=== PATIENT | male | born 1950 | race Caucasian/White ===

== ENCOUNTER → 2016-04-10 | Outpatient (CLI) | payer MEDICARE, BC ==
--- NOTE | 2016-04-10 14:11 | XR ---
EXAMINATION TYPE: XR cervical spine w flex/ext DATE OF EXAM: 04/10/2016 1:59 PM COMPARISON: NONE HISTORY: 09/04/2015 Neutral lateral, extension lateral and flexion lateral views are submitted. The odontoid is intact. There are no compression deformities. The prevertebral soft tissue structur es are within normal limits. Degenerative changes C3-C4 and C5-C6. There is a 3 mm anterolisthesis o f C4 on C5 which is noted on flexion views only. Alignment is not demonstrated level C7. IMPRESSION: 1. There is a 3 mm anterolisthesis C4 on C5 noted on flexion views only..
--- NOTE | 2016-04-10 14:20 | XR ---
EXAM TYPE: LUMBAR SPINE X RAY SERIES COMPARISON: 10/18/2015 HISTORY: Chronic low back pain TECHNIQUE: 3 views are submitted. FINDINGS: Alignment is anatomic. The pedicles are intact. The transverse processes are intact. Postsurgical c hange noted. Scoliotic curvature noted. Multilevel degenerative disc disease seen. IMPRESSION: 1. Stable postsurgical change
== END | disposition home or self-care (01) ==
LOC: RADXRMAIN 13:09
PROVIDERS: ATTEND Neurological Surgery
DX: M43.12 Spondylolisthesis, cervical region (principal); M51.36 Other intervertebral disc degeneration, lumbar region; Z98.890 Other specified postprocedural states
CPT/HCPCS: 72052; 72100

== ENCOUNTER → 2016-04-30 | Outpatient (CLI) | payer MEDICARE, BC ==
--- NOTE | 2016-04-30 21:47 | MR ---
EXAMINATION TYPE: MR ivey wo con DATE OF EXAM: 04/30/2016 6:03 PM COMPARISON: 09/04/2015 HISTORY: Low back pain, Lumbar surgery x 1 year CONTRAST: None TECHNIQUE: Multiplanar multiecho imaging on a 3.0 Naina magnet is performed through the cervical spin e. FINDINGS: The craniovertebral junction is normal. Vertebral body alignment is normal. C7-T1: No focal disc herniation or significant disc bulge is evident. No spinal canal stenosis or n eural foraminal stenosis is present. C6-7: No focal disc herniation or significant disc bulge is evident. No spinal canal stenosis or emilie ral foraminal stenosis is present. C5-6: Mild disc bulge is present centrally and left paracentrally. This has mild anterior thecal sac compression. No cord contact is evident. Mild uncovertebral joint hypertrophy on the left with moder ate foraminal narrowing. No AP spinal canal stenosis present. C4-5: There is a central focal protrusion with moderate anterior thecal sac compression. No cord cont act is evident. No spinal canal stenosis present. Neural foramen are patent.. C3-4: There is a central disc herniation with moderate anterior thecal sac compression. This has cord contact. No cord deformity is evident. No AP spinal canal stenosis present. Uncovertebral joint hype rtrophy on the right is causing moderate foraminal narrowing.. C2-3: No focal disc herniation or significant disc bulge is evident. No spinal canal stenosis or emilie ral foraminal stenosis is present. The C4-5 disc protrusion is slightly greater on the current examination. Remaining disc changes are s table. Foraminal narrowing is stable. IMPRESSIONS: 1. There is central disc herniation C3-C4 with moderate anterior thecal sac compression. Cord contact is present without cord deformity. 2. Disc protrusion C4-5 slightly greater on the current examination without cord contact or deformity . 3. Disc bulging C5-6 with mild anterior thecal sac compression. 4. Foraminal narrowing discussed above. EXAMINATION TYPE: MR ivey wo con DATE OF EXAM: 04/30/2016 6:03 PM COMPARISON: 12/07/2014 HISTORY: Low back pain, Lumbar surgery x 1 year CONTRAST: 0 mL intravenous MultiHance. TECHNIQUE: Multiplanar, multisequence images of the lumbar spine were acquired. FINDINGS: Cord terminates at the L1 level. L5-S1: No significant disc bulge or disc herniation. No spinal canal stenosis. No foraminal stenosi s. . L4-L5: No significant disc bulge or disc herniation. No spinal canal stenosis. No foraminal stenosi s. Susceptibility artifact limits the posterior spinal canal evaluation.. L3-L4: No significant disc bulge or disc herniation. No spinal canal stenosis. No foraminal stenosi s. Susceptibility artifact limits the posterior spinal canal evaluation. This is an interval change. . L2-L3: No significant disc bulge or disc herniation. No spinal canal stenosis. No foraminal stenosi s. Neural foramen are patent.. L1-L2: Left paracentral disc bulge has mild anterior thecal sac compression. Facet hypertrophy is lef t posterior lateral thecal sac compression. AP spinal canal stenosis is not present. No foraminal jazmine nosis. . T12-L1: No significant disc bulge or disc herniation. No spinal canal stenosis. No foraminal stenos is. Neural foramen are patent.. Findings appear stable from 12/07/2014. No increasing stenosis increasing disc bulge or foraminal marietta rowing is evident. Facet changes appear stable. The pedicle screw placement L3-L4 is an interval find ing. IMPRESSION: 1. . Postsurgical changes L3-L4. This causes some limitation of the posterior spinal canal. 2. Mild facet changes.
== END | disposition home or self-care (01) ==
LOC: RADMRIMAIN 17:08
PROVIDERS: ATTEND Neurological Surgery
DX: M50.21 Other cervical disc displacement, high cervical region (principal); M50.221 Other cervical disc displacement at C4-C5 level; M51.36 Other intervertebral disc degeneration, lumbar region; M48.02 Spinal stenosis, cervical region; M41.26 Other idiopathic scoliosis, lumbar region; M50.320 Other cervical disc degeneration, mid-cervical region, unspecified level; Z98.890 Other specified postprocedural states
CPT/HCPCS: 72141; 72148

== ENCOUNTER → 2016-06-16 | Outpatient (CLI) | payer MEDICARE, BC ==
[2016-06-11 11:29] VITALS: BMI 33.0
[2016-06-16 13:15] VITALS: BP 143/94; PULSE 91; RESP 16; TEMP 97.8
--- NOTE | 2016-06-16 13:50 | P.CONS ---
History of Present Illness - Chief Complaint Lower back pain - History of Present Illness This is a 66-year-old male with long-standing history of lower back pain that he used to radiate down the left lower extremity however his back surgery which she had in 2014 stopped his left leg pain. The patient is more on the left side of his lower back. The pain gets worse by standing and sitting for too long. Right now the patient goes to physical therapy which didhelp his pain. He used to be on Apollo 4-5 times a day and he used to go to the clinic clinic but he stopped going there after he weaned himself off Apollo. The patient denies any bowel or bladder dysfunction. This pain occasionally wakes him up at night when he moves in bed. He denies any weakness in the lower extremities. Lumbar spine MRI showed surgical changes at the L2-L3 level and mild disc bulging and facet arthropathy. 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 Past Medical History Past Medical History: GERD/Reflux, Hyperlipidemia, Hypertension Additional Past Medical History / Comment(s): lower back pain History of Any Multi-Drug Resistant Organisms: None Reported Past Surgical History: Back Surgery, Heart Catheterization With Stent Past Anesthesia/Blood Transfusion Reactions: No Reported Reaction Date of Last Stent Placement:: 1997 Past Psychological History: No Psychological Hx Reported Smoking Status: Former smoker Past Alcohol Use History: Rare Additional Past Alcohol Use History / Comment(s): smoker 30 years 1 ppd quit Past Drug Use History: None Reported - Past Family History Father Family Medical History: No Reported History Medications and Allergies Home Medications Medication Instructions Recorded Confirmed Type Aspirin [Adult Low Dose Aspirin EC] 2 tab PO DAILY 06/11/16 06/16/16 History Atorvastatin [Lipitor] 40 mg PO DAILY 06/11/16 06/16/16 History Levocetirizine Dihydrochloride 5 mg PO DAILY 06/11/16 06/16/16 History [Xyzal] Metoprolol Tartrate [Lopressor] 50 mg PO DAILY 06/11/16 06/16/16 History Acetaminophen [Tylenol 8 Hour] 650 mg PO Q8HR 06/16/16 06/16/16 History Naproxen Sodium [Aleve] 220 mg PO TID 06/16/16 06/16/16 History Allergies Allergy/AdvReac Type Severity Reaction Status Date / Time Penicillins Allergy Rash/Hives Verified 06/16/16 12:52 Physical Exam Vitals: Vital Signs Temp Pulse Resp BP 06/16/16 12:57 97.8 F 91 16 143/94 - Psychiatric Psychiatric: A&O x's 3, appropriate affect, intact judgment & insight (Neuro exam of the lower extremities showed normal and symmetrical muscle strength absent left knee reflex and normal right knee reflex absent ankle reflexes bilaterally.) Neuro exam showed normal muscle strength in the lower extremities bilaterally and symmetrically absent left knee reflex normal right knee reflex absent ankle reflexes bilaterally. Straight leg raising test negative bilaterally Ru's test negative bilaterally internal and external rotation of the hip joints did not elicit any hip pain. Has some tenderness in the lumbar paravertebral area bilaterally. Assessment and Plan Plan: This is a 66-year-old male with axial lower back pain status post back surgery in 2014. The patient has weaned himself off Apollo and right now he is on non- opioid medications and physical therapy. I think the patient may benefit from getting lumbar bilateral medial branch block as diagnostic procedure, and eventually radiofrequency ablation if the diagnostic procedure helped decrease his pain significantly. I thank you for the referral
== END | disposition home or self-care (01) ==
LOC: PNWHC3 12:46
PROVIDERS: ATTEND Anesthesiology
DX: M54.5 Low back pain (principal); K21.9 Gastro-esophageal reflux disease without esophagitis; E78.5 Hyperlipidemia, unspecified; I10 Essential (primary) hypertension; Z87.891 Personal history of nicotine dependence; Z98.890 Other specified postprocedural states; Z88.0 Allergy status to penicillin; Z79.82 Long term (current) use of aspirin; Z79.899 Other long term (current) drug therapy; Z79.1 Long term (current) use of non-steroidal anti-inflammatories (NSAID)
CPT/HCPCS: 99211

== ENCOUNTER → 2016-07-28 | Outpatient (CLI) | payer MEDICARE, BC ==
[2016-07-28 09:18] LABS: ALT 52 U/L (21-72); AST 24 U/L (17-59); Alkaline Phosphatase 57 U/L (38-126); Anion Gap 10 mmol/L; Blood Urea Nitrogen 13 mg/dL (9-20); Calcium 9.3 mg/dL (8.4-10.2); Carbon Dioxide 28 mmol/L (22-30); Chloride 105 mmol/L (98-107); Glucose 112 mg/dL (74-99); Non-African American GFR(MDRD) >60 (>60 ml/min/1.73 sqM); Potassium 4.6 mmol/L (3.5-5.1); Sodium 143 mmol/L (137-145); Total Bilirubin 0.8 mg/dL (0.2-1.3); Total Protein 7.1 g/dL (6.3-8.2)
== END | disposition home or self-care (01) ==
LOC: LABWHC1 08:11
PROVIDERS: ATTEND Internal Medicine
DX: I10 Essential (primary) hypertension (principal)
CPT/HCPCS: 36415; 80053

== ENCOUNTER → 2017-01-19 | Outpatient (CLI) | payer MEDICARE, BC ==
[2017-01-19 09:33] LABS: Basophils # (A) 0.1 k/uL (0-0.2); Basophils % (A) 1 %; CH 32.3; CHCM 31.5; Eosinophils # (A) 0.2 k/uL (0-0.7); Eosinophils % (A) 3 %; HCT 50.2 % (39.0-53.0); HDW 2.21; HGB 15.7 gm/dL (13.0-17.5); Luc # (Auto) 0.19; Luc % (Auto) 2; Lymphocytes # (A) 1.6 k/uL (1.0-4.8); Lymphocytes % (A) 18 %; MCH 32.3 pg (25.0-35.0); MCHC 31.4 g/dL (31.0-37.0); MCV 102.9 fL (80.0-100.0); Macrocytosis Slight; Mean Platelet Volume 7.8; Monocytes # (A) 0.6 k/uL (0-1.0); Monocytes % (A) 7 %; Neutrophils # (A) 6.1 k/uL (1.3-7.7); Neutrophils % (A) 70 %; RBC 4.88 m/uL (4.30-5.90); RDW 13.6 % (11.5-15.5); WBC 8.8 k/uL (3.8-10.6); WBC (Perox) 8.54
[2017-01-19 11:00] LABS: ALT 68 U/L (21-72); AST 29 U/L (17-59); Alkaline Phosphatase 63 U/L (38-126); Anion Gap 9 mmol/L; Blood Urea Nitrogen 16 mg/dL (9-20); Carbon Dioxide 24 mmol/L (22-30); Chloride 106 mmol/L (98-107); Cholesterol 166 mg/dL (<200); Glucose 108 mg/dL (74-99); HDL Cholesterol 40 mg/dL (40-60); Non-African American GFR(MDRD) >60 (>60 ml/min/1.73 sqM); Potassium 4.8 mmol/L (3.5-5.1); Sodium 139 mmol/L (137-145); Total Bilirubin 0.5 mg/dL (0.2-1.3); Total Protein 6.8 g/dL (6.3-8.2)
== END | disposition home or self-care (01) ==
LOC: LABWHC1 08:19
PROVIDERS: ATTEND Internal Medicine
DX: Z00.00 Encounter for general adult medical examination without abnormal findings (principal); I10 Essential (primary) hypertension; Z12.5 Encounter for screening for malignant neoplasm of prostate
CPT/HCPCS: 80061; 80053; 85025; 36415; G0103

== ENCOUNTER 2019-07-21 11:54 | Emergency (ER) | payer MEDICARE, BC ==
[2019-07-21] MEDS ORDERED: IPRATROPIUM-ALBUTEROL 3 ML NEB INHALATION STA ×2 (12:51→15:23)
--- NOTE | 2019-07-21 13:12 | ED ---
SOB HPI - General Chief Complaint: Shortness of Breath Stated Complaint: Pneumonia,EULALIO Time Seen by Provider: 07/21/19 12:40 Source: patient, RN notes reviewed Mode of arrival: ambulatory Limitations: no limitations - History of Present Illness Initial Comments: 69-year-old male presents emergency Department with chief complaint of shortness of breath. Patient had increase in shortness breath since Thursday. Patient reports a fever 100 at home. Patient is nonproductive cough. He states he normally has issues with his asthma with seasonal ALLERGIES. Patient sees Dr. Beltran. He denies any sick contacts. Denies any leg swelling, leg pain. Patien t states that he is getting no relief with his inhalers at home. Patient does admit that he has a history of CAD. - Related Data Home Medications Medication Instructions Recorded Confirmed Aspirin [Adult Low Dose Aspirin EC] 162 mg PO DAILY 06/11/16 03/21/17 Atorvastatin [Lipitor] 40 mg PO DAILY 06/11/16 03/21/17 Levocetirizine Dihydrochloride 5 mg PO DAILY 06/11/16 03/21/17 [Xyzal] Metoprolol Tartrate [Lopressor] 50 mg PO DAILY 06/11/16 03/21/17 Albuterol Inhaler (Mhu) [Ventolin 1 - 2 puff INHALATION RT-Q6H PRN 03/21/17 03/21/17 Hfa Inhaler (Mhu)] Montelukast [Singulair] 10 mg PO DAILY 03/21/17 03/21/17 Previous Rx's Medication Instructions Recorded Levofloxacin [Levaquin] 500 mg PO DAILY 5 Days #5 tab 03/25/17 predniSONE 10 mg PO DAILY 16 Days #40 tab 03/25/17 Ipratropium-Albuterol Nebulize 3 ml INHALATION QID 30 Days #5 box 03/26/17 [Duoneb 0.5 mg-3 mg/3 ml Soln] Pantoprazole [Protonix] 40 mg PO DELMI-OLWKFSZaynab #30 tablet. 03/26/17 Polyethylene Glycol 3350 [Miralax] 17 gm PO DAILY #30 powd.pack 03/26/17 Ipratropium-Albuterol Nebulize 3 ml INHALATION QID #1 box 07/21/19 [Duoneb 0.5 mg-3 mg/3 ml Soln] predniSONE 50 mg PO DAILY #5 tab 07/21/19 Allergies Allergy/AdvReac Type Severity Reaction Status Date / Time budesonide [From Symbicort] Allergy Rash/Hives Verified 07/21/19 12:37 formoterol [From Symbicort] Allergy Rash/Hives Verified 07/21/19 12:37 Penicillins Allergy Rash/Hives Verified 07/21/19 12:37 Review of Systems ROS Statement: Those systems with pertinent positive or pertinent negative responses have been documented in the HPI. ROS Other: All systems not noted in ROS Statement are negative. Past Medical History Past Medical History: GERD/Reflux, Hyperlipidemia, Hypertension Additional Past Medical History / Comment(s): lower back pain History of Any Multi-Drug Resistant Organisms: None Reported Past Surgical History: Back Surgery, Heart Catheterization With Stent Past Anesthesia/Blood Transfusion Reactions: No Reported Reaction Date of Last Stent Placement:: 1997 Past Psychological History: No Psychological Hx Reported Smoking Status: Former smoker Past Alcohol Use History: Rare Past Drug Use History: None Reported - Past Family History Father Family Medical History: No Reported History Mother Additional Family Medical History / Comment(s): ALLERGIES General Exam Limitations: no limitations General appearance: alert, in no apparent distress Head exam: Present: atraumatic, normocephalic, normal inspection Eye exam: Present: normal appearance, PERRL, EOMI. Absent: scleral icterus, conjunctival injection, periorbital swelling ENT exam: Present: normal exam, normal oropharynx, mucous membranes moist Neck exam: Present: normal inspection. Absent: tenderness, meningismus, lymphadenopathy Respiratory exam: Present: decreased breath sounds. Absent: normal lung sounds bilaterally, respiratory distress, wheezes, rales, rhonchi, stridor Cardiovascular Exam: Present: regular rate, normal rhythm, normal heart sounds. Absent: systolic murmur, diastolic murmur, rubs, gallop, clicks GI/Abdominal exam: Present: soft, normal bowel sounds. Absent: distended, tenderness, guarding, rebound, rigid Extremities exam: Absent: pedal edema Neurological exam: Present: alert, oriented X3, CN II-XII intact Skin exam: Present: warm, dry, intact, normal color. Absent: rash Course Vital Signs 07/21/19 07/21/19 07/21/19 12:33 13:30 13:47 Temperature 98 F Pulse Rate 95 84 84 Respiratory 20 Rate Blood Pressure 131/84 O2 Sat by Pulse 93 L Oximetry 07/21/19 07/21/19 07/21/19 14:18 14:19 15:35 Temperature Pulse Rate 90 88 Respiratory 18 18 Rate Blood Pressure 128/90 O2 Sat by Pulse 97 Oximetry 07/21/19 15:52 Temperature Pulse Rate 90 Respiratory Rate Blood Pressure O2 Sat by Pulse Oximetry Medical Decision Making - Medical Decision Making 69-year-old male presented for shortness of breath, cough. X-ray did not reveal any major abnormality's. Lab work was within normals except for elevated d- dimer CT shows interstitial lung disease which is known to the patient. Patient had complete relief of symptoms with breathing treatments. Patient states that his medications at home were . Patient will be discharged with DuoNeb treatments, steroids. - Lab Data Result diagrams: 07/21/19 13:15 07/21/19 13:15 Lab Results 07/21/19 07/21/19 07/21/19 Range/Units 13:15 13:15 13:15 WBC 7.7 (3.8-10.6) k/uL RBC 4.65 (4.30-5.90) m/uL Hgb 15.0 (13.0-17.5) gm/dL Hct 45.9 (39.0-53.0) % MCV 98.8 (80.0-100.0) fL MCH 32.3 (25.0-35.0) pg MCHC 32.6 (31.0-37.0) g/dL RDW 12.8 (11.5-15.5) % Plt Count 221 (150-450) k/uL Neutrophils % 69 % Lymphocytes % 13 % Monocytes % 8 % Eosinophils % 7 % Basophils % 1 % Neutrophils # 5.2 (1.3-7.7) k/uL Lymphocytes # 1.0 (1.0-4.8) k/uL Monocytes # 0.6 (0-1.0) k/uL Eosinophils # 0.5 (0-0.7) k/uL Basophils # 0.1 (0-0.2) k/uL PT 9.8 (9.0-12.0) sec INR 0.9 (<1.2) APTT 22.4 (22.0-30.0) sec D-Dimer 0.76 H (<0.60) mg/L FEU Sodium 134 L (137-145) mmol/L Potassium 4.3 (3.5-5.1) mmol/L Chloride 103 (98-107) mmol/L Carbon Dioxide 22 (22-30) mmol/L Anion Gap 9 mmol/L BUN 9 (9-20) mg/dL Creatinine 1.05 (0.66-1.25) mg/dL Est GFR (CKD-EPI)AfAm 84 (>60 ml/min/1.73 sqM) Est GFR (CKD-EPI)NonAf 73 (>60 ml/min/1.73 sqM) Glucose 94 (74-99) mg/dL Plasma Lactic Acid James (0.7-2.0) mmol/L Calcium 9.1 (8.4-10.2) mg/dL Magnesium 1.9 (1.6-2.3) mg/dL Total Bilirubin 0.8 (0.2-1.3) mg/dL AST 23 (17-59) U/L ALT 25 (4-49) U/L Alkaline Phosphatase 58 (38-126) U/L Troponin I (0.000-0.034) ng/mL NT-Pro-B Natriuret Pep pg/mL Total Protein 6.9 (6.3-8.2) g/dL Albumin 3.9 (3.5-5.0) g/dL 07/21/19 07/21/19 07/21/19 Range/Units 13:15 13:15 13:15 WBC (3.8-10.6) k/uL RBC (4.30-5.90) m/uL Hgb (13.0-17.5) gm/dL Hct (39.0-53.0) % MCV (80.0-100.0) fL MCH (25.0-35.0) pg MCHC (31.0-37.0) g/dL RDW (11.5-15.5) % Plt Count (150-450) k/uL Neutrophils % % Lymphocytes % % Monocytes % % Eosinophils % % Basophils % % Neutrophils # (1.3-7.7) k/uL Lymphocytes # (1.0-4.8) k/uL Monocytes # (0-1.0) k/uL Eosinophils # (0-0.7) k/uL Basophils # (0-0.2) k/uL PT (9.0-12.0) sec INR (<1.2) APTT (22.0-30.0) sec D-Dimer (<0.60) mg/L FEU Sodium (137-145) mmol/L Potassium (3.5-5.1) mmol/L Chloride (98-107) mmol/L Carbon Dioxide (22-30) mmol/L Anion Gap mmol/L BUN (9-20) mg/dL Creatinine (0.66-1.25) mg/dL Est GFR (CKD-EPI)AfAm (>60 ml/min/1.73 sqM) Est GFR (CKD-EPI)NonAf (>60 ml/min/1.73 sqM) Glucose (74-99) mg/dL Plasma Lactic Acid James 1.2 (0.7-2.0) mmol/L Calcium (8.4-10.2) mg/dL Magnesium (1.6-2.3) mg/dL Total Bilirubin (0.2-1.3) mg/dL AST (17-59) U/L ALT (4-49) U/L Alkaline Phosphatase (38-126) U/L Troponin I <0.012 (0.000-0.034) ng/mL NT-Pro-B Natriuret Pep 67 pg/mL Total Protein (6.3-8.2) g/dL Albumin (3.5-5.0) g/dL Disposition Clinical Impression: COPD exacerbation Disposition: HOME SELF-CARE Condition: Stable Instructions (If sedation given, give patient instructions): Asthma (ED) Additional Instructions: Please return to the Emergency Department if symptoms worsen or any other concerns. Prescriptions: Ipratropium-Albuterol Nebulize [Duoneb 0.5 mg-3 mg/3 ml Soln] 3 ml INHALATION QID #1 box predniSONE 50 mg PO DAILY #5 tab Is patient prescribed a controlled substance at d/c from ED?: No Referrals: Willis Guerrero MD [Primary Care Provider] - 1-2 days Time of Disposition: 15:55
--- NOTE | 2019-07-21 13:35 | XR ---
EXAMINATION TYPE: XR chest 2V DATE OF EXAM: 07/21/2019 COMPARISON: Prior chest x-ray 03/23/2017 HISTORY: Difficulty breathing TECHNIQUE: Frontal and lateral views of the chest are obtained. FINDINGS: Findings are similar to prior exam. There are interstitial changes within the lungs. Proba ble areas of scarring present at the lung bases. There is no pneumothorax or pleural effusion. Cardia c mediastinal silhouette, pulmonary vascularity and cassandra are stable. IMPRESSION: Findings are similar to prior exam. Interstitial lung disease.
[2019-07-21 13:51] LABS: Basophils # (A) 0.1 k/uL (0-0.2); Basophils % (A) 1 %; Eosinophils # (A) 0.5 k/uL (0-0.7); Eosinophils % (A) 7 %; HCT 45.9 % (39.0-53.0); Lymphocytes % (A) 13 %; MCH 32.3 pg (25.0-35.0); MCHC 32.6 g/dL (31.0-37.0); MCV 98.8 fL (80.0-100.0); Mean Platelet Volume 7.6; Monocytes # (A) 0.6 k/uL (0-1.0); Monocytes % (A) 8 %; Neutrophils # (A) 5.2 k/uL (1.3-7.7); Neutrophils % (A) 69 %; Platelet Count 221 k/uL (150-450); RBC 4.65 m/uL (4.30-5.90); RDW 12.8 % (11.5-15.5); WBC 7.7 k/uL (3.8-10.6)
[2019-07-21 14:05] LABS: INR 0.9 (<1.2); Partial Thromboplastin Time 22.4 sec (22.0-30.0); Prothrombin Time 9.8 sec (9.0-12.0)
[2019-07-21 14:09] LABS: Albumin 3.9 g/dL (3.5-5.0); Calcium 9.1 mg/dL (8.4-10.2); Magnesium 1.9 mg/dL (1.6-2.3); Potassium 4.3 mmol/L (3.5-5.1); Total Bilirubin 0.8 mg/dL (0.2-1.3); Total Protein 6.9 g/dL (6.3-8.2)
[2019-07-21 14:19] VITALS: RESP 18
[2019-07-21 14:21] LABS: D-Dimer 0.76 mg/L FEU (<0.60)
--- NOTE | 2019-07-21 15:19 | CT ---
EXAMINATION TYPE: CT chest angio for PE DATE OF EXAM: 07/21/2019 COMPARISON: 03/22/2017 HISTORY: 69-year-old male Chest pain with shortness of breath TECHNIQUE: Contiguous axial scanning of the chest performed with IV Contrast, patient injected with 1 00 mL of Isovue 300. Coronal/sagittal MIP reconstructions performed. CT DLP: 676.8 mGycm Automated exposure control for dose reduction was used. FINDINGS: Heart normal size without pericardial effusion. No flattening of the interventricular septum or reflu x of contrast into the hepatic veins. LAD calcifications noted. Aorta normal caliber with conventional arch vessel branching anatomy. Satisfactory opacification the pulmonary arterial system. Mild motion artifacts. No definite pulmonar y embolus. Prominent bilateral hilar lymph nodes measuring up to 1.2 cm seen to have been present previously, li rohini reactive. There is underlying centrilobular emphysema and bibasilar bronchiolectasis with interstitial thickeni ng and patchy groundglass throughout. 6 mm left upper lobe pulmonary nodule, axial image 51. Visualized upper abdomen shows anterior splenules and a subcentimeter hypodensity upper pole left kid marti too small for accurate CT characterization, probable cyst. Suspect underlying hepatic steatosis a s well given low density of the liver. Bones: Levoconvex curvature of the spine. Mild degenerative disc disease midthoracic spine. IMPRESSION: 1. MILD MOTION ARTIFACTS. NO DEFINITE PULMONARY EMBOLUS. 2. COPD. HOWEVER, THERE IS ALSO DIFFUSE GROUND GLASS, INTERSTITIAL THICKENING, AND BIBASILAR BRONCHIO LECTASIS. CONSIDER SUPERIMPOSED INTERSTITIAL PNEUMONITIS SUCH AN ASCITES. OUTPATIENT PULMONARY REF ERRAL MAY BE BENEFICIAL. 3. A 6 MM LEFT UPPER LOBE PULMONARY NODULE NOT CLEARLY SEEN PREVIOUSLY. ITS MONTH FOLLOW-UP CT RECOMM ENDED TO REASSESS. 4. HEPATIC STEATOSIS.
[2019-07-21] MEDS ORDERED: methylPREDNISolone SOD SUCCI 125 MG/2 ML VIAL IV STA (15:23)
[2019-07-21 16:13] VITALS: BP 126/77; PULSE 90; TEMP 98.1
== END 2019-07-21 16:12 | disposition home or self-care (01) ==
LOC: EC 11:54
DX: J44.1 Chronic obstructive pulmonary disease with (acute) exacerbation (principal); J84.9 Interstitial pulmonary disease, unspecified; R79.89 Other specified abnormal findings of blood chemistry; R60.9 Edema, unspecified; E78.5 Hyperlipidemia, unspecified; I10 Essential (primary) hypertension; Z79.82 Long term (current) use of aspirin; Z79.899 Other long term (current) drug therapy; Z79.51 Long term (current) use of inhaled steroids; Z87.891 Personal history of nicotine dependence; Z88.0 Allergy status to penicillin; Z88.8 Allergy status to other drugs, medicaments and biological substances; Z95.5 Presence of coronary angioplasty implant and graft
CPT/HCPCS: 36415; 94640 ×2; 93005; 85379; 83880; 80053; 83605; 83735; 84484; 85025; 85610; 85730; 71046; 71275; 96374; 99285; J2930; Q9967

== ENCOUNTER → 2019-08-15 | Outpatient (CLI) | payer MEDICARE, BC ==
[2019-08-15 10:53] LABS: Basophils # (A) 0.1 k/uL (0-0.2); Basophils % (A) 0 %; Eosinophils # (A) 0.3 k/uL (0-0.7); Eosinophils % (A) 2 %; HCT 53.6 % (39.0-53.0); HGB 16.7 gm/dL (13.0-17.5); Lymphocytes # (A) 1.3 k/uL (1.0-4.8); Lymphocytes % (A) 7 %; MCH 31.8 pg (25.0-35.0); MCHC 31.2 g/dL (31.0-37.0); MCV 101.9 fL (80.0-100.0); Macrocytosis Slight; Mean Platelet Volume 7.1; Monocytes # (A) 1.1 k/uL (0-1.0); Monocytes % (A) 6 %; Neutrophils # (A) 15.2 k/uL (1.3-7.7); Neutrophils % (A) 83 %; Platelet Count 324 k/uL (150-450); RBC 5.26 m/uL (4.30-5.90); RDW 13.4 % (11.5-15.5); WBC 18.2 k/uL (3.8-10.6)
[2019-08-15 11:07] LABS: Prothrombin Time 10.1 sec (9.0-12.0)
[2019-08-15 11:17] LABS: Potassium 5.2 mmol/L (3.5-5.1)
[2019-08-15 11:22] LABS: Partial Thromboplastin Time 20.8 sec (22.0-30.0)
== END | disposition home or self-care (01) ==
LOC: LABPAT 10:25
PROVIDERS: ATTEND Thoracic Surgery (Cardiothoracic Vascular Surgery)
DX: Z01.818 Encounter for other preprocedural examination (principal); R91.1 Solitary pulmonary nodule; U07.1 COVID-19
CPT/HCPCS: 80051; 82565; 82947; 84520; 85025; 85610; 85730; 36415; U0003

== ENCOUNTER 2019-08-18 06:26 | Observation (INO) | payer MEDICARE, BC ==
[2019-08-16 09:07] VITALS: BMI 34.4
[~2019-08-18 06:26] MED LIST: LACTATED RINGERS 1,000 ML IV SCH; ONDANSETRON 4 MG/2 ML VIAL IVP ONE
[2019-08-18] MEDS ORDERED: ONDANSETRON 4 MG/2 ML VIAL ONE (06:57)
[2019-08-18] MEDS ORDERED: MIDAZOLAM 2 MG/2 ML VIAL ONE (07:25)
[2019-08-18] MEDS ORDERED: LIDOCAINE 1% INJ 10MG/ML (20 ML MDV) ONE (07:25)
[2019-08-18] MEDS ORDERED: SUCCINYLCHOLINE CHLORIDE 100 MG/5 ML SYR IV ONE (07:25)
[2019-08-18] MEDS ORDERED: DEXAMETHASONE SOD PHOSPHATE 10 MG/ML 1 ML VIAL ONE (07:25)
[2019-08-18] MEDS ORDERED: ALBUTEROL INHALER 60 PUFF/8 GM INHALER (MHU) INHALATION ONE (07:25)
[2019-08-18] MEDS ORDERED: GLYCOPYRROLATE 0.2 MG/ML 2 ML VIAL ONE (07:25)
[2019-08-18] MEDS ORDERED: fentaNYL (PF) 50 MCG/ML 2 ML AMP ONE (07:25)
[2019-08-18] MEDS ORDERED: PHENYLEPHRINE-0.9% NACL SYG 1 MG/10 ML SYRINGE ONE (07:25)
[2019-08-18] MEDS ORDERED: PROPOFOL 10 MG/ML 20 ML VIAL IV ONE (07:25)
[2019-08-18] MEDS ORDERED: ROCURONIUM BROMIDE 10 MG/ML 5 ML VIAL IV ONE (07:25)
[2019-08-18] MEDS ORDERED: NEOSTIGMINE 1 MG/ML 10 ML VIAL ONE (07:25)
[2019-08-18] MEDS ORDERED: BUPIVACAINE (PF) 0.5% 30 ML VIAL SQ ONE ×2 (08:14)
[2019-08-18] MEDS ORDERED: ASPIRIN 81 MG PO SCH (09:00)
--- NOTE | 2019-08-18 09:07 | P.OP ---
Date of Procedure: 08/18/19 Preoperative Diagnosis: Bilateral pulmonary infiltrates Postoperative Diagnosis: same Procedure(s) Performed: Left thoracoscopy, biopsy of left lung 3 Anesthesia: LEWIS Surgeon: Castillo Carrasco Estimated Blood Loss (ml): 5 IV fluids (ml): 200 Urine output (ml): 0 Pathology: other (Wedge biopsies of lingula, left upper lobe, left lower lobe all sent for pathology and cultures) Condition: stable Disposition: PACU Indications for Procedure: 69-year-old male with persistent cough and shortness of breath. CT scope was progressive groundglass infiltrates bilaterally. Lung biopsy was requested by Dr. Coughlin. Operative Findings: There were filmy but strong adhesions present throughout the pleural space particularly in the upper lobe anteriorly and apically. Portions of the lung appeared pink but other portions appeared a darker red with black staining. Lung compliance was poor. Description of Procedure: The patient was brought to the operating room, placed supine on the operating table, anesthetized by general anesthesia. Intubation with a double-lumen endotracheal tube initially was unsuccessful. Patient was intubated with a straight endotracheal tube using a glide scope and then this was exchanged for a 39 double-lumen tube which was positioned bronchoscopically. There was copious thin clear secretions present in the airway. These were suctioned free. No endobronchial lesions were seen. The tube was positioned appropriately and secured. The patient was turned into the right lateral decubitus position. The left chest was sterilely prepped and draped. 3 one-inch incisions were made and carried down through skin and subcutaneous tissue through the muscle to the ribs. There were brought through the intercostal muscle into the pleural space. Single lung ventilation was initiated. The lung was compressed as the compliance was poor. Adhesions were noted. A portion of these were taken down in order allow adequate biopsies. Biopsies were obtained of the lingula, the more posterior left upper lobe, and the basilar left lower lobe. Each of these was taken with multiple firings of Endo SKYLER 45 purple stapler. The staple line appeared good. On completion of the wedge biopsies were taken on the back field and divided a portion sent for culture and the remainder for pathology. The rollover labeled appropriately. After inspecting the staple lines and assuring no bleeding, a 28-Greenlandic chest tube was placed through anterior separate stab incision and positioned posterior Joe in the gutter toward the apex. Could not be advanced all the way to the apex because of adhesive disease. The tube was secured with 0 Ethibond. Rib blocks were performed at the level of the incisions with half percent Marcaine. Incisions were closed with layers of Vicryl suture and dressed with skin glue and Band-Aids. Chest tube site was dressed with a drain sponge and the chest tube connected to a Pleur-evac. Patient was turned supine and extubated and transferred to recovery in stable condition.
[2019-08-18] MEDS: HYDROmorphone 0.5 MG/0.5 ML SYRINGE IVP PRN ×4 (09:15→13:38)
[2019-08-18] MEDS ORDERED: MEPERIDINE 50 MG/ML SYRINGE IVP ONE ×2 (09:15→09:23)
--- NOTE | 2019-08-18 09:49 | XR ---
EXAMINATION TYPE: XR chest 1V portable DATE OF EXAM: 08/18/2019 COMPARISON: 07/12/2009 HISTORY: Post lung biopsy TECHNIQUE: Single frontal view of the chest is obtained. FINDINGS: There is a left-sided chest tube with less than 5% left apical pneumothorax. Bilateral are as of consolidation pleural effusion or thickening noted. Soft tissue emphysema. Coarsened interstiti um could be associated with chronic interstitial lung disease. IMPRESSION: 1. Postoperative change with tiny less than 5% left apical pneumothorax 2. Bilateral lower lobe infiltrate
[2019-08-18] MEDS ORDERED: KETOROLAC 30 MG/ML 1 ML VIAL IVP ONE (10:39)
[2019-08-18] MEDS ORDERED: LACTATED RINGERS 1,000 ML IV ONE ×2 (12:13)
[2019-08-18] MEDS ORDERED: IPRATROPIUM-ALBUTEROL 3 ML NEB IH PRN (14:05)
[2019-08-18] MEDS ORDERED: ONDANSETRON 4 MG/2 ML VIAL IVP PRN (14:05)
[2019-08-18] MEDS ORDERED: ACETAMINOPHEN TAB 500 MG TAB PO PRN (14:05)
[2019-08-18] MEDS: METOPROLOL TARTRATE 50 MG TAB PO SCH (14:53)
[2019-08-18] MEDS: HEPARIN SODIUM,PORCINE 5,000 UNIT/ML 1 ML VIAL SQ SCH (14:54)
[2019-08-18] MEDS: DEXTROSE 5%-0.45% NACL 1,000 ML IV SCH (14:54)
[2019-08-18] MEDS: KETOROLAC 30 MG/ML 1 ML VIAL IVP SCH ×2 (14:55→17:29)
[2019-08-18] MEDS: traMADol 50 MG TAB PO SCH ×3 (14:56→21:17)
[2019-08-18] MEDS: LORATADINE 10 MG TAB PO SCH (14:57)
[2019-08-18] MEDS: CHOLECALCIFEROL 1,000 UNIT TAB PO SCH (14:57)
[2019-08-18] MEDS: ASPIRIN 81 MG PO SCH (14:57)
[2019-08-18] MEDS: ATORVASTATIN 40 MG TAB PO SCH (14:57)
[2019-08-18 16:03] LABS: Glucose,Whole Blood 149 mg/dL (75-99)
[2019-08-18] MEDS: IPRATROPIUM-ALBUTEROL 3 ML NEB IH SCH ×3 (16:04→20:58)
[2019-08-18] MEDS ORDERED: MONTELUKAST 10 MG TAB PO SCH (21:00)
--- NOTE | 2019-08-18 23:23 | XR ---
EXAMINATION TYPE: XR chest 1V portable DATE OF EXAM: 08/18/2019 COMPARISON: Today HISTORY: Short of breath TECHNIQUE: FINDINGS: There is a left-sided chest tube with the tip at the left upper lobe. There is some infiltr ate and atelectasis left lung base. There is coarse interstitial density in the lungs. There is no gr oss heart failure. IMPRESSION: No pneumothorax seen. Left lower lobe infiltrate and atelectasis unchanged. There is impr arturo aeration of the right lung base compared to exam this morning.
[2019-08-19] MEDS: HEPARIN SODIUM,PORCINE 5,000 UNIT/ML 1 ML VIAL SQ SCH ×2 (00:08→08:33)
[2019-08-19] MEDS: KETOROLAC 30 MG/ML 1 ML VIAL IVP SCH ×3 (00:09→12:16)
[2019-08-19] MEDS: DEXTROSE 5%-0.45% NACL 1,000 ML IV SCH (04:21)
[2019-08-19 04:47] VITALS: RESP 16
[2019-08-19 06:48] LABS: Basophils % (A) 0 %; Eosinophils # (A) 0.1 k/uL (0-0.7); Eosinophils % (A) 0 %; HCT 44.5 % (39.0-53.0); HGB 14.6 gm/dL (13.0-17.5); Lymphocytes # (A) 0.9 k/uL (1.0-4.8); Lymphocytes % (A) 5 %; MCH 33.6 pg (25.0-35.0); MCHC 32.7 g/dL (31.0-37.0); MCV 102.6 fL (80.0-100.0); Macrocytosis Slight; Mean Platelet Volume 7.5; Monocytes # (A) 0.9 k/uL (0-1.0); Monocytes % (A) 5 %; Neutrophils # (A) 16.1 k/uL (1.3-7.7); Neutrophils % (A) 89 %; Platelet Count 198 k/uL (150-450); RBC 4.34 m/uL (4.30-5.90); RDW 13.2 % (11.5-15.5); WBC 18.1 k/uL (3.8-10.6)
[2019-08-19 06:54] LABS: Calcium 9.2 mg/dL (8.4-10.2); Potassium 4.9 mmol/L (3.5-5.1)
[2019-08-19] MEDS: IPRATROPIUM-ALBUTEROL 3 ML NEB IH SCH ×2 (08:05→12:24)
[2019-08-19] MEDS: CHOLECALCIFEROL 1,000 UNIT TAB PO SCH (08:32)
[2019-08-19] MEDS: traMADol 50 MG TAB PO SCH (08:32)
[2019-08-19] MEDS: LORATADINE 10 MG TAB PO SCH (08:32)
[2019-08-19] MEDS: METOPROLOL TARTRATE 50 MG TAB PO SCH (08:32)
[2019-08-19] MEDS: ATORVASTATIN 40 MG TAB PO SCH (08:32)
[2019-08-19] MEDS: ASPIRIN 81 MG PO SCH (08:32)
--- NOTE | 2019-08-19 10:40 | XR ---
EXAMINATION TYPE: XR chest 1V DATE OF EXAM: 08/19/2019 HISTORY: Shortness of breath. COMPARISON: 08/18/2019 TECHNIQUE: Single view of the chest is submitted. FINDINGS: Demonstrated are scattered senescent parenchymal change. Patchy left lower lobe infiltrate persists. Left-sided chest tube in place without sizable pneumothor ax. Right lung is clear. The heart is stable. Hilar and mediastinal structures are within normal limits. Degenerative changes are seen of the dorsal spine. IMPRESSION: 1. Patchy left lower lobe infiltrate persists. Left-sided chest tube in place without sizable pneumo thorax.
--- NOTE | 2019-08-19 12:47 | P.CNPUL ---
History of Present Illness Consult date: 08/19/19 Requesting physician: Castillo Carrasco Reason for consult: abnormal CXR/CT Chief complaint: Shortness of breath, cough History of present illness: This is a very pleasant 69-year-old gentleman who follows with Dr. castañeda is his primary care provider. He is a history of acid reflux, ALLERGIC rhinitis, coronary artery disease, hyperlipidemia, urticaria. He also has a history of chronic bronchitis and chronic cough. He follows with Dr. Beltran in our office for the same. There is some concern regarding possible interstitial lung disease based on his symptoms and pulmonary function tests. He was then referred to Dr. Carrasco for a lung biopsy. He was admitted electively yesterday and had undergone a left thoracoscopy with wedge biopsies of the lingula, left upper lobe and left lower lobe. Pathology pending. He is seen today in consultation on the selective care unit. He is currently sitting up in bed. Awake and alert in no acute distress. He had a brief episode of shortness of breath yesterday after being sitting up in a chair for quite some time. Chest x-ray at that time revealed no pneumothorax. There is a left lower lobe infiltrate/atelectasis that was unchanged. There is improved aeration of the right lung compared to earlier that day. He is maintaining good O2 saturations in the 90s on 3 L/m per nasal cannula. She's afebrile. Hemodynamically stable. This morning's chest x-ray revealed patchy left lower lobe infiltrate. Left- sided chest tube in place. No sizable pneumothorax. Chest tube was subsequently removed this morning by CT services and a follow-up chest x-ray is pending. White count 18.1. Hemoglobin 14.6. Sodium 1:30. Potassium 4.9. Creatinine 1.06. He remains on bronchodilators. Heparin for DVT prophylaxis. Review of Systems REVIEW OF SYSTEMS: CONSTITUTIONAL: Denies any recent significant weight loss or weight gain. EYES: Denies change in vision. EARS, NOSE, MOUTH, THROAT: Denies headaches, denies sore throat. CARDIOVASCULAR: Denies chest pain, palpitations or syncopal episodes. RESPIRATORY: Positive for shortness of breath, cough, congestion no hemoptysis. GASTROINTESTINAL: Denies change in appetite, denies abdominal pain GENITOURINARY: Denies hematuria, denies infections. MUSKULOSKELETAL: Denies pain, denies swelling. INTEGUMENTARY: Denies rash, denies eczema. NEUROLOGICAL: Denies recent memory loss, no recent seizure activity. PSYCHIATRIC: Denies anxiety, denies depression. HEMATOLOGIC/LYMPHATIC: Denies anemia, denies enlarged lymph nodes. Past Medical History Past Medical History: Asthma, COPD, GERD/Reflux, Hyperlipidemia, Hypertension, Pneumonia Additional Past Medical History / Comment(s): emphysema, nodule left lung, "bad knees" History of Any Multi-Drug Resistant Organisms: None Reported Past Surgical History: Back Surgery, Heart Catheterization With Stent, Tonsi llectomy Additional Past Surgical History / Comment(s): one cardiac stent, lower lumbar fusion with josie, Past Anesthesia/Blood Transfusion Reactions: No Reported Reaction Date of Last Stent Placement:: 03/21/2008 Past Psychological History: No Psychological Hx Reported Smoking Status: Former smoker Past Alcohol Use History: Rare Additional Past Alcohol Use History / Comment(s): smoker 30 years , 1 ppd, quit 2008 Past Drug Use History: None Reported - Past Family History Father Family Medical History: Coronary Artery Disease (CAD), Hypertension Mother Family Medical History: No Reported History, Coronary Artery Disease (CAD) Additional Family Medical History / Comment(s): . Medications and Allergies Home Medications Medication Instructions Recorded Confirmed Type Aspirin [Adult Low Dose Aspirin EC] 81 mg PO DAILY 06/11/16 08/18/19 History Atorvastatin [Lipitor] 40 mg PO DAILY 06/11/16 08/18/19 History Metoprolol Tartrate [Lopressor] 50 mg PO DAILY 06/11/16 08/18/19 History Albuterol Inhaler (Mhu) [Ventolin 1 - 2 puff INHALATION RT-Q6H PRN 03/21/17 08/18/19 History Hfa Inhaler (Mhu)] Montelukast [Singulair] 10 mg PO HS 03/21/17 08/18/19 History Cholecalciferol (Vitamin D3) 5,000 unit PO DAILY 08/16/19 08/18/19 History [Vitamin D3] Levocetirizine Dihydrochloride 5 mg PO DAILY 08/16/19 08/18/19 History [Xyzal] Acetaminophen Tab [Tylenol] 1,000 mg PO Q6HR PRN tab 08/19/19 Rx Allergies Allergy/AdvReac Type Severity Reaction Status Date / Time budesonide [From Symbicort] Allergy Rash/Hives Verified 08/18/19 06:45 formoterol [From Symbicort] Allergy Rash/Hives Verified 08/18/19 06:45 Penicillins Allergy Rash/Hives Verified 08/18/19 06:45 Physical Exam Vitals: Vital Signs Temp Pulse Pulse Resp BP Pulse Ox 08/19/19 12:24 80 08/19/19 08:17 86 08/19/19 08:05 84 08/19/19 04:00 98 F 95 16 127/82 93 L 08/19/19 00:00 98.2 F 89 20 132/80 91 L 08/18/19 21:09 87 08/18/19 21:00 84 08/18/19 20:00 97.6 F 85 16 146/86 94 L 08/18/19 16:18 86 08/18/19 16:08 85 08/18/19 15:40 83 129/81 08/18/19 14:30 98.2 F 87 18 158/96 92 L 08/18/19 14:00 78 18 119/65 94 L 08/18/19 13:30 82 18 123/95 94 L 08/18/19 13:00 76 18 119/69 94 L Intake and Output 08/18/19 08/19/19 08/19/19 22:59 06:59 14:59 Intake Total 240 900 240 Output Total 18 312 Balance 222 588 240 Intake: Oral 240 900 240 Output: Chest Tube Drainage 18 12 Chest Tube Lateral Chest 18 12 Urine 300 Other: Voiding Method Urinal Urinal Weight 113.5 kg 117.5 kg GENERAL EXAM: Alert, pleasant 61-year-old gentleman, on 3 L nasal cannula, comfortable in no apparent distress. HEAD: Normocephalic. EYES: Normal reaction of pupils, equal size. NOSE: Clear with pink turbinates. THROAT: No erythema or exudates. NECK: No masses, no JVD. CHEST: No chest wall deformity. Dressing to the left chest drain intact LUNGS: Equal air entry with crackles in the left base. CVS: S1 and S2 normal with no audible murmur, regular rhythm. ABDOMEN: No hepatosplenomegaly, normal bowel sounds, no guarding or rigidity. SPINE: No scoliosis or deformity SKIN: No rashes CENTRAL NERVOUS SYSTEM: No focal deficits, tone is normal in all 4 extremities. EXTREMITIES: There is no peripheral edema. No clubbing, no cyanosis. Peripheral pulses are intact. Results - Laboratory Findings CBC and BMP: 08/19/19 06:12 08/19/19 06:12 Abnormal lab findings: Abnormal Labs 08/18/19 08/19/19 08/19/19 16:00 06:12 06:12 WBC 18.1 H MCV 102.6 H Neutrophils # 16.1 H Lymphocytes # 0.9 L Sodium 130 L Chloride 96 L BUN 27 H Glucose 108 H POC Glucose (mg/dL) 149 H - Diagnostic Findings Chest x-ray: image reviewed Assessment and Plan Assessment: 1 Bilateral pulmonary infiltrates with chronic cough and possible interstitial lung disease, status post left thoracoscopy with wedge biopsies of the lingula, left upper lobe, left lower lobe on 08/18/2019. Postoperative day #1. Results pending. 2 History of asthma 3 History of coronary artery disease with previous stent placement 4 Gastroesophageal reflux disease 5 Hyperlipidemia 6 Urticaria 7 ALLERGIC rhinitis Plan: The patient was seen and evaluated by Dr. Roper Chest x-ray and labs reviewed Left-sided chest tube has been removed Follow-up chest x-ray pending If no significant pneumothorax plan is for discharge later today Titrate down the FiO2 as tolerated Increase his activity as tolerated Continue Singulair and Ventolin Follow up with Dr. Beltran in 1 week I, the cosigning physician, performed a history & physical examination of the patient. Lungs sounds with crackles in left base. Maintaining good O2 saturations in the 90s on 3 L/m per nasal cannula. I discussed the assessment and plan of care with my nurse practitioner, Shilpa Zhou. I attest to the above consultation as dictated by her. Time with Patient: Greater than 30
--- NOTE | 2019-08-19 13:40 | XR ---
EXAMINATION TYPE: XR chest 2V DATE OF EXAM: 08/19/2019 COMPARISON: 08/19/2019 TECHNIQUE: PA and lateral views submitted. HISTORY: Post chest tube removal FINDINGS: Left-sided chest tube is been removed and there is an approximate 5% left-sided pneumothorax. Bilater al consolidation and small effusion. Arthropathy of the shoulders. Heart size unchanged. IMPRESSION: 1. Chest tube removal with the approximate 5% pneumothorax. 2. Stable chronic pleural-parenchymal changes.
[2019-08-19 15:47] VITALS: PULSE 100; TEMP 98.2
[2019-08-19 15:51] VITALS: BP 123/77
--- NOTE | 2019-08-19 16:51 | P.DS ---
Providers Date of admission: 08/19/19 09:18 Expected date of discharge: 08/19/19 Attending physician: Castillo Carrasco Consults: 08/18/19 14:05 Consult Physician Routine Consulting Provider: Merry Roper Consult Reason/Comments: pulm mgmt s/p biopsy Do you want consulting provider notified?: Yes Primary care physician: [facility] Course: FINAL DIAGNOSIS: 1. Bilateral pulmonary infiltrates 2. History of chronic bronchitis, asthma 3. COPD 4. History of CAD with stenting in 2008 5. Previous tobacco dependence PRINCIPAL PROCEDURE: 1. Left thoracoscopy, biopsy of left lung x 3 HISTORY OF PRESENT ILLNESS: This is a 69 year old active patient who follows with Dr. Guerrero for primary care and Dr. Beltran for pulmonology. He has had allergic symptomatology and frequently has dyspnea and shortness of breath, particularly in the springtime. There had been discussion between him and Dr. Beltran for some time concerning a lung biopsy and recently his symptoms worsened and Dr. Beltran decided it was time for the biopsy. CT scan of the chest was obtained which demonstrated centrilobular emphysema, bilateral bronchiectasis, interstitial thickening and diffuse ground-glass infiltrates. There was evidence of scarring particularly at the bases posteriorly. The patient was referred to Dr. Carrasco from cardiothoracic surgery. He was recommended to undergo lung biopsy with thoracoscopic approach. The usual perioperative course was discussed in detail with the patient and his family, all risks and benefits were explained, all questions were answered, and consent was obtained to proceed with surgery. The patient was scheduled for surgery at the earliest possible date. HOSPITAL COURSE: The patient was brought to the hospital on 08/18/19, taken to the preoperative area, prepared in the usual fashion, and subsequently taken to the operating room where performed a left thoracoscopy for lung biopsy. Upon completion of surgery the patient was extubated and taken to the recovery room for hemodynamic monitoring, and was eventually admitted to [address] [place] [address]. His chest tube had no air leak the night of surgery and was placed to water seal. The following morning he continued to have no air leak, his chest x-ray was stable, and his left pleural chest tube was discontinued. Repeat chest x-ray was stable. His oxygen was titrated down, he was tolerating oral diet, his pain was controlled, and he was ready to be discharged to home on postoperative day #1. He received written and verbal instruction regarding his medications, activity restrictions, signs and symptoms requiring physician notification, and follow-up appointments. COMPLICATIONS: The patient experienced no postoperative complications. Patient Condition at Discharge: Stable Plan - Discharge Summary Discharge Rx Participant: No New Discharge Prescriptions: New Acetaminophen Tab [Tylenol] 1,000 mg PO Q6HR PRN tab PRN Reason: Fever And/ Or Pain Continue Metoprolol Tartrate [Lopressor] 50 mg PO DAILY Atorvastatin [Lipitor] 40 mg PO DAILY Aspirin [Adult Low Dose Aspirin EC] 81 mg PO DAILY Montelukast [Singulair] 10 mg PO HS Albuterol Inhaler (Mhu) [Ventolin Hfa Inhaler (Mhu)] 1 - 2 puff INHALATION RT-Q6H PRN PRN Reason: Shortness Of Breath Levocetirizine Dihydrochloride [Xyzal] 5 mg PO DAILY Cholecalciferol (Vitamin D3) [Vitamin D3] 5,000 unit PO DAILY Discontinued predniSONE 10 mg PO DAILY 16 Days #40 tab Discharge Medication List Aspirin [Adult Low Dose Aspirin EC] 81 mg PO DAILY 06/11/16 [History] Atorvastatin [Lipitor] 40 mg PO DAILY 06/11/16 [History] Metoprolol Tartrate [Lopressor] 50 mg PO DAILY 06/11/16 [History] Albuterol Inhaler (Mhu) [Ventolin Hfa Inhaler (Mhu)] 1 - 2 puff INHALATION RT- Q6H PRN 03/21/17 [History] Montelukast [Singulair] 10 mg PO HS 03/21/17 [History] Cholecalciferol (Vitamin D3) [Vitamin D3] 5,000 unit PO DAILY 08/16/19 [History] Levocetirizine Dihydrochloride [Xyzal] 5 mg PO DAILY 08/16/19 [History] Acetaminophen Tab [Tylenol] 1,000 mg PO Q6HR PRN tab 08/19/19 [Rx] Follow up Appointment(s)/Referral(s): Castillo Carrasco MD [STAFF PHYSICIAN] - 08/29/19 9:30 am Keith Beltran DO [Doctor of Osteopathic Medicine] - 09/12/19 1:15 pm Willis Guerrero MD [Primary Care Provider] - As Needed Patient Instructions/Handouts: COPD (Chronic Obstructive Pulmonary Disease) (DC), Chronic Lung Disease and Infection Prevention (DC) Activity/Diet/Wound Care/Special Instructions: DISCHARGE INSTRUCTIONS: 1. No driving for 2 weeks, or until physician gives their ok. 2. No lifting, pushing, or pulling more than 10 pounds for 2 weeks. The physician will advise of any restriction changes. 3. Continue pain control per as needed orders. Alternate acetaminophen (Tylenol) and ibuprofen (Motrin/Advil) for pain. 4. Continue with incentive spirometry and splinting until otherwise directed by the physician. 5. Leave chest tube dressing for 48 hours. After that, remove all dressings and shower daily. 6. Routine incision care. No powders, lotions, ointments on incisions. 7. Please call surgeon/SENIOR PROCESS ENGINEER for temp greater than 101 F or purulent drainage from incisions. 8. Smoking cessation counseling and program information provided. For questions or concerns call nurse amarilis Schofield at [phone] Discharge Disposition: HOME SELF-CARE
== END 2019-08-19 16:17 | disposition home or self-care (01) ==
LOC: OR 06:26 → EDSTATUS 07:30 → 3SCARD 08:49 → OR 08-19 09:18 → 3SCARD 08-19 09:18
PROVIDERS: ADMIT Thoracic Surgery (Cardiothoracic Vascular Surgery); ATTEND Thoracic Surgery (Cardiothoracic Vascular Surgery)
DX: J98.11 Atelectasis (principal); I25.10 Atherosclerotic heart disease of native coronary artery without angina pectoris; I10 Essential (primary) hypertension; J43.2 Centrilobular emphysema; J98.4 Other disorders of lung; L50.9 Urticaria, unspecified; K21.9 Gastro-esophageal reflux disease without esophagitis; E78.5 Hyperlipidemia, unspecified; M19.90 Unspecified osteoarthritis, unspecified site; Z95.5 Presence of coronary angioplasty implant and graft; Z87.891 Personal history of nicotine dependence; Z87.01 Personal history of pneumonia (recurrent); Z98.1 Arthrodesis status; Z79.82 Long term (current) use of aspirin; Z79.52 Long term (current) use of systemic steroids; Z79.899 Other long term (current) drug therapy; Z91.038 Other insect allergy status; Z88.8 Allergy status to other drugs, medicaments and biological substances; Z88.0 Allergy status to penicillin; Z82.49 Family history of ischemic heart disease and other diseases of the circulatory system
CPT/HCPCS: 94640 ×4; 80048; 84132; 85025; 87070; 87205; 87075; 87116; 87102; 87206; 71045 ×2; 71046; 32607; G0378; C1729; J1644 ×2; J2175; J0690 ×2; J2405; J1885 ×2; J1170; 88307

== ENCOUNTER 2019-08-20 19:56 | Emergency (ER) | payer MEDICARE, BC ==
[2019-08-20 20:02] VITALS: RESP 18
--- NOTE | 2019-08-20 20:18 | ED ---
General Adult HPI - General Chief complaint: Recheck/Abnormal Lab/Rx Stated complaint: Urine Retention, post op Time Seen by Provider: 08/20/19 20:07 Source: patient Mode of arrival: ambulatory Limitations: no limitations - History of Present Illness Initial comments: Patient is a 69-year-old male presenting to emergency Department with complaints of urinary retention for the last 1-2 days. Patient was recently admitted for a lung biopsy 2 days ago and was discharged yesterday. He states he woke up from anesthesia without a catheter but during his stay in the hospital he had a hard time urinating. He stated they wanted to put a catheter back in however he declined. Patient states he isn't been only able to go a few drops at a time and is now having a lot of abdominal pain and pressure. He denies any fever, chills, chest pain, shortness of breath. Patient states he has never had this issue before. He has no further complaints at this time. - Related Data Home Medications Medication Instructions Recorded Confirmed Aspirin [Adult Low Dose Aspirin EC] 81 mg PO DAILY 06/11/16 08/18/19 Atorvastatin [Lipitor] 40 mg PO DAILY 06/11/16 08/18/19 Metoprolol Tartrate [Lopressor] 50 mg PO DAILY 06/11/16 08/18/19 Albuterol Inhaler (Mhu) [Ventolin 1 - 2 puff INHALATION RT-Q6H PRN 03/21/17 08/18/19 Hfa Inhaler (Mhu)] Montelukast [Singulair] 10 mg PO HS 03/21/17 08/18/19 Cholecalciferol (Vitamin D3) 5,000 unit PO DAILY 08/16/19 08/18/19 [Vitamin D3] Levocetirizine Dihydrochloride 5 mg PO DAILY 08/16/19 08/18/19 [Xyzal] Previous Rx's Medication Instructions Recorded Acetaminophen Tab [Tylenol] 1,000 mg PO Q6HR PRN tab 08/19/19 Allergies Allergy/AdvReac Type Severity Reaction Status Date / Time budesonide [From Symbicort] Allergy Rash/Hives Verified 08/20/19 20:02 formoterol [From Symbicort] Allergy Rash/Hives Verified 08/20/19 20:02 Penicillins Allergy Rash/Hives Verified 08/20/19 20:02 Review of Systems ROS Statement: Those systems with pertinent positive or pertinent negative responses have been documented in the HPI. ROS Other: All systems not noted in ROS Statement are negative. Past Medical History Past Medical History: GERD/Reflux, Hyperlipidemia, Hypertension Additional Past Medical History / Comment(s): lower back pain History of Any Multi-Drug Resistant Organisms: None Reported Past Surgical History: Back Surgery, Heart Catheterization With Stent Additional Past Surgical History / Comment(s): lung biopsy surgery Past Anesthesia/Blood Transfusion Reactions: No Reported Reaction Date of Last Stent Placement:: 1997 Past Psychological History: No Psychological Hx Reported Smoking Status: Former smoker Past Alcohol Use History: Rare Past Drug Use History: None Reported - Past Family History Father Family Medical History: Coronary Artery Disease (CAD), Hypertension Mother Family Medical History: No Reported History, Coronary Artery Disease (CAD) Additional Family Medical History / Comment(s): . General Exam - General Exam Comments Initial Comments: GENERAL: Well-appearing, well-nourished and in no acute distress. HEAD: Atraumatic, normocephalic. EYES: Pupils equal round and reactive to light, extraocular movements intact, sclera anicteric, conjunctiva are normal. ENT: TMs normal, nares patent, oropharynx clear without exudates. Moist mucous membranes. NECK: Normal range of motion, supple without lymphadenopathy or JVD. LUNGS: Breath sounds clear to auscultation bilaterally and equal. No wheezes rales or rhonchi. HEART: Regular rate and rhythm without murmurs, rubs or gallops. ABDOMEN: Pressure with palpation of the suprapubic and lower abdominal region. Soft, normoactive bowel sounds. No guarding, no rebound. No masses appreciated. : Deferred EXTREMITIES: Normal range of motion, no pitting or edema. No clubbing or cyanosis. NEUROLOGICAL: Normal speech, normal gait. PSYCH: Normal mood, normal affect. SKIN: Warm, Dry, normal turgor, no rashes or lesions noted. Limitations: no limitations Course Vital Signs 08/20/19 08/20/19 20:00 21:40 Temperature 98 F 97.9 F Pulse Rate 103 H 88 Respiratory 18 18 Rate Blood Pressure 98/52 119/66 O2 Sat by Pulse 96 95 Oximetry Medical Decision Making - Medical Decision Making Patient is a 69-year-old male here for urinary retention for the last 1-2 days after being admitted for a lung biopsy, he was discharged yesterday. Bladder scan revealed greater than 700mL in his bladder. A Treviño catheter was placed and patient had immediate relief of symptoms. He is resting comfortably. Vital signs improved. We will keep catheter in place until follow-up on Thursday. Patient is in agreement with this plan of care. A UA was obtained and shows no evidence for infection. Patient is stable for discharge. Return parameters were discussed with the patient he verbalizes understanding. Case discussed Dr. Reynolds. - Lab Data Lab Results 08/20/19 Range/Units 20:45 Urine Color Light Yellow Urine Appearance Clear (Clear) Urine pH 7.0 (5.0-8.0) Ur Specific [place] 1.008 (1.001-1.035) Urine Protein Negative (Negative) Urine Glucose (UA) Negative (Negative) Urine Ketones Trace H (Negative) Urine Blood Small H (Negative) Urine Nitrite Negative (Negative) Urine Bilirubin Negative (Negative) Urine Urobilinogen <2.0 (<2.0) mg/dL Ur Leukocyte Esterase Negative (Negative) Urine RBC 3 (0-5) /hpf Urine WBC 5 (0-5) /hpf Disposition Clinical Impression: Urinary retention Disposition: HOME SELF-CARE Condition: Stable Instructions (If sedation given, give patient instructions): Treviño Catheter Placement and Care (ED) Additional Instructions: Please return to the Emergency Department if symptoms worsen or any other concerns. Follow-up with PCP or urology on Thursday as discussed. Is patient prescribed a controlled substance at d/c from ED?: No Referrals: Willis Guerrero MD [Primary Care Provider] - 1-2 days Kevin Anton MD [STAFF PHYSICIAN] - 1-2 days
[2019-08-20 21:04] LABS: Appearance,Urine Clear (Clear); Bilirubin,Urine Negative (Negative); Blood,Urine Small (Negative); Color,Urine Light Yellow; Glucose,Urine (UA) Negative (Negative); Ketones,Urine Trace (Negative); Leukocyte Esterase,Urine Negative (Negative); Nitrite,Urine Negative (Negative); Protein,Urine Negative (Negative); RBC,Urine 3 /hpf (0-5); Specific Gravity,Urine 1.008 (1.001-1.035); Urobilinogen,Urine <2.0 mg/dL (<2.0); WBC,Urine 5 /hpf (0-5)
[2019-08-20 22:09] VITALS: BP 119/66; PULSE 88; TEMP 97.9
== END 2019-08-20 21:40 | disposition home or self-care (01) ==
LOC: EC 19:56
DX: R33.9 Retention of urine, unspecified (principal); K21.9 Gastro-esophageal reflux disease without esophagitis; E78.5 Hyperlipidemia, unspecified; I10 Essential (primary) hypertension; Z79.82 Long term (current) use of aspirin; Z79.899 Other long term (current) drug therapy; Z87.891 Personal history of nicotine dependence; Z88.0 Allergy status to penicillin; Z88.8 Allergy status to other drugs, medicaments and biological substances; Z95.5 Presence of coronary angioplasty implant and graft
CPT/HCPCS: 51702; 51798; 81001; 99284

== ENCOUNTER 2019-08-22 13:45 | Emergency (ER) | payer MEDICARE, BC ==
[2019-08-22 14:07] VITALS: TEMP 98.1
--- NOTE | 2019-08-22 15:43 | ED ---
Abdominal Pain HPI - General Chief Complaint: Abdominal Pain Stated Complaint: catheter trouble Time Seen by Provider: 08/22/19 15:20 Source: patient, family, RN notes reviewed Mode of arrival: wheelchair Limitations: physical limitation - History of Present Illness Initial Comments: This is a 61-year-old male who states he had a left lung biopsy done 4 days ago in the urinary retention he received a Treviño catheter 2 days ago who is here today because of lower abdominal pain and decreased urine output. No fevers chills nausea vomiting sweats or other symptoms. No other modifying factors. MD Complaint: abdominal pain - Related Data Home Medications Medication Instructions Recorded Confirmed Aspirin [Adult Low Dose Aspirin EC] 81 mg PO DAILY 06/11/16 08/22/19 Atorvastatin [Lipitor] 40 mg PO DAILY 06/11/16 08/22/19 Metoprolol Tartrate [Lopressor] 50 mg PO DAILY 06/11/16 08/22/19 Montelukast [Singulair] 10 mg PO HS 03/21/17 08/22/19 Cholecalciferol (Vitamin D3) 5,000 unit PO DAILY 08/16/19 08/22/19 [Vitamin D3] Levocetirizine Dihydrochloride 5 mg PO DAILY 08/16/19 08/22/19 [Xyzal] Acetaminophen Tab [Tylenol] 1,000 mg PO Q6HR PRN 08/22/19 08/22/19 Albuterol Sulfate [Albuterol 2 puff PO RT-QID PRN 08/22/19 08/22/19 Sulfate Hfa] Theophylline Anhydrous 200 mg PO BID 08/22/19 08/22/19 [Theophylline] Allergies Allergy/AdvReac Type Severity Reaction Status Date / Time adhesive Allergy Rash/Hives Verified 08/22/19 16:09 budesonide [From Symbicort] Allergy Rash/Hives Verified 08/22/19 16:09 formoterol [From Symbicort] Allergy Rash/Hives Verified 08/22/19 16:09 Penicillins Allergy Rash/Hives Verified 08/22/19 16:09 Review of Systems ROS Statement: Those systems with pertinent positive or pertinent negative responses have been documented in the HPI. ROS Other: All systems not noted in ROS Statement are negative. Past Medical History Past Medical History: GERD/Reflux, Hyperlipidemia, Hypertension Additional Past Medical History / Comment(s): lower back pain History of Any Multi-Drug Resistant Organisms: None Reported Past Surgical History: Back Surgery, Heart Catheterization With Stent Additional Past Surgical History / Comment(s): lung biopsy surgery Past Anesthesia/Blood Transfusion Reactions: No Reported Reaction Date of Last Stent Placement:: 1997 Past Psychological History: No Psychological Hx Reported Smoking Status: Former smoker Past Alcohol Use History: Rare Past Drug Use History: None Reported - Past Family History Father Family Medical History: Coronary Artery Disease (CAD), Hypertension Mother Family Medical History: No Reported History, Coronary Artery Disease (CAD) Additional Family Medical History / Comment(s): . General Exam - General Exam Comments Initial Comments: This is a well-developed well-nourished awake alert oriented times 3 male Limitations: physical limitation General appearance: alert, anxious, in distress Head exam: Present: atraumatic, normocephalic, normal inspection Eye exam: Present: normal appearance, PERRL, EOMI. Absent: scleral icterus, conjunctival injection, periorbital swelling ENT exam: Present: normal exam, mucous membranes moist Neck exam: Present: normal inspection. Absent: tenderness, meningismus, lymphadenopathy Respiratory exam: Present: normal lung sounds bilaterally. Absent: respiratory distress, wheezes, rales, rhonchi, stridor Cardiovascular Exam: Present: regular rate, normal rhythm, normal heart sounds. Absent: systolic murmur, diastolic murmur, rubs, gallop, clicks GI/Abdominal exam: Present: soft, distended (Distended bladder with some suprapubic tenderness palpation no guarding rebound), normal bowel sounds. Absent: tenderness, guarding, rebound, rigid exam: Present: other (Circumcised male genitalia with a Treviño catheter in place. Is attached to a leg bag with approximately 30 mL of gibson colored urine.) Extremities exam: Present: normal inspection, full ROM, normal capillary refill. Absent: tenderness, pedal edema, joint swelling, calf tenderness Back exam: Present: normal inspection Neurological exam: Present: alert, oriented X3, CN II-XII intact Psychiatric exam: Present: normal affect, normal mood Skin exam: Present: warm, dry, intact, normal color. Absent: rash Course Vital Signs 08/22/19 08/22/19 08/22/19 14:00 16:18 16:26 Temperature 98.1 F Pulse Rate 93 82 88 Respiratory 18 18 18 Rate Blood Pressure 122/81 O2 Sat by Pulse 95 Oximetry - Reevaluation(s) Reevaluation #1: 08/22/19 15:43 Patient does not want another catheter so at this time we will pull the current one out and see how things progress with the patient being able urinate on his own Medical Decision Making - Medical Decision Making Patient is feeling much improved after the Treviño catheter was removed he is requesting to go home he did have to receive a nebulizer treatment as he was becoming short of breath and did not have his inhaler with him. This is since resolved. He did have a long discussion regarding the findings the return parameters. Patient will be discharged. His is present and is in agreement. Disposition Clinical Impression: Bladder spasm, Treviño catheter problem, Bronchospasm Disposition: HOME SELF-CARE Condition: Good Instructions (If sedation given, give patient instructions): Treviño Catheter Removal (DC) Is patient prescribed a controlled substance at d/c from ED?: No Referrals: Willis Guerrero MD [Primary Care Provider] - 1-2 days
[2019-08-22] MEDS ORDERED: IPRATROPIUM-ALBUTEROL 3 ML NEB INHALATION STA (16:10)
[2019-08-22 16:53] VITALS: BP 128/79; PULSE 78; RESP 16
== END 2019-08-22 16:50 | disposition home or self-care (01) ==
LOC: EC 13:45
DX: N32.89 Other specified disorders of bladder (principal); J98.01 Acute bronchospasm; R10.30 Lower abdominal pain, unspecified; E78.5 Hyperlipidemia, unspecified; I10 Essential (primary) hypertension; Z79.51 Long term (current) use of inhaled steroids; Z79.82 Long term (current) use of aspirin; Z79.899 Other long term (current) drug therapy; Z87.891 Personal history of nicotine dependence; Z91.048 Other nonmedicinal substance allergy status; Z88.0 Allergy status to penicillin; Z88.8 Allergy status to other drugs, medicaments and biological substances; Z95.5 Presence of coronary angioplasty implant and graft
CPT/HCPCS: 94640; 99284

== ENCOUNTER → 2019-11-01 | Outpatient (CLI) | payer MEDICARE, BC | END | disposition home or self-care (01) | LOC: CPPFTMAIN 08:59 | PROVIDERS: ATTEND Internal Medicine Critical Care Medicine | DX: J84.9 Interstitial pulmonary disease, unspecified (principal); R94.2 Abnormal results of pulmonary function studies | CPT/HCPCS: 94060; 94726; 94729 ==

== ENCOUNTER → 2019-11-10 | Outpatient (CLI) | payer MEDICARE, BC ==
[2019-11-10 16:43] LABS: Albumin 4.3 g/dL (3.80-4.90); Albumin/Globulin Ratio 2.05 (1.60-3.17); Bilirubin, Conjugated 0.2 mg/dL (0.20-0.40); Bilirubin,Unconjugated 0.4 mg/dL; Globulin 2.1 g/dL (1.6-3.3); Total Bilirubin 0.6 mg/dL (0.3-1.2); Total Protein 6.4 g/dL (6.2-8.2)
== END | disposition home or self-care (01) ==
LOC: LABWHC1 09:35
PROVIDERS: ATTEND Internal Medicine Critical Care Medicine
DX: J84.10 Pulmonary fibrosis, unspecified (principal)
CPT/HCPCS: 36415; 80076

== ENCOUNTER → 2020-03-27 | Outpatient (CLI) | payer MEDICARE, BC | END | disposition home or self-care (01) | LOC: LABWHC1 15:30 | PROVIDERS: ATTEND Nurse Practitioner Adult Health | DX: Z20.822 Contact with and (suspected) exposure to COVID-19 (principal) | CPT/HCPCS: U0003; C9803 ==

== ENCOUNTER → 2020-08-01 | Outpatient (CLI) | payer MEDICARE, BC ==
--- NOTE | 2020-08-01 11:35 | XR ---
EXAMINATION TYPE: XR Hip Complete LT DATE OF EXAM: 08/01/2020 COMPARISON: NONE HISTORY: Pain TECHNIQUE: 2 views submitted FINDINGS: There is no evidence of erosive change or acute fracture. Mild concentric narrowing of the hip joint with hypertrophic changes in the acetabulum. Nonspherical morphology of the femoral head noted. Hyper trophic arthropathy of the left SI joint noted. IMPRESSION: 1. Arthropathy correlate for femoral acetabular impingement..
== END | disposition home or self-care (01) ==
LOC: RADXRMAIN 11:09
PROVIDERS: ATTEND Internal Medicine
DX: M16.12 Unilateral primary osteoarthritis, left hip (principal)
CPT/HCPCS: 73502

== ENCOUNTER → 2020-09-04 | Outpatient (CLI) | payer MEDICARE, BC ==
[2020-09-04 20:44] LABS: African American GFR (CKD) 71.1 (60.0-200.0); Non-African American GFR(CKD) 61.3 (60.0-200.0)
== END | disposition home or self-care (01) ==
LOC: LABWHC1 10:06
PROVIDERS: ATTEND Internal Medicine
DX: M54.42 Lumbago with sciatica, left side (principal)
CPT/HCPCS: 36415; 82565; 84520

== ENCOUNTER → 2020-09-14 | Outpatient (CLI) | payer MEDICARE, BC ==
--- NOTE | 2020-09-14 11:51 | MR ---
EXAMINATION TYPE: MR lumbar spine wo/w con DATE OF EXAM: 09/14/2020 COMPARISON: MR lumbar spine 04/30/2016 HISTORY: Left side low back pain w/ left side sciatica, prior surgery TECHNIQUE: Multiplanar, multisequence images of the lumbar spine were acquired utilizing 12 mL intravenous Gadav ist gadolinium contrast. L1-L2: Circumferential broad-based posterior disc bulge causes slight anterior mass effect on the the libby sac and somewhat eccentric towards the left causing anterolateral mass effect on the thecal sac. There is facet arthropathy with hypertrophy ligamentum flavum. L2-L3: Left posterior paracentral disc protrusion causes anterolateral mass effect on the thecal sac. L3-L4: Normal disc appearance without desiccation. No herniation, protrusion or disc bulging. No ca nal stenosis is present. Foramina are patent bilaterally. L4-L5: Suspect some foraminal encroachment on the right, hypertrophic change of the facets is present L5-S1: Normal disc appearance without desiccation. No herniation, protrusion or disc bulging. No ca nal stenosis is present. Foramina are patent bilaterally. Lumbar segments are intact. No paraspinal masses are identified. Conus medullaris has a normal appe arance. There is a neck spinal curvature. Patient is status post posterior fusion at L3-4 [facility] [place] eptibility artifact due to patient's hardware is noted as on prior. There is no significant spinal st enosis. Lumbar vertebral bodies show preserved height. There is spondylosis especially at L1 to, T12- L1, L2-3, some loss of disc height and signal is noted at L1 to, there is endplate discogenic marrow signal change. No abnormal enhancement following contrast administration. Probable simple cysts are n oted incidentally within the right renal cortex. IMPRESSION: Scoliosis. Degenerative disc disease. Postop changes. Findings are similar to prior exam.
== END | disposition home or self-care (01) ==
LOC: RADMRIMAIN 06:38
PROVIDERS: ATTEND Internal Medicine
DX: M51.16 Intervertebral disc disorders with radiculopathy, lumbar region (principal); M41.86 Other forms of scoliosis, lumbar region
CPT/HCPCS: 72158; A9585

== ENCOUNTER 2020-10-12 07:51 | Day surgery (SDC) | payer MEDICARE, BC ==
[2020-10-12] MEDS ORDERED: diazePAM 5 MG TAB PO PRN (08:27)
[2020-10-12 08:40] VITALS: TEMP 98.7
[2020-10-12 09:46] VITALS: RESP 16
[2020-10-12] MEDS ORDERED: HYDROcodone/APAP 5-325MG 1 EACH TAB PO PRN (11:06)
--- NOTE | 2020-10-12 13:23 | CT ---
EXAMINATION TYPE: CT lumbar spine w con DATE OF EXAM: 10/12/2020 COMPARISON: Correlation MRI 05/12/2016 HISTORY: 70-year-old male M54.5, low back pain TECHNIQUE: Contiguous axial scanning of the lumbar spine performed after intrathecal administration o f contrast material. Please refer to myelogram report of the same day for further details. Coronal/sa gittal reconstructions performed. CT DLP: 1222 mGycm Automated exposure control for dose reduction was used. FINDINGS: There are post surgical changes of L3-L4 posterior and interbody fusion with corresponding laminectom ies. There is a S-shaped scoliosis of the lumbar spine. Moderate degenerative disc space narrowing along t he side of concavity, especially toward the left at L1-L2. Vertebral body heights are preserved and alignment is otherwise maintained. Conus medullaris is normal. At T11-T12, no spinal canal or neuroforaminal stenosis. At T12-L1, no spinal canal or foraminal stenosis. At L2-L3, mild disc bulge. Given the curvature, possible lateral recess encroachment with some imping ement of the traversing nerve roots here, axial images 35 and sagittal image 20. No spinal canal sten osis. There is moderate left neuroforaminal stenosis. At L3-L4, disc bulge eccentric towards the left with facet arthropathy. Mild left neural foraminal st enosis. No spinal canal stenosis. At the fixed L3-L4 level, dorsal decompression of the spinal canal. Mild left neuroforaminal narrowin g. At L4-L5, no spinal canal stenosis. Due to the curvature, there is mild right neuroforaminal stenosis . Facet arthropathy contributes to minimal inferior left neural foraminal narrowing. At L5-S1, no spinal canal neuroforaminal stenosis. IMPRESSION: 1. S-SHAPED SCOLIOSIS OF THE LUMBAR SPINE WITH POSTERIOR AND INTERBODY FUSION AT L2-L4 WITH CORRESPON DING LAMINECTOMIES. 2. MODERATE DEGENERATIVE DISC DISEASE ESPECIALLY TOWARDS THE left at L1-L2. 3. At L2-L3, there is mild disc bulge that appears eccentric towards the left with possible lateral r ecess encroachment due to the spinal curvature. If there are corresponding left-sided radicular sympt oms, this may impinge some of the traversing nerve roots here. No spinal canal stenosis. Moderate lef t neuroforaminal stenosis at this level.
[2020-10-12 13:29] VITALS: BP 145/77; PULSE 65
--- NOTE | 2020-10-12 13:30 | FL ---
PROCEDURE: Lumbar puncture. DATE: 10/12/2020 CLINICAL HISTORY: 70-year-old male M5 4.5, low back pain, previous lumbar surgery 5 years ago, worsen ing left-sided pain. COMPLICATIONS: None SEDATION: Oral sedation provided by nursing. The patient and the patient's vital signs were monitored by quali ed independent radiology personnel. TECHNIQUE: The procedure and potential risks were explained to patient and an informed consent was obtained with teach back. Site and side was verified. A time out was performed. The patient was placed prone on the fluoroscopy table and the L3-L4 surgerized level with laminectomy was localized and the skin was marked and was prepped and draped in the usual sterile fashion. Lidocaine was used for local anesthesia. Utilizing fluoroscopic guidance a 20-gauge 6 inch spinal nee dle was placed through the skin and into the subarachnoid space. Clear CSF was visualized. A total of 15 mL Isovue-M 200 contrast material was administered into the thecal sac. The patient tolerated the procedure well and was sent to CT for scanning after 15 minutes. The estimated blood loss was minimal. The patient's condition was unchanged following the procedure. Fluoroscopy time: 48 seconds Total images: 6 IMPRESSION: Successful lumbar myelogram injection for CT.
== END 2020-10-12 13:47 | disposition home or self-care (01) ==
LOC: RADPROMAIN 07:51
PROVIDERS: ATTEND Orthopaedic Surgery
DX: M48.061 Spinal stenosis, lumbar region without neurogenic claudication (principal); M51.26 Other intervertebral disc displacement, lumbar region; M51.36 Other intervertebral disc degeneration, lumbar region
CPT/HCPCS: 62304; 72132

== ENCOUNTER 2020-10-16 12:46 | Emergency (ER) | payer MEDICARE, BC ==
[2020-10-16 12:57] VITALS: TEMP 98.2
--- NOTE | 2020-10-16 13:20 | ED ---
General Adult HPI - General Chief complaint: Shortness of Breath Stated complaint: SOB Time Seen by Provider: 10/16/20 13:10 Source: patient, RN notes reviewed, old records reviewed Mode of arrival: wheelchair Limitations: physical limitation - History of Present Illness Initial comments: Patient is a 70-year-old male with past medical history remarkable for emphysema and pulmonary fibrosis diagnosed on lung biopsy, hypertension, CAD, asthma who presents emergency Department complaining of a multi day history of worsening shortness of breath. He describes a tightness sensation in his chest but no acute pain. He states this is typical for his COPD and asthma exacerbations. He is a former smoker. Endorses a mild productive cough which is atypical for him of white clear sputum. States he has been using his breathing treatments at home with minimal improvement in his on oxygen at home. He has been vaccinated for COVID-19. Denies any fevers, abdominal pain, nausea, vomiting. Denies any chest pain. Denies any lower extremity edema, orthopnea, paroxysmal nocturnal dyspnea. No history of heart failure. His no other acute complaints at this time. Denies any history of blood clots, hemoptysis. Is not on a blood thinner. - Related Data Home Medications Medication Instructions Recorded Confirmed Aspirin [Adult Low Dose Aspirin EC] 81 mg PO DAILY 06/11/16 10/16/20 Atorvastatin [Lipitor] 40 mg PO DAILY 06/11/16 10/16/20 Metoprolol Tartrate [Lopressor] 50 mg PO DAILY 06/11/16 10/16/20 Montelukast [Singulair] 10 mg PO HS 03/21/17 10/16/20 Levocetirizine Dihydrochloride 5 mg PO DAILY 08/16/19 10/16/20 [Xyzal] Albuterol Sulfate [Albuterol 2 puff INHALATION RT-QID PRN 08/22/19 10/16/20 Sulfate Hfa] Gabapentin [Neurontin] 300 mg PO BID 09/25/20 10/16/20 Methocarbamol [Robaxin-750] 750 mg PO TID PRN 09/25/20 10/16/20 Tamsulosin [Flomax] 0.4 mg PO DAILY 09/25/20 10/16/20 Cholecalciferol (Vitamin D3) 125 mcg PO DAILY 10/16/20 10/16/20 [Vitamin D3 (125 MCG = 5,000 IU)] Diphenox-Atrop 2.5-0.025 mg 1 - 2 tab PO QID PRN 10/16/20 10/16/20 [Lomotil] Nintedanib Esylate [Ofev] 150 mg PO Q48H 10/16/20 10/16/20 predniSONE 10 mg PO DAILY 10/16/20 10/16/20 Previous Rx's Medication Instructions Recorded Doxycycline Hyclate 100 mg PO BID 7 Days #7 tab 10/16/20 predniSONE [Deltasone] 40 mg PO DAILY 5 Days #10 tab 10/16/20 Allergies Allergy/AdvReac Type Severity Reaction Status Date / Time adhesive Allergy Rash/Hives Verified 10/16/20 14:52 budesonide [From Symbicort] Allergy Rash/Hives Verified 10/16/20 14:52 formoterol [From Symbicort] Allergy Rash/Hives Verified 10/16/20 14:52 Penicillins Allergy Rash/Hives Verified 10/16/20 14:52 Review of Systems ROS Statement: Those systems with pertinent positive or pertinent negative responses have been documented in the HPI. Review of Systems: CONST: Denies fever EYES: Denies blurry vision ENT: Denies nasal congestion C/V: Denies Chest pain RESP: Endorses shortness of breath GI: Denies abdominal pain : Denies dysuria SKIN: Denies rash. MSK: Denies joint pain. NEURO: Denies headache ROS Other: All systems not noted in ROS Statement are negative. Past Medical History Past Medical History: Asthma, Coronary Artery Disease (CAD), GERD/Reflux, Hyperlipidemia, Hypertension Additional Past Medical History / Comment(s): lower back pain, mass in lung History of Any Multi-Drug Resistant Organisms: None Reported Past Surgical History: Back Surgery, Heart Catheterization With Stent Additional Past Surgical History / Comment(s): lung biopsy surgery, lower back surgery Past Anesthesia/Blood Transfusion Reactions: No Reported Reaction Date of Last Stent Placement:: 1997 Past Psychological History: No Psychological Hx Reported Smoking Status: Former smoker Past Alcohol Use History: Rare Past Drug Use History: None Reported - Past Family History Mother Family Medical History: No Reported History, Coronary Artery Disease (CAD) Additional Family Medical History / Comment(s): . General Exam - General Exam Comments Initial Comments: General: Appears in no acute distress. HEAD: Normal with no signs of head trauma. EYES: PERRLA, EOMI, conjunctiva normal, no discharge. ENT: Hearing grossly intact, normal oropharynx. RESPIRATORY: Bilateral end expiratory wheezing. No rhonchi appreciated. No tachypnea. No increased work of breathing. No retractions. C/V: Regular rate and rhythm. S1 and S2 auscultated, no edema, peripheral pulses 2+ and intact throughout ABD: Abd is soft, nontender, nondistended EXT: Normal range of motion, no obvious deformity SKIN: No rashes or lesions observed on exposed skin. NEURO: Alert and oriented 4. Limitations: physical limitation Course Vital Signs 10/16/20 10/16/20 10/16/20 12:52 13:32 14:00 Temperature 98.2 F Pulse Rate 86 80 77 Respiratory 20 16 15 Rate Blood Pressure 110/80 119/85 O2 Sat by Pulse 95 91 L Oximetry 10/16/20 10/16/20 10/16/20 14:06 14:14 14:30 Temperature Pulse Rate 75 77 81 Respiratory 16 18 14 Rate Blood Pressure 115/86 O2 Sat by Pulse 88 L Oximetry 10/16/20 15:00 Temperature Pulse Rate 81 Respiratory 19 Rate Blood Pressure 111/89 O2 Sat by Pulse 95 Oximetry Medical Decision Making - Medical Decision Making Based on the patient's presentation and physical exam, patient is likely experiencing an acute COPD/asthma exacerbation with his medical history. However I cannot rule out possibility of cardiac etiology at this time. Therefore we will obtain troponin, EKG, chest x-ray and basic labs in addition. COVID 19 swab will also be obtained. He'll be connected to continuous cardiac monitoring. He'll be treated with IV magnesium, albuterol treatments, by mouth prednisone. Patient was in agreement this plan. EKG is remarkable for normal sinus rhythm and no acute signs of ischemia. Patient's chest x-ray reveals no acute cardiopulmonary process, with similar findings to the prior exam showing interstitial lung disease. Patient's lavatory studies are remarkable for a negative troponin. The remainder of his laboratory studies are within normal limits. On reevaluation, after multiple breathing treatments, patient saturating 95% on room air. I discussed with the patient the results of his imaging as well as laboratory studies. It appears that he likely experiencing a COPD exacerbation with acute bronchitis as he is having a productive cough of white mucus which is atypical for him.. Lung sounds are improved with improvement in wheezing. He is moving good air bilaterally. I do believe it is safer to be discharged home in the patient's requesting to be discharged home. I will provide the patient with a prescription for prednisone 40 mg daily for 5 days, doxycycline twice a day for 5 days. Patient states he does not require an albuterol inhaler or breathing treatments as he has plenty of them at home.. I instructed the patient to follow up with their PCP in the next 3 days. . I explained that the patient should return to the emergency department if they experience any worsening symptoms. Strict return precautions were discussed with the patient. The patient expressed understanding of these instructions. I answered all questions that the patient had. The patient was discharged home in good condition with their prescriptions and follow up information. - Lab Data Result diagrams: 10/16/20 14:38 10/16/20 13:37 Lab Results 10/16/20 10/16/20 10/16/20 Range/Units 13:37 13:37 13:37 WBC (3.8-10.6) k/uL RBC (4.30-5.90) m/uL Hgb (13.0-17.5) gm/dL Hct (39.0-53.0) % MCV (80.0-100.0) fL MCH (25.0-35.0) pg MCHC (31.0-37.0) g/dL RDW (11.5-15.5) % Plt Count (150-450) k/uL MPV Neutrophils % % Lymphocytes % % Monocytes % % Eosinophils % % Basophils % % Neutrophils # (1.3-7.7) k/uL Lymphocytes # (1.0-4.8) k/uL Monocytes # (0-1.0) k/uL Eosinophils # (0-0.7) k/uL Basophils # (0-0.2) k/uL Macrocytosis PT 9.8 (9.0-12.0) sec INR 0.9 (<1.2) APTT 22.6 (22.0-30.0) sec Sodium 135 L (137-145) mmol/L Potassium 4.6 (3.5-5.1) mmol/L Chloride 104 (98-107) mmol/L Carbon Dioxide 24 (22-30) mmol/L Anion Gap 7 mmol/L BUN 15 (9-20) mg/dL Creatinine 1.12 (0.66-1.25) mg/dL Est GFR (CKD-EPI)AfAm 77 (>60 ml/min/1.73 sqM) Est GFR (CKD-EPI)NonAf 67 (>60 ml/min/1.73 sqM) Glucose 92 (74-99) mg/dL Calcium 9.2 (8.4-10.2) mg/dL Magnesium 1.9 (1.6-2.3) mg/dL Total Bilirubin 0.6 (0.2-1.3) mg/dL AST 26 (17-59) U/L ALT 28 (4-49) U/L Alkaline Phosphatase 57 (38-126) U/L Troponin I <0.012 (0.000-0.034) ng/mL Total Protein 6.6 (6.3-8.2) g/dL Albumin 4.0 (3.5-5.0) g/dL 10/16/20 Range/Units 14:38 WBC 8.5 (3.8-10.6) k/uL RBC 4.51 (4.30-5.90) m/uL Hgb 15.4 (13.0-17.5) gm/dL Hct 45.7 (39.0-53.0) % MCV 101.4 H (80.0-100.0) fL MCH 34.1 (25.0-35.0) pg MCHC 33.6 (31.0-37.0) g/dL RDW 12.9 (11.5-15.5) % Plt Count 215 (150-450) k/uL MPV 9.9 Neutrophils % 71 % Lymphocytes % 11 % Monocytes % 8 % Eosinophils % 6 % Basophils % 1 % Neutrophils # 6.0 (1.3-7.7) k/uL Lymphocytes # 1.0 (1.0-4.8) k/uL Monocytes # 0.6 (0-1.0) k/uL Eosinophils # 0.5 (0-0.7) k/uL Basophils # 0.1 (0-0.2) k/uL Macrocytosis Slight PT (9.0-12.0) sec INR (<1.2) APTT (22.0-30.0) sec Sodium (137-145) mmol/L Potassium (3.5-5.1) mmol/L Chloride (98-107) mmol/L Carbon Dioxide (22-30) mmol/L Anion Gap mmol/L BUN (9-20) mg/dL Creatinine (0.66-1.25) mg/dL Est GFR (CKD-EPI)AfAm (>60 ml/min/1.73 sqM) Est GFR (CKD-EPI)NonAf (>60 ml/min/1.73 sqM) Glucose (74-99) mg/dL Calcium (8.4-10.2) mg/dL Magnesium (1.6-2.3) mg/dL Total Bilirubin (0.2-1.3) mg/dL AST (17-59) U/L ALT (4-49) U/L Alkaline Phosphatase (38-126) U/L Troponin I (0.000-0.034) ng/mL Total Protein (6.3-8.2) g/dL Albumin (3.5-5.0) g/dL - EKG Data -: EKG Interpreted by Me EKG Comments: 12-lead Electrocardiogram Interpretation Note EKG was reviewed and interpreted by myself. 12-lead ECG performed at 1326 is interpreted by me as revealing normal sinus rhythm at a rate of 77 beats per minute. [place] is rightward deviated. AR interval is 160 ms, QRS duration is 80 ms, QTc is 425 ms.. There were no ST or T wave abnormalities to suggest myocardial ischemia or injury. R wave progression across the precordium was satisfactory. By my interpretation this EKG is non-diagnostic for acute ischemia. Disposition Clinical Impression: COPD exacerbation, COPD with acute bronchitis Disposition: HOME SELF-CARE Condition: Good Prescriptions: predniSONE [Deltasone] 40 mg PO DAILY 5 Days #10 tab Doxycycline Hyclate 100 mg PO BID 7 Days #7 tab Is patient prescribed a controlled substance at d/c from ED?: No Referrals: Silvestre Cole MD [Primary Care Provider] - 1-2 days
[2020-10-16] MEDS ORDERED: predniSONE 20 MG TAB PO STA (13:27)
[2020-10-16] MEDS ORDERED: MAGNESIUM SULFATE-D5W PMX 1 GM in DEXTROSE/WATER 1 100ML.BAG IVPB STA (13:27)
[2020-10-16] MEDS ORDERED: ALBUTEROL NEBULIZED 2.5 MG/3 ML INHALATION STA ×2 (13:27→14:12)
[2020-10-16 14:04] LABS: Calcium 9.2 mg/dL (8.4-10.2); Magnesium 1.9 mg/dL (1.6-2.3); Potassium 4.6 mmol/L (3.5-5.1); Total Bilirubin 0.6 mg/dL (0.2-1.3); Total Protein 6.6 g/dL (6.3-8.2)
--- NOTE | 2020-10-16 14:07 | XR ---
EXAMINATION TYPE: XR chest 2V DATE OF EXAM: 10/16/2020 COMPARISON: Chest x-ray dated 08/19/2019 HISTORY: Difficulty breathing TECHNIQUE: Frontal and lateral views of the chest are obtained. FINDINGS: Abnormal findings within the lungs are similar to prior exam, there are interstitial carmen es, patchy areas of increased attenuation without evident pneumothorax or pleural effusion. Cardiac m ediastinal silhouette shows a similar appearance. There is a spinal curvature is suspected. Apical pl eural thickening present on the right greater than left. IMPRESSION: Similar findings to prior exam, pleural parenchymal changes show similar appearance, the re is interstitial lung disease.
[2020-10-16 14:16] LABS: INR 0.9 (<1.2); Partial Thromboplastin Time 22.6 sec (22.0-30.0); Prothrombin Time 9.8 sec (9.0-12.0)
[2020-10-16 14:41] LABS: Basophils # (A) 0.1 k/uL (0-0.2); Basophils % (A) 1 %; Eosinophils # (A) 0.5 k/uL (0-0.7); Eosinophils % (A) 6 %; HCT 45.7 % (39.0-53.0); HGB 15.4 gm/dL (13.0-17.5); Lymphocytes % (A) 11 %; MCH 34.1 pg (25.0-35.0); MCHC 33.6 g/dL (31.0-37.0); MCV 101.4 fL (80.0-100.0); Macrocytosis Slight; Mean Platelet Volume 9.9; Monocytes # (A) 0.6 k/uL (0-1.0); Monocytes % (A) 8 %; Neutrophils % (A) 71 %; Platelet Count 215 k/uL (150-450); RBC 4.51 m/uL (4.30-5.90); RDW 12.9 % (11.5-15.5); WBC 8.5 k/uL (3.8-10.6)
[2020-10-16 15:10] VITALS: BP 111/89; PULSE 81; RESP 19
[2020-10-16] MEDS ORDERED: DOXYCYCLINE 100 MG CAP PO STA (15:28)
== END 2020-10-16 15:26 | disposition home or self-care (01) ==
LOC: EC 12:46
DX: J44.1 Chronic obstructive pulmonary disease with (acute) exacerbation (principal); J20.9 Acute bronchitis, unspecified; I10 Essential (primary) hypertension; E78.5 Hyperlipidemia, unspecified; I25.10 Atherosclerotic heart disease of native coronary artery without angina pectoris; K21.9 Gastro-esophageal reflux disease without esophagitis; Z79.82 Long term (current) use of aspirin; Z88.0 Allergy status to penicillin; Z88.1 Allergy status to other antibiotic agents; Z87.891 Personal history of nicotine dependence
CPT/HCPCS: 99285; 96365; 36415; 94640; 93005; 80053; 83735; 84484; 85025; 85610; 85730; 71046; J3475; J7512

== ENCOUNTER 2020-11-29 11:09 | Day surgery (SDC) | payer MEDICARE, BC ==
[~2020-11-29 11:09] MED LIST changes: -ONDANSETRON 4 MG/2 ML VIAL IVP ONE
[2020-11-29 11:28] VITALS: TEMP 98.5
[2020-11-29] MEDS ORDERED: LACTATED RINGERS 1,000 ML IV ONE (11:28)
[2020-11-29 11:37] LABS: Glucose,Whole Blood 87 mg/dL (75-99)
[2020-11-29] MEDS ORDERED: ROPIVACAINE 5MG/ML 20ML VIAL ONE (12:24)
[2020-11-29] MEDS ORDERED: TRIAMCINOLONE ACETONIDE 40 MG/ML 1 ML VIAL ONE (12:24)
[2020-11-29] MEDS ORDERED: IOPAMIDOL M200 10 ML VIAL ONE (12:24)
[2020-11-29] MEDS ORDERED: fentaNYL (PF) 50 MCG/ML 2 ML AMP ONE (12:24)
[2020-11-29] MEDS ORDERED: MIDAZOLAM 2 MG/2 ML VIAL ONE (12:24)
--- NOTE | 2020-11-29 12:41 | P.PCN ---
Date of Procedure: 11/29/20 Surgeon: Yonas Torres Pathology: none sent Condition: stable Disposition: PACU Description of Procedure: PREOPERATIVE DIAGNOSIS: 1-Lumbar radiculopathy 2- Lumber Degenerative Disc Diseases. 3-postlaminectomy pain syndrome 4-thoracolumbar scoliosis POSTOPERATIVE DIAGNOSIS: 1-Lumbar radiculopathy. 2-Lumbar Degenerative Disc Diseases 3-postlaminectomy pain syndrome\ 4-thoracolumbar scoliosis PROCEDURE 1. Lumbar epidural steroid injection under fluoroscopic guidance at the L1-2 level in the left paramedian approach. 2. Lumbar epidurogram. ANESTHESIA: Local with 1% lidocaine; and IV moderate conscious sedation with Versed and fentanyl EBL: Minimal PROCEDURE INDICATION: The patient with low back pain and radiculitis symptoms unresponsive to conservative treatment. Fluoroscopy was used to optimize visualization of the needle placement and to maximize safety. PROCEDURE DESCRIPTION / TECHNIQUE: The patient was seen and identified in the preoperative area. Risks, benefits, complications including but not limited to infections ,bleeding ,allergic reaction to the medications ,nerve damage and not complete pain relief , and alternatives were discussed with the patient. The patient agreed to proceed with the procedure and signed the consent. IV was started, and vital signs were stable. Patient was taken to the OR and time out was completed. The patient was placed in the prone position on procedure table and a pillow was placed under the abdomen to reduce lumbar lordosis. The lumbosacral area was prepped and draped in the usual sterile fashion with ChloraPrep.Patient was closely monitored during the procedure. Conscious sedation was used during the procedure to decrease patients anxiety. Vital signs were monitered during the entire procedure. Using anterior-posterior fluoroscopy, the L1-2 interlaminar space was identified and the skin over this site was marked and then infiltrated with 1% lidocaine subcutaneously. Subsequently, a 20-gauge Tuohy epidural needle was inserted and advanced toward the epidural space using the Loss of resistance to air technique and guided by AP and lateral fluoroscopy. The correct needle position in the epidural space was verified with the injection of 1 mL of the water soluble contrast dye Omnipaque 180 contrast and observing an excellent epidurogram with the epidural spread of the dye, after negative aspiration for blood and CSF and in the absence of paresthesias. Again after negative aspiration, a 7 ml mixture containing 40 mg of Kenalog and 4 ml of preservative free Normal Saline, and 2 ml of preservative free ropivacaine 0.5% solution was injected and a washout of epidurogram was seen. Needle was withdrawn intact, skin was cleansed, and bandages were applied. patient tolerated procedure well and was transferred to PACU in stable condition.A copy of the needle placement picture was saved to the fluoroscopy machine. COMPLICATIONS: None DISPOSITION / PLANS: The patient was placed in a supine position and transferred to the recovery area in a stable condition for observation. There was no evidence of lower extremity motor or sensory deficit after the procedure. Patient was discharged from the recovery room after meeting discharge criteria. Home discharge instructions were given to the patient by the staff. The patient was reexamined prior to discharge. The patient will schedule a follow up in the clinic in 2-4 weeks.
[2020-11-29 12:55] VITALS: RESP 20
[2020-11-29] MEDS ORDERED: IV FLUID CONTINUATION 750 ML IV ONE (13:00)
[2020-11-29 13:09] VITALS: BP 107/74; PULSE 118
--- NOTE | 2020-11-29 14:04 | FL ---
EXAMINATION TYPE: FL guided pain mgmt statistic DATE OF EXAM: 11/29/2020 HISTORY: Fluoroscopy time 17 seconds of fluoroscopy provided. IMPRESSION: 1. Fluoroscopy time.
== END 2020-11-29 13:16 | disposition home or self-care (01) ==
LOC: ORPAIN 11:09
PROVIDERS: ATTEND Anesthesiology
DX: M51.16 Intervertebral disc disorders with radiculopathy, lumbar region (principal); M96.1 Postlaminectomy syndrome, not elsewhere classified; M41.85 Other forms of scoliosis, thoracolumbar region; I10 Essential (primary) hypertension; E66.9 Obesity, unspecified; Z68.37 Body mass index [BMI] 37.0-37.9, adult
CPT/HCPCS: 62323; J2250; J3301; J3010; Q9966; J2795; 99152

== ENCOUNTER 2021-01-01 06:54 | Day surgery (SDC) | payer MEDICARE, BC ==
[2020-12-28 13:39] VITALS: BMI 35.9
[2021-01-01 07:21] VITALS: RESP 16; TEMP 97.7
[2021-01-01] MEDS ORDERED: methylPREDNISolone ACETATE 40 MG/ML 1 ML VIAL ONE (07:36)
[2021-01-01] MEDS ORDERED: fentaNYL (PF) 50 MCG/ML 2 ML AMP ONE (07:36)
[2021-01-01] MEDS ORDERED: IOPAMIDOL M200 10 ML VIAL ONE (07:36)
[2021-01-01] MEDS ORDERED: MIDAZOLAM 2 MG/2 ML VIAL ONE (07:36)
[2021-01-01 07:37] LABS: Glucose,Whole Blood 86 mg/dL (75-99)
--- NOTE | 2021-01-01 07:48 | P.PCN ---
Date of Procedure: 01/01/21 Procedure(s) Performed: PREOPERATIVE DIAGNOSIS: 1- Lumbar Degenerative Disc Diseases 2-Lumbar radiculopathy. 3-postlaminectomy pain syndrome lumbar area. POSTOPERATIVE DIAGNOSIS: Same as preop diagnosis. PROCEDURE 1. Lumbar epidural steroid injection under fluoroscopic guidance at the L2-3 level. (Fluoroscopy imaging was available in radiology department) 2. Lumbar epidurogram. ANESTHESIA: Local with 1% lidocaine 3 ml and , moderate sedation with intravenous Versed 2 mg ,and fentanyle 50 Mcg EBL: Minimal PROCEDURE INDICATION: The patient with low back pain and radiculitis symptoms unresponsive to conservative treatment. Fluoroscopy was used to optimize visua lization of the needle placement and to maximize safety. PROCEDURE DESCRIPTION / TECHNIQUE: The patient was seen and identified in the preoperative area. Risks, benefits, complications including but not limited to infections ,bleeding ,allergic reaction to the medications ,nerve damage and not complete pain releife , and alternatives were discussed with the patient. The patient agreed to proceed with the procedure and signed the consent. IV was started, and vital signs were stable. Patient was taken to the OR and time out was completed. The patient was placed in the prone position on procedure table and a pillow was placed under the abdomen to reduce lumbar lordosis. The lumbosacral area was prepped and draped in the usual sterile fashion.ere closely monitored during the procedure. Conscious sedation was used during the procedure to decrease patients anxiety. Vital signs was monitered during the entire procedure. Using anterior-posterior fluoroscopy, the L2-3 interlaminar space was identified and the skin over this site was marked and then infiltrated with 1% lidocaine subcutaneously. Subsequently, a 20-gauge Tuohy epidural needle was inserted and advanced toward the epidural space using the ``Loss of resistance technique and guided by AP and lateral fluoroscopy. The correct needle position in the epidural space was verified with the injection of 2 mL of the water soluble contrast dye Isovue 200 contrast and observing an excellent epidurogram with the epidural spread of the dye, after negative aspiration for blood and CSF and in the absence of paresthesias. Again after negative aspiration, a 6 ml mixture containing 80 mg of Depo-medrol , and 2 ml of preservative free Normal Saline, and 2 ml of preservative free lidocaine 1% solution was injected and a washout of epidurogram was seen. Needle was withdrawn intact, skin was cleansed, and bandages were applied. COMPLICATIONS: None DISPOSITION / PLANS: The patient was placed in a supine position and transferred to the recovery area in a stable condition for observation. There was no evidence of lower extremity motor or sensory deficit after the procedure. Patient was discharged from the recovery room after meeting discharge criteria. Home discharge instructions were given to the patient by the staff. The patient was reexamined prior to discharge. The patient will follow up with Dr. iWlkins.
[2021-01-01] MEDS ORDERED: IV FLUID CONTINUATION 1,000 ML IV ONE (07:53)
[2021-01-01 08:06] VITALS: BP 109/77; PULSE 66
--- NOTE | 2021-01-01 10:15 | FL ---
Fluoroscopy HISTORY: Pain 5 seconds fluoroscopy time supplied to the referring clinician. 1 intraoperative C-arm images docume nt the procedure. See dictated report from anesthesia.
== END 2021-01-01 08:22 | disposition home or self-care (01) ==
LOC: ORPAIN 06:54
PROVIDERS: ATTEND Specialist
DX: M51.16 Intervertebral disc disorders with radiculopathy, lumbar region (principal)
CPT/HCPCS: 62323; J2250; J1030; J3010; Q9966

== ENCOUNTER → 2021-03-19 | Outpatient (CLI) | payer MEDICARE, BC | END | disposition home or self-care (01) | LOC: LABPAT 11:34 | PROVIDERS: ATTEND Orthopaedic Surgery | DX: Z01.812 Encounter for preprocedural laboratory examination (principal); M48.56XD Collapsed vertebra, not elsewhere classified, lumbar region, subsequent encounter for fracture with routine healing; Z22.322 Carrier or suspected carrier of Methicillin resistant Staphylococcus aureus | CPT/HCPCS: 36415; 86850; 86900; 86901; 87070 ==

== ENCOUNTER 2021-04-09 15:16 | Inpatient (IN) | payer MEDICARE, BC ==
[2021-04-09 15:34] LABS: Basophils # (A) 0.1 k/uL (0-0.2); Basophils % (A) 0 %; Eosinophils # (A) 0.2 k/uL (0-0.7); Eosinophils % (A) 1 %; HCT 35.3 % (39.0-53.0); HGB 11.6 gm/dL (13.0-17.5); Lymphocytes # (A) 0.7 k/uL (1.0-4.8); Lymphocytes % (A) 4 %; MCH 33.8 pg (25.0-35.0); MCHC 32.8 g/dL (31.0-37.0); Macrocytosis Slight; Mean Platelet Volume 7.6; Monocytes # (A) 0.9 k/uL (0-1.0); Monocytes % (A) 5 %; Neutrophils % (A) 88 %; Platelet Count 339 k/uL (150-450); RBC 3.43 m/uL (4.30-5.90); RDW 13.8 % (11.5-15.5); WBC 17.2 k/uL (3.8-10.6)
[2021-04-09 15:42] LABS: Albumin 3.3 g/dL (3.5-5.0); Calcium 9.1 mg/dL (8.4-10.2); Total Bilirubin 0.8 mg/dL (0.2-1.3); Total Protein 5.9 g/dL (6.3-8.2)
--- NOTE | 2021-04-09 15:48 | CT ---
EXAMINATION TYPE: CT brain wo con for TPA DATE OF EXAM: 04/09/2021 COMPARISON: CT dated 03/21/2017 HISTORY: Altered mental status CT DLP: 1172.8 mGycm Automated exposure control for dose reduction was used. TECHNIQUE: CT scan of the brain is performed without IV contrast administration. FINDINGS: Mild bilateral cerebral white matter chronic microvascular ischemic changes. Mild brain volume loss c hanges. Scattered arterial atherosclerotic calcifications. No acute intracranial hemorrhage. No gross acute cortical infarct. No midline shift, herniation or ve ntriculectomy. Unremarkable olmedo-white matter differentiation, basal cisterns, sella and CP angles. No gross space-o ccupying lesion, vasogenic edema or mass effect. Unremarkable orbits. Clear visualized paranasal sinuses and mastoid air cells. Unremarkable calvarial bones. IMPRESSION: No acute intracranial hemorrhage or gross acute cortical infarct by this unenhanced CT scan. Mild bra in volume loss changes and mild chronic macrovascular ischemic changes.
[2021-04-09 15:51] LABS: Prothrombin Time 10.9 sec (9.0-12.0)
--- NOTE | 2021-04-09 16:29 | CT ---
EXAMINATION TYPE: CT angio head neck DATE OF EXAM: 04/09/2021 HISTORY: Neuro defecit, poss. Stroke COMPARISON: None available CT DLP: 998.6 mGycm. Automated Exposure Control for Dose Reduction was Utilized. TECHNIQUE: CTA scan of the neck is performed with IV Contrast, patient injected with 65ml mL of Isov ue 370, axial images are obtained, coronal and sagittal reformatted images are reviewed. 3D reconstru cted images are created on an independent workstation and reviewed. FINDINGS: Scattered arterial atherosclerotic calcifications. Normal caliber and enhancement of the carotid and vertebral arteries as well as major intracranial arteries without significant stenosis, occlusion, di ssection, aneurysm or AV malformation. Patent major intracranial venous sinuses. No intracranial abnormal enhancement. Hypodensities seen in the thyroid gland, likely representing ti ny cysts/nodules. COPD changes seen in the upper lungs. No aggressive bone lesion. IMPRESSION: No acute arterial abnormality, significant stenosis or occlusion seen in the visualized major neck or intracranial arteries. Incidental findings as described above.
[2021-04-09] MEDS ORDERED: ASPIRIN 325 MG TAB PO STA (16:46)
--- NOTE | 2021-04-09 16:51 | ED ---
General Adult HPI - General Chief complaint: Altered Mental Status Stated complaint: stroke Source: patient, EMS, RN notes reviewed, old records reviewed Mode of arrival: EMS Limitations: no limitations - History of Present Illness Initial comments: Patient is a 71-year-old male with past medical history remarkable for hypertension, spinal fusion, presents to the emergency Department as a code stroke. Patient was presenting from [facility]. Approximately an hour before arrival, patient was experiencing severe aphasia and dysarthria at his rehab facility. EMS arrived and he was continued to have the aphasia and dysarthria. He is confused to place and person. Is brought to the emergency department for further evaluation. Time I evaluated him, he was alert and oriented 4. Isn't sure what happened earlier. His no acute complaints other than back pain, which has been chronic since his surgery. Denies any fevers, chest pain, shortness breath, abdominal pain, nausea, vomiting. Does have very subtle dysarthria at this time. No other acute complaints at this time. - Related Data Home Medications Medication Instructions Recorded Confirmed Aspirin [Adult Low Dose Aspirin EC] 81 mg PO DAILY 06/11/16 04/09/21 Atorvastatin [Lipitor] 40 mg PO HS 06/11/16 04/09/21 Metoprolol Tartrate [Lopressor] 50 mg PO DAILY 06/11/16 04/09/21 Montelukast [Singulair] 10 mg PO HS 03/21/17 04/09/21 Levocetirizine Dihydrochloride 5 mg PO DAILY 08/16/19 04/09/21 [Xyzal] Albuterol Sulfate [Albuterol 2 puff INHALATION RT-QID PRN 08/22/19 04/09/21 Sulfate Hfa] Methocarbamol [Robaxin-750] 750 mg PO Q8H PRN 09/25/20 04/09/21 Tamsulosin [Flomax] 0.4 mg PO DAILY 09/25/20 04/09/21 Cholecalciferol (Vitamin D3) 125 mcg PO HS 10/16/20 04/09/21 [Vitamin D3 (125 MCG = 5,000 IU)] Diphenox-Atrop 2.5-0.025 mg 1 - 2 tab PO QID PRN 10/16/20 04/09/21 [Lomotil] Cefaclor [Ceclor] 250 mg PO BID@0800,199904/09/21 04/09/21 Ferrous Sulfate [Iron (65 MG 325 mg PO BID 04/09/21 04/09/21 Elemental)] Gabapentin 300 mg PO BID 04/09/21 04/09/21 HYDROcodone/APAP 7.5-325MG [[place] 1 tab PO Q6H PRN 04/09/21 04/09/21 7.5] Melatonin 3 mg PO HS PRN 04/09/21 04/09/21 Previous Rx's Medication Instructions Recorded Sennosides [Senna] 8.6 mg PO DAILY #20 tablet 04/03/21 Allergies Allergy/AdvReac Type Severity Reaction Status Date / Time adhesive Allergy Rash/Hives Verified 04/09/21 16:21 budesonide [From Symbicort] Allergy Rash/Hives Verified 04/09/21 16:21 formoterol [From Symbicort] Allergy Rash/Hives Verified 04/09/21 16:21 Review of Systems ROS Statement: Those systems with pertinent positive or pertinent negative responses have been documented in the HPI. Review of Systems: CONST: Denies fever EYES: Denies blurry vision ENT: Denies nasal congestion C/V: Denies Chest pain RESP: Denies shortness of breath GI: Denies abdominal pain : Denies dysuria SKIN: Denies rash. MSK: Endorses chronic back pain secondary to recent surgery. NEURO: Denies headache ROS Other: All systems not noted in ROS Statement are negative. 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 Bilateral hard of hearing. Lumbar DDD w/ lower back pain radiating to left hip and down upper leg with numbness and tingling. History of Any Multi-Drug Resistant Organisms: None Reported Past Surgical History: Back Surgery, Heart Catheterization With Stent Additional Past Surgical History / Comment(s): Left lung biopsy, lower back surgery w/ josie, 1 cardiac stent. Past Anesthesia/Blood Transfusion Reactions: No Reported Reaction Date of Last Stent Placement:: 1997 Past Psychological History: No Psychological Hx Reported Smoking Status: Former smoker Past Alcohol Use History: Rare Past Drug Use History: None Reported - Past Family History Mother Family Medical History: Coronary Artery Disease (CAD) Additional Family Medical History / Comment(s): from peritonitis. General Exam - General Exam Comments Initial Comments: General: Appears in no acute distress. HEAD: Normal with no signs of head trauma. EYES: PERRLA, EOMI, conjunctiva normal, no discharge. ENT: Hearing grossly intact, normal oropharynx. RESPIRATORY: Clear breath sounds bilaterally. No wheezes, rales, or rhonchi. C/V: Regular rate and rhythm. S1 and S2 auscultated, no edema, peripheral pulses 2+ and intact throughout ABD: Abd is soft, nontender, nondistended EXT: Normal range of motion, no obvious deformity SKIN: Patient has healing wounds over his chest that do not appear infected. Patient's surgical incision appears clean, nonerythematous. No induration or concern for infection at this time. NEURO: Alert and oriented 4. NIH currently is approximately 1 for slight dysarthria. GCS is 15. History of improved mental status and neurological at this time. Limitations: no limitations Course Vital Signs 04/09/21 04/09/21 15:16 18:55 Temperature 98.7 F Pulse Rate 93 Respiratory 18 16 Rate Blood Pressure 125/74 131/77 O2 Sat by Pulse 100 Oximetry Medical Decision Making - Medical Decision Making Based on the patient's presentation and physical exam, I'm concerned for possible acute stroke versus TIA. Rule out other etiology at this time. He does appear to be returning to baseline. Symptoms are rapidly resolving. Therefore I believe the benefits are far outweighed by the risks of admi nistering TPA at this time. Therefore patient was not made a code alteplase, but rather a code stroke. Code stroke was ordered. Laboratory studies were ordered and sent. Patient is to CT imaging. His blood sugar was within normal limits. Vital signs are within normal limits and stable at this time as well. By the time the patient was taken to CT imaging, NIH is 0 at this time. I spoke with Dr. Sequeira of neuro intervention who was in agreement this plan. CT imaging revealed no signs of acute intracranial process. CT angiogram revealed no abnormalities suggestive of acute ischemic process. Chest x-ray revealed no acute cardiopulmonary process, does show an improving pneumonia, especially in comparison to the prior chest x-ray. There were trace studies are remarkable for a leukocytosis of 17.2, possibly secondary to the pneumonia. Hemoglobin is mildly decreased 11.6, appears to be a chronic macrocytic anemia. Patient does have an AK I with a creatinine elevated 1.58, baseline is normal. Troponin is negative. Urinalysis is negative. Remainder the labs are unremarkable. Reevaluation come patient remains in NIH of 0. I do believe it is safe for him to be admitted to the hospital at this time. I will consult Dr. Romero of neurology who agreed to evaluate the patient. He is given an aspirin. He is given a little fluid bolus. He will be started on Rocephin for pneumonia. It does not appear that the infection is related to his recent surgery, as the surgical site wound looks within normal limits, clean, noninfectious. I discussed this with the patient was in agreement this plan. I did consult orthopedic surgery, as they recently completed his surgery. I spoke with the MLP on-call, Glynn who agreed to evaluate the patient tomorrow. He was in agreement with the plan. I spoke with the admitting physician, Dr. Aguilera of [facility], who accepted the patient. Patient was therefore admitted in serious condition to telemetry bed. - Lab Data Result diagrams: 04/09/21 15:26 04/09/21 15:26 Lab Results 04/09/21 04/09/21 04/09/21 Range/Units 15:26 15:26 15:26 WBC 17.2 H (3.8-10.6) k/uL RBC 3.43 L (4.30-5.90) m/uL Hgb 11.6 L (13.0-17.5) gm/dL Hct 35.3 L (39.0-53.0) % MCV 103.0 H (80.0-100.0) fL MCH 33.8 (25.0-35.0) pg MCHC 32.8 (31.0-37.0) g/dL RDW 13.8 (11.5-15.5) % Plt Count 339 (150-450) k/uL MPV 7.6 Neutrophils % 88 % Lymphocytes % 4 % Monocytes % 5 % Eosinophils % 1 % Basophils % 0 % Neutrophils # 15.0 H (1.3-7.7) k/uL Lymphocytes # 0.7 L (1.0-4.8) k/uL Monocytes # 0.9 (0-1.0) k/uL Eosinophils # 0.2 (0-0.7) k/uL Basophils # 0.1 (0-0.2) k/uL Macrocytosis Slight PT 10.9 (9.0-12.0) sec INR 1.0 (<1.2) APTT 22.0 (22.0-30.0) sec Sodium 136 L (137-145) mmol/L Potassium 4.0 (3.5-5.1) mmol/L Chloride 101 (98-107) mmol/L Carbon Dioxide 27 (22-30) mmol/L Anion Gap 8 mmol/L BUN 14 (9-20) mg/dL Creatinine 1.58 H (0.66-1.25) mg/dL Est GFR (CKD-EPI)AfAm 51 (>60 ml/min/1.73 sqM) Est GFR (CKD-EPI)NonAf 44 (>60 ml/min/1.73 sqM) Glucose 97 (74-99) mg/dL Plasma Lactic Acid James (0.7-2.0) mmol/L Calcium 9.1 (8.4-10.2) mg/dL Total Bilirubin 0.8 (0.2-1.3) mg/dL AST 26 (17-59) U/L ALT 19 (4-49) U/L Alkaline Phosphatase 106 (38-126) U/L Troponin I (0.000-0.034) ng/mL Total Protein 5.9 L (6.3-8.2) g/dL Albumin 3.3 L (3.5-5.0) g/dL Urine Color Urine Appearance (Clear) Urine pH (5.0-8.0) Ur Specific [place] (1.001-1.035) Urine Protein (Negative) Urine Glucose (UA) (Negative) Urine Ketones (Negative) Urine Blood (Negative) Urine Nitrite (Negative) Urine Bilirubin (Negative) Urine Urobilinogen (<2.0) mg/dL Ur Leukocyte Esterase (Negative) Urine RBC (0-5) /hpf Urine WBC (0-5) /hpf Ur Squamous Epith Cells (0-4) /hpf Amorphous Sediment (None) /hpf Urine Bacteria (None) /hpf Hyaline Casts (0-2) /lpf Urine Mucus (None) /hpf 04/09/21 04/09/21 04/09/21 Range/Units 15:26 15:26 16:20 WBC (3.8-10.6) k/uL RBC (4.30-5.90) m/uL Hgb (13.0-17.5) gm/dL Hct (39.0-53.0) % MCV (80.0-100.0) fL MCH (25.0-35.0) pg MCHC (31.0-37.0) g/dL RDW (11.5-15.5) % Plt Count (150-450) k/uL MPV Neutrophils % % Lymphocytes % % Monocytes % % Eosinophils % % Basophils % % Neutrophils # (1.3-7.7) k/uL Lymphocytes # (1.0-4.8) k/uL Monocytes # (0-1.0) k/uL Eosinophils # (0-0.7) k/uL Basophils # (0-0.2) k/uL Macrocytosis PT (9.0-12.0) sec INR (<1.2) APTT (22.0-30.0) sec Sodium (137-145) mmol/L Potassium (3.5-5.1) mmol/L Chloride (98-107) mmol/L Carbon Dioxide (22-30) mmol/L Anion Gap mmol/L BUN (9-20) mg/dL Creatinine (0.66-1.25) mg/dL Est GFR (CKD-EPI)AfAm (>60 ml/min/1.73 sqM) Est GFR (CKD-EPI)NonAf (>60 ml/min/1.73 sqM) Glucose (74-99) mg/dL Plasma Lactic Acid James 1.2 (0.7-2.0) mmol/L Calcium (8.4-10.2) mg/dL Total Bilirubin (0.2-1.3) mg/dL AST (17-59) U/L ALT (4-49) U/L Alkaline Phosphatase (38-126) U/L Troponin I <0.012 (0.000-0.034) ng/mL Total Protein (6.3-8.2) g/dL Albumin (3.5-5.0) g/dL Urine Color Yellow Urine Appearance Cloudy (Clear) Urine pH 7.0 (5.0-8.0) Ur Specific [place] 1.020 (1.001-1.035) Urine Protein 2+ H (Negative) Urine Glucose (UA) Trace H (Negative) Urine Ketones Trace H (Negative) Urine Blood Trace H (Negative) Urine Nitrite Negative (Negative) Urine Bilirubin Negative (Negative) Urine Urobilinogen 3.0 (<2.0) mg/dL Ur Leukocyte Esterase Negative (Negative) Urine RBC 3 (0-5) /hpf Urine WBC 6 H (0-5) /hpf Ur Squamous Epith Cells 1 (0-4) /hpf Amorphous Sediment Rare H (None) /hpf Urine Bacteria Rare H (None) /hpf Hyaline Casts 5 H (0-2) /lpf Urine Mucus Rare H (None) /hpf - EKG Data -: EKG Interpreted by Me EKG Comments: 12-lead Electrocardiogram Interpretation Note EKG was reviewed and interpreted by myself. 12-lead ECG performed at 1525 is interpreted by me as revealing normal sinus rhythm at a rate of 88 beats per minute. Left axis deviation. AL intervals 161 ms, QRS duration is 87 ms, QTc is 428 ms.. There were no ST or T wave abnormalities to suggest myocardial ischemia or injury. R wave progression across the precordium was satisfactory. By my interpretation this EKG is non-diagnostic for acute ischemia. Critical Care Time Critical Care Time: Yes Total Critical Care Time: 35 Critical Care Time: Upon my evaluation, this patient had a high probability of imminent or life- threatening deterioration due to TIA, pneumonia, recent spinal surgery, AK I, which required my direct attention, intervention, and personal management. I have personally provided 35 minutes of critical care time exclusive of time spent on separately billable procedures. Time includes review of laboratory data, radiology results, discussion with consultants, and monitoring for potential decompensation. Interventions were performed as documented in my note. Disposition Clinical Impression: TIA (transient ischemic attack), Leukocytosis, DB (acute kidney injury), Pneumonia Disposition: ADMITTED IP TO THIS HOSP Condition: Serious
[2021-04-09] MEDS ORDERED: CALCIUM CARBONATE 500 MG CHEWABLE PO PRN (17:06)
[2021-04-09] MEDS ORDERED: ONDANSETRON 4 MG/2 ML VIAL IVP PRN (17:06)
[2021-04-09] MEDS ORDERED: ACETAMINOPHEN TAB 325 MG TAB PO PRN (17:06)
[2021-04-09] MEDS ORDERED: LOPERAMIDE 2 MG CAP PO PRN (17:06)
[2021-04-09] MEDS ORDERED: MAG HYDROX/AL HYDROX/SIMETH 30 ML CUP PO PRN (17:06)
[2021-04-09] MEDS ORDERED: NALOXONE 0.4 MG/ML 1 ML VIAL IV PRN (17:06)
[2021-04-09 17:07] LABS: Amorphous Sediment,Urine Rare /hpf; Appearance,Urine Cloudy (Clear); Bacteria,Urine Rare /hpf; Bilirubin,Urine Negative (Negative); Blood,Urine Trace (Negative); Color,Urine Yellow; Glucose,Urine (UA) Trace (Negative); Hyaline Casts,Urine 5 /lpf (0-2); Ketones,Urine Trace (Negative); Leukocyte Esterase,Urine Negative (Negative); Mucus,Urine Rare /hpf; Nitrite,Urine Negative (Negative); Protein,Urine 2+ (Negative); RBC,Urine 3 /hpf (0-5); Squamous Epithelial Cell,Urine 1 /hpf (0-4); WBC,Urine 6 /hpf (0-5)
[2021-04-09] MEDS ORDERED: MELATONIN 3 MG TABLET PO PRN (17:13)
[2021-04-09] MEDS ORDERED: methocarbamoL 750 MG TAB PO PRN (17:13)
--- NOTE | 2021-04-09 17:27 | XR ---
EXAMINATION TYPE: XR chest 1V portable DATE OF EXAM: 04/09/2021 COMPARISON: 03/29/2021 HISTORY: Cough TECHNIQUE: Single view FINDINGS: There is some interstitial infiltrate in the left lung field. Right lung is relatively davie r. No heart failure seen. Heart size is fairly normal. IMPRESSION: There is interstitial pneumonia which is improved compared to last exam. No obvious heart failure.
[2021-04-09] MEDS ORDERED: SODIUM CHLORIDE 0.9% 1,000 ML IV STA (17:31)
[2021-04-09] MEDS ORDERED: MORPHINE SULFATE 4 MG/ML SYRINGE IVP STA (17:32)
--- NOTE | 2021-04-09 17:32 | P.HPIM ---
History of Present Illness H&P Date: 04/09/21 71-year-old male with past medical history of hypertension recent spinal surgery for which she was in the rehab patient begin to have confusion this morning and weakness in the left facial area and slurred speech was brought to the ER where symptoms resolved patient continues to have very minimal surgical speech at this time Review of systems and systems has been reviewed all negative and positive findings as per history of present illness Constitutional: No acute distress, conversant, pleasant Eyes: Anicteric sclerae, moist conjunctiva, no lid-lag PERRLA ENMT: NC/AT Oropharynx clear, no erythema, exudates Neck: Supple, FROM, no masses, or JVD No carotid bruits No thyromegaly Lungs: Clear to auscultation Clear to percussion Normal respiratory effort, no accessory muscle use Cardiovascular: Heart regular in rate and rhythm, No murmurs, gallops, or rubs No peripheral edema Abdominal: Soft Nontender, no guarding, rebound or rigidity Abdomen moving with respiration Normoactive bowel sounds No hepatomegaly, No splenomegaly No palpable mass No abdominal wall hernia noted Skin: Normal temperature, tone, texture, turgor No induration No subcutaneous nodules No rash, lesions No ulcers Extremities: No digital cyanosis No clubbing Pedal pulses intact and symmetrical Radial pulses intact and symmetrical Normal gait and station No calf tenderness Psychiatric:Alert and oriented to person, place and time Appropriate affect Intact judgement Neuro: Muscles Strength 5/5 in all 4 extremities Sensation to light touch grossly present throughout Cranial nerves II-XII grossly intact No focal sensory deficits Assessment and plan TIA versus mild CVA we'll check MRI of the brain neurology has been consulted UTI with likely metabolic encephalopathy we'll start the patient on Rocephin Recent spinal surgery will consult physical therapy patient needs rehab Generalized weakness Admit to the regular medical floor Past Medical History Past Medical History: Asthma, Coronary Artery Disease (CAD), COPD, GERD/Reflux, Hearing Disorder / Deafness, Hyperlipidemia, Hypertension, Musculoskeletal Disorder, Osteoarthritis (OA), Prostate Disorder Additional Past Medical History / Comment(s): COPD and Emphysema, UIP on home oxygen. Bilateral hard of hearing. Lumbar DDD w/ lower back pain radiating to left hip and down upper leg with numbness and tingling. History of Any Multi-Drug Resistant Organisms: None Reported Past Surgical History: Back Surgery, Heart Catheterization With Stent Additional Past Surgical History / Comment(s): Left lung biopsy, lower back surgery w/ josie, 1 cardiac stent. Past Anesthesia/Blood Transfusion Reactions: No Reported Reaction Date of Last Stent Placement:: 1997 Past Psychological History: No Psychological Hx Reported Smoking Status: Former smoker Past Alcohol Use History: Rare Past Drug Use History: None Reported - Past Family History Mother Family Medical History: Coronary Artery Disease (CAD) Additional Family Medical History / Comment(s): from peritonitis. Medications and Allergies Home Medications Medication Instructions Recorded Confirmed Type Aspirin [Adult Low Dose Aspirin EC] 81 mg PO DAILY 06/11/16 04/09/21 History Atorvastatin [Lipitor] 40 mg PO HS 06/11/16 04/09/21 History Metoprolol Tartrate [Lopressor] 50 mg PO DAILY 06/11/16 04/09/21 History Montelukast [Singulair] 10 mg PO HS 03/21/17 04/09/21 History Levocetirizine Dihydrochloride 5 mg PO DAILY 08/16/19 04/09/21 History [Xyzal] Albuterol Sulfate [Albuterol 2 puff INHALATION RT-QID PRN 08/22/19 04/09/21 History Sulfate Hfa] Methocarbamol [Robaxin-750] 750 mg PO Q8H PRN 09/25/20 04/09/21 History Tamsulosin [Flomax] 0.4 mg PO DAILY 09/25/20 04/09/21 History Cholecalciferol (Vitamin D3) 125 mcg PO HS 10/16/20 04/09/21 History [Vitamin D3 (125 MCG = 5,000 IU)] Diphenox-Atrop 2.5-0.025 mg 1 - 2 tab PO QID PRN 10/16/20 04/09/21 History [Lomotil] Sennosides [Senna] 8.6 mg PO DAILY #20 tablet 04/03/21 04/09/21 Rx Cefaclor [Ceclor] 250 mg PO BID@0800,199904/09/21 04/09/21 History Ferrous Sulfate [Iron (65 MG 325 mg PO BID 04/09/21 04/09/21 History Elemental)] Gabapentin 300 mg PO BID 04/09/21 04/09/21 History HYDROcodone/APAP 7.5-325MG [[place] 1 tab PO Q6H PRN 04/09/21 04/09/21 History 7.5] Melatonin 3 mg PO HS PRN 04/09/21 04/09/21 History Allergies Allergy/AdvReac Type Severity Reaction Status Date / Time adhesive Allergy Rash/Hives Verified 04/09/21 16:21 budesonide [From Symbicort] Allergy Rash/Hives Verified 04/09/21 16:21 formoterol [From Symbicort] Allergy Rash/Hives Verified 04/09/21 16:21 Physical Exam Vitals: Vital Signs Resp BP 04/09/21 15:16 18 125/74 Intake and Output 04/09/21 04/09/21 04/09/21 06:59 14:59 22:59 Other: Weight 120 kg Results CBC & Chem 7: 04/09/21 15:26 04/09/21 15:26 Labs: Abnormal Lab Results - Last 24 Hours (Table) 04/09/21 04/09/21 04/09/21 Range/Units 15:26 15:26 16:20 WBC 17.2 H (3.8-10.6) k/uL RBC 3.43 L (4.30-5.90) m/uL Hgb 11.6 L (13.0-17.5) gm/dL Hct 35.3 L (39.0-53.0) % MCV 103.0 H (80.0-100.0) fL Neutrophils # 15.0 H (1.3-7.7) k/uL Lymphocytes # 0.7 L (1.0-4.8) k/uL Sodium 136 L (137-145) mmol/L Creatinine 1.58 H (0.66-1.25) mg/dL Total Protein 5.9 L (6.3-8.2) g/dL Albumin 3.3 L (3.5-5.0) g/dL Urine Protein 2+ H (Negative) Urine Glucose (UA) Trace H (Negative) Urine Ketones Trace H (Negative) Urine Blood Trace H (Negative) Urine WBC 6 H (0-5) /hpf Amorphous Sediment Rare H (None) /hpf Urine Bacteria Rare H (None) /hpf Hyaline Casts 5 H (0-2) /lpf Urine Mucus Rare H (None) /hpf
--- NOTE | 2021-04-09 18:12 | US ---
EXAMINATION TYPE: US carotid duplex BILAT DATE OF EXAM: 04/09/2021 COMPARISON: CTA head/neck 04/09/21 CLINICAL HISTORY: TIA. Possible TIA EXAM MEASUREMENTS: RIGHT: Peak Systolic Velocity (PSV) cm/sec ----- Right CCA: 95.8 ----- Right ICA: 103.1 ----- Right ECA: 122.0 ICA/CCA ratio: 1.1 RIGHT: End Diastole cm/sec ----- Right CCA: 23.1 ----- Right ICA: 30.4 ----- Right ECA: 17.3 LEFT: Peak Systolic Velocity (PSV) cm/sec ----- Left CCA: 93.3 ----- Left ICA: 93.5 ----- Left ECA: 122.6 ICA/CCA ratio: 1.0 LEFT: End Diastole cm/sec ----- Left CCA: 22.7 ----- Left ICA: 35.4 ----- Left ECA: 20.8 VERTEBRALS (direction of flow): Right Vertebral: Antegrade Left Vertebral: Antegrade Rhythm: Normal Mild atherosclerotic changes throughout; no evidence of stenosis. IMPRESSION: There is antegrade flow in the vertebral arteries. The images and measurement suggests less than 15% stenosis in both internal carotid arteries. Criteria for Assigning % of Stenosis / Diameter reduction (Estimation based on the indirect measurements of the internal carotid artery velocities (ICA PSV). 1. Normal (no stenosis)=ICA PSV < 125 cm/s: ratio < 2.0: ICA EDV<40 cm/s. 2. Less than 50% stenosis=ICA PSV < 125 cm/s: ratio < 2.0: ICA EDV<40 cm/s. 3. 50 to 69% stenosis=ICA PSV of 125 to 230 cm/s: ration 2.0 ? 4.0: ICA EDV 40-100 cm/s. 4. Greater than 70% stenosis to near occlusion= ICA PSV > 230 cm/s: ratio > 4.0: ICA EDV > 100 cm/s. 5. Near occlusion= ICA PSV velocities may be low or undetectable: variable ratio and ICA EDV. 6. Total occlusion=unable to detect flow.
[2021-04-10] MEDS: GABAPENTIN 300 MG CAP PO SCH ×3 (03:00→19:29)
[2021-04-10] MEDS: ATORVASTATIN 40 MG TAB PO SCH ×2 (03:00→19:29)
[2021-04-10] MEDS: MONTELUKAST 10 MG TAB PO SCH ×2 (03:00→19:28)
[2021-04-10] MEDS: LORATADINE 10 MG TAB PO SCH (07:49)
[2021-04-10] MEDS: METOPROLOL TARTRATE 50 MG TAB PO SCH (07:49)
[2021-04-10] MEDS: TAMSULOSIN 0.4 MG CAP.ER.24H PO SCH (07:49)
[2021-04-10] MEDS: ASPIRIN 81 MG PO SCH (07:49)
--- NOTE | 2021-04-10 08:43 | P.CNOR ---
History of Present Illness - [facility] Consult date: 04/10/21 Consult reason: other History of present illness: 71-year-old male presents emergency department from his rehab facility patient is status post T10 to pelvis revision fusion he had been doing well however yesterday he complained of some vision changes and then had an episode of slurred speech and difficulty with speech he was brought to the emergency department as a code stroke. Upon arrival to the emergency department his symptoms had essentially resolved. The patient states that his vision just started getting fuzzy and he was not able to see very well. He states that it is difficult to speak however he does not really remember how bad. He denied any weakness in his upper or lower extremities related he denied any numbness or tingling. He states they only that he has mild pain in his back. He is able to move around his bed he has been up and walking and rehab as well as doing physical therapy daily. He states he has been doing much better. He denies any fevers chills shortness of breath or chest pain as of late. He denies any other symptoms no perineal numbness or tingling of bowel or bladder issues. Review of Systems 14 points review of systems completed and as stated in HPI, all other systems reviewed are negative. 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 Bilateral hard of hearing. Lumbar DDD w/ lower back pain radiating to left hip and down upper leg with numbness and tingling. History of Any Multi-Drug Resistant Organisms: None Reported Past Surgical History: Back Surgery, Heart Catheterization With Stent Additional Past Surgical History / Comment(s): Left lung biopsy, lower back surgery w/ josie, 1 cardiac stent. Past Anesthesia/Blood Transfusion Reactions: No Reported Reaction Date of Last Stent Placement:: 1997 Past Psychological History: No Psychological Hx Reported Smoking Status: Former smoker Past Alcohol Use History: Rare Past Drug Use History: None Reported - Past Family History Mother Family Medical History: Coronary Artery Disease (CAD) Additional Family Medical History / Comment(s): from peritonitis. Medications and Allergies Home Medications Medication Instructions Recorded Confirmed Type Aspirin [Adult Low Dose Aspirin EC] 81 mg PO DAILY 06/11/16 04/09/21 History Atorvastatin [Lipitor] 40 mg PO HS 06/11/16 04/09/21 History Metoprolol Tartrate [Lopressor] 50 mg PO DAILY 06/11/16 04/09/21 History Montelukast [Singulair] 10 mg PO HS 03/21/17 04/09/21 History Levocetirizine Dihydrochloride 5 mg PO DAILY 08/16/19 04/09/21 History [Xyzal] Albuterol Sulfate [Albuterol 2 puff INHALATION RT-QID PRN 08/22/19 04/09/21 History Sulfate Hfa] Methocarbamol [Robaxin-750] 750 mg PO Q8H PRN 09/25/20 04/09/21 History Tamsulosin [Flomax] 0.4 mg PO DAILY 09/25/20 04/09/21 History Cholecalciferol (Vitamin D3) 125 mcg PO HS 10/16/20 04/09/21 History [Vitamin D3 (125 MCG = 5,000 IU)] Diphenox-Atrop 2.5-0.025 mg 1 - 2 tab PO QID PRN 10/16/20 04/09/21 History [Lomotil] Sennosides [Senna] 8.6 mg PO DAILY #20 tablet 04/03/21 04/09/21 Rx Cefaclor [Ceclor] 250 mg PO BID@0800,2000 04/09/21 04/09/21 History Ferrous Sulfate [Iron (65 MG 325 mg PO BID 04/09/21 04/09/21 History Elemental)] Gabapentin 300 mg PO BID 04/09/21 04/09/21 History HYDROcodone/APAP 7.5-325MG [[place] 1 tab PO Q6H PRN 04/09/21 04/09/21 History 7.5] Melatonin 3 mg PO HS PRN 04/09/21 04/09/21 History Allergies Allergy/AdvReac Type Severity Reaction Status Date / Time adhesive Allergy Rash/Hives Verified 04/09/21 16:21 budesonide [From Symbicort] Allergy Rash/Hives Verified 04/09/21 16:21 formoterol [From Symbicort] Allergy Rash/Hives Verified 04/09/21 16:21 Physical Examination Osteopathic Statement: *. No significant issues noted on an osteopathic structural exam other than those noted in the History and Physical/Consult. PHYSICAL EXAMINATION: Vitals: Stable at this time General: Awake, alert, appropriate for age, in no acute distress. HEENT: No unusual neck masses around region of lateral neck triangle, thyroid, supraclavicular groove. Extremities: Skin warm and dry without no acute lesions, coloration, temperature, skin intact, no tenderness or erythema. Integument: Hairy patches: Absent Dorsal skin dimples: Absent Cafe au lait spots: Absent Surgical incisions: Clean and dry. No erythema or ecchymosis or edema. [place] in place getting close to being able remove however still a little early. Palpation: Please see Pain drawing on Intake sheet for further detail. (Tenderness = T, Nontender = NT, Swelling = S, Ecchymosis = E) Findings on Midline and paraspinal palpation and percussion: Cervical: NT Thoracic: NT Lumbar: Mild tenderness to palpation around the incision area although somewhat ecchymotic and bruised still. Sacral: NT Special findings: [] POSTURAL and MUSCULO-SKELETAL EVALUATION: Neck ROM: [Unrestricted in six directions] Lumbar ROM: [Unrestricted in six directions] Shoulder ROM: Symmetric in abduction, ER/IR Hip ROM: Symmetric in abduction, adduction, ER/IR Knee ROM: Symmetric and intact in Flexion / extension Hands: Normal appearing structure L and R Feet: Normal appearing structure L and R VASCULAR STATUS : Wrist Pulses: [2/4 bilateral radial and ulnar] Pedal Pulses: [2/4 bilateral DP and PT] Color: [Normal] Edema: [None] NEUROLOGIC EXAMINATION: Mental Status: Awake and alert, fully oriented, with normal attention, concentration and memory, and fluent, appropriate speech. Cranial Nerves: I: Olfactory not tested. II: Visual acuity normal, no visual field deficit noted with confrontation. III,IV: Normal pupillary reflexes & intact extraocular movements without nystagmus. V,: Intact symmetrical facial sensation. VII: Intact symmetrical facial motor movement VIII: Hearing intact. IX,X: Intact gag, swallow, & normal voice. XI: Sternocleidomastoid, trapezius function intact. XII: Tongue midline with normal movements. Motor Exam (0-5/5, N/T) STRENGTH UPPER EXTREMITY 4+ out of 5 strength in all major muscle groups of upper extremities bilaterally. This is due to deconditioning and surgery. There are no focal deficits. LOWER EXTREMITY 4+ out of 5 strength in all major muscle groups the lower extremity's bilaterally. This is simply due to deconditioning and surgery. He is getting better and has better strength no focal deficits. REFLEXES Biecp: RIGHT [2] LEFT [2] Tricep: RIGHT [2] LEFT [2] Brachioradialis: RIGHT [2] LEFT [2] Patellar: RIGHT [2] LEFT [2] Achilles: RIGHT [2] LEFT [2] Pathological Reflexes Pedraza's: RIGHT [Absent] LEFT [Absent] Babinski: RIGHT [Absent] LEFT [Absent] Clonus: RIGHT [None] LEFT [None] SENSORY Joint Position: [Intact bilaterally] Vibration [Intact bilaterally] Pain and LT sense [Intact C5-T1 and L2-S1] Dermatomal deficit [None] Gait and Functional Evaluation: Ambulatory aids: Walker Romberg's test: Intact bilaterally. Hand and finger dexterity intact bilaterally[]. Disdiadochokinesis examination negative[] bilaterally. Results CTs CT angiography and Dopplers of all been negative so far MRI is pending of the brain - Labs Labs: Abnormal Lab Results - Last 24 Hours (Table) 04/09/21 04/09/21 04/09/21 Range/Units 15:26 15:26 16:20 WBC 17.2 H (3.8-10.6) k/uL RBC 3.43 L (4.30-5.90) m/uL Hgb 11.6 L (13.0-17.5) gm/dL Hct 35.3 L (39.0-53.0) % MCV 103.0 H (80.0-100.0) fL Neutrophils # 15.0 H (1.3-7.7) k/uL Lymphocytes # 0.7 L (1.0-4.8) k/uL Sodium 136 L (137-145) mmol/L Creatinine 1.58 H (0.66-1.25) mg/dL Total Protein 5.9 L (6.3-8.2) g/dL Albumin 3.3 L (3.5-5.0) g/dL Urine Protein 2+ H (Negative) Urine Glucose (UA) Trace H (Negative) Urine Ketones Trace H (Negative) Urine Blood Trace H (Negative) Urine WBC 6 H (0-5) /hpf Amorphous Sediment Rare H (None) /hpf Urine Bacteria Rare H (None) /hpf Hyaline Casts 5 H (0-2) /lpf Urine Mucus Rare H (None) /hpf H & H 04/09/21 Range/Units 15:26 Hgb 11.6 L (13.0-17.5) gm/dL Hct 35.3 L (39.0-53.0) % Coagulation 04/09/21 Range/Units 15: INR 1.0 (<1.2) Result Diagrams: 04/09/21 15:26 04/09/21 15: Assessment and Plan Assessment: 71-year-old male status post T10 to pelvis revision fusion, healing well Possible TIA versus overmedication Complex medical patient Plan: -Appreciate management consultant and team management. -Activity: Ambulate QID, OOB all meals, up and about, limit lifting bending twisting to less than 5 lbs. Use walker or cane if needed for stability. -Daily PT/OT, increase ambulation strength and balance. -Pain control: Adequate at this time -Meds: reviewed -GI ppx: senna, Miralax -DVT PPX: Anticoagulation is okay for DVT or full anticoagulation for possible TIA -Hygiene: Shower today. Maintain incision clean and dry Meticulous cleaning after BMs away from incision site -Encourage IS 10x/hr -Dispo: Stable from an orthopedic standpoint
--- NOTE | 2021-04-10 09:17 | P.PN ---
Subjective Progress Note Date: 04/10/21 Principal diagnosis: Patient appears to be more alert and awake today no chest pain no shortness of breath still weak Constitutional: No acute distress, conversant, pleasant Eyes: Anicteric sclerae, moist conjunctiva, no lid-lag PERRLA ENMT: NC/AT Oropharynx clear, no erythema, exudates Neck: Supple, FROM, no masses, or JVD No carotid bruits No thyromegaly Lungs: Clear to auscultation Clear to percussion Normal respiratory effort, no accessory muscle use Cardiovascular: Heart regular in rate and rhythm, No murmurs, gallops, or rubs No peripheral edema Abdominal: Soft Nontender, no guarding, rebound or rigidity Abdomen moving with respiration Normoactive bowel sounds No hepatomegaly, No splenomegaly No palpable mass No abdominal wall hernia noted Skin: Normal temperature, tone, texture, turgor No induration No subcutaneous nodules No rash, lesions No ulcers Extremities: No digital cyanosis No clubbing Pedal pulses intact and symmetrical Radial pulses intact and symmetrical Normal gait and station No calf tenderness Psychiatric:Alert and oriented to person, place and time Appropriate affect Intact judgement Neuro: Muscles Strength 5/5 in all 4 extremities Sensation to light touch grossly present throughout Cranial nerves II-XII grossly intact No focal sensory deficits Assessment and plan TIA versus mild CVA we'll check MRI of the brain neurology has been consulted UTI with likely metabolic encephalopathy we'll start the patient on Rocephin Recent spinal surgery will consult physical therapy patient needs rehab Generalized weakness Admit to the regular medical floor Awake MRI of the brain Overall appears to be stable Objective - Vital Signs Vital signs: Vital Signs Temp 97.7 F 04/10/21 07:12 Pulse 86 04/10/21 07:12 Resp 18 04/10/21 07:49 BP 111/72 04/10/21 07:12 Pulse Ox 97 04/10/21 07:12 Intake & Output 04/09/21 04/10/21 04/10/21 18:59 06:59 18:59 Weight 120 kg Other: Voiding Method Toilet Urinal # Voids 1 - Labs CBC & Chem 7: 04/09/21 15:26 04/09/21 15:26 Labs: Abnormal Lab Results - Last 24 Hours (Table) 04/09/21 04/09/21 04/09/21 Range/Units 15:26 15:26 16:20 WBC 17.2 H (3.8-10.6) k/uL RBC 3.43 L (4.30-5.90) m/uL Hgb 11.6 L (13.0-17.5) gm/dL Hct 35.3 L (39.0-53.0) % MCV 103.0 H (80.0-100.0) fL Neutrophils # 15.0 H (1.3-7.7) k/uL Lymphocytes # 0.7 L (1.0-4.8) k/uL Sodium 136 L (137-145) mmol/L Creatinine 1.58 H (0.66-1.25) mg/dL Total Protein 5.9 L (6.3-8.2) g/dL Albumin 3.3 L (3.5-5.0) g/dL Urine Protein 2+ H (Negative) Urine Glucose (UA) Trace H (Negative) Urine Ketones Trace H (Negative) Urine Blood Trace H (Negative) Urine WBC 6 H (0-5) /hpf Amorphous Sediment Rare H (None) /hpf Urine Bacteria Rare H (None) /hpf Hyaline Casts 5 H (0-2) /lpf Urine Mucus Rare H (None) /hpf
[2021-04-10 09:26] LABS: Basophils # (A) 0.07 X 10*3/uL (0.00-0.10); Basophils % (A) 0.7 %; Eosinophils # (A) 0.32 X 10*3/uL (0.04-0.35); HCT 35.1 % (39.6-50.0); HGB 10.8 g/dL (13.0-17.0); Immature Grans, Automated 0.8 %; Lymphocytes # (A) 1.25 X 10*3/uL (0.90-5.00); Lymphocytes % (A) 11.9 %; MCH 32.6 pg (27.0-32.0); MCHC 30.8 g/dL (32.0-37.0); Mean Platelet Volume 10.4 fL (9.5-12.2); Monocytes # (A) 1.16 X 10*3/uL (0.20-1.00); NRBC Per 100 WBC 0 /100 WBCS (0.0-0.0); Neutrophils # (A) 7.64 X 10*3/uL (1.80-7.70); Neutrophils % (A) 72.6 %; Platelet Count 240 X 10*3/uL (140-440); RBC 3.31 X 10*6/uL (4.40-5.60); RDW 14.3 % (11.5-14.5); WBC 10.52 X 10*3/uL (4.50-10.00)
[2021-04-10 09:49] LABS: ALT 21 U/L (10-49); AST 21 U/L (14-35); Albumin 3.4 g/dL (3.8-4.9); Albumin/Globulin Ratio 1.55 (1.60-3.17); Alkaline Phosphatase 111 U/L (41-126); Blood Urea Nitrogen 15.8 mg/dL (9.0-27.0); Calcium 8.9 mg/dL (8.7-10.3); Carbon Dioxide 22.7 mmol/L (20.0-27.5); Chloride 100 mmol/L (96-109); Globulin 2.2 g/dL (1.6-3.3); Glucose 79 mg/dL (70-110); Non-African American GFR(CKD) 75.9 (60.0-200.0); Potassium 3.7 mmol/L (3.5-5.5); Sodium 136 mmol/L (135-145); Total Protein 5.6 g/dL (6.2-8.2)
[2021-04-10] MEDS: HYDROcodone/APAP 7.5-325MG 1 EACH TAB PO PRN ×3 (11:01→23:57)
[2021-04-10] MEDS: ALBUTEROL NEBULIZED 2.5 MG/3 ML INHALATION PRN (11:16)
--- NOTE | 2021-04-10 11:25 | P.CNNES ---
History of Present Illness Consult date: 04/10/21 Requesting physician: Cornelio John Reason for Consult: tia, stroke pager activation History of Present Illness: This is a 71-year-old gentleman with medical history of status post T10 to pelvis revision fusion on 03/26/2021, chronic back pain, coronary artery disease status post stent, hard of hearing, hypertension, hyperlipidemia who presented emergency department on 04/09/2021 via EMS because of dysarthria and severe aphasia at the rehab facility. Some of the history is obtained from medical record. Per the patient he stated that yesterday he was told by his his was slurring speech and talking off. He felt confused and was told he had blood product in his mouth by rehab facility per patient. He denies been told he was jerking of extremities. It seems that the one the patient the was brought to our emergency Department the patient was alert oriented 4. He feels back to baseline. He denies of headaches. Denies of fever. He is getting [place] 7.5mg every 6 hour, Robaxin 750mg every 8 hours and Gabapentin 300mg bid at rehab facility. He denies of history of seizure, TIA or stroke in past. Stroke code was activated as a result on presenting to hospital. He stopped taking ASA 81mg since he had low back surgery (03/26/2021). Patient is on Lipitor 40 mg daily at bedtime, gabapentin 300 mg without twice a day, [place] 7.5mg one tablet every 6 hours, Robaxin 750 mg at every 8 hours, Tay max, metoprolol, single air, senna, albuterol. Some other workup in the hospital consisted of: Initial vital signs his blood pressure of 125/74, heart rate 89, respiratory of 16, pulse ox of 100% on 2 L nasal cannula and the initial temperature is 98.4 Fahrenheit oral. Initial white blood cells 7.2 and repeat is 10.52. Initial neutrophils is 515.0 repeated is 7.64. MCV is 103 and repeat is 106. Initial sodium is 136, creatinine is 1.58 on repeat is 1.0, initial serum glucose is 97, calcium 9.1, AST of 26 ALT of 19. Lipid panel is triglyceride of 113, cholesterol of 105, all the all of 54 and HDL 28. Urinalysis seen was negative for urinary tract infection. Duenas virus PCR was not detected. Lactic acid the Venous is 1.2 PT, PTT and INR is within normal limits CT of the head is reported as no acute cranial hemorrhage or gross acute cortical infarct by this unenhanced computed tomography scan. Mild brain volume last changes and mild chronic microvascular ischemic changes. I personally reviewed the CT of the head and there is no acute subacute ischemic stroke and there is no intracranial bleed CT angiography of the head and neck is reported as no acute arterial abnormality, significant stenosis or occlusion seen in the visualized major neck or intracranial arteries. Incidental finding as described above. An incidental finding is a hypodensity seen in the thyroid gland likely representing tiny cysts last nodule. Carotid duplex was reported as there is antegrade flow in the vertebral arteries. The images and measurements suggest less than 15% stenosis in both internal carotid arteries. Aided earlier the patient stroke code was activated the patient NIH was a 0. The ED team spoke with the stroke attending and since the symptoms that improved drastically no IV TPA was given since the benefits far outweigh the risk of admission TPA. Review of Systems Review of system: The 12 point system was reviewed and apparent positive and negative per HPI. 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 Bilateral hard of hearing. Lumbar DDD w/ lower back pain radiating to left hip and down upper leg with numbness and tingling. History of Any Multi-Drug Resistant Organisms: None Reported Past Surgical History: Back Surgery, Heart Catheterization With Stent Additional Past Surgical History / Comment(s): Left lung biopsy, lower back surgery w/ josie, 1 cardiac stent. Past Anesthesia/Blood Transfusion Reactions: No Reported Reaction Date of Last Stent Placement:: 1997 Past Psychological History: No Psychological Hx Reported Smoking Status: Former smoker Past Alcohol Use History: Rare Past Drug Use History: None Reported - Past Family History Mother Family Medical History: Coronary Artery Disease (CAD) Additional Family Medical History / Comment(s): from peritonitis. Medications and Allergies Home Medications Medication Instructions Recorded Confirmed Type Aspirin [Adult Low Dose Aspirin EC] 81 mg PO DAILY 06/11/16 04/09/21 History Atorvastatin [Lipitor] 40 mg PO HS 06/11/16 04/09/21 History Metoprolol Tartrate [Lopressor] 50 mg PO DAILY 06/11/16 04/09/21 History Montelukast [Singulair] 10 mg PO HS 03/21/17 04/09/21 History Levocetirizine Dihydrochloride 5 mg PO DAILY 08/16/19 04/09/21 History [Xyzal] Albuterol Sulfate [Albuterol 2 puff INHALATION RT-QID PRN 08/22/19 04/09/21 History Sulfate Hfa] Methocarbamol [Robaxin-750] 750 mg PO Q8H PRN 09/25/20 04/09/21 History Tamsulosin [Flomax] 0.4 mg PO DAILY 09/25/20 04/09/21 History Cholecalciferol (Vitamin D3) 125 mcg PO HS 10/16/20 04/09/21 History [Vitamin D3 (125 MCG = 5,000 IU)] Diphenox-Atrop 2.5-0.025 mg 1 - 2 tab PO QID PRN 10/16/20 04/09/21 History [Lomotil] Sennosides [Senna] 8.6 mg PO DAILY #20 tablet 04/03/21 04/09/21 Rx Cefaclor [Ceclor] 250 mg PO BID@0800,2000 04/09/21 04/09/21 History Ferrous Sulfate [Iron (65 MG 325 mg PO BID 04/09/21 04/09/21 History Elemental)] Gabapentin 300 mg PO BID 04/09/21 04/09/21 History HYDROcodone/APAP 7.5-325MG [[place] 1 tab PO Q6H PRN 04/09/21 04/09/21 History 7.5] Melatonin 3 mg PO HS PRN 04/09/21 04/09/21 History Allergies Allergy/AdvReac Type Severity Reaction Status Date / Time adhesive Allergy Rash/Hives Verified 04/09/21 16:21 budesonide [From Symbicort] Allergy Rash/Hives Verified 04/09/21 16:21 formoterol [From Symbicort] Allergy Rash/Hives Verified 04/09/21 16:21 Physical Examination - Vital Signs Vital Signs: Vital Signs Temp Pulse Pulse Resp BP BP Pulse Ox 04/10/21 07:49 18 04/10/21 07:12 97.7 F 86 18 111/72 97 04/10/21 02:05 98.4 F 94 20 136/88 95 04/09/21 19:58 93 18 122/71 97 04/09/21 18:55 98.7 F 93 16 131/77 100 04/09/21 18:21 98.4 F 89 16 120/68 100 04/09/21 15:16 18 125/74 Intake and Output 04/09/21 04/10/21 04/10/21 22:59 06:59 14:59 Other: Voiding Method Toilet Urinal # Voids 1 Weight 120 kg GENERAL: The patient is lying in bed and is in mild acute distress. CHEST: The heart rate is regular rate rhythm. No murmurs to auscultation. No carotid bruit bilaterally. LUNG: Clear to auscultation bilaterally no wheezing noted throughout. Not labored breathing. ABDOMEN/GI: Bowel sounds present in all 4 quadrants. No tenderness to palpation throughout. NEUROLOGICAL: Higher mental function: The patient is awake, alert, oriented to self, place and time. Patient is following commands. No aphasia and no neglect. Cranial nerves: The pupils are round, equal and reactive to light and accommodation. Visual wesley are full to confrontation throughout. Extraocular movement is intact no nystagmus is noted. Facial sensation is normal to touch throughout. The facial strength is normal throughout. Hearing is moderately decreased bilaterally to hand rub. Tongue is midline and moved [id number] without any difficulty. No dysarthria is noted. Shoulder shrug is normal bilaterally. Motor: Gait is deferred because of back pain. The strength is 5 over 5 throughout uppers and lowers is limited in assessing because of back pain but is able to raise above gravity without focality.. Normal tone and bulk. Cerebellum: Normal finger to nose bilaterally. Sensation: Sensation is normal to touch throughout. Reflexes (right/left): 2+ throughout uppers while lowers are 1+ Plantars are downgoing bilaterally. Results - Laboratory Findings CBC and BMP: 04/10/21 05:48 04/10/21 05:48 Abnormal Lab Findings: Abnormal Labs 04/09/21 04/09/21 04/09/21 15:26 15:26 16:20 WBC 17.2 H RBC 3.43 L Hgb 11.6 L Hct 35.3 L MCV 103.0 H MCH MCHC Immature Gran # Neutrophils # 15.0 H Lymphocytes # 0.7 L Monocytes # Sodium 136 L Creatinine 1.58 H Total Protein 5.9 L Albumin 3.3 L Albumin/Globulin Ratio HDL Cholesterol Urine Protein 2+ H Urine Glucose (UA) Trace H Urine Ketones Trace H Urine Blood Trace H Urine WBC 6 H Amorphous Sediment Rare H Urine Bacteria Rare H Hyaline Casts 5 H Urine Mucus Rare H 04/10/21 04/10/21 05:48 05:48 WBC 10.52 H RBC 3.31 L Hgb 10.8 L Hct 35.1 L MCV 106.0 H MCH 32.6 H MCHC 30.8 L Immature Gran # 0.08 H Neutrophils # Lymphocytes # Monocytes # 1.16 H Sodium Creatinine Total Protein 5.6 L Albumin 3.4 L Albumin/Globulin Ratio 1.55 L HDL Cholesterol 28.40 L Urine Protein Urine Glucose (UA) Urine Ketones Urine Blood Urine WBC Amorphous Sediment Urine Bacteria Hyaline Casts Urine Mucus Assessment and Plan Assessment: Transients dysarthria, aphasia, altered mental status and had ?reported blood product in mouth at the rehab facility and on presentation the resolved. Unknown exact etiology. Rule out TIA, seizure vs medication effect--currently back to baseline Status post T10 to pelvis revision fusion on 03/26/2021 Chronic back pain History of coronary artery disease status post stent History of hypertension Hyperlipidemia Morbid obesity Plan: In the ED the patient was given aspirin 325mg once then the was started on aspirin 81 mg daily as well as Lipitor 40 mg daily at bedtime sufficient for secondary stroke prophylaxis MRI of the brain is ordered by the primary team is pending I ordered a routine EEG. I will not start the patient on antiepileptic drugs unless there is a profound discharges or seizure on EEG Every 4 hours neuro checks On the monitor car operator PT, OT and OIL WELL CABLE TOOL DRILLER are consulted I will hold off on getting 2-D echo from a neurological perspective at this time. Orthopedic surgery team is on board We'll defer the rest of the medical management to primary team For DVT prophylaxis will defer the management to the primary team. The plan is discussed with the patient and his nurse. Thank you for the consultation. Chirag Beltran M.D. Neuro-hospitalist Time with Patient: Greater than 30
[2021-04-10] MEDS ORDERED: MAGNESIUM HYDROXIDE 2,400 MG/10 ML CUP PO PRN (12:55)
--- NOTE | 2021-04-10 15:03 | EEG ---
ELECTROENCEPHALOGRAM REPORT DATE OF SERVICE: 04/10/2021. CLINICAL HISTORY: This is a 71-year-old gentleman who had transient altered mental status. The video EEG is obtained to evaluate for seizure and epileptiform discharges. RELEVANT MEDICATION: Gabapentin. EEG TYPE: A routine 21-channel EEG is performed with video using the 10/20 electrode placement system. DESCRIPTION: Wakefulness and drowsiness are obtained. During awake state, the posterior dominant rhythm consists of low to moderate voltage, well modulated 6-7 hertz activity. There is no physiological stage II sleep architecture. There is no focal slowing. Interictal and ictal is none. ACTIVATION PROCEDURE: Photic stimulation did not evoke a posterior driving response. There is no abnormality during the photic stimulation. Hyperventilation is not performed. CLINICAL INTERPRETATION: This is an abnormal routine EEG. The background slowing is suggestive of mild encephalopathy of unknown etiology. There is no focal slowing, epileptiform discharges or seizure on the EEG. Clinical correlation is recommended. ALEIDA / VALERIA: [id number] / [email or web address]
[2021-04-10] MEDS ORDERED: LACTULOSE 20 GM/30 ML CUP PO PRN (15:20)
[2021-04-10] MEDS ORDERED: MAGNESIUM CITRATE 296 ML BOTTLE PO ONE (15:45)
--- NOTE | 2021-04-10 20:24 | MR ---
EXAMINATION TYPE: MR brain wo con DATE OF EXAM: 04/10/2021 COMPARISON: None HISTORY: TIA. Multiplanar multiecho imaging of the brain without contrast. Diffusion images show no evidence of an acute infarct. Corpus callosum is intact. There is mild cereb ral cortical atrophy. There is no mass effect or midline shift. There is no evidence of intracranial hemorrhage. There is some mild linear increased signal in the periventricular white matter. The sella turcica is normal. There is no evidence of orbital mass. IMPRESSION: There are age related chronic white matter changes around the lateral ventricles. No acute intracrani al abnormality. No evidence of cortical infarct.
--- NOTE | 2021-04-11 07:39 | P.PN ---
Subjective Progress Note Date: 04/11/21 Principal diagnosis: Degenerative lumbar scoliosis Patient seen and examined this morning. His doing very well. He has no residual symptoms at this time. He has no increased weakness in his lower upper extremities. He states that he did a lot of work yesterday walked around a lot and is actually feeling pretty well. Denies any fevers chills or some breath or chest pain at this time denies any perineal numbness or tingling. Denies any other symptoms. Objective - Vital Signs Vital signs: Vital Signs Temp 98.5 F 04/11/21 03:28 Pulse 92 04/11/21 03:28 Resp 18 04/11/21 03:28 BP 131/67 04/11/21 03:28 Pulse Ox 95 04/11/21 03:28 Intake & Output 04/10/21 04/11/21 04/11/21 18:59 06:59 18:59 Intake Total 236 Output Total 300 980 Balance -64 -980 Intake: Oral 236 Output: Urine 300 980 Other: Voiding Method Urinal Urinal # Voids 1 1 - Exam Exam is repeated today. There are no significant changes. He has good strength in his bilateral lower extremities he has good sensation. Reflexes are intact there are no focal deficits at this time is actually doing very well. His incision is clean dry and intact there is no erythema or ecchymosis or edema. Stitches and tisha are in place. PHYSICAL EXAMINATION: Vitals: Stable at this time General: Awake, alert, appropriate for age, in no acute distress. HEENT: No unusual neck masses around region of lateral neck triangle, thyroid, supraclavicular groove. Extremities: Skin warm and dry without no acute lesions, coloration, temperature, skin intact, no tenderness or erythema. Integument: Hairy patches: Absent Dorsal skin dimples: Absent Cafe au lait spots: Absent Surgical incisions: Clean and dry. No erythema or ecchymosis or edema. St aples in place getting close to being able remove however still a little early. Palpation: Please see Pain drawing on Intake sheet for further detail. (Tenderness = T, Nontender = NT, Swelling = S, Ecchymosis = E) Findings on Midline and paraspinal palpation and percussion: Cervical: NT Thoracic: NT Lumbar: Mild tenderness to palpation around the incision area although somewhat ecchymotic and bruised still. Sacral: NT Special findings: [] POSTURAL and MUSCULO-SKELETAL EVALUATION: Neck ROM: [Unrestricted in six directions] Lumbar ROM: [Unrestricted in six directions] Shoulder ROM: Symmetric in abduction, ER/IR Hip ROM: Symmetric in abduction, adduction, ER/IR Knee ROM: Symmetric and intact in Flexion / extension Hands: Normal appearing structure L and R Feet: Normal appearing structure L and R VASCULAR STATUS : Wrist Pulses: [2/4 bilateral radial and ulnar] Pedal Pulses: [2/4 bilateral DP and PT] Color: [Normal] Edema: [None] NEUROLOGIC EXAMINATION: Mental Status: Awake and alert, fully oriented, with normal attention, concentration and memory, and fluent, appropriate speech. Cranial Nerves: I: Olfactory not tested. II: Visual acuity normal, no visual field deficit noted with confrontation. III,IV: Normal pupillary reflexes & intact extraocular movements without nystagmus. V,: Intact symmetrical facial sensation. VII: Intact symmetrical facial motor movement VIII: Hearing intact. IX,X: Intact gag, swallow, & normal voice. XI: Sternocleidomastoid, trapezius function intact. XII: Tongue midline with normal movements. Motor Exam (0-5/5, N/T) STRENGTH UPPER EXTREMITY 4+ out of 5 strength in all major muscle groups of upper extremities bilaterally. This is due to deconditioning and surgery. There are no focal deficits. LOWER EXTREMITY 4+ out of 5 strength in all major muscle groups the lower extremity's bilaterally. This is simply due to deconditioning and surgery. He is getting better and has better strength no focal deficits. REFLEXES Biecp: RIGHT [2] LEFT [2] Tricep: RIGHT [2] LEFT [2] Brachioradialis: RIGHT [2] LEFT [2] Patellar: RIGHT [2] LEFT [2] Achilles: RIGHT [2] LEFT [2] Pathological Reflexes Pedraza's: RIGHT [Absent] LEFT [Absent] Babinski: RIGHT [Absent] LEFT [Absent] Clonus: RIGHT [None] LEFT [None] SENSORY Joint Position: [Intact bilaterally] Vibration [Intact bilaterally] Pain and LT sense [Intact C5-T1 and L2-S1] Dermatomal deficit [None] Gait and Functional Evaluation: Ambulatory aids: Walker Romberg's test: Intact bilaterally. Hand and finger dexterity intact bilaterally[]. Disdiadochokinesis examination negative[] bilaterally. - Labs CBC & Chem 7: 04/10/21 05:48 04/10/21 05:48 Labs: Abnormal Lab Results - Last 24 Hours (Table) 04/10/21 04/10/21 Range/Units 05:48 05:48 WBC 10.52 H (4.50-10.00) X 10*3/uL RBC 3.31 L (4.40-5.60) X 10*6/uL Hgb 10.8 L (13.0-17.0) g/dL Hct 35.1 L (39.6-50.0) % MCV 106.0 H (80.0-97.0) fL MCH 32.6 H (27.0-32.0) pg MCHC 30.8 L (32.0-37.0) g/dL Immature Gran # 0.08 H (0.00-0.04) X 10*3/uL Monocytes # 1.16 H (0.20-1.00) X 10*3/uL Total Protein 5.6 L (6.2-8.2) g/dL Albumin 3.4 L (3.8-4.9) g/dL Albumin/Globulin Ratio 1.55 L (1.60-3.17) g/dL HDL Cholesterol 28.40 L (40.00-60.00) mg/dL Microbiology - Last 24 Hours (Table) 04/09/21 19:00 Blood Culture - Preliminary Blood No Growth after 24 hours 04/09/21 19:04 Blood Culture - Preliminary Blood No Growth after 24 hours Assessment and Plan Assessment: 71-year-old male status post T10 to pelvis revision fusion, healing well Possible TIA versus overmedication Complex medical patient Plan: -Appreciate senior sales consultant and team management. -Activity: Ambulate QID, OOB all meals, up and about, limit lifting bending twisting to less than 5 lbs. Use walker or cane if needed for stability. -Daily PT/OT, increase ambulation strength and balance. -Pain control: Adequate at this time -Meds: reviewed -GI ppx: senna, Miralax -DVT PPX: Anticoagulation is okay for DVT or full anticoagulation for possible TIA -Hygiene: Shower today. Maintain incision clean and dry Meticulous cleaning after BMs away from incision site -Encourage IS 10x/hr -Dispo: Continues to be Stable from an orthopedic standpoint follow-up is set for office next week
[2021-04-11] MEDS: HYDROcodone/APAP 7.5-325MG 1 EACH TAB PO PRN ×3 (08:51→23:47)
[2021-04-11] MEDS: METOPROLOL TARTRATE 50 MG TAB PO SCH (10:10)
[2021-04-11] MEDS: ASPIRIN 81 MG PO SCH (10:11)
[2021-04-11] MEDS: TAMSULOSIN 0.4 MG CAP.ER.24H PO SCH (10:11)
[2021-04-11] MEDS: LORATADINE 10 MG TAB PO SCH (10:11)
--- NOTE | 2021-04-11 10:45 | P.PN ---
Subjective Progress Note Date: 04/11/21 Patient feels better today still weak Constitutional: No acute distress, conversant, pleasant Eyes: Anicteric sclerae, moist conjunctiva, no lid-lag PERRLA ENMT: NC/AT Oropharynx clear, no erythema, exudates Neck: Supple, FROM, no masses, or JVD No carotid bruits No thyromegaly Lungs: Clear to auscultation Clear to percussion Normal respiratory effort, no accessory muscle use Cardiovascular: Heart regular in rate and rhythm, No murmurs, gallops, or rubs No peripheral edema Abdominal: Soft Nontender, no guarding, rebound or rigidity Abdomen moving with respiration Normoactive bowel sounds No hepatomegaly, No splenomegaly No palpable mass No abdominal wall hernia noted Skin: Normal temperature, tone, texture, turgor No induration No subcutaneous nodules No rash, lesions No ulcers Extremities: No digital cyanosis No clubbing Pedal pulses intact and symmetrical Radial pulses intact and symmetrical Normal gait and station No calf tenderness Psychiatric:Alert and oriented to person, place and time Appropriate affect Intact judgement Neuro: Muscles Strength 5/5 in all 4 extremities Sensation to light touch grossly present throughout Cranial nerves II-XII grossly intact No focal sensory deficits Assessment and plan TIA versus mild CVA we'll check MRI of the brain neurology has been consulted UTI with likely metabolic encephalopathy we'll start the patient on Rocephin Recent spinal surgery will consult physical therapy patient needs rehab Generalized weakness Admit to the regular medical floor Overall continues to be improving continues to be weak hopefully to a rehab in a day or 2 Objective - Vital Signs Vital signs: Vital Signs Temp 97.6 F 04/11/21 09:37 Pulse 80 04/11/21 10:07 Resp 16 04/11/21 09:37 BP 152/76 04/11/21 10:07 Pulse Ox 96 04/11/21 10:07 Intake & Output 04/10/21 04/11/21 04/11/21 18:59 06:59 18:59 Intake Total 236 118 Output Total 300 980 Balance -64 -980 118 Intake: Oral 236 118 Output: Urine 300 980 Other: Voiding Method Urinal Urinal Urinal # Voids 1 1 - Labs CBC & Chem 7: 04/10/21 05:48 04/10/21 05:48 Labs: Microbiology - Last 24 Hours (Table) 04/09/21 19:00 Blood Culture - Preliminary Blood No Growth after 24 hours 04/09/21 19:04 Blood Culture - Preliminary Blood No Growth after 24 hours
[2021-04-11 10:46] LABS: Basophils # (A) 0.04 X 10*3/uL (0.00-0.10); Basophils % (A) 0.4 %; Eosinophils # (A) 0.36 X 10*3/uL (0.04-0.35); Eosinophils % (A) 3.9 %; HGB 10.2 g/dL (13.0-17.0); Immature Grans, Automated 0.9 %; Lymphocytes # (A) 1.05 X 10*3/uL (0.90-5.00); Lymphocytes % (A) 11.5 %; MCH 32.4 pg (27.0-32.0); MCHC 30.9 g/dL (32.0-37.0); MCV 104.8 fL (80.0-97.0); Mean Platelet Volume 10.4 fL (9.5-12.2); Monocytes # (A) 0.94 X 10*3/uL (0.20-1.00); Monocytes % (A) 10.3 %; NRBC Per 100 WBC 0 /100 WBCS (0.0-0.0); Platelet Count 286 X 10*3/uL (140-440); RBC 3.15 X 10*6/uL (4.40-5.60); RDW 14.3 % (11.5-14.5); WBC 9.17 X 10*3/uL (4.50-10.00)
[2021-04-11 10:55] LABS: African American GFR (CKD) 104.4 (60.0-200.0); Albumin 3.4 g/dL (3.8-4.9); Albumin/Globulin Ratio 1.51 (1.60-3.17); Anion Gap 12.8 mmol/L (10.00-18.00); BUN/Creat Ratio 19.88 Ratio (12.00-20.00); Blood Urea Nitrogen 16.1 mg/dL (9.0-27.0); Calcium 8.7 mg/dL (8.7-10.3); Carbon Dioxide 25.5 mmol/L (20.0-27.5); Globulin 2.2 g/dL (1.6-3.3); Non-African American GFR(CKD) 90.1 (60.0-200.0); Potassium 3.8 mmol/L (3.5-5.5); Total Bilirubin 0.5 mg/dL (0.30-1.20); Total Protein 5.6 g/dL (6.2-8.2)
--- NOTE | 2021-04-11 11:23 | P.PN ---
Subjective Progress Note Date: 04/11/21 The patient is seen at bedside and he feels he is doing drastically better since his initial presentation. He denies of any new neurological problems. Objective - Vital Signs Vital signs: Vital Signs Temp 97.6 F 04/11/21 09:37 Pulse 80 04/11/21 10:07 Resp 16 04/11/21 09:37 BP 152/76 04/11/21 10:07 Pulse Ox 96 04/11/21 10:07 Intake & Output 04/10/21 04/11/21 04/11/21 18:59 06:59 18:59 Intake Total 236 118 Output Total 300 980 Balance -64 -980 118 Intake: Oral 236 118 Output: Urine 300 980 Other: Voiding Method Urinal Urinal Urinal # Voids 1 1 - Exam GENERAL: The patient is lying in bed and is in mild acute distress. NEUROLOGICAL: Higher mental function: The patient is awake, alert, oriented to self, place and time. Patient is following commands. No aphasia and no neglect. Cranial nerves: The pupils are round, equal and reactive to light and accommodation. Visual wesley are full to confrontation throughout. Extraocular movement is intact no nystagmus is noted. Facial sensation is normal to touch throughout. The facial strength is normal throughout. Hearing is moderately decreased bilaterally to hand rub. Tongue is midline and moved [id number] without any difficulty. No dysarthria is noted. Shoulder shrug is normal bilaterally. Motor: Gait is deferred because of back pain. The strength is 5 over 5 throughout uppers and lowers is limited in assessing because of back pain but is able to raise above gravity without focality.. Normal tone and bulk. Cerebellum: Normal finger to nose bilaterally. Sensation: Sensation is normal to touch throughout. Reflexes (right/left): 2+ throughout uppers while lowers are 1+ Plantars are downgoing bilaterally. WORK-UP: Lipid panel is triglyceride of 113, cholesterol of 105, all the all of 54 and HDL 28. Urinalysis seen was negative for urinary tract infection. Duenas virus PCR was not detected. Lactic acid the Venous is 1.2 PT, PTT and INR is within normal limits CT of the head is reported as no acute cranial hemorrhage or gross acute cortical infarct by this unenhanced computed tomography scan. Mild brain volume last changes and mild chronic microvascular ischemic changes. I personally reviewed the CT of the head and there is no acute subacute ischemic stroke and there is no intracranial bleed CT angiography of the head and neck is reported as no acute arterial abnormality, significant stenosis or occlusion seen in the visualized major neck or intracranial arteries. Incidental finding as described above. An incidental finding is a hypodensity seen in the thyroid gland likely representing tiny cysts last nodule. Carotid duplex was reported as there is antegrade flow in the vertebral arteries. The images and measurements suggest less than 15% stenosis in both internal carotid arteries. MRI BRAIN W/O: It is reported as age related chronic white matter changes around the lateral ventricles. No acute intracranial abnormality. No evidence of cortical infarct. Routine EEG 04/10/2021: It is abnormal EEG. The background slowing is suggestive of mild encephalopathy of unknown etiology. There is no focal slowing, epiletiform discharges or seizure on the EEG. - Labs CBC & Chem 7: 04/11/21 05:45 04/11/21 05:45 Labs: Abnormal Lab Results - Last 24 Hours (Table) 04/11/21 04/11/21 Range/Units 05:45 05:45 RBC 3.15 L (4.40-5.60) X 10*6/uL Hgb 10.2 L (13.0-17.0) g/dL Hct 33.0 L (39.6-50.0) % MCV 104.8 H (80.0-97.0) fL MCH 32.4 H (27.0-32.0) pg MCHC 30.9 L (32.0-37.0) g/dL Immature Gran # 0.08 H (0.00-0.04) X 10*3/uL Eosinophils # 0.36 H (0.04-0.35) X 10*3/uL Total Protein 5.6 L (6.2-8.2) g/dL Albumin 3.4 L (3.8-4.9) g/dL Albumin/Globulin Ratio 1.51 L (1.60-3.17) g/dL Microbiology - Last 24 Hours (Table) 04/09/21 19:00 Blood Culture - Preliminary Blood No Growth after 24 hours 04/09/21 19:04 Blood Culture - Preliminary Blood No Growth after 24 hours Assessment and Plan Assessment: Transients dysarthria, aphasia, altered mental status and had ?reported blood product in mouth at the rehab facility and on presentation the resolved. Unknown exact etiology. Rule out TIA, seizure vs medication effect--currently back to baseline Status post T10 to pelvis revision fusion on 03/26/2021 Chronic back pain History of coronary artery disease status post stent History of hypertension Hyperlipidemia Morbid obesity Plan: Continue aspirin 81 mg daily as well as Lipitor 40 mg daily at bedtime sufficient for secondary stroke prophylaxis Every 4 hours neuro checks On the engine monitor PT, OT and SPRING COVERER are consulted I will hold off on getting 2-D echo from a neurological perspective at this time. Orthopedic surgery team is on board We'll defer the rest of the medical management to primary team For DVT prophylaxis will defer the management to the primary team. The plan is discussed with the patient and his nurse. There is no further neurological work-up. Patient is clear for discharge from neurological perspective. Chirag Beltran M.D. Neuro-hospitalist Time with Patient: Less than 30
[2021-04-11] MEDS: GABAPENTIN 300 MG CAP PO SCH ×2 (11:27→19:59)
[2021-04-11] MEDS: ALBUTEROL NEBULIZED 2.5 MG/3 ML INHALATION PRN (11:42)
[2021-04-11] MEDS: ATORVASTATIN 40 MG TAB PO SCH (19:59)
[2021-04-11] MEDS: MONTELUKAST 10 MG TAB PO SCH (19:59)
[2021-04-12] MEDS: HYDROcodone/APAP 7.5-325MG 1 EACH TAB PO PRN ×2 (05:36→14:36)
[2021-04-12 06:59] VITALS: RESP 16
--- NOTE | 2021-04-12 08:04 | P.PN ---
Subjective Progress Note Date: 04/12/21 Principal diagnosis: Degenerative lumbar scoliosis Patient seen and examined no changes overnight he states is doing fairly well was up yesterday walking around the room as well as the hallway. He complains of a grinding pain in his back however he denies any acute pain or acute changes states it has been basically since surgery and he feels that the second muscle spasm. He denies any leg pain denies any perineal numbness or tingling denies any fevers chills shortness of breath or chest pain at this time. Objective - Vital Signs Vital signs: Vital Signs Temp 97.9 F 04/12/21 06:58 Pulse 82 04/12/21 06:58 Resp 16 04/12/21 06:58 BP 156/80 04/12/21 06:58 Pulse Ox 93 L 04/12/21 06:58 Intake & Output 04/11/21 04/12/21 04/12/21 18:59 06:59 18:59 Intake Total 236 Output Total 650 850 Balance -414 -850 Intake: Oral 236 Output: Urine 650 850 Other: Voiding Method Urinal # Voids 3 # Bowel Movements 0 - Exam Exam repeated no changes PHYSICAL EXAMINATION: Vitals: Stable at this time General: Awake, alert, appropriate for age, in no acute distress. HEENT: No unusual neck masses around region of lateral neck triangle, thyroid, supraclavicular groove. Extremities: Skin warm and dry without no acute lesions, coloration, temperature, skin intact, no tenderness or erythema. Integument: Hairy patches: Absent Dorsal skin dimples: Absent Cafe au lait spots: Absent Surgical incisions: Clean and dry. No erythema or ecchymosis or edema. Boogie in place getting close to being able remove however still a little early. Palpation: Please see Pain drawing on Intake sheet for further detail. (Tenderness = T, Nontender = NT, Swelling = S, Ecchymosis = E) Findings on Midline and paraspinal palpation and percussion: Cervical: NT Thoracic: NT Lumbar: Mild tenderness to palpation around the incision area although somewhat ecchymotic and bruised still. Sacral: NT Special findings: [] POSTURAL and MUSCULO-SKELETAL EVALUATION: Neck ROM: [Unrestricted in six directions] Lumbar ROM: [Unrestricted in six directions] Shoulder ROM: Symmetric in abduction, ER/IR Hip ROM: Symmetric in abduction, adduction, ER/IR Knee ROM: Symmetric and intact in Flexion / extension Hands: Normal appearing structure L and R Feet: Normal appearing structure L and R VASCULAR STATUS : Wrist Pulses: [2/4 bilateral radial and ulnar] Pedal Pulses: [2/4 bilateral DP and PT] Color: [Normal] Edema: [None] NEUROLOGIC EXAMINATION: Mental Status: Awake and alert, fully oriented, with normal attention, concentration and memory, and fluent, appropriate speech. Cranial Nerves: I: Olfactory not tested. II: Visual acuity normal, no visual field deficit noted with confrontation. III,IV: Normal pupillary reflexes & intact extraocular movements without nystagmus. V,: Intact symmetrical facial sensation. VII: Intact symmetrical facial motor movement VIII: Hearing intact. IX,X: Intact gag, swallow, & normal voice. XI: Sternocleidomastoid, trapezius function intact. XII: Tongue midline with normal movements. Motor Exam (0-5/5, N/T) STRENGTH UPPER EXTREMITY 4+ out of 5 strength in all major muscle groups of upper extremities bilaterally. This is due to deconditioning and surgery. There are no focal deficits. LOWER EXTREMITY 4+ out of 5 strength in all major muscle groups the lower extremity's bilaterally. This is simply due to deconditioning and surgery. He is getting better and has better strength no focal deficits. REFLEXES Biecp: RIGHT [2] LEFT [2] Tricep: RIGHT [2] LEFT [2] Brachioradialis: RIGHT [2] LEFT [2] Patellar: RIGHT [2] LEFT [2] Achilles: RIGHT [2] LEFT [2] Pathological Reflexes Pedraza's: RIGHT [Absent] LEFT [Absent] Babinski: RIGHT [Absent] LEFT [Absent] Clonus: RIGHT [None] LEFT [None] SENSORY Joint Position: [Intact bilaterally] Vibration [Intact bilaterally] Pain and LT sense [Intact C5-T1 and L2-S1] Dermatomal deficit [None] Gait and Functional Evaluation: Ambulatory aids: Walker Romberg's test: Intact bilaterally. Hand and finger dexterity intact bilaterally[]. Disdiadochokinesis examination negative[] bilaterally. - Labs CBC & Chem 7: 04/11/21 05:45 04/11/21 05:45 Labs: Abnormal Lab Results - Last 24 Hours (Table) 04/11/21 04/11/21 Range/Units 05:45 05:45 RBC 3.15 L (4.40-5.60) X 10*6/uL Hgb 10.2 L (13.0-17.0) g/dL Hct 33.0 L (39.6-50.0) % MCV 104.8 H (80.0-97.0) fL MCH 32.4 H (27.0-32.0) pg MCHC 30.9 L (32.0-37.0) g/dL Immature Gran # 0.08 H (0.00-0.04) X 10*3/uL Eosinophils # 0.36 H (0.04-0.35) X 10*3/uL Total Protein 5.6 L (6.2-8.2) g/dL Albumin 3.4 L (3.8-4.9) g/dL Albumin/Globulin Ratio 1.51 L (1.60-3.17) g/dL Microbiology - Last 24 Hours (Table) 04/09/21 19:00 Blood Culture - Preliminary Blood No Growth after 48 hours 04/09/21 19:04 Blood Culture - Preliminary Blood No Growth after 48 hours Assessment and Plan Assessment: 71-year-old male status post T10 to pelvis revision fusion, healing well Possible TIA versus overmedication Complex medical patient Plan: -Appreciate building performance consultant and team management. -Activity: Continue to stress of encourage activity increases Ambulate QID, OOB all meals, up and about, limit lifting bending twisting to less than 5 lbs. Use walker or cane if needed for stability. -Daily PT/OT, increase ambulation strength and balance. -Pain control: Adequate at this time -Meds: reviewed -GI ppx: senna, Miralax -DVT PPX: Anticoagulation is okay for DVT or full anticoagulation for possible TIA -Hygiene: Shower today. Maintain incision clean and dry Meticulous cleaning after BMs away from incision site -Encourage IS 10x/hr -Dispo: Continues to be Stable from an orthopedic standpoint follow-up is set for office Thursday
[2021-04-12] MEDS: ASPIRIN 81 MG PO SCH (08:26)
[2021-04-12] MEDS: GABAPENTIN 300 MG CAP PO SCH (08:26)
[2021-04-12] MEDS: METOPROLOL TARTRATE 50 MG TAB PO SCH (08:28)
[2021-04-12] MEDS: LORATADINE 10 MG TAB PO SCH (08:28)
[2021-04-12] MEDS: TAMSULOSIN 0.4 MG CAP.ER.24H PO SCH (08:28)
--- NOTE | 2021-04-12 10:45 | CDI ---
Documentation Clarification Form Date: 04/12/2021 10:20:36 AM From: Danay Garibay RN, CCDS Admit Date: 04/11/2021 08:18:00 AM Patient Name: Chu Mccloud Visit Number: [id number] Discharge Date: ATTENTION: The Clinical Documentation Specialists (CDI) and [facility] Coding Staff appreciate your assistance in clarifying documentation. Please respond to the clarification below the line at the bottom and electronically sign. The CDI & [facility] Coding staff will review the response and follow-up if needed. Please note: Queries are made part of the Legal Health Record. If you have any questions, please contact the author of this message via ITS. Dr. Ramos Aguilera Pneumonia is documented in the emergency department impression on 04/09/21. Additional clarification regarding this diagnosis and the type of pneumonia is requested. History/Risk Factors: Hypertension, Spinal fusion Clinical Indicators: 71-year-old male present to ED on 04/09 with altered mental status, aphasia and dysarthria. He denies shortness of breath, fever and chest pain. 04/09 (18:55) 131/77 93 16 98.7 100 % 2/L NC 04/09 WBC 17.2, Left shift: Neutrophils 15.0, Creatinine 1.58 04/09 Chest x-ray: There is interstitial pneumonia which is improved compared to last exam. No obvious heart failure 04/09 ED Lung/Breathing assessment: Clear breath sounds bilaterally. No wheezes, rales, or rhonchi. 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
[2021-04-12 10:52] LABS: Basophils # (A) 0.03 X 10*3/uL (0.00-0.10); Basophils % (A) 0.4 %; Eosinophils # (A) 0.26 X 10*3/uL (0.04-0.35); Eosinophils % (A) 3.5 %; HCT 33.4 % (39.6-50.0); HGB 10.4 g/dL (13.0-17.0); Immature Grans, Automated 0.7 %; Lymphocytes # (A) 0.82 X 10*3/uL (0.90-5.00); MCH 32.7 pg (27.0-32.0); MCHC 31.1 g/dL (32.0-37.0); Mean Platelet Volume 10.5 fL (9.5-12.2); Monocytes # (A) 0.77 X 10*3/uL (0.20-1.00); Monocytes % (A) 10.3 %; NRBC Per 100 WBC 0 /100 WBCS (0.0-0.0); Neutrophils # (A) 5.53 X 10*3/uL (1.80-7.70); Neutrophils % (A) 74.1 %; Platelet Count 295 X 10*3/uL (140-440); RBC 3.18 X 10*6/uL (4.40-5.60); RDW 13.7 % (11.5-14.5); WBC 7.46 X 10*3/uL (4.50-10.00)
[2021-04-12 11:04] LABS: African American GFR (CKD) 110.8 (60.0-200.0); Albumin 3.5 g/dL (3.8-4.9); Albumin/Globulin Ratio 1.59 (1.60-3.17); Anion Gap 11.9 mmol/L (10.00-18.00); BUN/Creat Ratio 16.86 Ratio (12.00-20.00); Blood Urea Nitrogen 11.8 mg/dL (9.0-27.0); Calcium 8.7 mg/dL (8.7-10.3); Carbon Dioxide 26.1 mmol/L (20.0-27.5); Globulin 2.2 g/dL (1.6-3.3); Non-African American GFR(CKD) 95.6 (60.0-200.0); Potassium 3.8 mmol/L (3.5-5.5); Total Bilirubin 0.5 mg/dL (0.30-1.20); Total Protein 5.7 g/dL (6.2-8.2)
--- NOTE | 2021-04-12 11:09 | CDI ---
Documentation Clarification Form Date: 04/12/2021 10:50:00 AM From: Danay Garibay RN, CCDS Admit Date: 04/11/2021 08:18:00 AM Patient Name: Chu Rush Visit Number: [id number] Discharge Date: ATTENTION: The Clinical Documentation Specialists (CDI) and [facility] Coding Staff appreciate your assistance in clarifying documentation. Please respond to the clarification below the line at the bottom and electronically sign. The CDI & [facility] Coding staff will review the response and follow-up if needed. Please note: Queries are made part of the Legal Health Record. If you have any questions, please contact the author of this message via ITS. Dr. Ramos Aguilera The patients principal diagnosis the diagnosis that was chiefly responsible for the admission - has not been clearly identified and clarification is requested. The patient presented on 04/09/21, admitted on 04/11/21 with altered mental status, aphasia and dysarthria. History/Risk factors: Hypertension, Spinal fusion Clinical Indicators: H/P and subsequent progress notes: TIA vs mild CVA, UTI with likely metabolic encephalopathy. 04/09 (18:55) 131/77 93 16 98.7 100 % 2/L NC 04/09 WBC 17.2, Left shift: Neutrophils 15.0, Creatinine 1.58 04/09 Chest x-ray: There is interstitial pneumonia which is improved compared to last exam. No obvious heart failure 04/09 ED Lung/Breathing assessment: Clear breath sounds bilaterally. No wheezes, rales, or rhonchi. 04/09 Blood culture: Pending (no growth after 48 hrs.) 04/09 CT head: no acute cranial hemorrhage or gross acute cortical infarct but this unenhanced CT scan. 04/09 CT angiography: no acute arterial abnormality. Carotid duplex less than 15 % stenosis in both ICA. 04/10 MRI Brain is abnormal no evidence of cortical infarct. Treatment: Telemetry Monitoring, Neuro checks Q4 hrs. PT, OT and CARE ANALYST consulted Ventolin 2.5 MG Inhalation QID 04/09 Monitor O2 Sat's (titrate) .9NS 1,000 IV Bolus 04/09 Rocephin 1 GM IVPB Q D 04/10 04/10-04/11 Neurology consult progress note: Transient dysarthria, aphasia, altered mental status. Rule out TIA, Seizure vs medication effects-currently back to baseline. In your professional opinion, can you please clarify which diagnosis, after study, was the reason chiefly responsible for the admission? [ ] TIA (specify cause if known) [ ] CVA [ ] UTI [ ] Other, please specify [ ] Unable to determine (Template Last Revised: April 2020) UTI MTDD
--- NOTE | 2021-04-12 11:29 | P.DS ---
Providers Date of admission: 04/11/21 08:18 Expected date of discharge: 04/12/21 Attending physician: Ramos Aguilera MD Consults: 04/09/21 16:48 Consult Physician Routine Consulting Provider: Chirag Beltran Consult Reason/Comments: tia, stroke pager activation Do you want consulting provider notified?: Yes Consult Physician Routine Consulting Provider: Steven Wilkins Consult Reason/Comments: recent spinal surgery Do you want consulting provider notified?: Yes Primary care physician: Silvestre Cole MD Hospital Course: 71-year-old male with multiple medical problems admitted to the hospital initially thought to be TIA patient likely did have UTI with metabolic encephalopathy treated with IV antibiotics after which the condition of the patient improved patient continued to be weak patient will be discharged to rehab status post surgery for spinal stenosis Constitutional: No acute distress, conversant, pleasant Eyes: Anicteric sclerae, moist conjunctiva, no lid-lag PERRLA ENMT: NC/AT Oropharynx clear, no erythema, exudates Neck: Supple, FROM, no masses, or JVD No carotid bruits No thyromegaly Lungs: Clear to auscultation Clear to percussion Normal respiratory effort, no accessory muscle use Cardiovascular: Heart regular in rate and rhythm, No murmurs, gallops, or rubs No peripheral edema Abdominal: Soft Nontender, no guarding, rebound or rigidity Abdomen moving with respiration Normoactive bowel sounds No hepatomegaly, No splenomegaly No palpable mass No abdominal wall hernia noted Skin: Normal temperature, tone, texture, turgor No induration No subcutaneous nodules No rash, lesions No ulcers Extremities: No digital cyanosis No clubbing Pedal pulses intact and symmetrical Radial pulses intact and symmetrical Normal gait and station No calf tenderness Psychiatric:Alert and oriented to person, place and time Appropriate affect Intact judgement Neuro: Muscles Strength 5/5 in all 4 extremities Sensation to light touch grossly present throughout Cranial nerves II-XII grossly intact No focal sensory deficits Discharge plan Metabolic encephalopathy due to UTI improved continue Omnicef Altered mental status resolved Generalized weakness Recent orthopedic surgery for spinal stenosis patient will be discharged for rehab No evidence of pneumonia clinically Patient Condition at Discharge: Serious Plan - Discharge Summary New Discharge Prescriptions: New Cefdinir [Omnicef] 300 mg PO Q12HR 7 Days #14 capsule Continue Metoprolol Tartrate [Lopressor] 50 mg PO DAILY Atorvastatin [Lipitor] 40 mg PO HS Aspirin [Adult Low Dose Aspirin EC] 81 mg PO DAILY Montelukast [Singulair] 10 mg PO HS Levocetirizine Dihydrochloride [Xyzal] 5 mg PO DAILY Albuterol Sulfate [Albuterol Sulfate Hfa] 2 puff INHALATION RT-QID PRN PRN Reason: Shortness Of Breath Or Wheezing Tamsulosin [Flomax] 0.4 mg PO DAILY Diphenox-Atrop 2.5-0.025 mg [Lomotil] 1 - 2 tab PO QID PRN PRN Reason: Diarrhea Cholecalciferol (Vitamin D3) [Vitamin D3 (125 MCG = 5,000 IU)] 125 mcg PO HS Ferrous Sulfate [Iron (65 MG Elemental)] 325 mg PO BID Gabapentin 300 mg PO BID Melatonin 3 mg PO HS PRN PRN Reason: Insomnia Methocarbamol [Robaxin-750] 750 mg PO Q8H PRN PRN Reason: Muscle Spasm Sennosides [Senna] 8.6 mg PO DAILY #20 tablet HYDROcodone/APAP 7.5-325MG [Zoe 7.5-325] 1 tab PO Q6H PRN PRN Reason: Pain Discontinued Cefaclor [Ceclor] 250 mg PO BID@0800,1999 Discharge Medication List Aspirin [Adult Low Dose Aspirin EC] 81 mg PO DAILY 06/11/16 [History] Atorvastatin [Lipitor] 40 mg PO HS 06/11/16 [History] Metoprolol Tartrate [Lopressor] 50 mg PO DAILY 06/11/16 [History] Montelukast [Singulair] 10 mg PO HS 03/21/17 [History] Levocetirizine Dihydrochloride [Xyzal] 5 mg PO DAILY 08/16/19 [History] Albuterol Sulfate [Albuterol Sulfate Hfa] 2 puff INHALATION RT-QID PRN 08/22/19 [History] Methocarbamol [Robaxin-750] 750 mg PO Q8H PRN 09/25/20 [History] Tamsulosin [Flomax] 0.4 mg PO DAILY 09/25/20 [History] Cholecalciferol (Vitamin D3) [Vitamin D3 (125 MCG = 5,000 IU)] 125 mcg PO HS 10/16/20 [History] Diphenox-Atrop 2.5-0.025 mg [Lomotil] 1 - 2 tab PO QID PRN 10/16/20 [History] Sennosides [Senna] 8.6 mg PO DAILY #20 tablet 04/03/21 [Rx] Ferrous Sulfate [Iron (65 MG Elemental)] 325 mg PO BID 04/09/21 [History] Gabapentin 300 mg PO BID 04/09/21 [History] HYDROcodone/APAP 7.5-325MG [Zoe 7.5-325] 1 tab PO Q6H PRN 04/09/21 [History] Melatonin 3 mg PO HS PRN 04/09/21 [History] Cefdinir [Omnicef] 300 mg PO Q12HR 7 Days #14 capsule 04/12/21 [Rx] Follow up Appointment(s)/Referral(s): Silvestre Cole MD [Primary Care Provider] - 1-2 days Discharge Disposition: TRANSFER TO SNF/ECF
--- NOTE | 2021-04-12 13:20 | XR ---
EXAMINATION TYPE: XR KUB DATE OF EXAM: 04/12/2021 COMPARISON: NONE HISTORY: Constipation TECHNIQUE: One view abdominal series FINDINGS: Surgical tisha noted is postoperative change involving the vertebral column. Bilateral lower lobe i nfiltrate and small effusion. Arthropathy of the hips. Bowel gas pattern is nonspecific with no diagn ostic evidence of obstruction. There is retained fecal debris throughout the colon. Assessment for fr ee air limited. IMPRESSION: 1. Bilateral lower lobe infiltrate or atelectasis with small effusion. 2. Nonspecific abdomen correlate for constipation.
[2021-04-12 13:54] VITALS: BP 154/78; PULSE 89; TEMP 97.6
== END 2021-04-12 15:14 | DRG 689 ==
LOC: EC 15:16 → 6NMEDSUR 18:06 → OBSVTOIN 04-11 08:18
PROVIDERS: ADMIT Internal Medicine; ATTEND Internal Medicine
DX: N39.0 Urinary tract infection, site not specified (principal); J18.9 Pneumonia, unspecified organism; G93.41 Metabolic encephalopathy; N17.9 Acute kidney failure, unspecified; G45.9 Transient cerebral ischemic attack, unspecified; R47.01 Aphasia; Z68.41 Body mass index [BMI] 40.0-44.9, adult; J84.112 Idiopathic pulmonary fibrosis; M41.86 Other forms of scoliosis, lumbar region; Z99.81 Dependence on supplemental oxygen; J43.9 Emphysema, unspecified; E66.01 Morbid (severe) obesity due to excess calories; Z20.822 Contact with and (suspected) exposure to COVID-19; R47.1 Dysarthria and anarthria; Z79.82 Long term (current) use of aspirin; I10 Essential (primary) hypertension; E78.5 Hyperlipidemia, unspecified; I25.10 Atherosclerotic heart disease of native coronary artery without angina pectoris; K21.9 Gastro-esophageal reflux disease without esophagitis; G89.29 Other chronic pain; M51.36 Other intervertebral disc degeneration, lumbar region; M19.90 Unspecified osteoarthritis, unspecified site; H91.90 Unspecified hearing loss, unspecified ear; N42.9 Disorder of prostate, unspecified; Z79.899 Other long term (current) drug therapy; Z98.1 Arthrodesis status; Z87.891 Personal history of nicotine dependence; Z95.5 Presence of coronary angioplasty implant and graft; Z88.8 Allergy status to other drugs, medicaments and biological substances; Z91.048 Other nonmedicinal substance allergy status; Z82.49 Family history of ischemic heart disease and other diseases of the circulatory system; Z83.1 Family history of other infectious and parasitic diseases
CPT/HCPCS: 36415; 70450; 70496; 70498; 70551; 71045; 74018; 80053; 80061; 81001; 83605; 84484; 85025; 85610; 85730; 87040; 87635; 93005; 93880; 94640; 95816; 99291

== ENCOUNTER 2021-05-06 09:45 | Inpatient (IN) | payer MEDICARE, BC ==
[2021-05-06 10:49] LABS: Basophils # (A) 0.1 k/uL (0-0.2); Basophils % (A) 1 %; Eosinophils # (A) 0.3 k/uL (0-0.7); Eosinophils % (A) 2 %; HCT 36.5 % (39.0-53.0); HGB 11.9 gm/dL (13.0-17.5); Lymphocytes # (A) 1.2 k/uL (1.0-4.8); Lymphocytes % (A) 8 %; MCH 33.3 pg (25.0-35.0); MCHC 32.6 g/dL (31.0-37.0); MCV 102.3 fL (80.0-100.0); Macrocytosis Slight; Mean Platelet Volume 7.3; Monocytes # (A) 0.8 k/uL (0-1.0); Monocytes % (A) 5 %; Neutrophils # (A) 12.6 k/uL (1.3-7.7); Neutrophils % (A) 83 %; Platelet Count 226 k/uL (150-450); RBC 3.57 m/uL (4.30-5.90); RDW 13.4 % (11.5-15.5); WBC 15.1 k/uL (3.8-10.6)
--- NOTE | 2021-05-06 10:52 | ED ---
General Adult HPI - General Chief complaint: Shortness of Breath Stated complaint: Back pain/EULALIO/post surg 5 wks Time Seen by Provider: 05/06/21 10:01 Source: patient, EMS Mode of arrival: EMS Limitations: no limitations - History of Present Illness Initial comments: Dictation was produced using [employer] dictation software. please excuse any grammatical, word or spelling errors. Chief Complaint: 71-year-old male presents emergency Department with pleuritic left-sided chest and back pain. History of Present Illness: 71-year-old male presents emergency department for 3 days of chest and back pain. Patient states that he had multilevel spinal surgery performed month and a half ago. Patient states he recovered well from that procedure. He was discharged to a rehab facility. He's been home for several days when 2-3 days ago he began having left-sided back pain. Patient states she's been short of breath having Raynaud's and coughing. He reports that he has low-grade temperatures at home. Patient has had pneumonia multiple times in the past. He states his symptoms feel like pneumonia that he's had in the past. Patient is brought in by EMS. His oxygen levels in the mid 80s he was placed on supplement oxygen by EMS. Patient has a lower extremity symptoms. He does not take any blood thinner medications. The ROS documented in this emergency department record has been reviewed and confirmed by me. Those systems with pertinent positive or negative responses have been documented in the HPI. All other systems are other negative and/or noncontributory. PHYSICAL EXAM: General Impression: Alert and oriented x3, not in acute distress HEENT: Normocephalic atraumatic, extra-ocular movements intact, pupils equal and reactive to light bilaterally, mucous membranes moist. Cardiovascular: Heart regular rate and rhythm Chest: Able to complete full sentences, no retractions, no tachypnea, crackles and rhonchi to the left posterior lung wesley Abdomen: abdomen soft, non-tender, non-distended, no organomegaly Musculoskeletal: Pulses present and equal in all extremities, no peripheral edema Motor: no focal deficits noted Neurological: CN II-XII grossly intact, no focal motor or sensory deficits noted Skin: Intact with no visualized rashes Psych: Normal affect and mood ED course: 71-year-old male presents to the emergency department for chest and back pain. As upon arrival shows temperature 90.7, heart rate 122, respiratory 25, 93% on 6 L nasal cannula. Patient does have positive lung auscultatory fin dings in the left posterior lung wesley. Laboratory evaluation obtained. Mild leukocytosis of 15.1 hemoglobin 11.9. CBC is otherwise unremarkable. Coag panel is negative. D-dimer 7.69. Metabolic panel is normal. No kidney issues. Troponins normal negative. Prematurity peptide is 1000. 4 panel viral PCR is negative for influenza, COVID-19 and RSV. Chest x-ray shows no obvious findings. Given elevated d-dimer and pleurisy CT angios the chest was obtained showing pulmonary emboli with heavy burden and perhaps the beginning of right heart strain. Case is discussed with the sound physician Dr. Boo was willing to accept patients care. Patient reevaluated at 2:05 PM found to be in stable medical condition. He is smiling he is not showing signs of respiratory distress or significant pain. Patient is satting well on 4 L nasal cannula. He wears 3 liters nasal cannula at home at baseline. 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 EKG interpretation: Ventricular rate 109, sinus tachycardia, AL interval 177, care is 86, QTC 396. No AL prolongation, no QTC prolongation, no ST or T-wave changes noted. EKG compared to 04/09/2021 showing no changes. Overall, this EKG is unremarkable - Related Data Home Medications Medication Instructions Recorded Confirmed Aspirin [Adult Low Dose Aspirin EC] 81 mg PO DAILY 06/11/16 05/06/21 Atorvastatin [Lipitor] 40 mg PO HS 06/11/16 05/06/21 Metoprolol Tartrate [Lopressor] 50 mg PO DAILY 06/11/16 05/06/21 Montelukast [Singulair] 10 mg PO HS 03/21/17 05/06/21 Levocetirizine Dihydrochloride 5 mg PO HS 08/16/19 05/06/21 [Xyzal] Albuterol Sulfate [Albuterol 2 puff INHALATION RT-QID PRN 08/22/19 05/06/21 Sulfate Hfa] Methocarbamol [Robaxin-750] 750 mg PO Q8H PRN 09/25/20 05/06/21 Tamsulosin [Flomax] 0.4 mg PO DAILY 09/25/20 05/06/21 Cholecalciferol (Vitamin D3) 250 mcg PO HS 10/16/20 05/06/21 [Vitamin D3 (125 MCG = 5,000 IU)] Gabapentin 300 mg PO BID 04/09/21 05/06/21 HYDROcodone/APAP 7.5-325MG [[place] 1 tab PO Q6H PRN 04/09/21 05/06/21 7.5-325] Allergies Allergy/AdvReac Type Severity Reaction Status Date / Time adhesive Allergy Rash/Hives Verified 05/06/21 11:40 budesonide [From Symbicort] Allergy Rash/Hives Verified 05/06/21 11:40 formoterol [From Symbicort] Allergy Rash/Hives Verified 05/06/21 11:40 Review of Systems ROS Statement: Those systems with pertinent positive or pertinent negative responses have been documented in the HPI. ROS Other: All systems not noted in ROS Statement are negative. 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 Bilateral hard of hearing. Lumbar DDD w/ lower back pain radiating to left hip and down upper leg with numbness and tingling. History of Any Multi-Drug Resistant Organisms: None Reported Past Surgical History: Back Surgery, Heart Catheterization With Stent Additional Past Surgical History / Comment(s): Left lung biopsy, lower back surgery w/ josie, 1 cardiac stent. Past Anesthesia/Blood Transfusion Reactions: No Reported Reaction Date of Last Stent Placement:: 1997 Past Psychological History: No Psychological Hx Reported Smoking Status: Former smoker Past Alcohol Use History: Rare Past Drug Use History: None Reported - Past Family History Mother Family Medical History: Coronary Artery Disease (CAD) Additional Family Medical History / Comment(s): from peritonitis. General Exam Limitations: no limitations Course Vital Signs 05/06/21 05/06/21 05/06/21 10:01 10:05 11:10 Temperature 98.7 F Pulse Rate 122 H 105 H Respiratory 25 H 23 18 Rate Blood Pressure 135/82 119/81 O2 Sat by Pulse 93 L 95 Oximetry Medical Decision Making - Lab Data Result diagrams: 05/06/21 10:36 05/06/21 10:36 Lab Results 05/06/21 05/06/21 05/06/21 Range/Units 10:36 10:36 10:36 WBC 15.1 H (3.8-10.6) k/uL RBC 3.57 L (4.30-5.90) m/uL Hgb 11.9 L (13.0-17.5) gm/dL Hct 36.5 L (39.0-53.0) % MCV 102.3 H (80.0-100.0) fL MCH 33.3 (25.0-35.0) pg MCHC 32.6 (31.0-37.0) g/dL RDW 13.4 (11.5-15.5) % Plt Count 226 (150-450) k/uL MPV 7.3 Neutrophils % 83 % Lymphocytes % 8 % Monocytes % 5 % Eosinophils % 2 % Basophils % 1 % Neutrophils # 12.6 H (1.3-7.7) k/uL Lymphocytes # 1.2 (1.0-4.8) k/uL Monocytes # 0.8 (0-1.0) k/uL Eosinophils # 0.3 (0-0.7) k/uL Basophils # 0.1 (0-0.2) k/uL Macrocytosis Slight PT (9.0-12.0) sec INR (<1.2) APTT (22.0-30.0) sec D-Dimer (<0.60) mg/L FEU Sodium 136 L (137-145) mmol/L Potassium 3.7 (3.5-5.1) mmol/L Chloride 105 (98-107) mmol/L Carbon Dioxide 24 (22-30) mmol/L Anion Gap 7 mmol/L BUN 14 (9-20) mg/dL Creatinine 0.91 (0.66-1.25) mg/dL Est GFR (CKD-EPI)AfAm >90 (>60 ml/min/1.73 sqM) Est GFR (CKD-EPI)NonAf 85 (>60 ml/min/1.73 sqM) Glucose 94 (74-99) mg/dL Plasma Lactic Acid James 1.3 (0.7-2.0) mmol/L Calcium 8.3 L (8.4-10.2) mg/dL Magnesium 1.7 (1.6-2.3) mg/dL Total Bilirubin 0.8 (0.2-1.3) mg/dL AST 16 L (17-59) U/L ALT 14 (4-49) U/L Alkaline Phosphatase 85 (38-126) U/L Troponin I (0.000-0.034) ng/mL NT-Pro-B Natriuret Pep pg/mL Total Protein 6.4 (6.3-8.2) g/dL Albumin 3.3 L (3.5-5.0) g/dL Influenza Type A (PCR) (Not Detectd) Influenza Type B (PCR) (Not Detectd) RSV (PCR) (Not Detectd) SARS-CoV-2 (PCR) (Not Detectd) 05/06/21 05/06/21 05/06/21 Range/Units 10:36 10:36 10:36 WBC (3.8-10.6) k/uL RBC (4.30-5.90) m/uL Hgb (13.0-17.5) gm/dL Hct (39.0-53.0) % MCV (80.0-100.0) fL MCH (25.0-35.0) pg MCHC (31.0-37.0) g/dL RDW (11.5-15.5) % Plt Count (150-450) k/uL MPV Neutrophils % % Lymphocytes % % Monocytes % % Eosinophils % % Basophils % % Neutrophils # (1.3-7.7) k/uL Lymphocytes # (1.0-4.8) k/uL Monocytes # (0-1.0) k/uL Eosinophils # (0-0.7) k/uL Basophils # (0-0.2) k/uL Macrocytosis PT 10.6 (9.0-12.0) sec INR 1.0 (<1.2) APTT 22.1 (22.0-30.0) sec D-Dimer 11.69 H (<0.60) mg/L FEU Sodium (137-145) mmol/L Potassium (3.5-5.1) mmol/L Chloride (98-107) mmol/L Carbon Dioxide (22-30) mmol/L Anion Gap mmol/L BUN (9-20) mg/dL Creatinine (0.66-1.25) mg/dL Est GFR (CKD-EPI)AfAm (>60 ml/min/1.73 sqM) Est GFR (CKD-EPI)NonAf (>60 ml/min/1.73 sqM) Glucose (74-99) mg/dL Plasma Lactic Acid James (0.7-2.0) mmol/L Calcium (8.4-10.2) mg/dL Magnesium (1.6-2.3) mg/dL Total Bilirubin (0.2-1.3) mg/dL AST (17-59) U/L ALT (4-49) U/L Alkaline Phosphatase (38-126) U/L Troponin I (0.000-0.034) ng/mL NT-Pro-B Natriuret Pep 1030 pg/mL Total Protein (6.3-8.2) g/dL Albumin (3.5-5.0) g/dL Influenza Type A (PCR) Not Detected (Not Detectd) Influenza Type B (PCR) Not Detected (Not Detectd) RSV (PCR) Not Detected (Not Detectd) SARS-CoV-2 (PCR) Not Detected (Not Detectd) 05/06/21 Range/Units 10:36 WBC (3.8-10.6) k/uL RBC (4.30-5.90) m/uL Hgb (13.0-17.5) gm/dL Hct (39.0-53.0) % MCV (80.0-100.0) fL MCH (25.0-35.0) pg MCHC (31.0-37.0) g/dL RDW (11.5-15.5) % Plt Count (150-450) k/uL MPV Neutrophils % % Lymphocytes % % Monocytes % % Eosinophils % % Basophils % % Neutrophils # (1.3-7.7) k/uL Lymphocytes # (1.0-4.8) k/uL Monocytes # (0-1.0) k/uL Eosinophils # (0-0.7) k/uL Basophils # (0-0.2) k/uL Macrocytosis PT (9.0-12.0) sec INR (<1.2) APTT (22.0-30.0) sec D-Dimer (<0.60) mg/L FEU Sodium (137-145) mmol/L Potassium (3.5-5.1) mmol/L Chloride (98-107) mmol/L Carbon Dioxide (22-30) mmol/L Anion Gap mmol/L BUN (9-20) mg/dL Creatinine (0.66-1.25) mg/dL Est GFR (CKD-EPI)AfAm (>60 ml/min/1.73 sqM) Est GFR (CKD-EPI)NonAf (>60 ml/min/1.73 sqM) Glucose (74-99) mg/dL Plasma Lactic Acid James (0.7-2.0) mmol/L Calcium (8.4-10.2) mg/dL Magnesium (1.6-2.3) mg/dL Total Bilirubin (0.2-1.3) mg/dL AST (17-59) U/L ALT (4-49) U/L Alkaline Phosphatase (38-126) U/L Troponin I <0.012 (0.000-0.034) ng/mL NT-Pro-B Natriuret Pep pg/mL Total Protein (6.3-8.2) g/dL Albumin (3.5-5.0) g/dL Influenza Type A (PCR) (Not Detectd) Influenza Type B (PCR) (Not Detectd) RSV (PCR) (Not Detectd) SARS-CoV-2 (PCR) (Not Detectd) Critical Care Time Critical Care Time: Yes Total Critical Care Time: 33 Disposition Clinical Impression: Pulmonary embolism Disposition[facility] Condition: Serious Referrals: Silvestre Cole MD [Primary Care Provider] - 1-2 days
[2021-05-06 11:05] LABS: ALT 14 U/L (4-49); AST 16 U/L (17-59); African American GFR (CKD) >90 (>60 ml/min/1.73 sqM); Albumin 3.3 g/dL (3.5-5.0); Alkaline Phosphatase 85 U/L (38-126); Anion Gap 7 mmol/L; Blood Urea Nitrogen 14 mg/dL (9-20); Calcium 8.3 mg/dL (8.4-10.2); Carbon Dioxide 24 mmol/L (22-30); Chloride 105 mmol/L (98-107); Glucose 94 mg/dL (74-99); Magnesium 1.7 mg/dL (1.6-2.3); Non-African American GFR(CKD) 85 (>60 ml/min/1.73 sqM); Potassium 3.7 mmol/L (3.5-5.1); Sodium 136 mmol/L (137-145); Total Bilirubin 0.8 mg/dL (0.2-1.3); Total Protein 6.4 g/dL (6.3-8.2)
--- NOTE | 2021-05-06 11:06 | XR ---
EXAMINATION TYPE: XR chest 2V DATE OF EXAM: 05/06/2021 COMPARISON: Chest x-ray 04/09/2021, CT 04/09/2021 HISTORY: Cough, pleuritic chest pain TECHNIQUE: Frontal and lateral views of the chest are obtained. FINDINGS: There is no pleural effusion or pneumothorax seen. Interstitium is increased similar to pr ior exam. The cardiac silhouette size is stable. The osseous structures are intact, postop changes are noted to the thoracic lumbar spine. IMPRESSION: Interstitial changes are again noted within the lungs. Patient with underlying emphysema .
[2021-05-06 11:13] LABS: Partial Thromboplastin Time 22.1 sec (22.0-30.0); Prothrombin Time 10.6 sec (9.0-12.0)
[2021-05-06 11:25] LABS: Influenza A Not Detected (Not Detectd); Influenza B Not Detected (Not Detectd)
[2021-05-06] MEDS ORDERED: MORPHINE SULFATE 4 MG/ML SYRINGE IV STA (12:44)
[2021-05-06] MEDS ORDERED: HEPARIN SODIUM 1,000 UN/ML (10ML VL) IV ONE (13:36)
[2021-05-06] MEDS ORDERED: HEPARIN SODIUM 1,000 UN/ML (10ML VL) IV PRN (13:36)
--- NOTE | 2021-05-06 13:49 | CT ---
EXAMINATION TYPE: CT angio chest DATE OF EXAM: 05/06/2021 COMPARISON: 07/21/2019 and 03/22/2017 HISTORY: 71-year-old male with back PAIN, shortness of breath, difficulty breathing, positive d-dimer . TECHNIQUE: Contiguous axial scanning of the chest performed with IV Contrast, patient injected with 1 00 mL of Isovue 370. Coronal/sagittal MIP reconstructions performed. CT DLP: 703.5 mGycm Automated exposure control for dose reduction was used. FINDINGS: Heart is upper limits of normal in size. Prominence of the right ventricle and slight flattening of t he interventricular septum. LAD coronary artery calcifications. Ectatic upper descending thoracic aorta 3.0 cm. Mild atherosclerotic arch calcifications. Dimension a [facility] vessel branching anatomy. Large caliber to the main right and left pulmonary arteries and 3.1 and 2.7 cm, respectively, suggest ing underlying pulmonary arterial hypertension. There is bulky clot at the distal right main pulmonary artery extending into lobar and segmental bran ches throughout the right lung. Fairly heavy burden on the right. Minimal clot is seen within segment al and subsegmental branches of the left upper lobe. Scattered nonenlarged mediastinal lymph nodes. No thoracic lymphadenopathy with CT size criteria. Pleural parenchymal scarring scattered throughout with areas of distortion, bronchiolectasis, subpleu ral microcystic change, and some mild groundglass on a background of mild emphysema. Ground glass katie nges shows some improvement compared to 07/21/2019 though some areas still remain. Tiny hiatal hernia. Visualized upper abdomen shows tiny anterior splenules. Bones: Lower thoracic posterior fusion hardware partially visualized. IMPRESSION: 1. EXAM POSITIVE FOR PULMONARY EMBOLI. THERE IS FAIRLY HEAVY BURDEN ON THE RIGHT WITH BULKY CLOT IN T HE DISTAL RIGHT MAIN PULMONARY ARTERY EXTENDING THROUGHOUT LOBAR AND SEGMENTAL BRANCHES. SUSPECT NIEVES Y RIGHT HEART STRAIN. 2. ADDITIONAL MINIMAL SCATTERED CLOT WITHIN SEGMENTAL/SUBSEGMENTAL BRANCHES OF THE LEFT UPPER LOBE. 3. 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 GIVEN SCATTERED BRONCHIOLECTASIS, AREAS OF RETICULAR CHANGE, PARENCHYMAL DISTORTION, SUBPLEURAL MICROCYSTIC CHANGE, AND GROUNDGLASS, CONSIDE R NSIP OR POSTINFECTIOUS FIBROSIS. SLIGHT PROGRESSIVE FIBROSIS FROM 2019 BUT WITH SLIGHT IMPROVEMENT IN GROUNDGLASS CHANGES. PULMONARY MEDICINE REFERRAL IF NO ESTABLISHED DIAGNOSIS 4. PULMONARY ARTERIAL HYPERTENSION. Critical findings called to the ER and given to Dr. Morgan at 1:45 PM.
[2021-05-06] MEDS ORDERED: NALOXONE 0.4 MG/ML 1 ML VIAL IV PRN ×2 (13:58→15:19)
[2021-05-06] MEDS ORDERED: ACETAMINOPHEN TAB 325 MG TAB PO PRN (14:04)
[2021-05-06] MEDS: HEPARIN SOD,PORK IN 0.45% NACL 25,000 UNIT in 0.45% NACL 1 250ML.BAG IV SCH (14:12)
--- NOTE | 2021-05-06 14:35 | P.GSCN ---
History of Present Illness Consult date: 05/06/21 Reason for Consult: Bilateral pulmonary embolism Requesting physician: Gilbert Morgan History of present illness: Sub-pleasant 71-year-old male who presented to the emergency department with complaints of back pain and shortness of breath since last Thursday. States he difficulty with breathing and began to worsen as well as the back pain. He came into the emergency department and had an elevated d-dimer. He has CT angiogram of the chest that showed pulmonary emboli fairly heavy burden on the right with bulky clot in the distal right main pulmonary artery extending through out lobar and segmental branches suspect early right heart strain. Additional minimal scattered clot within segmental/subsegmental branches of the left upper lobe. Vascular surgery was consulted for pulmonary embolism. The patient states he has no previous history of any DVT or PE. No history of clotting disorder, recent travel however states he did undergo back surgery 03/26/[address] Wilkins. Does have a history of coronary artery disease with previous stenting and sees Dr. LOW Rob. He currently looks in no distress. He has 3 L of nasal cannula and saturation 96% he has been mildly tachycardic. Blood pressure has been stable. Denies any pain or swelling in his lower extremities. States he does have numbness and tingling in his right lower extremity since his surgery. He denies any chest pain, he is having shortness of breath with exertion. WBC 15 hemoglobin 11.9 platelet count 226,000 d-dimer 11.69 sodium 136 potassium 3.7 nightly 14 creatinine 0.9 and a troponin less than 0.012. Review of Systems A 14 point review of systems was completed all pertinent positives and negatives as stated but the HPI. Past Medical History Past Medical History: Asthma, Coronary Artery Disease (CAD), COPD, GERD/Reflux, Hearing Disorder / Deafness, Hyperlipidemia, Hypertension, Musculoskeletal Disorder, Osteoarthritis (OA), Prostate Disorder Additional Past Medical History / Comment(s): COPD and Emphysema, UIP on home ox ygen. Bilateral hard of hearing. Lumbar DDD w/ lower back pain radiating to left hip and down upper leg with numbness and tingling. History of Any Multi-Drug Resistant Organisms: None Reported Past Surgical History: Back Surgery, Heart Catheterization With Stent Additional Past Surgical History / Comment(s): Left lung biopsy, lower back surgery w/ josie, 1 cardiac stent. Past Anesthesia/Blood Transfusion Reactions: No Reported Reaction Date of Last Stent Placement:: 1997 Past Psychological History: No Psychological Hx Reported Smoking Status: Former smoker Past Alcohol Use History: Rare Past Drug Use History: None Reported - Past Family History Mother Family Medical History: Coronary Artery Disease (CAD) Additional Family Medical History / Comment(s): from peritonitis. Medications and Allergies Home Medications Medication Instructions Recorded Confirmed Type Aspirin [Adult Low Dose Aspirin EC] 81 mg PO DAILY 06/11/16 05/06/21 History Atorvastatin [Lipitor] 40 mg PO HS 06/11/16 05/06/21 History Metoprolol Tartrate [Lopressor] 50 mg PO DAILY 06/11/16 05/06/21 History Montelukast [Singulair] 10 mg PO HS 03/21/17 05/06/21 History Levocetirizine Dihydrochloride 5 mg PO HS 08/16/19 05/06/21 History [Xyzal] Albuterol Sulfate [Albuterol 2 puff INHALATION RT-QID PRN 08/22/19 05/06/21 History Sulfate Hfa] Methocarbamol [Robaxin-750] 750 mg PO Q8H PRN 09/25/20 05/06/21 History Tamsulosin [Flomax] 0.4 mg PO DAILY 09/25/20 05/06/21 History Cholecalciferol (Vitamin D3) 250 mcg PO HS 10/16/20 05/06/21 History [Vitamin D3 (125 MCG = 5,000 IU)] Gabapentin 300 mg PO BID 04/09/21 05/06/21 History HYDROcodone/APAP 7.5-325MG [[place] 1 tab PO Q6H PRN 04/09/21 05/06/21 History 7.5-325] Allergies Allergy/AdvReac Type Severity Reaction Status Date / Time adhesive Allergy Rash/Hives Verified 05/06/21 11:40 budesonide [From Symbicort] Allergy Rash/Hives Verified 05/06/21 11:40 formoterol [From Symbicort] Allergy Rash/Hives Verified 05/06/21 11:40 Surgical - Exam Vital Signs Temp Pulse Resp BP Pulse Ox 98.7 F 122 H 25 H 135/82 93 L 05/06/21 10:01 05/06/21 10:01 05/06/21 10:01 05/06/21 10:01 05/06/21 10:01 General appearance: The patient is alert, oriented, appears in no acute distres s. HET: Head is normocephalic and atraumatic. Alert and oriented 3. Neck: Supple without lymphadenopathy. Trachea midline. No audible carotid bruit. Heart: S1 S2. Regular rate and rhythm. Lungs: Clear to auscultation bilaterally. Abdomen: Soft, nontender, nondistended. Extremities: Normal skin color and turgor. No cyanosis, rash, ulceration, clubbing, or edema. Radial pulses bilaterally. Neurological: No focal deficits. Strength and sensation are grossly intact. Results - Labs 05/06/21 10:36 05/06/21 10:36 Abnormal Lab Results - Last 24 Hours (Table) 05/06/21 05/06/21 05/06/21 Range/Units 10:36 10:36 10:36 WBC 15.1 H (3.8-10.6) k/uL RBC 3.57 L (4.30-5.90) m/uL Hgb 11.9 L (13.0-17.5) gm/dL Hct 36.5 L (39.0-53.0) % MCV 102.3 H (80.0-100.0) fL Neutrophils # 12.6 H (1.3-7.7) k/uL D-Dimer 11.69 H (<0.60) mg/L FEU Sodium 136 L (137-145) mmol/L Calcium 8.3 L (8.4-10.2) mg/dL AST 16 L (17-59) U/L Albumin 3.3 L (3.5-5.0) g/dL Diabetes panel 05/06/21 Range/Units 10:36 Sodium 136 L (137-145) mmol/L Potassium 3.7 (3.5-5.1) mmol/L Chloride 105 (98-107) mmol/L Carbon Dioxide 24 (22-30) mmol/L BUN 14 (9-20) mg/dL Creatinine 0.91 (0.66-1.25) mg/dL Glucose 94 (74-99) mg/dL Calcium 8.3 L (8.4-10.2) mg/dL AST 16 L (17-59) U/L ALT 14 (4-49) U/L Alkaline Phosphatase 85 (38-126) U/L Total Protein 6.4 (6.3-8.2) g/dL Albumin 3.3 L (3.5-5.0) g/dL Calcium panel 05/06/21 Range/Units 10:36 Calcium 8.3 L (8.4-10.2) mg/dL Albumin 3.3 L (3.5-5.0) g/dL Pituitary panel 05/06/21 Range/Units 10:36 Sodium 136 L (137-145) mmol/L Potassium 3.7 (3.5-5.1) mmol/L Chloride 105 (98-107) mmol/L Carbon Dioxide 24 (22-30) mmol/L BUN 14 (9-20) mg/dL Creatinine 0.91 (0.66-1.25) mg/dL Glucose 94 (74-99) mg/dL Calcium 8.3 L (8.4-10.2) mg/dL Adrenal panel 05/06/21 Range/Units 10:36 Sodium 136 L (137-145) mmol/L Potassium 3.7 (3.5-5.1) mmol/L Chloride 105 (98-107) mmol/L Carbon Dioxide 24 (22-30) mmol/L BUN 14 (9-20) mg/dL Creatinine 0.91 (0.66-1.25) mg/dL Glucose 94 (74-99) mg/dL Calcium 8.3 L (8.4-10.2) mg/dL Total Bilirubin 0.8 (0.2-1.3) mg/dL AST 16 L (17-59) U/L ALT 14 (4-49) U/L Alkaline Phosphatase 85 (38-126) U/L Total Protein 6.4 (6.3-8.2) g/dL Albumin 3.3 L (3.5-5.0) g/dL - Imaging Comments: CT angiogram of the chest that showed pulmonary emboli fairly heavy burden on the right with bulky clot in the distal right main pulmonary artery extending t hrough out lobar and segmental branches suspect early right heart strain. Additional minimal scattered clot within segmental/subsegmental branches of the left upper lobe. Combination of COPD and chronic interstitial lung disease. Given scattered bronchiolectasis, areas of reticular change, parenchymal distortion subpleural microcystic change and groundglass consider then set or postinfectious fibrosis. Slight progressive fibrosis from 2020 with slight improvement in groundglass changes. Pulmonary arterial hypertension. Assessment and Plan Assessment: 1. Pulmonary emboli with moderate clot burden 2. Recent back surgery 3. History coronary artery disease status post previous stenting 4. COPD/emphysema 5. History of hyperlipidemia hypertension Plan: 1. Start heparin drip 2. Echocardiogram ordered 3. Venous duplex of lower extremities ordered 4. Further recommendations forthcoming Thank you for this consultation, we will continue to follow. The impression and plan of care has been dictated as directed. I performed a history and examination of this patient, discussed the same with the dictator. I agree with the dictator's note ,documented as a scribe. Any additional findings or plans will be noted.
[2021-05-06] MEDS ORDERED: DOCUSATE 100 MG CAP PO PRN (15:19)
[2021-05-06] MEDS ORDERED: bisacodyL 5 MG TABLET.DR PO PRN (15:19)
[2021-05-06] MEDS ORDERED: MELATONIN 3 MG TABLET PO PRN (15:19)
[2021-05-06] MEDS ORDERED: MAGNESIUM HYDROXIDE 2,400 MG/10 ML CUP PO PRN (15:19)
[2021-05-06] MEDS ORDERED: methocarbamoL 750 MG TAB PO PRN (15:23)
--- NOTE | 2021-05-06 15:27 | US ---
EXAMINATION TYPE: US venous doppler duplex LE DATE OF EXAM: 05/06/2021 3:12 PM COMPARISON: CT CLINICAL HISTORY: Pulmonary Embolism. EC patient with right leg numbness; Back surgery 5 weeks ago SIDE PERFORMED: Bilateral TECHNIQUE: The lower extremity deep venous system is examined utilizing real time linear array sonog alessandra with graded compression, doppler sonography and color-flow sonography. VESSELS IMAGED: Common Femoral Vein Deep Femoral Vein Greater Saphenous Vein * Femoral Vein Popliteal Vein Small Saphenous Vein * Proximal Calf Veins (* superficial vessels) Right Leg: Positive for non occluding DVT in Right popliteal vein and in upper calf veins. Left Leg: Positive for non occluding DVT in Left popliteal vein and in upper calf veins as incomplet e color flow to soares is noted in calf veins. IMPRESSION: Bilateral lower extremity nonocclusive deep venous thrombosis popliteal veins as describe d.
[2021-05-06] MEDS: ONDANSETRON 4 MG/2 ML VIAL IVP PRN (15:29)
[2021-05-06] MEDS: HYDROmorphone 1 MG/ML 1 ML SYRINGE IVP PRN ×2 (15:30→19:13)
--- NOTE | 2021-05-06 18:06 | P.CNPUL ---
History of Present Illness Consult date: 05/06/21 Reason for consult: dyspnea, pulmonary embolism History of present illness: 8-year-old male patient with known history of chronic back pain lumbar scoliosis to underwent a T10 to pelvis revision fusion, surgery was completed on 03/27/2021 and following that the patient was discharged to [facility] for rehabilitation. This was an extensive surgery. At that time, the patient came in to the ICU for monitoring. The patient had adequate pain control. Hemoglobin remains stable. CAT scan of the lumbar and thoracic spine showed some atelectatic changes in lung bases bilaterally. The patient was provided incentive spirometer. The patient was given a CPAP machine to use postop. He was provided bronchodilators. He was provided incentive spirometer and following that he was discharged. His mobility has been limited as the patient was still having issues with pain at the [facility] on the [place]. The patient acutely developed shortness of breath today and he had some chest discomfort and for that reason he came into the MRSA problem for further evaluation. Further investigation revealed that the patient had a positive DVT in the popliteal veins bilaterally and the patient had also pulmonary embolism would have a clot burden on the right with a bulky clot in the distal right main pulmonary artery extending into the lobar and segmental branches and right heart strain was also suspected. The patient also has UIP features on the CAT scan of the chest. This was consistent with pulmonary fibrosis and this was also confirmed by previ ous lung biopsy. The patient had a hemoglobin of 11.9. D-dimer was elevated at 11. Blood work was essentially negative. Influenza screen was negative. Carotid 1950 was also negative. He remained hemodynamically stable. He is currently off 6 L of oxygen by nasal cannula. No significant tachycardia and the cardiac rhythm is sinus. No significant tachypnea and the respiratory rate was ranging between 22 and 25 times a minute. Patient was started on IV heparin. Pulmonate consultation was requested. Vascular consultation was also requested regarding the possibility of an EKOS procedure. No previous history of DVT or pulmonary embolism. No intake of anticoagulants on outpatient basis. Review of Systems Constitutional: Denies chills, Denies fever, the patient has remained sedentary post his surgery Eyes: denies blurred vision, denies pain Ears, nose, mouth and throat: Denies headache, Denies sore throat Cardiovascular: Denies chest pain, Denies shortness of breath Respiratory: Reports home oxygen, endorses chronic cough, the patient has a chronic dry cough, chronic dyspnea with acute worsening shortness of breath Gastrointestinal: Denies abdominal pain, Denies diarrhea, Denies nausea, Denies vomiting Musculoskeletal: Denies myalgias, continues to have chronic back pain which is effective his mobility Integumentary: Denies pruritus, Denies rash Neurological: Denies numbness, Denies weakness Psychiatric: Denies anxiety, Denies depression Endocrine: Denies fatigue, Denies weight change Past Medical History Past Medical History: Asthma, Coronary Artery Disease (CAD), COPD, GERD/Reflux, Hearing Disorder / Deafness, Hyperlipidemia, Hypertension, Musculoskeletal Disorder, Osteoarthritis (OA), Prostate Disorder Additional Past Medical History / Comment(s): COPD and Emphysema, UIP on home oxygen. Bilateral hard of hearing. Lumbar DDD w/ lower back pain radiating to left hip and down upper leg with numbness and tingling. History of Any Multi-Drug Resistant Organisms: None Reported Past Surgical History: Back Surgery, Heart Catheterization With Stent Additional Past Surgical History / Comment(s): Left lung biopsy, lower back surgery w/ josie, 1 cardiac stent. Past Anesthesia/Blood Transfusion Reactions: No Reported Reaction Date of Last Stent Placement:: 1997 Past Psychological History: No Psychological Hx Reported Smoking Status: Former smoker Past Alcohol Use History: Rare Past Drug Use History: None Reported - Past Family History Mother Family Medical History: Coronary Artery Disease (CAD) Additional Family Medical History / Comment(s): from peritonitis. Medications and Allergies Home Medications Medication Instructions Recorded Confirmed Type Aspirin [Adult Low Dose Aspirin EC] 81 mg PO DAILY 06/11/16 05/06/21 History Atorvastatin [Lipitor] 40 mg PO HS 06/11/16 05/06/21 History Metoprolol Tartrate [Lopressor] 50 mg PO DAILY 06/11/16 05/06/21 History Montelukast [Singulair] 10 mg PO HS 03/21/17 05/06/21 History Levocetirizine Dihydrochloride 5 mg PO HS 08/16/19 05/06/21 History [Xyzal] Albuterol Sulfate [Albuterol 2 puff INHALATION RT-QID PRN 08/22/19 05/06/21 History Sulfate Hfa] Methocarbamol [Robaxin-750] 750 mg PO Q8H PRN 09/25/20 05/06/21 History Tamsulosin [Flomax] 0.4 mg PO DAILY 09/25/20 05/06/21 History Cholecalciferol (Vitamin D3) 250 mcg PO HS 10/16/20 05/06/21 History [Vitamin D3 (125 MCG = 5,000 IU)] Gabapentin 300 mg PO BID 04/09/21 05/06/21 History HYDROcodone/APAP 7.5-325MG [[place] 1 tab PO Q6H PRN 04/09/21 05/06/21 History 7.5-325] Allergies Allergy/AdvReac Type Severity Reaction Status Date / Time adhesive Allergy Rash/Hives Verified 05/06/21 11:40 budesonide [From Symbicort] Allergy Rash/Hives Verified 05/06/21 11:40 formoterol [From Symbicort] Allergy Rash/Hives Verified 05/06/21 11:40 Physical Exam Vitals: Vital Signs Temp Pulse Resp BP Pulse Ox 05/06/21 16:00 101 H 22 125/78 95 05/06/21 13:00 98 18 151/84 96 05/06/21 11:10 18 05/06/21 10:05 105 H 23 119/81 95 05/06/21 10:01 98.7 F 122 H 25 H 135/82 93 L Intake and Output 05/06/21 05/06/21 05/06/21 06:59 14:59 22:59 Other: Weight 107.955 kg GENERAL EXAM: sedated, and intubated, 71-year-old white male, awake and alert and the patient is breathing is comfortable at 6 L O2 nasal cannula HEAD: Normocephalic/atraumatic. EYES: Normal reaction of pupils, equal size. Conjunctiva pink, sclera white. NOSE: Clear with pink turbinates. THROAT: No erythema or exudates. NECK: No masses, no JVD, no thyroid enlargement, no adenopathy. CHEST: No chest wall deformity. Symmetrical expansion. LUNGS: Equal air entry with no crackles, wheeze, rhonchi or dullness. The patient has coarse crackles in lung bases bilaterally. CVS: Regular rate and rhythm, normal S1 and S2, no gallops, no murmurs, no rubs ABDOMEN: Soft, nontender. No hepatosplenomegaly, normal bowel sounds, no guarding or rigidity. EXTREMITIES: No clubbing, no edema, no cyanosis, 2+ pulses and upper and lower extremities. MUSCULOSKELETAL: Muscle strength and tone normal. SPINE: No scoliosis or deformity. Spinal incision clean dry intact, SKIN: No rashes CENTRAL NERVOUS SYSTEM: Sedated, intubated. No focal deficits, tone is normal in all 4 extremities. Results - Laboratory Findings CBC and BMP: 05/06/21 10:36 05/06/21 10:36 PT/INR, D-dimer PT 10.6 sec (9.0-12.0) 05/06/21 10:36 INR 1.0 (<1.2) 05/06/21 10:36 D-Dimer 11.69 mg/L FEU (<0.60) H 05/06/21 10:36 Abnormal lab findings: Abnormal Labs 05/06/21 05/06/21 05/06/21 10:36 10:36 10:36 WBC 15.1 H RBC 3.57 L Hgb 11.9 L Hct 36.5 L MCV 102.3 H Neutrophils # 12.6 H D-Dimer 11.69 H Sodium 136 L Calcium 8.3 L AST 16 L Albumin 3.3 L - Diagnostic Findings Chest x-ray: image reviewed CT scan - chest: image reviewed Assessment and Plan Plan: #1. Acute bilateral pulmonary embolism with have a clot burden right and RV strain on the CAT scan findings in addition to bilateral nonocclusive DVT in the popliteal veins. Patient is currently on IV heparin. The patient is currently on 6 L of oxygen by nasal cannula. Awaiting further evaluation by vascular surgery regarding possibility of EKOS , awaiting 2-D echocardiogram to evaluate RV strain and pulmonary hypertension. Risk factors of recent spine surgery in addition to being sedentary. This is the first episode for this patient when he has not been taking any form of anticoagulants other than baby aspirin on outpatient basis #2 acute on chronic hypoxic respiratory failure currently on 6 L nasal cannula #3 chronic lower back pain, and left lower extremity pain, status post lateral lumbar interbody fusion with L1 through 2, and posterior revision of T10 to pelvis and decompression fusion on 03/26/2021 #4. History of UIP, biopsy proven, on home oxygen at 2 L #5. History of COPD #6. Coronary artery disease with previous stenting #7. Hypertension #8. Hyperlipidemia #9. BPH #10. Lumbar scoliosis Plan: Awaiting 2-D echocardiogram to evaluate RV strain and pulmonary hypertension Vascular surgical consultation Hemodynamically stable on 6 L O2 nasal cannula Continue IV heparin Resume all medications We'll continue to follow
--- NOTE | 2021-05-06 18:15 | P.HPIM ---
History of Present Illness H&P Date: 05/06/21 Chief Complaint: Difficulty breathing 71-year-old gentleman with past medical history significant for COPD, chronic back pain status post recent back surgery on March 26 patient was discharged to [facility] for his rehab and was discharged home after 2 weeks. He presented to the emergency department with complaints of back pain and shortness of breath since last Thursday. States he difficulty with breathing and began to worsen as well as the back pain. He came into the emergency department and had an elevated d-dimer. He has CT angiogram of the chest that showed pulmonary emboli fairly heavy burden on the right with bulky clot in the distal right main pulmonary artery extending through out lobar and segmental branches suspect early right heart strain. Additional minimal scattered clot within segmental/subsegmental branches of the left upper lobe. Vascular surgery was consulted for pulmonary embolism for possible Ekos. The patient states he has no previous history of any DVT or PE. No history of clotting disorder, recent travel however states he did undergo back surgery 03/26/[address] Wilkins. Does have a history of coronary artery disease with previous stenting and sees Dr. LOW Rob in 2008. Venous Doppler postthoracentesis showed evidence of nonoccluding DVT in both lower extremities. He currently looks in no distress. He has 3 L of nasal cannula and saturation 96% he has been mildly tachycardic. Blood pressure has been stable. Denies any pain or swelling in his lower extremities. States he does have numbness and tingling in his right lower extremity since his surgery. He denies any chest pain, he is having shortness of breath with exertion. WBC 15 hemoglobin 11.9 platelet count 226,000 d-dimer 11.69 sodium 136 potassium 3.7 nightly 14 creatinine 0.9 and a troponin less than 0.012. Patient denies abdominal pain, nausea, vomiting, constipation or diarrhea. Patient denies any chest pain. Patient denied any fever or chills recent travel or sick contacts. 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 Bilateral hard of hearing. Lumbar DDD w/ lower back pain radiating to left hip and down upper leg with numbness and tingling. History of Any Multi-Drug Resistant Organisms: None Reported Past Surgical History: Back Surgery, Heart Catheterization With Stent Additional Past Surgical History / Comment(s): Left lung biopsy, lower back surgery w/ josie, 1 cardiac stent. Past Anesthesia/Blood Transfusion Reactions: No Reported Reaction Date of Last Stent Placement:: 1997 Past Psychological History: No Psychological Hx Reported Smoking Status: Former smoker Past Alcohol Use History: Rare Past Drug Use History: None Reported - Past Family History Mother Family Medical History: Coronary Artery Disease (CAD) Additional Family Medical History / Comment(s): from peritonitis. Medications and Allergies Home Medications Medication Instructions Recorded Confirmed Type Aspirin [Adult Low Dose Aspirin EC] 81 mg PO DAILY 06/11/16 05/06/21 History Atorvastatin [Lipitor] 40 mg PO HS 06/11/16 05/06/21 History Metoprolol Tartrate [Lopressor] 50 mg PO DAILY 06/11/16 05/06/21 History Montelukast [Singulair] 10 mg PO HS 03/21/17 05/06/21 History Levocetirizine Dihydrochloride 5 mg PO HS 08/16/19 05/06/21 History [Xyzal] Albuterol Sulfate [Albuterol 2 puff INHALATION RT-QID PRN 08/22/19 05/06/21 History Sulfate Hfa] Methocarbamol [Robaxin-750] 750 mg PO Q8H PRN 09/25/20 05/06/21 History Tamsulosin [Flomax] 0.4 mg PO DAILY 09/25/20 05/06/21 History Cholecalciferol (Vitamin D3) 250 mcg PO HS 10/16/20 05/06/21 History [Vitamin D3 (125 MCG = 5,000 IU)] Gabapentin 300 mg PO BID 04/09/21 05/06/21 History HYDROcodone/APAP 7.5-325MG [[place] 1 tab PO Q6H PRN 04/09/21 05/06/21 History 7.5-325] Allergies Allergy/AdvReac Type Severity Reaction Status Date / Time adhesive Allergy Rash/Hives Verified 05/06/21 11:40 budesonide [From Symbicort] Allergy Rash/Hives Verified 05/06/21 11:40 formoterol [From Symbicort] Allergy Rash/Hives Verified 05/06/21 11:40 Physical Exam Vitals: Vital Signs Temp Pulse Resp BP Pulse Ox 05/06/21 16:00 101 H 22 125/78 95 05/06/21 13:00 98 18 151/84 96 05/06/21 11:10 18 05/06/21 10:05 105 H 23 119/81 95 05/06/21 10:01 98.7 F 122 H 25 H 135/82 93 L Intake and Output 05/06/21 05/06/21 05/06/21 06:59 14:59 22:59 Other: Weight 107.955 kg General: non toxic, no distress, appears at stated age. Obese Derm: warm, dry Head: atraumatic, normocephalic, symmetric Eyes: EOMI, no lid lag, anicteric sclera Mouth: no lip lesion, mucus membranes moist Cardiovascular: S1S2 tachycardic, no murmur, positive posterior tibial pulse bilateral, Lungs: CTA bilateral, no rhonchi, no rales , no accessory muscle use Abdominal: soft, nontender to palpation, no guarding, no appreciable organomegaly Ext: no gross muscle atrophy, no edema, no contractures Neuro: CN II-XI grossly intact, no focal neuro deficits Psych: Alert, oriented, appropriate affect Results CBC & Chem 7: 05/06/21 10:36 05/06/21 10:36 Labs: Abnormal Lab Results - Last 24 Hours (Table) 05/06/21 05/06/21 05/06/21 Range/Units 10:36 10:36 10:36 WBC 15.1 H (3.8-10.6) k/uL RBC 3.57 L (4.30-5.90) m/uL Hgb 11.9 L (13.0-17.5) gm/dL Hct 36.5 L (39.0-53.0) % MCV 102.3 H (80.0-100.0) fL Neutrophils # 12.6 H (1.3-7.7) k/uL D-Dimer 11.69 H (<0.60) mg/L FEU Sodium 136 L (137-145) mmol/L Calcium 8.3 L (8.4-10.2) mg/dL AST 16 L (17-59) U/L Albumin 3.3 L (3.5-5.0) g/dL Assessment and Plan Assessment: Assessment and plan: #Pulmonary embolus with moderate clot burden #Bilateral DVT -Most likely provoked by recent back surgery on March -echo ordered -Vascular surgical consult for possible Ekos -IV heparin -Pulmonary and cardiology consulted #History of coronary disease status post stent 2008 -EKG sinus tachycardia -Resume beta gonzález, aspirin and statins -Patient denies any chest pain -Cardiology following #COPD without exacerbation -When necessary albuterol as needed #Chronic back pain status recent back surgery -Resume Narco and gabapentin #Obesity BMI 34 #Benign prostatic hypertrophy -Resume Flomax #DVT prophylaxis patient really IV heparin. #Full code
[2021-05-06] MEDS: SODIUM CHLORIDE 0.9% 1,000 ML IV SCH (19:03)
[2021-05-06] MEDS: LORATADINE 10 MG TAB PO SCH (21:26)
[2021-05-06] MEDS: MONTELUKAST 10 MG TAB PO SCH (21:26)
[2021-05-06] MEDS: ATORVASTATIN 40 MG TAB PO SCH (21:26)
[2021-05-06] MEDS: GABAPENTIN 300 MG CAP PO SCH (21:26)
[2021-05-06] MEDS: CHOLECALCIFEROL 125 MCG (5000 IU) TABLET PO SCH (21:26)
[2021-05-06] MEDS: ALBUTEROL NEBULIZED 2.5 MG/3 ML INHALATION PRN (21:30)
[2021-05-07] MEDS: HYDROmorphone 1 MG/ML 1 ML SYRINGE IVP PRN ×3 (00:32→20:00)
[2021-05-07] MEDS: HEPARIN SOD,PORK IN 0.45% NACL 25,000 UNIT in 0.45% NACL 1 250ML.BAG IV SCH ×2 (03:44→16:42)
[2021-05-07] MEDS: SODIUM CHLORIDE 0.9% 1,000 ML IV SCH ×3 (06:23→17:46)
[2021-05-07] MEDS: PANTOPRAZOLE 40 MG TABLET PO SCH (06:23)
[2021-05-07 08:14] LABS: Basophils # (A) 0.1 k/uL (0-0.2); Basophils % (A) 1 %; Eosinophils # (A) 0.5 k/uL (0-0.7); Eosinophils % (A) 4 %; HCT 38.1 % (39.0-53.0); HGB 11.9 gm/dL (13.0-17.5); Hypochromasia Slight; Lymphocytes # (A) 0.8 k/uL (1.0-4.8); Lymphocytes % (A) 7 %; MCH 32.7 pg (25.0-35.0); MCHC 31.2 g/dL (31.0-37.0); MCV 104.7 fL (80.0-100.0); Macrocytosis Slight; Mean Platelet Volume 7.6; Monocytes # (A) 0.7 k/uL (0-1.0); Monocytes % (A) 6 %; Neutrophils # (A) 10.3 k/uL (1.3-7.7); Neutrophils % (A) 82 %; Platelet Count 221 k/uL (150-450); RBC 3.64 m/uL (4.30-5.90); RDW 13.3 % (11.5-15.5); WBC 12.6 k/uL (3.8-10.6)
[2021-05-07 08:22] LABS: Partial Thromboplastin Time 39.4 sec (22.0-30.0)
[2021-05-07 08:36] LABS: ALT 14 U/L (4-49); AST 17 U/L (17-59); African American GFR (CKD) >90 (>60 ml/min/1.73 sqM); Albumin 3.2 g/dL (3.5-5.0); Alkaline Phosphatase 93 U/L (38-126); Anion Gap 4 mmol/L; Blood Urea Nitrogen 14 mg/dL (9-20); Calcium 8.8 mg/dL (8.4-10.2); Carbon Dioxide 25 mmol/L (22-30); Chloride 106 mmol/L (98-107); Glucose 99 mg/dL (74-99); Non-African American GFR(CKD) 89 (>60 ml/min/1.73 sqM); Potassium 4.5 mmol/L (3.5-5.1); Sodium 135 mmol/L (137-145); Total Bilirubin 0.9 mg/dL (0.2-1.3); Total Protein 6.3 g/dL (6.3-8.2)
[2021-05-07] MEDS ORDERED: METOPROLOL TARTRATE 50 MG TAB PO SCH (09:00)
[2021-05-07] MEDS: ONDANSETRON 4 MG/2 ML VIAL IVP PRN (09:38)
[2021-05-07] MEDS: ASPIRIN 81 MG PO SCH (09:38)
[2021-05-07] MEDS: TAMSULOSIN 0.4 MG CAP.ER.24H PO SCH (09:38)
[2021-05-07] MEDS: GABAPENTIN 300 MG CAP PO SCH ×2 (09:38→20:00)
[2021-05-07] MEDS: HYDROcodone/APAP 7.5-325MG 1 EACH TAB PO PRN ×2 (09:46→17:41)
--- NOTE | 2021-05-07 09:50 | P.CONS ---
History of Present Illness - Reason for Consult Consult date: 05/07/21 Arsh PE, Arsh DVT Requesting physician: Marsha Boo - Chief Complaint Persistent, progressive SOB - History of Present Illness Mr Mccloud is a very pleasant 71-year-old male patient with been asked to see regarding bilateral lower extremity DVT, bilateral pulmonary emboli. Patient had back surgery 03/27/21, he was home from rehabilitation by 04/09 and actually reported increased mobility. He reports PMH of hypertension, hyperlipidemia, COPD, back pain. He denies any personal history of blood clotting, no family history but questioning maybe a grandfather. He denies infection with Covid 19, EtOH abuse, chronic steroid use, hormonal usage, cancers or bleeding disorders Review of Systems 10 point ROS is neg except as stated in HPI Past Medical History Past Medical History: Asthma, Coronary Artery Disease (CAD), COPD, GERD/Reflux, Hearing Disorder / Deafness, Hyperlipidemia, Hypertension, Musculoskeletal Disorder, Osteoarthritis (OA), Prostate Disorder Additional Past Medical History / Comment(s): COPD and Emphysema, UIP on home oxygen. Bilateral hard of hearing. Lumbar DDD w/ lower back pain radiating to left hip and down upper leg with numbness and tingling. History of Any Multi-Drug Resistant Organisms: None Reported Past Surgical History: Back Surgery, Heart Catheterization With Stent Additional Past Surgical History / Comment(s): Left lung biopsy, lower back surgery w/ josie, 1 cardiac stent. Past Anesthesia/Blood Transfusion Reactions: No Reported Reaction Date of Last Stent Placement:: 1997 Past Psychological History: No Psychological Hx Reported Smoking Status: Former smoker Past Alcohol Use History: Rare Past Drug Use History: None Reported - Past Family History Mother Family Medical History: Coronary Artery Disease (CAD) Additional Family Medical History / Comment(s): from peritonitis. Medications and Allergies Home Medications Medication Instructions Recorded Confirmed Type Aspirin [Adult Low Dose Aspirin EC] 81 mg PO DAILY 06/11/16 05/06/21 History Atorvastatin [Lipitor] 40 mg PO HS 06/11/16 05/06/21 History Metoprolol Tartrate [Lopressor] 50 mg PO DAILY 06/11/16 05/06/21 History Montelukast [Singulair] 10 mg PO HS 03/21/17 05/06/21 History Levocetirizine Dihydrochloride 5 mg PO HS 08/16/19 05/06/21 History [Xyzal] Albuterol Sulfate [Albuterol 2 puff INHALATION RT-QID PRN 08/22/19 05/06/21 History Sulfate Hfa] Methocarbamol [Robaxin-750] 750 mg PO Q8H PRN 09/25/20 05/06/21 History Tamsulosin [Flomax] 0.4 mg PO DAILY 09/25/20 05/06/21 History Cholecalciferol (Vitamin D3) 250 mcg PO HS 10/16/20 05/06/21 History [Vitamin D3 (125 MCG = 5,000 IU)] Gabapentin 300 mg PO BID 04/09/21 05/06/21 History HYDROcodone/APAP 7.5-325MG [[place] 1 tab PO Q6H PRN 04/09/21 05/06/21 History 7.5-325] Apixaban [Eliquis Starter Pack 5 - 10 mg PO DIRECTED 30 Days 05/07/21 Rx (for VTE)] #1 each Allergies Allergy/AdvReac Type Severity Reaction Status Date / Time adhesive Allergy Rash/Hives Verified 05/06/21 11:40 budesonide [From Symbicort] Allergy Rash/Hives Verified 05/06/21 11:40 formoterol [From Symbicort] Allergy Rash/Hives Verified 05/06/21 11:40 Physical Exam Vitals: Vital Signs Temp Pulse Pulse Resp BP BP Pulse Ox 05/07/21 04:00 98.0 F 100 17 148/76 93 L 05/07/21 01:14 97 17 05/07/21 00:00 98.0 F 97 17 132/85 97 05/06/21 21:39 98 05/06/21 21:31 99 95 05/06/21 20:00 98.0 F 90 17 126/78 98 05/06/21 18:19 100 18 126/83 95 05/06/21 16:00 101 H 22 125/78 95 05/06/21 14:29 98.0 F 90 17 126/78 98 05/06/21 13:00 98 18 151/84 96 05/06/21 11:10 18 05/06/21 10:05 105 H 23 119/81 95 05/06/21 10:01 98.7 F 122 H 25 H 135/82 93 L Intake and Output 05/06/21 05/07/21 05/07/21 22:59 06:59 14:59 Intake Total 0 650 Output Total 0 400 Balance 0 250 Intake: Intake, IV Titration 650 Amount Heparin Sod,Pork in 0.45% 250 NaCl 25,000 unit In 0.45 % NaCl 1 250ml.bag @ 18 UNITS/KG/HR 19.432 mls/hr IV .[id number] [facility] Rx#: [id number] Sodium Chloride 0.9% 1, 400 000 ml @ 130 mls/hr IV . [id number] [facility] Rx#:[id number] Oral 0 Output: Urine 0 400 Other: Voiding Method Urinal Urinal - Constitutional General appearance: average body habitus, cooperative, no acute distress - EENT Eyes: anicteric sclerae, EOMI ENT: hard of hearing, normal oropharynx - Neck Neck: no lymphadenopathy - Respiratory Respiratory: bilateral: CTA, diminished - Cardiovascular Rhythm: regular Heart sounds: normal: S1, S2 Abnormal Heart Sounds: no systolic murmur, no diastolic murmur, no rub, no S3 Gallop, no S4 Gallop, no click, no other leg Peripheral Edema: bilateral: Trace (no leg pain) - Gastrointestinal General gastrointestinal: no absent bowel sounds, no decreased bowel sounds, no distended, no hepatomegaly, no hyperactive bowel sounds, normal bowel sounds, no organomegaly, no rigid, no scaphoid, soft, no splenomegaly, no tenderness, no umbilical hernia, no ventral hernia - Integumentary Integumentary: normal - Neurologic Neurologic: CNII-XII intact - Musculoskeletal Musculoskeletal: generalized weakness (post op, cont to improve), strength equal bilaterally - Psychiatric Psychiatric: A&O x's 3, appropriate affect, intact judgment & insight Results CBC & Chem 7: 05/07/21 07:48 05/07/21 07:48 Labs: Abnormal Lab Results - Last 24 Hours (Table) 05/06/21 05/06/21 05/06/21 Range/Units 10:36 10:36 10:36 WBC 15.1 H (3.8-10.6) k/uL RBC 3.57 L (4.30-5.90) m/uL Hgb 11.9 L (13.0-17.5) gm/dL Hct 36.5 L (39.0-53.0) % MCV 102.3 H (80.0-100.0) fL Neutrophils # 12.6 H (1.3-7.7) k/uL Lymphocytes # (1.0-4.8) k/uL APTT (22.0-30.0) sec D-Dimer 11.69 H (<0.60) mg/L FEU Sodium 136 L (137-145) mmol/L Calcium 8.3 L (8.4-10.2) mg/dL AST 16 L (17-59) U/L Albumin 3.3 L (3.5-5.0) g/dL 05/06/21 05/07/21 05/07/21 Range/Units 21:35 07:48 07:48 WBC 12.6 H (3.8-10.6) k/uL RBC 3.64 L (4.30-5.90) m/uL Hgb 11.9 L (13.0-17.5) gm/dL Hct 38.1 L (39.0-53.0) % MCV 104.7 H (80.0-100.0) fL Neutrophils # 10.3 H (1.3-7.7) k/uL Lymphocytes # 0.8 L (1.0-4.8) k/uL APTT 64.3 H (22.0-30.0) sec D-Dimer (<0.60) mg/L FEU Sodium 135 L (137-145) mmol/L Calcium (8.4-10.2) mg/dL AST (17-59) U/L Albumin 3.2 L (3.5-5.0) g/dL 05/07/21 Range/Units 07:48 WBC (3.8-10.6) k/uL RBC (4.30-5.90) m/uL Hgb (13.0-17.5) gm/dL Hct (39.0-53.0) % MCV (80.0-100.0) fL Neutrophils # (1.3-7.7) k/uL Lymphocytes # (1.0-4.8) k/uL APTT 39.4 H (22.0-30.0) sec D-Dimer (<0.60) mg/L FEU Sodium (137-145) mmol/L Calcium (8.4-10.2) mg/dL AST (17-59) U/L Albumin (3.5-5.0) g/dL Chest x-ray: report reviewed CT scan - chest: report reviewed Venous US: report reviewed Assessment and Plan (1) DVT (deep venous thrombosis) Current Visit: Yes Status: Acute Priority: High Code(s): I82.409 - ACUTE EMBOLISM AND THOMBOS UNSP DEEP VN UNSP LOWER EXTREMITY SNOMED Code(s): 009327456 (2) Pulmonary embolism Current Visit: Yes Status: Acute Priority: High Code(s): I26.99 - OTHER PULMONARY EMBOLISM WITHOUT ACUTE COR PULMONALE SNOMED Code(s): 90754759 Plan: Dr. Diaz reviewed with the patient that this is a provoked blood clot based on his back surgery just about 5 weeks ago. For the first instance of provoked blood clot recommendation is for 6 months of anticoagulation. Recommendation is for follow-up prior to discontinuation. If the provoking factor has resolved/remains resolved then patient can be discontinued from AC therapy. Patient is uncertain if his grandfather had blood clots are not. Hypercoagulable workup in the outpatient setting is certainly reasonable if uncertain. It is not necessary to do right now is will not affect patient's current treatment or plan. Follow-up 4-6 weeks. Patient has no history of Covid infection. Full dose DOAC is an acceptable choice for anticoagulation. Any other questions or concerns please feel free to contact Hematology. Appointment will be placed in the chart for lab work and follow-up. attests: I have seen and examined pt, performed H&P, developed impression and plan of care, discussed with dictator. I agree with dictation, documented as a scribe.
--- NOTE | 2021-05-07 10:44 | P.PN ---
Subjective Progress Note Date: 05/07/21 Principal diagnosis: Pulmonary emboli Patient is seen as a follow-up for pulmonary emboli. Venous Doppler was ordered of bilateral lower extremities which was positive for DVT bilaterally. He is currently on a heparin drip. Echocardiogram was ordered and completed, report is still pending. Patient states he does feel better since he's been admitted, breathing is improved. However he is on 6 L of high flow nasal cannula. He states he wears 3 L at home. He is denying any chest pain. Patient is coughing up green phlegm. Objective - Vital Signs Vital signs: Vital Signs Temp 98.0 F 05/07/21 04:00 Pulse 100 05/07/21 04:00 Resp 17 05/07/21 04:00 BP 148/76 05/07/21 04:00 Pulse Ox 93 L 05/07/21 04:00 Intake & Output 05/06/21 05/07/21 05/07/21 18:59 06:59 18:59 Intake Total 650 115.62 Output Total 400 Balance 250 115.62 Weight 107.955 kg Intake: Intake, IV Titration 650 115.62 Amount Heparin Sod,Pork in 0.45% 250 115.62 NaCl 25,000 unit In 0.45 % NaCl 1 250ml.bag @ 18 UNITS/KG/HR 19.432 mls/hr IV .[id number] [facility] Rx#: [id number] Sodium Chloride 0.9% 1, 400 000 ml @ 130 mls/hr IV . Q7H42M [facility] Rx#:[id number] Oral 0 Output: Urine 400 Other: Voiding Method Urinal - Exam General appearance: The patient is alert, oriented, appears in no acute distress. HET: Head is normocephalic and atraumatic. Pupils are equal and reactive. Neck: Supple without lymphadenopathy. Trachea midline. No audible carotid bruit. Heart: S1 S2. Regular rate and rhythm. Lungs: Breathing is nonlabored. Equal entry. Coarse sounds in the lower lung bases. Abdomen: Soft, nontender, nondistended. Extremities: Normal skin color and turgor. No edema bilaterally. Palpable radial pulses bilaterally. Neurological: No focal deficits. Alert and oriented 3. - Labs CBC & Chem 7: 05/07/21 07:48 05/07/21 07:48 Labs: Abnormal Lab Results - Last 24 Hours (Table) 05/06/21 05/06/21 05/06/21 Range/Units 10:36 10:36 10:36 WBC 15.1 H (3.8-10.6) k/uL RBC 3.57 L (4.30-5.90) m/uL Hgb 11.9 L (13.0-17.5) gm/dL Hct 36.5 L (39.0-53.0) % MCV 102.3 H (80.0-100.0) fL Neutrophils # 12.6 H (1.3-7.7) k/uL Lymphocytes # (1.0-4.8) k/uL APTT (22.0-30.0) sec D-Dimer 11.69 H (<0.60) mg/L FEU Sodium 136 L (137-145) mmol/L Calcium 8.3 L (8.4-10.2) mg/dL AST 16 L (17-59) U/L Albumin 3.3 L (3.5-5.0) g/dL 05/06/21 05/07/21 05/07/21 Range/Units 21:35 07:48 07:48 WBC 12.6 H (3.8-10.6) k/uL RBC 3.64 L (4.30-5.90) m/uL Hgb 11.9 L (13.0-17.5) gm/dL Hct 38.1 L (39.0-53.0) % MCV 104.7 H (80.0-100.0) fL Neutrophils # 10.3 H (1.3-7.7) k/uL Lymphocytes # 0.8 L (1.0-4.8) k/uL APTT 64.3 H (22.0-30.0) sec D-Dimer (<0.60) mg/L FEU Sodium 135 L (137-145) mmol/L Calcium (8.4-10.2) mg/dL AST (17-59) U/L Albumin 3.2 L (3.5-5.0) g/dL 05/07/21 Range/Units 07:48 WBC (3.8-10.6) k/uL RBC (4.30-5.90) m/uL Hgb (13.0-17.5) gm/dL Hct (39.0-53.0) % MCV (80.0-100.0) fL Neutrophils # (1.3-7.7) k/uL Lymphocytes # (1.0-4.8) k/uL APTT 39.4 H (22.0-30.0) sec D-Dimer (<0.60) mg/L FEU Sodium (137-145) mmol/L Calcium (8.4-10.2) mg/dL AST (17-59) U/L Albumin (3.5-5.0) g/dL Assessment and Plan Assessment: 1. Pulmonary emboli with moderate clot burden 2. Recent back surgery 3. History coronary artery disease status post previous stenting 4. 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 History of hyperlipidemia hypertension Plan: 1. Continue heparin drip for now 2. Echocardiogram ordered, pending results 3. Venous duplex of lower extremities ordered and reviewed 4. Further recommendations forthcoming based on echocardiogram results 5. Await recommendations from cardiology, they're currently on PERT call Thank you for this consultation, we will continue to follow. The impression and plan of care has been dictated as directed. Dr. Treviño I performed a history and examination of this patient, discussed the same with the dictator. I agree with the dictator's note ,documented as a scribe. Any additional findings or plans will be noted.
--- NOTE | 2021-05-07 12:12 | P.PN ---
Subjective Progress Note Date: 05/07/21 Principal diagnosis: sob Patient is feeling better, oxygen saturations at 93% on 5 L. Still feeling short of breath with ambulation having some pleuritic chest and back pain. No fevers or chills. Objective - Vital Signs Vital signs: Vital Signs Temp 98.2 F 05/07/21 08:00 Pulse 95 05/07/21 08:00 Resp 18 05/07/21 08:00 BP 121/81 05/07/21 08:00 Pulse Ox 97 05/07/21 08:00 Intake & Output 05/06/21 05/07/21 05/07/21 18:59 06:59 18:59 Intake Total 650 115.62 Output Total 400 450 Balance 250 -334.38 Weight 107.955 kg Intake: Intake, IV Titration 650 115.62 Amount Heparin Sod,Pork in 0.45% 250 115.62 NaCl 25,000 unit In 0.45 % NaCl 1 250ml.bag @ 18 UNITS/KG/HR 19.432 mls/hr IV .[id number] [facility] Rx#: [id number] Sodium Chloride 0.9% 1, 400 000 ml @ 130 mls/hr IV . Q7H42M [facility] Rx#:[id number] Oral 0 Output: Urine 400 450 Other: Voiding Method Urinal Urinal - Exam Constitutional: No acute distress, conversant, pleasant Eyes:Anicteric sclerae, moist conjunctiva, no lid-lag, PERRLA, ENMT: Oropharynx clear, no erythema, exudates Neck: Supple, FROM, no masses, or JVD, No carotid bruits, No thyromegaly Lungs: Clear to auscultation, Clear to percussion, Normal respiratory effort, no accessory muscle use Cardiovascular: Heart regular in rate and rhythm, No murmurs, gallops, or rubs, No peripheral edema Abdominal: Soft, Nontender, no guarding, rebound or rigidity, Normoactive bowel sounds, No hepatomegaly, No splenomegaly, No palpable mass Skin: Normal temperature, tone, texture, turgor, no induration, No subcutaneous nodules, No rash, lesions, No ulcers Extremities: No digital cyanosis, No clubbing, Pedal pulses intact and symmetrical, Radial pulses intact and symmetrical, No calf tenderness Psychiatric: Alert and oriented to person, place and time, appropriate affect, intact judgement Neuro: Muscles Strength 5/5 in all 4 extremities, Sensation to light touch grossly present throughout, Cranial nerves II-XII grossly intact, no focal sensory deficits - Labs CBC & Chem 7: 05/07/21 07:48 05/07/21 07:48 Labs: Abnormal Lab Results - Last 24 Hours (Table) 05/06/21 05/06/21 05/07/21 Range/Units 10:36 21:35 07:48 WBC 12.6 H (3.8-10.6) k/uL RBC 3.64 L (4.30-5.90) m/uL Hgb 11.9 L (13.0-17.5) gm/dL Hct 38.1 L (39.0-53.0) % MCV 104.7 H (80.0-100.0) fL Neutrophils # 10.3 H (1.3-7.7) k/uL Lymphocytes # 0.8 L (1.0-4.8) k/uL APTT 64.3 H (22.0-30.0) sec D-Dimer 11.69 H (<0.60) mg/L FEU Sodium (137-145) mmol/L Albumin (3.5-5.0) g/dL 05/07/21 05/07/21 Range/Units 07:48 07:48 WBC (3.8-10.6) k/uL RBC (4.30-5.90) m/uL Hgb (13.0-17.5) gm/dL Hct (39.0-53.0) % MCV (80.0-100.0) fL Neutrophils # (1.3-7.7) k/uL Lymphocytes # (1.0-4.8) k/uL APTT 39.4 H (22.0-30.0) sec D-Dimer (<0.60) mg/L FEU Sodium 135 L (137-145) mmol/L Albumin 3.2 L (3.5-5.0) g/dL Assessment and Plan Plan: #Pulmonary embolus with moderate clot burden #Bilateral DVT -Most likely provoked by recent back surgery on March -echo ordered, pending -Vascular surgical consult for possible Ekos -IV heparin -Pulmonary and cardiology consulted #History of coronary disease status post stent 2008 -EKG sinus tachycardia -Resume beta gonzález, aspirin and statins -Patient denies any chest pain -Cardiology following #COPD without exacerbation -When necessary albuterol as needed #Chronic back pain status recent back surgery -Resume Narco and gabapentin #Obesity BMI 34 #Benign prostatic hypertrophy -Resume Flomax #DVT prophylaxis patient really IV heparin. #Full code
[2021-05-07 12:32] LABS: Prothrombin Time 10.7 sec (9.0-12.0)
--- NOTE | 2021-05-07 13:24 | P.CRDCN ---
History of Present Illness History of present illness: HISTORY OF PRESENTING ILLNESS This is a pleasant 71-year-old male past medical history significant for Lumbar degenerative scoliosis s/p revision T10 to pelvis decompression fusion with lumbar scoliosis correction 03/26/21, coronary artery disease status post PCI to the mid LAD in 02/2008, hypertension, hyperlipidemia, obesity, bronchial asthma. He follows in the office with Dr. Rob. We have been asked to see in consultation for pulmonary embolism. Patient presents emergency department with complaints of back pain and shortness of breath since last Thursday. Patient came to the emergency department for further evaluation, d-dimer was elevated and he underwent CT of the chest which revealed pulmonary emboli fairly heavy burden on the right with bulky clot in the distal right main pulmonary artery extending through out lobar and segmental branches suspect early right heart strain. Patient started on IV heparin drip. Patient seems in at bedside, no acute distress. He denies any chest pain, continues to be short of breath with activity and at rest. Echocardiogram reviewed by Dr. Yang and right heart strain noted. DIAGNOSTICS EKG reveals sinus tachycardia, heart rate 109, T wave inversion in lead III and aVF. No acute ST or T-wave abnormalities. Telemetry tracings indicate sinus mechanism CTA- pulmonary emboli heavy burden on the right with bulky clot in the distal ri ght main pulmonary artery extending throughout lobar and segmental branches. Suspect early right heart strain. COPD. Pulmonary hypertension. Echocardiogram 01/2020 in the office revealed EF 55%, mild diastolic dysfunction, mild mitral and tricuspid insufficiency. Laboratory reviewed, troponin negative, viral PCR negative, proBNP 1030, sodium 135, potassium 4.4, BUN 14, serum crit 0.8, magnesium 1.7, WBC 12.6, hemoglobin 11.9, platelets 221 Current cardiac medications include metoprolol titrate 50 mg daily, atorvastatin 40 mg nightly, aspirin 80 mg daily REVIEW OF SYSTEMS At the time of my exam: CONSTITUTIONAL: Denies fever or chills. CARDIOVASCULAR: Denies chest pain, +shortness of breath, Denies orthopnea, PND or palpitations. RESPIRATORY: Denies cough. GASTROINTESTINAL: Denies abdominal pain, diarrhea, constipation, nausea or vomiting. MUSCULOSKELETAL: Denies myalgias. NEUROLOGIC: Denies numbness, tingling, headacbe or weakness. ENDOCRINE: Denies fatigue, weight change, polydipsia or polyurina. GENITOURINARY: Denies burning, hematuria or urgency with micturation. HEMATOLOGIC: Denies history of anemia or bleeding. PHYSICAL EXAMINATION Blood pressure 121/81, heart rate 95, afebrile, oxygen saturations 97% on high flow nasal cannula, 6 L CONSTITUTIONAL: No apparent distress. HEENT: Head is normocephalic. Pupils are equal, round. Sclerae anicteric. Mucous membranes of the mouth are moist. No JVD. CHEST EXAMINATION: Lungs are diminished bilaterally to auscultation. No chest wall tenderness is noted on palpation or with deep breathing. HEART EXAMINATION: Regular rate and rhythm. S1, S2 heard. No murmurs, gallops or rub. ABDOMEN: Soft, nontender. Positive bowel sounds. EXTREMITIES: 2+ peripheral pulses, no lower extremity edema and no calf tenderness. NEUROLOGIC EXAMINATION: Patient is awake, alert and oriented x3. ASSESSMENT Bilateral pulmonary embolism with right heart strain Lumbar degenerative scoliosis s/p revision T10 to pelvis decompression fusion wi th lumbar scoliosis correction 03/26/21 Coronary artery disease status post PCI to the mid LAD in 02/2008 Hypertension Hyperlipidemia Obesity Bronchial asthma PLAN -Echocardiogram reviewed by Dr. Yang and right heart strain noted -Plan for EKOS procedure today, to be done by Dr. Rob. -NPO -I have discussed the risks, benefits and alternative therapies for the above- mentioned procedure and for both sedation/analgesia as well as necessary blood product administration, if indicated, as they pertain to this patient. The patient has indicated understanding and acceptance of the risks and procedures discussed. Questions have been answered appropriately and he is agreeable to move forward with the above-stated procedure. -Further recommendations based on clinical course Nurse practitioner note has been reviewed by physician. Signing provider agrees with the documented findings, assessment, and plan of care. 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 Bilateral hard of hearing. Lumbar DDD w/ lower back pain radiating to left hip and down upper leg with numbness and tingling. History of Any Multi-Drug Resistant Organisms: None Reported Past Surgical History: Back Surgery, Heart Catheterization With Stent Additional Past Surgical History / Comment(s): Left lung biopsy, lower back surgery w/ josie, 1 cardiac stent. Past Anesthesia/Blood Transfusion Reactions: No Reported Reaction Date of Last Stent Placement:: 1997 Past Psychological History: No Psychological Hx Reported Smoking Status: Former smoker Past Alcohol Use History: Rare Past Drug Use History: None Reported - Past Family History Mother Family Medical History: Coronary Artery Disease (CAD) Additional Family Medical History / Comment(s): from peritonitis. Medications and Allergies Home Medications Medication Instructions Recorded Confirmed Type Aspirin [Adult Low Dose Aspirin EC] 81 mg PO DAILY 06/11/16 05/06/21 History Atorvastatin [Lipitor] 40 mg PO HS 06/11/16 05/06/21 History Metoprolol Tartrate [Lopressor] 50 mg PO DAILY 06/11/16 05/06/21 History Montelukast [Singulair] 10 mg PO HS 03/21/17 05/06/21 History Levocetirizine Dihydrochloride 5 mg PO HS 08/16/19 05/06/21 History [Xyzal] Albuterol Sulfate [Albuterol 2 puff INHALATION RT-QID PRN 08/22/19 05/06/21 History Sulfate Hfa] Methocarbamol [Robaxin-750] 750 mg PO Q8H PRN 09/25/20 05/06/21 History Tamsulosin [Flomax] 0.4 mg PO DAILY 09/25/20 05/06/21 History Cholecalciferol (Vitamin D3) 250 mcg PO HS 10/16/20 05/06/21 History [Vitamin D3 (125 MCG = 5,000 IU)] Gabapentin 300 mg PO BID 04/09/21 05/06/21 History HYDROcodone/APAP 7.5-325MG [[place] 1 tab PO Q6H PRN 04/09/21 05/06/21 History 7.5-325] Apixaban [Eliquis Starter Pack 5 - 10 mg PO DIRECTED 30 Days 05/07/21 Rx (for VTE)] #1 each Allergies Allergy/AdvReac Type Severity Reaction Status Date / Time adhesive Allergy Rash/Hives Verified 05/06/21 11:40 budesonide [From Symbicort] Allergy Rash/Hives Verified 05/06/21 11:40 formoterol [From Symbicort] Allergy Rash/Hives Verified 05/06/21 11:40 Physical Exam Vitals: Vital Signs Temp Pulse Pulse Resp BP BP Pulse Ox 05/07/21 08:00 98.2 F 95 18 121/81 97 05/07/21 04:00 98.0 F 100 17 148/76 93 L 05/07/21 01:14 97 17 05/07/21 00:00 98.0 F 97 17 132/85 97 05/06/21 21:39 98 05/06/21 21:31 99 95 05/06/21 20:00 98.0 F 90 17 126/78 98 05/06/21 18:19 100 18 126/83 95 05/06/21 16:00 101 H 22 125/78 95 05/06/21 14:29 98.0 F 90 17 126/78 98 05/06/21 13:00 98 18 151/84 96 Intake and Output 05/06/21 05/07/21 05/07/21 22:59 06:59 14:59 Intake Total 0 650 115.62 Output Total 0 400 450 Balance 0 250 -334.38 Intake: Intake, IV Titration 650 115.62 Amount Heparin Sod,Pork in 0.45% 250 115.62 NaCl 25,000 unit In 0.45 % NaCl 1 250ml.bag @ 18 UNITS/KG/HR 19.432 mls/hr IV .[id number] [facility] Rx#: [id number] Sodium Chloride 0.9% 1, 400 000 ml @ 130 mls/hr IV . Q7H42M [facility] Rx#:[id number] Oral 0 Output: Urine 0 400 450 Other: Voiding Method Urinal Urinal Urinal Results 05/07/21 07:48 05/07/21 07:48 Cardiac Enzymes 05/07/21 Range/Units 07:48 AST 17 (17-59) U/L Coagulation 05/06/21 05/06/21 05/07/21 Range/Units 10:36 21:35 07:48 PT 10.6 (9.0-12.0) sec APTT 22.1 64.3 H 39.4 H (22.0-30.0) sec CBC 05/07/21 Range/Units 07:48 WBC 12.6 H (3.8-10.6) k/uL RBC 3.64 L (4.30-5.90) m/uL Hgb 11.9 L (13.0-17.5) gm/dL Hct 38.1 L (39.0-53.0) % Plt Count 221 (150-450) k/uL Comprehensive Metabolic Panel 05/07/21 Range/Units 07:48 Sodium 135 L (137-145) mmol/L Potassium 4.5 (3.5-5.1) mmol/L Chloride 106 (98-107) mmol/L Carbon Dioxide 25 (22-30) mmol/L BUN 14 (9-20) mg/dL Creatinine 0.84 (0.66-1.25) mg/dL Glucose 99 (74-99) mg/dL Calcium 8.8 (8.4-10.2) mg/dL AST 17 (17-59) U/L ALT 14 (4-49) U/L Alkaline Phosphatase 93 (38-126) U/L Total Protein 6.3 (6.3-8.2) g/dL Albumin 3.2 L (3.5-5.0) g/dL Current Medications Generic Name Dose Route Start Last Admin Trade Name Freq PRN Reason Stop Dose Admin Acetaminophen 650 mg 05/06/21 14:04 Acetaminophen Tab 325 Mg Tab PO Q6HR PRN Mild Pain or Fever > 100.5 Hydrocodone Bitart/Acetaminophen 1 each 05/06/21 15:23 05/07/21 09:46 Hydrocodone/Apap 7.5-325mg 1 Each Tab PO 1 each Q6H PRN Administration Pain Albuterol Sulfate 2.5 mg 05/06/21 15:23 05/06/21 21:30 Albuterol Nebulized 2.5 Mg/3 Ml INHALATION 2.5 mg RT-QID PRN Administration Shortness Of Breath Or Wheezing Aspirin 81 mg 05/07/21 09:00 05/07/21 09:38 Aspirin 81 Mg PO 81 mg DAILY [facility] Administration Atorvastatin Calcium 40 mg 05/06/21 21:00 05/06/21 21:26 Atorvastatin 40 Mg Tab PO 40 mg HS [facility] Administration Bisacodyl 5 mg 05/06/21 15:19 Bisacodyl 5 Mg Tablet.Dr PO DAILY PRN Constipation Cholecalciferol 250 mcg 05/06/21 21:00 05/06/21 21:26 Cholecalciferol 125 Mcg (5000 Iu) Tablet PO 250 mcg HS [facility] Administration Docusate Sodium 100 mg 05/06/21 15:19 Docusate 100 Mg Cap PO BID PRN Constipation Gabapentin 300 mg 05/06/21 21:00 05/07/21 09:38 Gabapentin 300 Mg Cap PO 300 mg BID [facility] Administration Heparin Sodium (Porcine) 0 unit 05/06/21 13:36 Heparin Sodium 1,000 Un/Ml (10ml Vl) IV PER PROTOCOL PRN Low PTT Protocol Hydromorphone HCl 1 mg 05/06/21 15:19 05/07/21 06:22 Hydromorphone 1 Mg/Ml 1 Ml Syringe IVP 1 mg Q3HR PRN Administration Severe Pain Heparin Sodium/Sodium Chloride 250 mls @ 19.432 mls/hr 05/06/21 13:45 05/07/21 09:41 25,000 unit/ Sodium Chloride IV 20 units/kg/hr .[id number] [facility] 21.591 mls/hr Titration Protocol 18 UNITS/KG/HR Sodium Chloride 1,000 mls @ 130 mls/hr 05/06/21 14:15 05/07/21 06:23 Saline 0.9% IV Not Given .Q7H42M [facility] Loratadine 10 mg 05/06/21 21:00 05/06/21 21:26 Loratadine 10 Mg Tab PO 10 mg HS [facility] Administration Magnesium Hydroxide 2,400 mg 05/06/21 15:19 Magnesium Hydroxide 2,400 Mg/10 Ml Cup PO DAILY PRN Constipation Melatonin 3 mg 05/06/21 15:19 Melatonin 3 Mg Tablet PO HS PRN Insomnia Methocarbamol 750 mg 05/06/21 15:23 Methocarbamol 750 Mg Tab PO Q8H PRN Muscle Spasm Metoprolol Tartrate 50 mg 05/07/21 09:00 05/07/21 09:38 Metoprolol Tartrate 50 Mg Tab PO 50 mg DAILY [facility] Administration Montelukast Sodium 10 mg 05/06/21 21:00 05/06/21 21:26 Montelukast 10 Mg Tab PO 10 mg HS [facility] Administration Naloxone HCl 0.2 mg 05/06/21 15:19 Naloxone 0.4 Mg/Ml 1 Ml Vial IV Q2M PRN Opioid Reversal Ondansetron HCl 4 mg 05/06/21 14:04 05/07/21 09:38 Ondansetron 4 Mg/2 Ml Vial IVP 4 mg Q8HR PRN Administration Nausea And Vomiting Pantoprazole Sodium 40 mg 05/07/21 07:30 05/07/21 06:23 Pantoprazole 40 Mg Tablet PO 40 mg [id number] [facility] Administration Tamsulosin HCl 0.4 mg 05/07/21 09:00 05/07/21 09:38 Tamsulosin 0.4 Mg Cap.Er.24h PO 0.4 mg DAILY [facility] Administration Intake and Output 05/06/21 05/07/21 05/07/21 22:59 06:59 14:59 Intake Total 0 650 115.62 Output Total 0 400 450 Balance 0 250 -334.38 Intake: Intake, IV Titration 650 115.62 Amount Heparin Sod,Pork in 0.45% 250 115.62 NaCl 25,000 unit In 0.45 % NaCl 1 250ml.bag @ 18 UNITS/KG/HR 19.432 mls/hr IV .[id number] [facility] Rx#: [id number] Sodium Chloride 0.9% 1, 400 000 ml @ 130 mls/hr IV . Q7H42M [facility] Rx#:[id number] Oral 0 Output: Urine 0 400 450 Other: Voiding Method Urinal Urinal Urinal 05/07/21 07:48 05/07/21 07:48
[2021-05-07] MEDS ORDERED: HEPARIN SOD,PORK IN 0.45% NACL 25,000 UNIT in 0.45% NACL 1 250ML.BAG IV SCH ×2 (15:30)
[2021-05-07] MEDS ORDERED: SODIUM CHLORIDE 0.9% 1,000 ML IV SCH ×4 (15:30)
[2021-05-07] MEDS ORDERED: ALTEPLASE 10 MG in SODIUM CHLORIDE 0.9% 90 ML IV ONE ×5 (15:30→17:12)
--- NOTE | 2021-05-07 15:58 | P.PN ---
<Hamida Jarquin M - Last Filed: 05/07/21 15:50> Subjective Progress Note Date: 05/07/21 Principal diagnosis: Dyspnea, pulmonary embolism 71-year-old male patient with known history of chronic back pain lumbar scoliosis to underwent a T10 to pelvis revision fusion, surgery was completed on 03/27/2021 and following that the patient was discharged to [facility] for rehabilitation. This was an extensive surgery. At that time, the patient came in to the ICU for monitoring. The patient had adequate pain control. Hemoglobin remains stable. CAT scan of the lumbar and thoracic spine showed libby e atelectatic changes in lung bases bilaterally. The patient was provided incentive spirometer. The patient was given a CPAP machine to use postop. He was provided bronchodilators. He was provided incentive spirometer and following that he was discharged. His mobility has been limited as the patient was still having issues with pain at the [facility] on the [place]. The patient acutely developed shortness of breath today and he had some chest discomfort and for that reason he came into the MRSA problem for further evaluation. Further investigation revealed that the patient had a positive DVT in the popliteal veins bilaterally and the patient had also pulmonary embolism would have a clot burden on the right with a bulky clot in the distal right main pulmonary artery extending into the lobar and segmental branches and right heart strain was also suspected. The patient also has UIP features on the CAT scan of the chest. This was consistent with pulmonary fibrosis and this was also confirmed by previous lung biopsy. The patient had a hemoglobin of 11.9. D-dimer was elevated at 11. Blood work was essentially negative. Influenza screen was negative. Carotid 1950 was also negative. He remained hemodynamically stable. He is currently off 6 L of oxygen by nasal cannula. No significant tachycardia and the cardiac rhythm is sinus. No significant tachypnea and the respiratory r ate was ranging between 22 and 25 times a minute. Patient was started on IV heparin. Pulmonate consultation was requested. Vascular consultation was also requested regarding the possibility of an EKOS procedure. No previous history of DVT or pulmonary embolism. No intake of anticoagulants on outpatient basis. On 05/07/2021 patient seen in follow-up on medical surgical floor. He is resting comfortable in bed he is on 6 L of oxygen pulse ox is 97%, denies any chest discomfort, no hemoptysis, he had a lower extremity Dopplers in both eyes are positive for a DVT. He remains on heparin infusion. His CT chest showed pulmonary emboli with fairly heavy burden in the right with bulky clot in the distal right main pulmonary artery extending throughout lobar and segmental branches, with a suspicion of early right heart strain. There was additional minimal scattered clot within segmental and subsegmental branches of the left upper lobe. This combination of COPD and chronic interstitial lung disease with scattered bronchiectasis and areas of reticular change. Hemodynamic patient has remained stable. She was evaluated by cardiology, the plan is to proceed with EKOS procedure this afternoon Objective - Vital Signs Vital signs: Vital Signs Temp 98.2 F 05/07/21 08:00 Pulse 88 05/07/21 13:30 Resp 17 05/07/21 13:30 BP 121/81 05/07/21 08:00 Pulse Ox 97 05/07/21 08:00 Intake & Output 05/06/21 05/07/21 05/07/21 18:59 06:59 18:59 Intake Total 650 115.62 Output Total 400 600 Balance 250 -484.38 Weight 107.955 kg Intake: Intake, IV Titration 650 115.62 Amount Heparin Sod,Pork in 0.45% 250 115.62 NaCl 25,000 unit In 0.45 % NaCl 1 250ml.bag @ 18 UNITS/KG/HR 19.432 mls/hr IV .[id number] [facility] Rx#: [id number] Sodium Chloride 0.9% 1, 400 000 ml @ 130 mls/hr IV . Q7H42M [facility] Rx#:[id number] Oral 0 Output: Urine 400 600 Other: Voiding Method Urinal Urinal - Exam GENERAL EXAM: Alert, very pleasant, 71-year-old white male, on 6 L of oxygen with pulse ox of 97% comfortable in no apparent distress. HEAD: Normocephalic/atraumatic. EYES: Normal reaction of pupils, equal size. Conjunctiva pink, sclera white. NOSE: Clear with pink turbinates. THROAT: No erythema or exudates. NECK: No masses, no JVD, no thyroid enlargement, no adenopathy. CHEST: No chest wall deformity. Symmetrical expansion. LUNGS: Equal air entry with no crackles, wheeze, rhonchi or dullness. CVS: Regular rate and rhythm, normal S1 and S2, no gallops, no murmurs, no rubs ABDOMEN: Soft, nontender. No hepatosplenomegaly, normal bowel sounds, no guarding or rigidity. EXTREMITIES: No clubbing, no edema, no cyanosis, 2+ pulses and upper and lower extremities. MUSCULOSKELETAL: Muscle strength and tone normal. SPINE: No scoliosis or deformity SKIN: No rashes CENTRAL NERVOUS SYSTEM: Alert and oriented -3. No focal deficits, tone is normal in all 4 extremities. PSYCHIATRIC: Alert and oriented -3. Appropriate affect. Intact judgment and insight. - Labs CBC & Chem 7: 05/07/21 07:48 05/07/21 07:48 Labs: Abnormal Lab Results - Last 24 Hours (Table) 05/06/21 05/07/21 05/07/21 Range/Units 21:35 07:48 07:48 WBC 12.6 H (3.8-10.6) k/uL RBC 3.64 L (4.30-5.90) m/uL Hgb 11.9 L (13.0-17.5) gm/dL Hct 38.1 L (39.0-53.0) % MCV 104.7 H (80.0-100.0) fL Neutrophils # 10.3 H (1.3-7.7) k/uL Lymphocytes # 0.8 L (1.0-4.8) k/uL APTT 64.3 H (22.0-30.0) sec Fibrinogen (200-500) mg/dL Sodium 135 L (137-145) mmol/L Albumin 3.2 L (3.5-5.0) g/dL 05/07/21 Range/Units 07:48 WBC (3.8-10.6) k/uL RBC (4.30-5.90) m/uL Hgb (13.0-17.5) gm/dL Hct (39.0-53.0) % MCV (80.0-100.0) fL Neutrophils # (1.3-7.7) k/uL Lymphocytes # (1.0-4.8) k/uL APTT 39.4 H (22.0-30.0) sec Fibrinogen 585 H (200-500) mg/dL Sodium (137-145) mmol/L Albumin (3.5-5.0) g/dL Assessment and Plan Plan: Assessment: #1. Acute bilateral pulmonary embolism with have a clot burden right and RV strain on the CAT scan findings in addition to bilateral nonocclusive DVT in the popliteal veins. Patient is currently on IV heparin. The patient is currently on 6 L of oxygen by nasal cannula. Awaiting further evaluation by vascular surgery regarding possibility of EKOS , awaiting 2-D echocardiogram to evaluate RV strain and pulmonary hypertension. Risk factors of recent spine surgery in addition to being sedentary. This is the first episode for this patient when he has not been taking any form of anticoagulants other than baby aspirin on outpatient basis. Patient is scheduled for equal size today on 05/07/2021 #2. Acute on chronic hypoxic respiratory failure currently on 6 L nasal cannula #3. Chronic lower back pain, and left lower extremity pain, status post lateral lumbar interbody fusion with L1 through 2, and posterior revision of T10 to pelvis and decompression fusion on 03/26/2021 #4. History of UIP, biopsy proven, on home oxygen at 2 L #5. History of COPD #6. Coronary artery disease with previous stenting #7. Hypertension #8. Hyperlipidemia #9. BPH #10. Lumbar scoliosis Plan: Patient was scheduled for EKOS this afternoon with Dr. LOW Rob Hemodynamically he is stable, remains on heparin infusion We'll see the patient in postoperative period in the ICU We'll make recommendations based on his clinical course Currently hemodynamically stable, and maintaining stable O2 saturations I have personally seen and examined the patient, performed the documentation and the assessment and plan as written. Number of minutes spent on the visit: [10] Time with Patient: Less than 30 <Merry Roper - Last Filed: 05/07/21 16:06> Objective - Vital Signs Vital signs: Vital Signs Temp 98.2 F 05/07/21 08:00 Pulse 88 05/07/21 13:30 Resp 17 05/07/21 13:30 BP 121/81 05/07/21 08:00 Pulse Ox 97 05/07/21 08:00 Intake & Output 05/06/21 05/07/21 05/07/21 18:59 06:59 18:59 Intake Total 650 115.62 Output Total 400 600 Balance 250 -484.38 Weight 107.955 kg Intake: Intake, IV Titration 650 115.62 Amount Heparin Sod,Pork in 0.45% 250 115.62 NaCl 25,000 unit In 0.45 % NaCl 1 250ml.bag @ 18 UNITS/KG/HR 19.432 mls/hr IV .[id number] [facility] Rx#: [id number] Sodium Chloride 0.9% 1, 400 000 ml @ 130 mls/hr IV . Q7H42M [facility] Rx#:[id number] Oral 0 Output: Urine 400 600 Other: Voiding Method Urinal Urinal - Labs CBC & Chem 7: 05/07/21 07:48 05/07/21 07:48 Labs: Abnormal Lab Results - Last 24 Hours (Table) 05/06/21 05/07/21 05/07/21 Range/Units 21:35 07:48 07:48 WBC 12.6 H (3.8-10.6) k/uL RBC 3.64 L (4.30-5.90) m/uL Hgb 11.9 L (13.0-17.5) gm/dL Hct 38.1 L (39.0-53.0) % MCV 104.7 H (80.0-100.0) fL Neutrophils # 10.3 H (1.3-7.7) k/uL Lymphocytes # 0.8 L (1.0-4.8) k/uL APTT 64.3 H (22.0-30.0) sec Fibrinogen (200-500) mg/dL Sodium 135 L (137-145) mmol/L Albumin 3.2 L (3.5-5.0) g/dL 05/07/21 Range/Units 07:48 WBC (3.8-10.6) k/uL RBC (4.30-5.90) m/uL Hgb (13.0-17.5) gm/dL Hct (39.0-53.0) % MCV (80.0-100.0) fL Neutrophils # (1.3-7.7) k/uL Lymphocytes # (1.0-4.8) k/uL APTT 39.4 H (22.0-30.0) sec Fibrinogen 585 H (200-500) mg/dL Sodium (137-145) mmol/L Albumin (3.5-5.0) g/dL Assessment and Plan Plan: I have personally seen and examined the patient and reviewed the documentation. I performed a joint evaluation with the nurse practitioner in this evaluation was done more than 20 minutes. I fully agree with the documentation above and the plan of care. The patient is going to proceed with intra-arterial thrombolytic therapy EKOS as the patient has significant clot burden and pulmonary hypertension.
[2021-05-07] MEDS ORDERED: HEPARIN SODIUM,PORCINE 30 ML 30 ML ONE (16:19)
[2021-05-07] MEDS ORDERED: LIDOCAINE 1% INJ 10MG/ML (20 ML MDV) ONE (16:19)
[2021-05-07] MEDS ORDERED: IV FLUID CONTINUATION 900 ML IV ONE (16:30)
[2021-05-07] MEDS ORDERED: LIDOCAINE 1% INJ 10MG/ML (20 ML MDV) SQ ONE (16:30)
[2021-05-07] MEDS ORDERED: MIDAZOLAM 2 MG/2 ML VIAL IV ONE (16:39)
[2021-05-07] MEDS ORDERED: HYDROmorphone 0.5 MG/0.5 ML SYRINGE IVP ONE (16:40)
[2021-05-07 17:44] LABS: Glucose,Whole Blood 84 mg/dL (75-99)
--- NOTE | 2021-05-07 18:20 | CC ---
CARDIAC CATHETERIZATION REPORT DATE OF SERVICE: 05/07/2021 PROCEDURES: 1. Right heart catheterization. 2. EKOS catheter placement for ultrasound treatment into the right pulmonary artery under fluoroscopic guidance. 3. tPA and coolant infusion through the EKOS catheter. PERFORMED BY: Dr. Honorio Rob. Moderate conscious sedation time was 28 minutes. Patient was administered Versed and Dilaudid. Oxygen saturation, hemodynamics and EKG were monitored closely. CLINICAL INFORMATION: Mr. Chu Mccloud is a gentleman with a history of CAD, COPD, past history of smoking, previous PCI. He came into the hospital with a clinical picture of pulmonary embolism, confirmed by CT angiogram, and received IV heparin. There was evidence of right heart strain and this was a submassive pulmonary embolism and patient was advised EKOS placement after due discussion regarding risks, benefits and options. He was advised tPA infusion and ultrasound treatment of the clot. PROCEDURE NOTE: Under local anesthesia and strict aseptic precautions, a 6-Guyanese introducer was placed in the right femoral vein. Under fluoroscopic guidance, a 6-[place]anese balloon-tipped catheter [place] catheter was advanced. I checked the right ventricular and also pulmonary arterial pressure and subsequently using a [employer] 0.018 300 cm wire the catheter was advanced and positioned in the right pulmonary artery. The wire was left there and the catheter was exchanged carefully over the wire. I then advanced the EKOS catheter, and this EKOS catheter was kept in the right pulmonary artery. All the connections were made appropriately. Through the EKOS catheter central port after flushing I advanced the ultrasound catheter, and this was kept in the right pulmonary artery. Patient tolerated procedure well. The sheath was sutured and all the catheters were sutured appropriately. tPA infusion and coolant infusion will be initiated. Details of the procedure were discussed with the patient and his . Procedure was performed uneventfully without any complication. The pulmonary artery pressure was 50/24 with a mean of 31. The right ventricular pressure was 50/10. Patient tolerated procedure well without complications. MMODL / IJN: [id number] /
[2021-05-07 19:25] LABS: Basophils % (A) 0 %; Eosinophils # (A) 0.4 k/uL (0-0.7); Eosinophils % (A) 5 %; HCT 35.9 % (39.0-53.0); HGB 11.3 gm/dL (13.0-17.5); Hypochromasia Moderate; Lymphocytes # (A) 0.9 k/uL (1.0-4.8); Lymphocytes % (A) 10 %; MCH 32.9 pg (25.0-35.0); MCHC 31.3 g/dL (31.0-37.0); Macrocytosis Slight; Mean Platelet Volume 7.3; Monocytes # (A) 0.5 k/uL (0-1.0); Monocytes % (A) 5 %; Neutrophils # (A) 7.4 k/uL (1.3-7.7); Neutrophils % (A) 79 %; Platelet Count 217 k/uL (150-450); RBC 3.42 m/uL (4.30-5.90); RDW 13.7 % (11.5-15.5); WBC 9.4 k/uL (3.8-10.6)
[2021-05-07] MEDS: ATORVASTATIN 40 MG TAB PO SCH (19:59)
[2021-05-07] MEDS: LORATADINE 10 MG TAB PO SCH (20:00)
[2021-05-07] MEDS: CHOLECALCIFEROL 125 MCG (5000 IU) TABLET PO SCH (20:00)
[2021-05-07] MEDS: MONTELUKAST 10 MG TAB PO SCH (20:00)
[2021-05-08] MEDS: HYDROcodone/APAP 7.5-325MG 1 EACH TAB PO PRN ×4 (01:35→21:37)
[2021-05-08] MEDS: ONDANSETRON 4 MG/2 ML VIAL IVP PRN (01:44)
[2021-05-08] MEDS: SODIUM CHLORIDE 0.9% 1,000 ML IV SCH ×2 (03:00→10:47)
[2021-05-08] MEDS: HYDROmorphone 1 MG/ML 1 ML SYRINGE IVP PRN ×2 (05:08→17:53)
[2021-05-08] MEDS: HEPARIN SOD,PORK IN 0.45% NACL 25,000 UNIT in 0.45% NACL 1 250ML.BAG IV SCH (05:14)
[2021-05-08 07:03] LABS: Basophils # (A) 0.1 k/uL (0-0.2); Basophils % (A) 1 %; Eosinophils # (A) 0.3 k/uL (0-0.7); Eosinophils % (A) 4 %; HCT 33.9 % (39.0-53.0); Hypochromasia Moderate; Lymphocytes # (A) 0.7 k/uL (1.0-4.8); Lymphocytes % (A) 9 %; MCH 34.1 pg (25.0-35.0); MCHC 32.4 g/dL (31.0-37.0); Macrocytosis Slight; Mean Platelet Volume 7.4; Monocytes # (A) 0.6 k/uL (0-1.0); Monocytes % (A) 7 %; Neutrophils # (A) 6.5 k/uL (1.3-7.7); Neutrophils % (A) 78 %; Platelet Count 181 k/uL (150-450); RBC 3.23 m/uL (4.30-5.90); RDW 13.1 % (11.5-15.5); WBC 8.4 k/uL (3.8-10.6)
[2021-05-08 07:12] LABS: Partial Thromboplastin Time 24.9 sec (22.0-30.0)
[2021-05-08 07:17] LABS: African American GFR (CKD) >90 (>60 ml/min/1.73 sqM); Anion Gap 2 mmol/L; Blood Urea Nitrogen 13 mg/dL (9-20); Calcium 8.2 mg/dL (8.4-10.2); Carbon Dioxide 27 mmol/L (22-30); Chloride 106 mmol/L (98-107); Glucose 92 mg/dL (74-99); Non-African American GFR(CKD) >90 (>60 ml/min/1.73 sqM); Potassium 4.5 mmol/L (3.5-5.1); Sodium 135 mmol/L (137-145)
[2021-05-08] MEDS: PANTOPRAZOLE 40 MG TABLET PO SCH (07:18)
--- NOTE | 2021-05-08 08:36 | P.PN ---
Subjective Progress Note Date: 05/08/21 Principal diagnosis: Shortness of breath The patient is a pleasant 71-year-old gentleman who sees Dr. oRb irregularly who was admitted to the hospital with shortness of breath and was diagnosed with submassive PE. He underwent an ultrasonic catheter placement yesterday. He was seen this morning. He is feeling better internal shortness of breath. He has no chest pain or chest discomfort. Hemodynamically he is stable was marginally low blood pressure. I'm going to cut down the dose of metoprolol. Beside that he was started on oral anticoagulation A earlier today. From the cardiovascular standpoint overview, he can be transferred to the floor Objective - Vital Signs Vital signs: Vital Signs Temp 98.4 F 05/08/21 08:00 Pulse 93 05/08/21 08:00 Resp 10 L 05/08/21 08:00 BP 104/67 05/08/21 08:00 Pulse Ox 87 L 05/08/21 08:00 Intake & Output 05/07/21 05/08/21 05/08/21 18:59 06:59 18:59 Intake Total 450.62 1560 130 Output Total 1050 535 0 Balance -599.38 1025 130 Weight 117.5 kg Intake: IV 75 1430 130 Sodium Chloride 0.9% 1, 1430 130 000 ml @ 130 mls/hr IV . Q7H42M [facility] Rx#:[id number] Intake, IV Titration 375.62 130 Amount Heparin Sod,Pork in 0.45% 115.62 NaCl 25,000 unit In 0.45 % NaCl 1 250ml.bag @ 18 UNITS/KG/HR 19.432 mls/hr IV .[id number] [facility] Rx#: [id number] Sodium Chloride 0.9% 1, 260 130 000 ml @ Per Protocol IV .Q0M [facility] Rx#:[id number] Output: Urine 1050 535 0 Other: Voiding Method Urinal Urinal - Constitutional General appearance: Present: no acute distress - Respiratory Respiratory: bilateral: diminished - Cardiovascular Rhythm: regular Heart sounds: normal: S1, S2 - Labs CBC & Chem 7: 05/08/21 06:48 05/08/21 06:48 Labs: Abnormal Lab Results - Last 24 Hours (Table) 05/07/21 05/07/21 05/07/21 Range/Units 07:48 07:48 15:38 RBC (4.30-5.90) m/uL Hgb (13.0-17.5) gm/dL Hct (39.0-53.0) % MCV (80.0-100.0) fL Lymphocytes # (1.0-4.8) k/uL APTT 39.4 H 67.6 H (22.0-30.0) sec Fibrinogen 585 H (200-500) mg/dL Sodium 135 L (137-145) mmol/L Calcium (8.4-10.2) mg/dL Albumin 3.2 L (3.5-5.0) g/dL 05/07/21 05/08/21 05/08/21 Range/Units 19:13 06:48 06:48 RBC 3.42 L 3.23 L (4.30-5.90) m/uL Hgb 11.3 L 11.0 L (13.0-17.5) gm/dL Hct 35.9 L 33.9 L (39.0-53.0) % MCV 105.0 H 105.0 H (80.0-100.0) fL Lymphocytes # 0.9 L 0.7 L (1.0-4.8) k/uL APTT (22.0-30.0) sec Fibrinogen 548 H (200-500) mg/dL Sodium (137-145) mmol/L Calcium (8.4-10.2) mg/dL Albumin (3.5-5.0) g/dL 05/08/21 Range/Units 06:48 RBC (4.30-5.90) m/uL Hgb (13.0-17.5) gm/dL Hct (39.0-53.0) % MCV (80.0-100.0) fL Lymphocytes # (1.0-4.8) k/uL APTT (22.0-30.0) sec Fibrinogen (200-500) mg/dL Sodium 135 L (137-145) mmol/L Calcium 8.2 L (8.4-10.2) mg/dL Albumin (3.5-5.0) g/dL Assessment and Plan Assessment: Assessment #1 submassive PE Plan #1 DC'd ultrasonic catheter #2 start the patient on oral anticoagulation #3 follow-up with the patient
[2021-05-08] MEDS: APIXABAN 5 MG TAB PO SCH ×2 (09:27→20:28)
--- NOTE | 2021-05-08 10:24 | P.PN ---
Subjective Progress Note Date: 05/08/21 05/08/2021, I'm seeing the patient in the ICU as the patient had EKOS for pulmonary embolism. This was a submassive PE. Patient completed the treatment. The catheters were pulled out today. He remains hemodynamically stable. This morning, his hemoglobin is at 11.0. Platelet count is at 181. His fibrinogen level is 548. Electrolytes are all normal. I'm going to start him on oral anticoagulants. Meanwhile, the patient remains hemodynamically stable. He is on oxygen and currently is on 5 L and his pulse ox is around 99%. No pleurisy. No hemoptysis. Echo results are still pending. I mean the official echo results are still pending. Objective - Vital Signs Vital signs: Vital Signs Temp 98.4 F 05/08/21 08:00 Pulse 86 05/08/21 09:00 Resp 18 05/08/21 09:00 BP 123/77 05/08/21 09:00 Pulse Ox 100 05/08/21 09:00 Intake & Output 05/07/21 05/08/21 05/08/21 18:59 06:59 18:59 Intake Total 450.62 1560 390 Output Total 1050 535 330 Balance -599.38 1025 60 Weight 117.5 kg Intake: IV 75 1430 390 Sodium Chloride 0.9% 1, 1430 390 000 ml @ 130 mls/hr IV . Q7H42M [facility] Rx#:[id number] Intake, IV Titration 375.62 130 Amount Heparin Sod,Pork in 0.45% 115.62 NaCl 25,000 unit In 0.45 % NaCl 1 250ml.bag @ 18 UNITS/KG/HR 19.432 mls/hr IV .[id number] [facility] Rx#: [id number] Sodium Chloride 0.9% 1, 260 130 000 ml @ Per Protocol IV .Q0M [facility] Rx#:[id number] Output: Urine 1050 535 330 Other: Voiding Method Urinal Urinal - Exam GENERAL EXAM: Alert, very pleasant, 71-year-old white male, on 6 L of oxygen with pulse ox of 97% comfortable in no apparent distress. HEAD: Normocephalic/atraumatic. EYES: Normal reaction of pupils, equal size. Conjunctiva pink, sclera white. NOSE: Clear with pink turbinates. THROAT: No erythema or exudates. NECK: No masses, no JVD, no thyroid enlargement, no adenopathy. CHEST: No chest wall deformity. Symmetrical expansion. LUNGS: Equal air entry with no crackles, wheeze, rhonchi or dullness. CVS: Regular rate and rhythm, normal S1 and S2, no gallops, no murmurs, no rubs ABDOMEN: Soft, nontender. No hepatosplenomegaly, normal bowel sounds, no guarding or rigidity. EXTREMITIES: No clubbing, no edema, no cyanosis, 2+ pulses and upper and lower extremities. MUSCULOSKELETAL: Muscle strength and tone normal. SPINE: No scoliosis or deformity SKIN: No rashes CENTRAL NERVOUS SYSTEM: Alert and oriented -3. No focal deficits, tone is normal in all 4 extremities. PSYCHIATRIC: Alert and oriented -3. Appropriate affect. Intact judgment and insight. - Labs CBC & Chem 7: 05/08/21 06:48 05/08/21 06:48 Labs: Abnormal Lab Results - Last 24 Hours (Table) 05/07/21 05/07/21 05/07/21 Range/Units 07:48 15:38 19:13 RBC 3.42 L (4.30-5.90) m/uL Hgb 11.3 L (13.0-17.5) gm/dL Hct 35.9 L (39.0-53.0) % MCV 105.0 H (80.0-100.0) fL Lymphocytes # 0.9 L (1.0-4.8) k/uL APTT 39.4 H 67.6 H (22.0-30.0) sec Fibrinogen 585 H (200-500) mg/dL Sodium (137-145) mmol/L Calcium (8.4-10.2) mg/dL 05/08/21 05/08/21 05/08/21 Range/Units 06:48 06:48 06:48 RBC 3.23 L (4.30-5.90) m/uL Hgb 11.0 L (13.0-17.5) gm/dL Hct 33.9 L (39.0-53.0) % MCV 105.0 H (80.0-100.0) fL Lymphocytes # 0.7 L (1.0-4.8) k/uL APTT (22.0-30.0) sec Fibrinogen 548 H (200-500) mg/dL Sodium 135 L (137-145) mmol/L Calcium 8.2 L (8.4-10.2) mg/dL Assessment and Plan Plan: #1. Acute bilateral pulmonary embolism with have a clot burden right and RV strain on the CAT scan findings in addition to bilateral nonocclusive DVT in the popliteal veins. Patient is currently on IV heparin. The patient is currently on 6 L of oxygen by nasal cannula. A Risk factors of recent spine surgery in addition to being sedentary. This is the first episode for this patient when he has not been taking any form of anticoagulants other than baby aspirin on outpatient basis. The patient completed EKOS successfully and the patient is currently on oral anticoagulation with Eliquis and his oxygenation is improved and on 5 L his pulse ox is around 99-100%. #2 acute on chronic hypoxic respiratory failure currently on 5 L nasal cannula #3 chronic lower back pain, and left lower extremity pain, status post lateral lumbar interbody fusion with L1 through 2, and posterior revision of T10 to pelvis and decompression fusion on 03/26/2021 #4. History of UIP, biopsy proven, on home oxygen at 2 L #5. History of COPD #6. Coronary artery disease with previous stenting #7. Hypertension #8. Hyperlipidemia #9. BPH #10. Lumbar scoliosis Plan: Awaiting 2-D echocardiogram to evaluate RV strain and pulmonary hypertension EKOS completed Anticoagulation reinitiated Vascular surgical consultation Hemodynamically stable Wean down the FiO2 down to 3 L Eliquis for anticoagulation Increase his mobility and was try to set him up on a chair by afternoon Resume all medications May go to [email or web address]
[2021-05-08] MEDS: GABAPENTIN 300 MG CAP PO SCH ×2 (10:46→20:29)
[2021-05-08] MEDS: ASPIRIN 81 MG PO SCH (10:46)
--- NOTE | 2021-05-08 11:06 | ECHOF ---
Referral Reason:Pulmonary embolism, evaluate for right heart strai MEASUREMENTS -------- HEIGHT: 177.8 cm WEIGHT: 108.0 kg BP: 151/84 IVSd: 1.6 cm (0.6 - 1.1) LVIDd: 4.0 cm (3.9 - 5.3) LVPWd: 1.5 cm (0.6 - 1.1) EDV(Teich): 71 ml IVSs: 1.8 cm LVIDs: 2.8 cm LVPWs: 1.6 cm %IVS Thck: 11 % ESV(Teich): 29 ml EF(Teich): 59 % %FS: 31 % SV(Teich): 42 ml RVIDd: 4.6 cm (< 3.3) LALs A4C: 5.1 cm LAAs A4C: 14.5 cm LAESV A-L A4C: 35 ml LAESV MOD A4C: 33 ml LALs A2C: 5.2 cm LAAs A2C: 14.0 cm LAESV A-L A2C: 32 ml LAESV MOD A2C: 30 ml LAESV(A-L): 34 ml LAESV Index (A-L): 15.01 ml/m Ao Diam: 4.0 cm (2.0 - 3.7) AV Cusp: 3.0 cm (1.5 - 2.6) EPSS: 0.7 cm MV E Antonio: 0.57 m/s MV DecT: 277 ms MV Dec Mont[place]: 2.0 m/s MV A Antonio: 1.01 m/s MV E/A Ratio: 0.56 MV PHT: 80 ms LVOT Vmax: 1.00 m/s LVOT maxP.01 mmHg AV Vmax: 1.21 m/s AV maxP.86 mmHg TR Vmax: 2.64 m/s TR maxP.95 mmHg RAP: 5.00 mmHg RVSP: 32.95 mmHg MV EF SLOPE: 65.51 mm/s (70 - 150) MV EXCURSION: 18.96 mm (> 18.000) RV S Prime: 0.23 m/s TAPSE: 26.46 mm FINDINGS -------- Sinus rhythm. This was a technically difficult study with suboptimal views. The left ventricular size is normal. There is moderate concentric left ventricular hypertrophy. O verall left ventricular systolic function is normal with, an EF between 55 - 60 %. The right ventricle is moderate to severely enlarged. NO RIGHT HEART STRAIN NOTED. Normal LA size by volume 22+/-6 ml/m2. The right atrium was not well visualized. xx ml of Lumason was utilized for enhancement of images. Interatrial and interventricular septum intact. The aortic valve is trileaflet and appears structurally normal. There is no evidence of aortic regu rgitation. There is no evidence of aortic stenosis. No mitral regurgitation. Mild tricuspid regurgitation present. There is no evidence of pulmonary hypertension. The right v entricular systolic pressure, as measured by Doppler, is 32.95mmHg. There is no pulmonic regurgitation present. The aortic root size is normal. IVC Not well visulized. Echo free space indicative of a pericardial fat pad. There is no pericardial effusion. CONCLUSIONS -------- 1. The left ventricular size is normal. 2. There is moderate concentric left ventricular hypertrophy. 3. Overall left ventricular systolic function is normal with, an EF between 55 - 60 %. 4. The right ventricle is moderate to severely enlarged. 5. NO RIGHT HEART STRAIN NOTED. 6. Mild tricuspid regurgitation present. HYDROGEN OPERATOR: Marilin Perez RDCS
[2021-05-08] MEDS: TAMSULOSIN 0.4 MG CAP.ER.24H PO SCH (12:05)
[2021-05-08] MEDS: METOPROLOL TARTRATE 12.5 MG TAB PO SCH ×2 (12:05→20:29)
--- NOTE | 2021-05-08 12:43 | P.PN ---
Subjective Progress Note Date: 05/08/21 Principal diagnosis: sob Patient had EKOS for submassive PE. He remains hemodynamically stable. He is on oxygen and currently is on 5 L and his pulse ox is around 99%. At baseline he wears 3L with ambulation according to him. He is not sure what lung condition he has for which he wears oxygen. Objective - Vital Signs Vital signs: Vital Signs Temp 98.4 F 05/08/21 12:00 Pulse 79 05/08/21 12:00 Resp 13 05/08/21 12:00 BP 114/68 05/08/21 12:00 Pulse Ox 99 05/08/21 12:00 Intake & Output 05/07/21 05/08/21 05/08/21 18:59 06:59 18:59 Intake Total 450.62 1560 450 Output Total 1050 535 330 Balance -599.38 1025 120 Weight 117.5 kg Intake: IV 75 1430 450 Sodium Chloride 0.9% 1, 1430 450 000 ml @ 20 mls/hr IV . Q24H [facility] Rx#:[id number] Intake, IV Titration 375.62 130 Amount Heparin Sod,Pork in 0.45% 115.62 NaCl 25,000 unit In 0.45 % NaCl 1 250ml.bag @ 18 UNITS/KG/HR 19.432 mls/hr IV .[id number] [facility] Rx#: [id number] Sodium Chloride 0.9% 1, 260 130 000 ml @ Per Protocol IV .Q0M [facility] Rx#:[id number] Output: Urine 1050 535 330 Other: Voiding Method Urinal Urinal Urinal - Exam Constitutional: No acute distress, conversant, pleasant Eyes:Anicteric sclerae, moist conjunctiva, no lid-lag, PERRLA, ENMT: Oropharynx clear, no erythema, exudates Neck: Supple, FROM, no masses, or JVD, No carotid bruits, No thyromegaly Lungs: Clear to auscultation, Clear to percussion, Normal respiratory effort, no accessory muscle use Cardiovascular: Heart regular in rate and rhythm, No murmurs, gallops, or rubs, No peripheral edema Abdominal: Soft, Nontender, no guarding, rebound or rigidity, Normoactive bowel sounds, No hepatomegaly, No splenomegaly, No palpable mass Skin: Normal temperature, tone, texture, turgor, no induration, No subcutaneous nodules, No rash, lesions, No ulcers Extremities: No digital cyanosis, No clubbing, Pedal pulses intact and symmetrical, Radial pulses intact and symmetrical, No calf tenderness Psychiatric: Alert and oriented to person, place and time, appropriate affect, intact judgement Neuro: Muscles Strength 5/5 in all 4 extremities, Sensation to light touch grossly present throughout, Cranial nerves II-XII grossly intact, no focal sensory deficits - Labs CBC & Chem 7: 05/08/21 06:48 05/08/21 06:48 Labs: Abnormal Lab Results - Last 24 Hours (Table) 05/07/21 05/07/21 05/07/21 Range/Units 07:48 15:38 19:13 RBC 3.42 L (4.30-5.90) m/uL Hgb 11.3 L (13.0-17.5) gm/dL Hct 35.9 L (39.0-53.0) % MCV 105.0 H (80.0-100.0) fL Lymphocytes # 0.9 L (1.0-4.8) k/uL APTT 67.6 H (22.0-30.0) sec Fibrinogen 585 H (200-500) mg/dL Sodium (137-145) mmol/L Calcium (8.4-10.2) mg/dL 05/08/21 05/08/21 05/08/21 Range/Units 06:48 06:48 06:48 RBC 3.23 L (4.30-5.90) m/uL Hgb 11.0 L (13.0-17.5) gm/dL Hct 33.9 L (39.0-53.0) % MCV 105.0 H (80.0-100.0) fL Lymphocytes # 0.7 L (1.0-4.8) k/uL APTT (22.0-30.0) sec Fibrinogen 548 H (200-500) mg/dL Sodium 135 L (137-145) mmol/L Calcium 8.2 L (8.4-10.2) mg/dL 05/08/21 Range/Units 11:02 RBC (4.30-5.90) m/uL Hgb (13.0-17.5) gm/dL Hct (39.0-53.0) % MCV (80.0-100.0) fL Lymphocytes # (1.0-4.8) k/uL APTT (22.0-30.0) sec Fibrinogen 556 H (200-500) mg/dL Sodium (137-145) mmol/L Calcium (8.4-10.2) mg/dL Assessment and Plan Plan: #Pulmonary embolus with moderate clot burden #Bilateral DVT -Most likely provoked by recent back surgery on March -echo showed moderate left ventricular hypertrophy, right ventricle moderate to severely enlarged, no RV strain. -S/p Ekos by vascular -D/c IV heparin, start eliquis -Pulmonary and cardiology consulted #History of coronary disease status post stent 2008 -EKG sinus tachycardia -Resume beta gonzález, aspirin and statins -Patient denies any chest pain -Cardiology following #COPD without exacerbation -When necessary albuterol as needed #Chronic back pain status recent back surgery -Resume Narco and gabapentin #Obesity BMI 34 #Benign prostatic hypertrophy -Resume Flomax #DVT prophylaxis patient really IV heparin. #Full code
--- NOTE | 2021-05-08 12:49 | P.PN ---
Subjective Progress Note Date: 05/08/21 Principal diagnosis: Arsh DVT, Arsh PE Pt seen in ICU post EKOS. He has no acute c/o, denies gross bleeding Objective - Vital Signs Vital signs: Vital Signs Temp 98.4 F 05/08/21 12:00 Pulse 79 05/08/21 12:00 Resp 13 05/08/21 12:00 BP 114/68 05/08/21 12:00 Pulse Ox 99 05/08/21 12:00 Intake & Output 05/07/21 05/08/21 05/08/21 18:59 06:59 18:59 Intake Total 450.62 1560 450 Output Total 1050 535 330 Balance -599.38 1025 120 Weight 117.5 kg Intake: IV 75 1430 450 Sodium Chloride 0.9% 1, 1430 450 000 ml @ 20 mls/hr IV . Q24H [facility] Rx#:[id number] Intake, IV Titration 375.62 130 Amount Heparin Sod,Pork in 0.45% 115.62 NaCl 25,000 unit In 0.45 % NaCl 1 250ml.bag @ 18 UNITS/KG/HR 19.432 mls/hr IV .[id number] [facility] Rx#: [id number] Sodium Chloride 0.9% 1, 260 130 000 ml @ Per Protocol IV .Q0M [facility] Rx#:[id number] Output: Urine 1050 535 330 Other: Voiding Method Urinal Urinal Urinal - Constitutional General appearance: Present: cooperative, no acute distress, obese - EENT Eyes: Present: anicteric sclerae, EOMI ENT: Present: hearing grossly normal - Respiratory Respiratory: bilateral: CTA - Cardiovascular Rhythm: regular Heart sounds: normal: S1, S2 Abnormal Heart Sounds: Absent: systolic murmur, diastolic murmur, rub, S3 Gallop, S4 Gallop, click, other - Peripheral edema leg Peripheral Edema: bilateral: Trace - Gastrointestinal General gastrointestinal: Present: normal bowel sounds, soft - Integumentary Integumentary: Present: normal - Neurologic Neurologic: Present: CNII-XII intact - Psychiatric Psychiatric: Present: A&O x's 3, appropriate affect, intact judgment & insight - Labs CBC & Chem 7: 05/08/21 06:48 05/08/21 06:48 Labs: Abnormal Lab Results - Last 24 Hours (Table) 05/07/21 05/07/21 05/08/21 Range/Units 15:38 19:13 06:48 RBC 3.42 L (4.30-5.90) m/uL Hgb 11.3 L (13.0-17.5) gm/dL Hct 35.9 L (39.0-53.0) % MCV 105.0 H (80.0-100.0) fL Lymphocytes # 0.9 L (1.0-4.8) k/uL APTT 67.6 H (22.0-30.0) sec Fibrinogen 548 H (200-500) mg/dL Sodium (137-145) mmol/L Calcium (8.4-10.2) mg/dL 05/08/21 05/08/21 05/08/21 Range/Units 06:48 06:48 11:02 RBC 3.23 L (4.30-5.90) m/uL Hgb 11.0 L (13.0-17.5) gm/dL Hct 33.9 L (39.0-53.0) % MCV 105.0 H (80.0-100.0) fL Lymphocytes # 0.7 L (1.0-4.8) k/uL APTT (22.0-30.0) sec Fibrinogen 556 H (200-500) mg/dL Sodium 135 L (137-145) mmol/L Calcium 8.2 L (8.4-10.2) mg/dL Assessment and Plan (1) DVT (deep venous thrombosis) Current Visit: Yes Status: Acute Priority: High Code(s): I82.409 - ACUTE EMBOLISM AND THOMBOS UNSP DEEP VN UNSP LOWER EXTREMITY SNOMED Code(s): 383882 003 (2) Pulmonary embolism Current Visit: Yes Status: Acute Priority: High Code(s): I26.99 - OTHER PULMONARY EMBOLISM WITHOUT ACUTE COR PULMONALE SNOMED Code(s): 18482586 Plan: Pt is s/p EKOS with TPA administration for rt heart strain 2/2 PE. Doing well in ICU. Provoked blood clot based on his back surgery just about 5 weeks ago. For the first instance of provoked blood clot recommendation is for 6 months of an ticoagulation. Recommendation is for follow-up prior to discontinuation. If the provoking factor has resolved/remains resolved then patient can be discontinued from AC therapy. Patient is uncertain if his grandfather had blood clots are not. Hypercoagulable workup in the outpatient setting is certainly reasonable if uncertain. It is not necessary to do right now is will not affect patient's current treatment or plan. Follow-up 4-6 weeks. Patient has no history of Covid infection. Full dose DOAC is an acceptable choice for anticoagulation. Any other questions or concerns please feel free to contact Hematology. Appointment will be placed in the chart for lab work and follow-up. attests: I have seen and examined pt, performed H&P, developed impression and plan of care, discussed with dictator. I agree with dictation, documented as a scribe.
[2021-05-08] MEDS: MONTELUKAST 10 MG TAB PO SCH (20:29)
[2021-05-08] MEDS: ATORVASTATIN 40 MG TAB PO SCH (20:29)
[2021-05-08] MEDS: LORATADINE 10 MG TAB PO SCH (20:29)
[2021-05-08] MEDS: CHOLECALCIFEROL 125 MCG (5000 IU) TABLET PO SCH (20:29)
[2021-05-09] MEDS: HYDROcodone/APAP 7.5-325MG 1 EACH TAB PO PRN ×2 (03:37→10:48)
[2021-05-09] MEDS: PANTOPRAZOLE 40 MG TABLET PO SCH (05:48)
[2021-05-09] MEDS: ALBUTEROL NEBULIZED 2.5 MG/3 ML INHALATION PRN (07:58)
[2021-05-09] MEDS: APIXABAN 5 MG TAB PO SCH (08:46)
[2021-05-09] MEDS: GABAPENTIN 300 MG CAP PO SCH (08:46)
[2021-05-09] MEDS: TAMSULOSIN 0.4 MG CAP.ER.24H PO SCH (08:46)
[2021-05-09] MEDS: METOPROLOL TARTRATE 12.5 MG TAB PO SCH (08:46)
[2021-05-09] MEDS: ASPIRIN 81 MG PO SCH (08:47)
[2021-05-09 11:19] VITALS: TEMP 97.8
--- NOTE | 2021-05-09 13:10 | P.PN ---
Subjective HISTORY OF PRESENTING ILLNESS This is a pleasant 71-year-old male past medical history significant for Lumbar degenerative scoliosis s/p revision T10 to pelvis decompression fusion with lumbar scoliosis correction 03/26/21, coronary artery disease status post PCI to the mid LAD in 02/2008, hypertension, hyperlipidemia, obesity, bronchial asthma. He follows in the office with Dr. Rob. We have been asked to see in consultation for pulmonary embolism. Patient presents emergency department with complaints of back pain and shortness of breath since last Thursday. Patient came to the emergency department for further evaluation, d-dimer was elevated and he underwent CT of the chest which revealed pulmonary emboli fairly heavy burden on the right with bulky clot in the distal right main pulmonary artery extending through out lobar and segmental branches suspect early right heart strain. Echocardiogram revealed EF of 5560%, RV is moderately to severely enlarged, no evidence of pulmonary hypertension, RVSP is 32 mmHg, no right heart strain noted. Patient underwent EKOS catheter placement on 05/06/2021. 05/09/21 Patient seen and examined at bedside, no acute distress. He denies any chest pain or shortness of breath. He is hemodynamically stable. Ultrasonic catheter was discontinued He was transferred to the [facility] on the cardiac stepdown unit. He is maintaining sinus mechanism with heart rate 70s80s He's currently maintained on Eliquis 10 mg twice a day, aspirin 81 mg daily, atorvastatin 40 mg nightly, metoprolol tartrate 12.5 mg twice a day PHYSICAL EXAMINATION Blood pressure 151/83, heart rate 92, afebrile, oxygen saturation is 96% on 3 L nasal cannula CONSTITUTIONAL: No apparent distress. HEENT: Neck Supple. No JVD. CHEST EXAMINATION: Lungs are diminished bilaterally to auscultation. HEART EXAMINATION: Regular rate and rhythm. S1, S2 heard. No murmurs, gallops or rub. ABDOMEN: Soft, nontender. Positive bowel sounds. EXTREMITIES: 2+ peripheral pulses, no lower extremity edema and no calf tenderness. NEUROLOGIC EXAMINATION: Patient is awake, alert and oriented x3. ASSESSMENT Bilateral submassive pulmonary embolism s/p EKOS procedure 05/06/21 Lumbar degenerative scoliosis s/p revision T10 to pelvis decompression fusion with lumbar scoliosis correction 03/26/21 Coronary artery disease status post PCI to the mid LAD in 02/2008 Hypertension Hyperlipidemia Obesity Bronchial asthma PLAN From a cardiology perspective, patient is stable. Continue anticoagulation. Discharge per primary. Follow up with Dr. Rob in 1 week. Nurse practitioner note has been reviewed by physician. Signing provider agrees with the documented findings, assessment, and plan of care. Objective - Vital Signs Vital signs: Vital Signs Temp 97.8 F 05/09/21 08:00 Pulse 95 05/09/21 08:09 Resp 18 05/09/21 08:00 BP 151/83 05/09/21 08:00 Pulse Ox 96 05/09/21 08:00 Intake & Output 05/08/21 05/09/21 05/09/21 18:59 06:59 18:59 Intake Total 800 360 Output Total 330 1100 Balance 470 -1100 360 Intake: IV 550 Sodium Chloride 0.9% 1, 550 000 ml @ 20 mls/hr IV . Q24H [facility] Rx#:[id number] Oral 250 360 Output: Urine 330 1100 Other: Voiding Method Urinal Urinal - Labs CBC & Chem 7: 05/08/21 06:48 05/08/21 06:48
--- NOTE | 2021-05-09 13:44 | P.PN ---
Subjective Progress Note Date: 05/09/21 Principal diagnosis: Dyspnea, pulmonary embolism 71-year-old male patient with known history of chronic back pain lumbar scoliosis to underwent a T10 to pelvis revision fusion, surgery was completed on 03/27/2021 and following that the patient was discharged to [facility] for rehab ilitation. This was an extensive surgery. At that time, the patient came in to the ICU for monitoring. The patient had adequate pain control. Hemoglobin remains stable. CAT scan of the lumbar and thoracic spine showed some atelectatic changes in lung bases bilaterally. The patient was provided incentive spirometer. The patient was given a CPAP machine to use postop. He was provided bronchodilators. He was provided incentive spirometer and following that he was discharged. His mobility has been limited as the patient was still having issues with pain at the [facility] on the [place]. The patient acutely developed shortness of breath today and he had some chest discomfort and for that reason he came into the MRSA problem for further evaluation. Further investigation revealed that the patient had a positive DVT in the popliteal veins bilaterally and the patient had also pulmonary embolism would have a clot burden on the right with a bulky clot in the distal right main pulmonary artery extending into the lobar and segmental branches and right heart strain was also suspected. The patient also has UIP features on the CAT scan of the chest. This was consistent with pulmonary fibrosis and this was also confirmed by previous lung biopsy. The patient had a hemoglobin of 11.9. D-dimer was elevated at 11. Blood work was essentially negative. Influenza screen was negative. Carotid 1950 was also negative. He remained hemodynamically stable. He is currently off 6 L of oxygen by nasal cannula. No significant tachycardia and the cardiac rhythm is sinus. No significant tachypnea and the respiratory rate was ranging between 22 and 25 times a minute. Patient was started on IV heparin. Pulmonate consultation was requested. Vascular consultation was also requested regarding the possibility of an EKOS procedure. No previous history of DVT or pulmonary embolism. No intake of anticoagulants on outpatient basis. On 05/07/2021 patient seen in follow-up on medical surgical floor. He is resting comfortable in bed he is on 6 L of oxygen pulse ox is 97%, denies any chest discomfort, no hemoptysis, he had a lower extremity Dopplers in both eyes are positive for a DVT. He remains on heparin infusion. His CT chest showed pulmonary emboli with fairly heavy burden in the right with bulky clot in the distal right main pulmonary artery extending throughout lobar and segmental branches, with a suspicion of early right heart strain. There was additional minimal scattered clot within segmental and subsegmental branches of the left upper lobe. This combination of COPD and chronic interstitial lung disease with scattered bronchiectasis and areas of reticular change. Hemodynamic patient has remained stable. She was evaluated by cardiology, the plan is to proceed with EKOS procedure this afternoon On 05/09/2021 patient seen in follow-up on selective care unit, it is postoperative day #2, status post EKOS procedure. Patient was transferred out of intensive care unit yesterday, he is doing quite well, he is transitioned to oral anticoagulation in the form of Eliquis, he is on 3 L of oxygen, he is breathing comfortably, no complaints of chest discomfort, he is satting 96% on 3 L. Vital signs stable, patient states he was up ambulating yesterday. He state s he normally wears 3 L of oxygen at home and he is currently at his home dose FiO2. No swelling in his calves. No complaints of pain. Patient is supposed to be discharged home today Objective - Vital Signs Vital signs: Vital Signs Temp 97.8 F 05/09/21 08:00 Pulse 95 05/09/21 08:09 Resp 18 05/09/21 08:00 BP 151/83 05/09/21 08:00 Pulse Ox 96 05/09/21 08:00 Intake & Output 05/08/21 05/09/21 05/09/21 18:59 06:59 18:59 Intake Total 800 360 Output Total 330 1100 Balance 470 -1100 360 Intake: IV 550 Sodium Chloride 0.9% 1, 550 000 ml @ 20 mls/hr IV . Q24H [facility] Rx#:[id number] Oral 250 360 Output: Urine 330 1100 Other: Voiding Method Urinal Urinal - Exam GENERAL EXAM: Alert, very pleasant, 71-year-old white male, on 3 L of oxygen with pulse ox of 96% comfortable in no apparent distress. HEAD: Normocephalic/atraumatic. EYES: Normal reaction of pupils, equal size. Conjunctiva pink, sclera white. NOSE: Clear with pink turbinates. THROAT: No erythema or exudates. NECK: No masses, no JVD, no thyroid enlargement, no adenopathy. CHEST: No chest wall deformity. Symmetrical expansion. LUNGS: Equal air entry with no crackles, wheeze, rhonchi or dullness. CVS: Regular rate and rhythm, normal S1 and S2, no gallops, no murmurs, no rubs ABDOMEN: Soft, nontender. No hepatosplenomegaly, normal bowel sounds, no guarding or rigidity. EXTREMITIES: No clubbing, no edema, no cyanosis, 2+ pulses and upper and lower extremities. MUSCULOSKELETAL: Muscle strength and tone normal. SPINE: No scoliosis or deformity SKIN: No rashes CENTRAL NERVOUS SYSTEM: Alert and oriented -3. No focal deficits, tone is normal in all 4 extremities. PSYCHIATRIC: Alert and oriented -3. Appropriate affect. Intact judgment and insight. - Labs CBC & Chem 7: 05/08/21 06:48 05/08/21 06:48 Assessment and Plan Plan: Assessment: #1. Acute bilateral pulmonary embolism with have a clot burden right and RV strain on the CAT scan findings in addition to bilateral nonocclusive DVT in the popliteal veins. Patient is currently on IV heparin. The patient is currently on 6 L of oxygen by nasal cannula. Awaiting further evaluation by vascular surgery regarding possibility of EKOS , awaiting 2-D echocardiogram to evaluate RV strain and pulmonary hypertension. Risk factors of recent spine surgery in addition to being sedentary. This is the first episode for this patient when he has not been taking any form of anticoagulants other than baby aspirin on outpatient basis. Patient underwent EKOS on 05/07/2021 #2. Acute on chronic hypoxic respiratory failure currently on 6 L nasal cannula, improved, down to 3 l/min #3. Chronic lower back pain, and left lower extremity pain, status post lateral lumbar interbody fusion with L1 through 2, and posterior revision of T10 to pelvis and decompression fusion on 03/26/2021 #4. History of UIP, biopsy proven, on home oxygen at 2 L #5. History of COPD #6. Coronary artery disease with previous stenting #7. Hypertension #8. Hyperlipidemia #9. BPH #10. Lumbar scoliosis Plan: Breathing comfortably, Patient is back down to 3 L of oxygen and this is what he usually wears at home on a regular basis Vital signs are stable Has been started on oral anticoagulation Hemodynamically remains stable Increase activity as tolerated Anticipate discharge home today I have personally seen and examined the patient and reviewed the documentation. I performed a joint evaluation with the nurse practitioner in this evaluation was done more than 20 minutes. I fully agree with the documentation above and the plan of care.. The patient got chested out of the intensive care unit. The patient is currently on anticoagulation. No chest pain. Hemodynamically stable. With increased mobility. We'll to go home on long-term anticoagulants. Time with Patient: Less than 30
[2021-05-09] MEDS ORDERED: CHOLESTYRAMINE (WITH SUGAR) 4 GM PACKET PO SCH (14:15)
[2021-05-09 14:19] VITALS: BP 119/79; PULSE 90; RESP 20
--- NOTE | 2021-05-09 16:09 | P.DS ---
Providers Date of admission: 05/06/21 13:58 Expected date of discharge: 05/09/21 Attending physician: Marsha Boo MD Consults: 05/06/21 13:49 Consult Physician Routine Consulting Provider: Merry Roper Consult Reason/Comments: PE Do you want consulting provider notified?: Yes 05/06/21 15:22 Consult Physician Routine Consulting Provider: Prabhjot Diaz Consult Reason/Comments: PE Do you want consulting provider notified?: Yes 05/06/21 18:01 Consult Physician Routine Consulting Provider: Coy Rob Consult Reason/Comments: PE Do you want consulting provider notified?: Yes 05/07/21 17:05 Consult Physician Routine Consulting Provider: Merry Roper Consult Reason/Comments: Post PE Care Do you want consulting provider notified?: Yes Primary care physician: Silvestre Cole MD Hospital Course: Discharge Diagnosis: Family massive pulmonary embolism with right heart strain Bilateral nonocclusive DVT Acute on chronic hypoxic respiratory failure Usual interstitial pneumonitis Hospital Course: Patient is a 71-year-old male with a history of usual interstitial pneumonia, chronic hypoxic respiratory failure, GERD, and degenerative disc disease who presented to the hospital with shortness of breath. In the ER he underwent an extensive evaluation. He was found have an elevated d-dimer and subsequently underwent a CT angios the chest which showed pulmonary emboli with bulky clot in the right main pulmonary artery and possible early right heart strain. Venous Dopplers showed nonocclusive DVT in both lower extremities. He was subsequently started on a heparin drip. He was seen by vascular surgery. He underwent an echocardiogram which showed no signs of right heart strain but a moderate to severely enlarged right ventricle. Cardiology again review the echocardiogram and determine there is right heart strain. Patient subsequently underwent ecos on 05/07/21. He was also seen by hematology oncology consult this is a provoked DVT from recent back surgery. They recommended 6 months of anticoagulation with repeat evaluation prior to discontinuation. Patient continued to do well. He was also followed by pulmonary. His O2 was weaned down his normal home O2 levels was determined stable for discharge. Follow-up: Elysia, Follow-up Dr. Rob in one week, follow-up with PCP Dr. Cole Patient seen and examined at bedside. Feeling well. Feels like go home and manage without difficulty. Still having some shortness of breath this is typical for him. Denies any chest pain. Vital signs reviewed and stable. General: non toxic, no distress, appears at stated age Derm: warm, dry Head: atraumatic, normocephalic, symmetric Eyes: EOMI, no lid lag, anicteric sclera Mouth: no lip lesion, mucus membranes moist Cardiovascular: S1S2 reg, no murmur, positive posterior tibial pulse bilateral, Lungs: Decreased bs bilateral, no rhonchi, no rales , no accessory muscle use Abdominal: soft, nontender to palpation, no guarding, no appreciable organomegaly Ext: no gross muscle atrophy, no edema, no contractures Neuro: CN II-XI grossly intact, no focal neuro deficits Psych: Alert, oriented, appropriate affect A total of 37 minutes of time were spent preparing this complex discharge summary . Patient Condition at Discharge: Stable Plan - Discharge Summary Discharge Rx Participant: No New Discharge Prescriptions: New Apixaban [Eliquis Starter Pack (for VTE)] 5 - 10 mg PO DIRECTED 30 Days #1 each Continue Metoprolol Tartrate [Lopressor] 50 mg PO DAILY Atorvastatin [Lipitor] 40 mg PO HS Aspirin [Adult Low Dose Aspirin EC] 81 mg PO DAILY Montelukast [Singulair] 10 mg PO HS Levocetirizine Dihydrochloride [Xyzal] 5 mg PO HS Albuterol Sulfate [Albuterol Sulfate Hfa] 2 puff INHALATION RT-QID PRN PRN Reason: Shortness Of Breath Or Wheezing Tamsulosin [Flomax] 0.4 mg PO DAILY Cholecalciferol (Vitamin D3) [Vitamin D3 (125 MCG = 5,000 IU)] 250 mcg PO HS Gabapentin 300 mg PO BID Methocarbamol [Robaxin-750] 750 mg PO Q8H PRN PRN Reason: Muscle Spasm HYDROcodone/APAP 7.5-325MG [[place] 7.5-325] 1 tab PO Q6H PRN PRN Reason: Pain Discharge Medication List Aspirin [Adult Low Dose Aspirin EC] 81 mg PO DAILY 06/11/16 [History] Atorvastatin [Lipitor] 40 mg PO HS 06/11/16 [History] Metoprolol Tartrate [Lopressor] 50 mg PO DAILY 06/11/16 [History] Montelukast [Singulair] 10 mg PO HS 03/21/17 [History] Levocetirizine Dihydrochloride [Xyzal] 5 mg PO HS 08/16/19 [History] Albuterol Sulfate [Albuterol Sulfate Hfa] 2 puff INHALATION RT-QID PRN 08/22/19 [History] Methocarbamol [Robaxin-750] 750 mg PO Q8H PRN 09/25/20 [History] Tamsulosin [Flomax] 0.4 mg PO DAILY 09/25/20 [History] Cholecalciferol (Vitamin D3) [Vitamin D3 (125 MCG = 5,000 IU)] 250 mcg PO HS 10/16/20 [History] Gabapentin 300 mg PO BID 04/09/21 [History] HYDROcodone/APAP 7.5-325MG [[place] 7.5-325] 1 tab PO Q6H PRN 04/09/21 [History] Apixaban [Eliquis Starter Pack (for VTE)] 5 - 10 mg PO DIRECTED 30 Days #1 each 05/07/21 [Rx] Follow up Appointment(s)/Referral(s): Prabhjot Diaz MD [STAFF PHYSICIAN] - As Needed (follow-up in 6 months prior to coming off anticoagulation ) Coy Rob MD [STAFF PHYSICIAN] - 05/21/21 3:30 pm (At the [facility] next to [facility]) Silvestre Cole MD [Primary Care Provider] - 05/15/21 8:20 am (Monday 05/15 at 8:20 am, you already have an appointment. This will also be your hospital follow-up.) Activity/Diet/Wound Care/Special Instructions: Activity: as tolerated Diet: regular Special Instructions: Seek medical attention if any unusual bruising or bleeding Come to the emergency department with any head injury take medication as directed Thank you for trusting us with your care. We wish you well on your journey to better health. Discharge Disposition: HOME SELF-CARE
== END 2021-05-09 16:40 | disposition home or self-care (01) | DRG 166 ==
LOC: EC 09:45 → 3SCARD 13:58 → 2SICU 05-07 16:28 → 3SCARD 05-08 17:21
PROVIDERS: ADMIT Hospitalist; ATTEND Hospitalist
PROC: 5A0935A Assistance with Respiratory Ventilation, Less than 24 Consecutive Hours, High Flow/Velocity Cannula (ICD-10-PCS; 2021-05-06)
PROC: 4A1239Z Monitoring of Cardiac Output, Percutaneous Approach (ICD-10-PCS; 2021-05-07)
PROC: 3E06317 Introduction of Other Thrombolytic into Central Artery, Percutaneous Approach (ICD-10-PCS; 2021-05-07)
PROC: 4A023N6 Measurement of Cardiac Sampling and Pressure, Right Heart, Percutaneous Approach (ICD-10-PCS; 2021-05-07)
PROC: 02FQ3Z0 Fragmentation of Right Pulmonary Artery, Percutaneous Approach, Ultrasonic (ICD-10-PCS; principal; 2021-05-07 14:45)
PROC: 4A133B3 Monitoring of Arterial Pressure, Pulmonary, Percutaneous Approach (ICD-10-PCS; 2021-05-07 14:45)
DX: I26.99 Other pulmonary embolism without acute cor pulmonale (principal); J96.21 Acute and chronic respiratory failure with hypoxia; I82.433 Acute embolism and thrombosis of popliteal vein, bilateral; M54.50 Low back pain, unspecified; D72.829 Elevated white blood cell count, unspecified; E66.9 Obesity, unspecified; E78.5 Hyperlipidemia, unspecified; G89.29 Other chronic pain; H91.90 Unspecified hearing loss, unspecified ear; I08.1 Rheumatic disorders of both mitral and tricuspid valves; I10 Essential (primary) hypertension; I25.10 Atherosclerotic heart disease of native coronary artery without angina pectoris; I27.20 Pulmonary hypertension, unspecified; I73.00 Raynaud's syndrome without gangrene; J43.9 Emphysema, unspecified; J47.9 Bronchiectasis, uncomplicated; J84.89 Other specified interstitial pulmonary diseases; M41.86 Other forms of scoliosis, lumbar region; N40.0 Benign prostatic hyperplasia without lower urinary tract symptoms; Z20.822 Contact with and (suspected) exposure to COVID-19; Z68.34 Body mass index [BMI] 34.0-34.9, adult; Z79.01 Long term (current) use of anticoagulants; Z79.82 Long term (current) use of aspirin; Z79.899 Other long term (current) drug therapy; Z82.49 Family history of ischemic heart disease and other diseases of the circulatory system; Z87.891 Personal history of nicotine dependence; Z95.5 Presence of coronary angioplasty implant and graft; Z99.81 Dependence on supplemental oxygen; Z87.01 Personal history of pneumonia (recurrent)
CPT/HCPCS: 36415; 37211; 71046; 71275; 80048; 80053; 83605; 83735; 83880; 84484; 85025; 85379; 85384; 85610; 85730; 87636; 93005; 93306; 93451; 93970; 94640; 96374; 96375; 99291

== ENCOUNTER → 2021-09-27 | Outpatient (CLI) | payer MEDICARE, BC ==
--- NOTE | 2021-09-27 22:43 | CT ---
EXAMINATION TYPE: CT chest wo con CT DLP: 1251.40 mGycm, Automated exposure control for dose reduction was used. DATE OF EXAM: 09/27/2021 5:18 PM COMPARISON: CT of the chest 05/06/2021 . CLINICAL INDICATION:Male, 71 years old with history of J84.9 INTERSTITIAL PULMONARY DISEASE TECHNIQUE: Multiple axial images were obtained through the chest. Sagittal and coronal reformats were created for review. Contrast used: none. Oral contrast used: none. FINDINGS: LUNGS/ PLEURA: Scattered peripheral/subpleural reticulation with streaky atelectasis is present. Chago tionally there is bronchiectasis predominantly in the lower lungs overall findings may be mildly wors e from 2018 examination. No definitive honeycombing identified on this examination. There is scattere d architectural distortion. AIRWAY: Patent with scattered areas of mild bronchial wall thickening and bronchiectasis. HEART: Heart is mildly enlarged for size. There is coronary artery atherosclerosis present. MEDIASTINUM: No gross evidence of adenopathy. VASCULATURE: No aortic aneurysm. MUSCULOSKELETAL: No acute osseous abnormalities partial visualization of fixation hardware in the low er spine. SOFT TISSUES/LYMPH NODES: Unremarkable. LOWER NECK: No significant findings. UPPER ABDOMEN: Diffuse low-attenuation to the liver parenchyma. IMPRESSION: Grossly similar interstitial lung disease and bronchiectasis changes compared to 05/06/2021 but progre ssed since 2018. 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
== END | disposition home or self-care (01) ==
LOC: RADCTMAIN 16:09
PROVIDERS: ATTEND Internal Medicine Critical Care Medicine
DX: J84.9 Interstitial pulmonary disease, unspecified (principal)
CPT/HCPCS: 71250

== ENCOUNTER 2021-10-04 12:45 | Emergency (ER) | payer MEDICARE, BC ==
[2021-10-04] MEDS ORDERED: HYDROmorphone 1 MG/ML 1 ML SYRINGE IM STA (13:08)
--- NOTE | 2021-10-04 14:13 | XR ---
EXAMINATION TYPE: XR forearm LT DATE OF EXAM: 10/04/2021 COMPARISON: NONE HISTORY: Pain Two views of the forearm demonstrate that the osseous structures appear to be intact and the joint sp aces appear to be preserved. There is no acute fracture or dislocation. On the posterior soft tissu es there is increased attenuation on just distal to the elbow joint suspicious for soft tissue foreig n body. Small olecranon spur noted. IMPRESSION: 1. No acute fracture or dislocation 2. Correlate for soft tissue foreign body overlying the proximal soft tissues adjacent to the radius
--- NOTE | 2021-10-04 14:16 | XR ---
EXAM TYPE: LUMBAR SPINE X RAY SERIES COMPARISON: 05/13/2021 HISTORY: Pain TECHNIQUE: 3 views are submitted. FINDINGS: Diffuse osteopenia with postsurgical changes at all levels. Mild compression deformity of L2 is simil ar to prior exam. Multilevel hypertrophic spurring. IMPRESSION: 1. Stable postsurgical changes.
--- NOTE | 2021-10-04 14:17 | XR ---
EXAMINATION TYPE: XR thoracic spine 2V DATE OF EXAM: 10/04/2021 COMPARISON: NONE HISTORY: Pain TECHNIQUE: 3 views submitted FINDINGS: Alignment is anatomic. Postsurgical changes lower thoracic spine with degenerative disc disease at th e junction of the surgical change and lower thoracic spine. Stable appearing mild wedge deformity of the lower thoracic spine. Mild multilevel hypertrophic and degenerative changes with diffuse osteopen ia. Incidental note made of degenerative changes lower cervical spine. IMPRESSION: 1. Postsurgical changes with multilevel mild degenerative disc disease and diffuse osteopenia.
--- NOTE | 2021-10-04 14:26 | ED ---
General Adult HPI - General Chief complaint: Wound/Laceration Stated complaint: fall, arm injury Time Seen by Provider: 10/04/21 12:56 Source: patient, RN notes reviewed Mode of arrival: ambulatory Limitations: no limitations - History of Present Illness Initial comments: 71-year-old male presents emergency Department with chief complaint of trip and fall. Patient states he is leaving a yard sale when he fell onto some gravel. His tetanus is up-to-date. Patient states he is concerning and back surgery is extensive and wants checked his hardware. Patient denies any bowel bladder incontinence or retention or saddle anesthesias. Patient states he has a skin tear to his left arm. Patient states that there is some gravel within the area. Patient denies any other associated complaints. - Related Data Home Medications Medication Instructions Recorded Confirmed Aspirin [Adult Low Dose Aspirin EC] 81 mg PO DAILY 06/11/16 10/04/21 Atorvastatin [Lipitor] 40 mg PO HS 06/11/16 10/04/21 Metoprolol Tartrate [Lopressor] 50 mg PO DAILY 06/11/16 10/04/21 Montelukast [Singulair] 10 mg PO HS 03/21/17 10/04/21 Levocetirizine Dihydrochloride 5 mg PO DAILY 08/16/19 10/04/21 [Xyzal] Albuterol Sulfate [Albuterol 2 puff INHALATION RT-QID PRN 08/22/19 10/04/21 Sulfate Hfa] Tamsulosin [Flomax] 0.4 mg PO DAILY 09/25/20 10/04/21 methocarbamoL [Robaxin-750] 750 mg PO Q8H PRN 09/25/20 10/04/21 Apixaban [Eliquis] 5 mg PO BID 10/04/21 10/04/21 Fluticasone Nasal [place] [Flonase 1 spray EA NOSTRIL DAILY 10/04/21 10/04/21 Nasal [place]] predniSONE 10 mg PO DAILY 10/04/21 10/04/21 Previous Rx's Medication Instructions Recorded Cephalexin [Keflex] 500 mg PO Q8HR #21 cap 10/04/21 Allergies Allergy/AdvReac Type Severity Reaction Status Date / Time adhesive Allergy Rash/Hives Verified 10/04/21 13:48 budesonide [From Symbicort] Allergy Rash/Hives Verified 10/04/21 13:48 formoterol [From Symbicort] Allergy Rash/Hives Verified 10/04/21 13:48 Review of Systems ROS Statement: Those systems with pertinent positive or pertinent negative responses have been documented in the HPI. ROS Other: All systems not noted in ROS Statement are negative. 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 Bilateral hard of hearing. Lumbar DDD w/ lower back pain radiating to left hip and down upper leg with numbness and tingling. History of Any Multi-Drug Resistant Organisms: None Reported Past Surgical History: Back Surgery, Heart Catheterization With Stent Additional Past Surgical History / Comment(s): Left lung biopsy, lower back surgery w/ josie, 1 cardiac stent. Past Anesthesia/Blood Transfusion Reactions: No Reported Reaction Date of Last Stent Placement:: 1997 Past Psychological History: No Psychological Hx Reported Smoking Status: Former smoker Past Alcohol Use History: Rare Past Drug Use History: None Reported - Past Family History Mother Family Medical History: Coronary Artery Disease (CAD) Additional Family Medical History / Comment(s): from peritonitis. General Exam Limitations: no limitations General appearance: alert, in no apparent distress Head exam: Present: atraumatic, normocephalic, normal inspection Neck exam: Present: normal inspection, full ROM. Absent: tenderness, meni ngismus, lymphadenopathy Respiratory exam: Present: normal lung sounds bilaterally. Absent: respiratory distress, wheezes, rales, rhonchi, stridor Cardiovascular Exam: Present: regular rate, normal rhythm, normal heart sounds. Absent: systolic murmur, diastolic murmur, rubs, gallop, clicks Extremities exam: Present: other (Left forearm there is a large skin tear, abrasion noted there is some gravel, foreign bodies within the wound is nothing the distal wrist cyst proximal forearm. Patient remaining extremity exam within normal limits) Back exam: Present: full ROM. Absent: normal inspection (Healed surgical incision), tenderness, CVA tenderness (R), CVA tenderness (L), paraspinal tenderness, vertebral tenderness Neurological exam: Present: alert, oriented X3, CN II-XII intact, reflexes normal. Absent: motor sensory deficit Course Vital Signs 10/04/21 12:50 Temperature 98.1 F Pulse Rate 85 Respiratory 20 Rate Blood Pressure 159/97 O2 Sat by Pulse 96 Oximetry Medical Decision Making - Medical Decision Making 71-year-old presented for a fall x-rays are negative. Question of foreign body left arm which there is nothing in the area noted , antibiotics given as he has extensive wound with dirt and left arm. Return parameters were discussed. Disposition Clinical Impression: Skin tear of left upper extremity, Fall Disposition: HOME SELF-CARE Condition: Stable Instructions (If sedation given, give patient instructions): Skin Tear (ED) Additional Instructions: Please return to the Emergency Department if symptoms worsen or any other concerns. Prescriptions: Cephalexin [Keflex] 500 mg PO Q8HR #21 cap Is patient prescribed a controlled substance at d/c from ED?: No Referrals: Silvestre Cole MD [Primary Care Provider] - 1-2 days Time of Disposition: 14:26
[2021-10-04 14:50] VITALS: BP 92/66; PULSE 74; RESP 18; TEMP 98.6
== END 2021-10-04 14:50 | disposition home or self-care (01) ==
LOC: EC 12:45
DX: S51.812A Laceration without foreign body of left forearm, initial encounter (principal); J45.909 Unspecified asthma, uncomplicated; I25.10 Atherosclerotic heart disease of native coronary artery without angina pectoris; J44.9 Chronic obstructive pulmonary disease, unspecified; K21.9 Gastro-esophageal reflux disease without esophagitis; E78.5 Hyperlipidemia, unspecified; I10 Essential (primary) hypertension; M19.90 Unspecified osteoarthritis, unspecified site; Z87.891 Personal history of nicotine dependence; Z88.8 Allergy status to other drugs, medicaments and biological substances; Z79.82 Long term (current) use of aspirin; Z79.51 Long term (current) use of inhaled steroids; Z79.899 Other long term (current) drug therapy; W01.0XXA Fall on same level from slipping, tripping and stumbling without subsequent striking against object, initial encounter
CPT/HCPCS: 72070; 72100; 73090; 99283; 96372; J1170

== ENCOUNTER → 2021-11-01 | Outpatient (CLI) | payer MEDICARE, BC ==
--- NOTE | 2021-11-01 14:58 | US ---
EXAMINATION TYPE: US venous doppler duplex LE DATE OF EXAM: 11/01/2021 12:41 PM COMPARISON: US CLINICAL HISTORY: I82.529 DVT. Prior DVT bilaterally- follow up study- pt currently on blood thinners SIDE PERFORMED: Bilateral TECHNIQUE: The lower extremity deep venous system is examined utilizing real time linear array sonog alessandra with graded compression, doppler sonography and color-flow sonography. VESSELS IMAGED: Common Femoral Vein Deep Femoral Vein Greater Saphenous Vein * Femoral Vein Popliteal Vein Small Saphenous Vein * Proximal Calf Veins (* superficial vessels) Right Leg: Negative for DVT, possible thready flow within proximal calf veins ?non-occluding chronic thrombus Left Leg: Negative for DVT, possible thready flow within proximal calf veins ?non-occluding chronic thrombus IMPRESSION: No evidence for DVT.
== END | disposition home or self-care (01) ==
LOC: RADUSWWP 12:13
PROVIDERS: ATTEND Internal Medicine Hematology & Oncology
DX: I82.529 Chronic embolism and thrombosis of unspecified iliac vein (principal)
CPT/HCPCS: 93970

== ENCOUNTER → 2021-11-08 | Outpatient (CLI) | payer MEDICARE, BC ==
[2021-11-08 18:24] LABS: Basophils # (A) 0.03 X 10*3/uL (0.00-0.10); Basophils % (A) 0.3 %; Eosinophils # (A) 0.23 X 10*3/uL (0.04-0.35); Eosinophils % (A) 1.9 %; HCT 42.7 % (39.6-50.0); HGB 13.7 g/dL (13.0-17.0); Immature Grans, Automated 0.7 %; Lymphocytes # (A) 0.81 X 10*3/uL (0.90-5.00); Lymphocytes % (A) 6.8 %; MCHC 32.1 g/dL (32.0-37.0); MCV 102.9 fL (80.0-97.0); Monocytes % (A) 6.7 %; NRBC Per 100 WBC 0 /100 WBCS (0.0-0.0); Neutrophils # (A) 10.01 X 10*3/uL (1.80-7.70); Neutrophils % (A) 83.6 %; Platelet Count 220 X 10*3/uL (140-440); RBC 4.15 X 10*6/uL (4.40-5.60); RDW 13.3 % (11.5-14.5); WBC 11.96 X 10*3/uL (4.50-10.00)
[2021-11-08 19:51] LABS: ALT 20 U/L (10-49); AST 14 U/L (14-35); African American GFR (CKD) 70.6 (60.0-200.0); Alkaline Phosphatase 61 U/L (41-126); Calcium 9.1 mg/dL (8.7-10.3); Carbon Dioxide 28.5 mmol/L (20.0-27.5); Chloride 103 mmol/L (96-109); Chol/HDL Ratio 3.44 Ratio; Globulin 2.5 g/dL (1.6-3.3); Glucose 102 mg/dL (70-110); LDL Cholesterol,Calculated 69.2 mg/dL (0.0-131.0); Non-African American GFR(CKD) 60.9 (60.0-200.0); Sodium 142 mmol/L (135-145); Total Protein 6.5 g/dL (6.2-8.2)
== END | disposition home or self-care (01) ==
LOC: LABWHC1 09:57
PROVIDERS: ATTEND Internal Medicine
DX: I10 Essential (primary) hypertension (principal); N40.0 Benign prostatic hyperplasia without lower urinary tract symptoms
CPT/HCPCS: 36415; 80053; 80061; 84153; 84443; 85025

== ENCOUNTER → 2022-01-30 | Outpatient (CLI) | payer MEDICARE, BC ==
--- NOTE | 2022-01-30 12:45 | US ---
EXAMINATION TYPE: US duplex aorta DATE OF EXAM: 01/30/2022 COMPARISON: NONE CLINICAL HISTORY: 71-year-old male Z13.6 SCREENING FOR CARDIOVASCULAR DISORDERS. No family history, p atient does have heart stent, but no AAA symptoms TECHNIQUE: Multiple sonographic images of the abdominal aorta are obtained. FINDINGS: EXAM MEASUREMENTS: Abdominal Aorta: Proximal: not seen Mid: 2.2 x 2.2cm Distal: 2.0 x 1.9cm Bifurcation: 1.1cm 0.9cm [employer] WORKER NOTES: large habitus, limited views due to habitus and gas Incidentally, there seems to be partial visualization of a markedly echogenic liver. IMPRESSION: 1. Unable to adequately visualize the proximal abdominal aorta. The mid and distal abdominal aorta sh ow no evidence for AAA. 2. There may be severe underlying hepatic steatosis. Correlate with LFTs, lipid profile, and patient risk factors. If indicated, dedicated liver ultrasound can be performed.
== END | disposition home or self-care (01) ==
LOC: RADUSWWP 08:23
PROVIDERS: ATTEND Internal Medicine
DX: Z13.6 Encounter for screening for cardiovascular disorders (principal)
CPT/HCPCS: 93979

== ENCOUNTER → 2022-02-13 | Outpatient (CLI) | payer MEDICARE, BC ==
--- NOTE | 2022-02-13 08:15 | US ---
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 JOINER, elevated liver enzymes TECHNIQUE: Multiple sonographic images of the right upper quadrant are obtained. FINDINGS: EXAM MEASUREMENTS: Liver Length: 17.1 cm Gallbladder Wall: 0.3 cm Right Kidney: 10.7 x 6.3 x 4.1 cm NUCLEAR MEDICINE SUPERVISOR NOTES:technical limitations due to patient's body habitus and large amount of overlyi ng bowel content Pancreas: Obscured by bowel gas Liver: unable to penetrate, attenuating, limited evaluation Gallbladder: no evidence of stones Evidence for sonographic Maki's sign: no CBD: Obscured by overlying bowel gas Right Kidney: no evidence of hydronephrosis IMPRESSION: Findings compatible with hepatic steatosis.
== END | disposition home or self-care (01) ==
LOC: RADUSWWP 07:08
PROVIDERS: ATTEND Internal Medicine
DX: K75.81 Nonalcoholic steatohepatitis (NASH) (principal)
CPT/HCPCS: 76705

== ENCOUNTER → 2022-08-27 | Outpatient (CLI) | payer MEDICARE, BC ==
[2022-08-27 15:42] LABS: Basophils # (A) 0.05 X 10*3/uL (0.00-0.10); Basophils % (A) 0.4 %; Eosinophils # (A) 0.28 X 10*3/uL (0.04-0.35); Eosinophils % (A) 2.1 %; HCT 49.9 % (39.6-50.0); Lymphocytes # (A) 0.96 X 10*3/uL (0.90-5.00); Lymphocytes % (A) 7.1 %; MCH 33.3 pg (27.0-32.0); MCHC 32.1 d/dL (32.0-37.0); Mean Platelet Volume 10.7 FL (9.5-12.2); Monocytes % (A) 7.4 %; NRBC Per 100 WBC 0 X 10*3/uL (0.00-0.01); Neutrophils # (A) 11.17 X 10*3/uL (1.80-7.70); Neutrophils % (A) 82.2 %; Platelet Count 207 X 10*3/uL (140-440); RDW 12.6 % (11.5-14.5); WBC 13.57 X 10*3/uL (4.50-10.00)
[2022-08-27 16:12] LABS: ALT 27 U/L (10-49); AST 12 U/L (14-35); Alkaline Phosphatase 64 U/L (41-126); Blood Urea Nitrogen 14.3 mg/dL (9.0-27.0); Calcium 9.9 mg/dL (8.7-10.3); Carbon Dioxide 31.4 mmol/L (21.6-31.8); Chloride 102 mmol/L (96-109); Chol/HDL Ratio 3.63 Ratio; Globulin 2.5 d/dL (1.6-3.3); Glucose 125 mg/dL (70-110); LDL Cholesterol,Calculated 73.8 mg/dL (0.0-131.0); Potassium 5.4 mmol/L (3.5-5.5); Sodium 144 mmol/L (135-145); Total Bilirubin 0.6 mg/dL (0.3-1.2); Total Protein 6.5 d/dL (6.2-8.2)
== END | disposition home or self-care (01) ==
LOC: LABWHC1 10:46
PROVIDERS: ATTEND Internal Medicine
DX: E78.5 Hyperlipidemia, unspecified (principal)
CPT/HCPCS: 36415; 80053; 80061; 85025

== ENCOUNTER → 2022-08-29 | Outpatient (CLI) | payer MEDICARE, BC ==
[2022-08-29 10:16] LABS: Basophils % (A) 0 %; Eosinophils # (A) 0.3 k/uL (0-0.7); Eosinophils % (A) 3 %; HCT 49.1 % (39.0-53.0); HGB 14.7 gm/dL (13.0-17.5); Lymphocytes # (A) 1.3 k/uL (1.0-4.8); Lymphocytes % (A) 11 %; MCHC 29.9 g/dL (31.0-37.0); MCV 103.4 fL (80.0-100.0); Macrocytosis Slight; Mean Platelet Volume 7.7; Monocytes # (A) 0.7 k/uL (0-1.0); Monocytes % (A) 6 %; Neutrophils # (A) 8.9 k/uL (1.3-7.7); Neutrophils % (A) 78 %; Platelet Count 189 k/uL (150-450); RBC 4.75 m/uL (4.30-5.90); RDW 12.7 % (11.5-15.5); WBC 11.4 k/uL (3.8-10.6)
[2022-08-29 16:34] LABS: Albumin 3.8 d/dL (3.8-4.9); Protein, Total 6.3 d/dL (6.2-8.2)
== END | disposition home or self-care (01) ==
LOC: LABWHC1 09:18
PROVIDERS: ATTEND Internal Medicine
DX: D72.829 Elevated white blood cell count, unspecified (principal); R73.9 Hyperglycemia, unspecified
CPT/HCPCS: 36415; 83036; 84165; 85025; 86334

== ENCOUNTER → 2022-09-10 | Outpatient (CLI) | payer MEDICARE, BC ==
--- NOTE | 2022-09-11 09:36 | BD ---
EXAMINATION TYPE: Axial Bone Density DATE OF EXAM: 09/10/2022 CLINICAL HISTORY: 72 years old Male. ICD-10 CODE: Z79.52 [facility]CI (CURRENT) USE OF SYSTEMIC STEROID Height: 69 Weight: 282.5 FRAX RISK QUESTIONS: Alcohol (3 or more units per day): no Family History (Parent hip fracture): no Glucocorticoids (More than 3mos): yes (Ex: prednisone, prednisolone, methylprednisolone, dexamethasone, and hydrocortisone). History of Fracture in Adulthood: Ankle Secondary Osteoporosis: 1. Type 1 Diabetes: no 2. Hyperthyroidism: no 3. Menopause before 45: na 4. Malnutrition: no 5. Chronic liver disease: no Rheumatoid Arthritis: yes Current Tobacco Use: no RISK FACTORS HISTORY OF: Hip Fracture (Right/Left): no Spine Fracture: no History of Wrist Fracture: no Surgery to Spine/Hip(right/left)/Wrist (right/left): LS-Spine When: 2021 Family History of Osteoporosis: Mother Active: no Diet low in dairy products/other sources of calcium: no Postmenopausal woman: na If Premenopausal, do you have irregular periods: na Take estrogen and/or progesterone medications: no Lost more than 2 inches in height since high school: yes Frequent falls: no Poor Health: no Hyperparathyroidism: no Adrenal Insufficiency: no MEDICATIONS: Prednisone or other steroids: Prednisone How Long: Past 2 years Thyroid Medications: no Osteoporosis Medications: no Additional Medications: Inhaler, Lipitor, Cholesterol Meds, Vit D, Additional History: COPD EXAM MEASUREMENTS: Bone mineral density about the R hip (g/cm2): 0.915 Bone mineral density about the L hip (g/cm2): 0.987 T Score values are as follows: -----R Neck: -1.8 -----L Neck: -1.6 -----R Total: -0.7 -----L Total: -0.2 Z Score values are as follows: -----R Neck: -1.4 -----L Neck: -1.2 -----R Total: -1.0 -----L Total: -0.5 Baseline Study Bone mineral density about the L Wrist (g/cm2): 0.692 T Score values are as follows: -----Dist. R+U: -0.7 -----Prox. R+U: -0.5 -----Radius total: -0.9 Z Score values are as follows: -----Dist. R+U: 0.2 -----Prox. R+U: 0.4 -----Radius total: 0.0 Baseline Study FRAX%s: The graph provided illustrates a21.3 % chance for a major osteoporotic fx and a 7.0% chance f or the hips probability for fx in 10 years time. IMPRESSION: Osteopenia (T Score between -2.5 and -1). There is slightly increased risk of fracture and the patient may be considered for treatment. Re-Screen 2-5 years. NOTE: T-SCORE=SD OF THE YOUNG ADULT MEAN.
== END | disposition home or self-care (01) ==
LOC: RADBDWWP 07:51
PROVIDERS: ATTEND Internal Medicine
DX: M85.89 Other specified disorders of bone density and structure, multiple sites (principal); J44.9 Chronic obstructive pulmonary disease, unspecified; M06.9 Rheumatoid arthritis, unspecified; Z79.52 Long term (current) use of systemic steroids
CPT/HCPCS: 77080

== ENCOUNTER → 2022-09-29 | Outpatient (CLI) | payer MEDICARE, BC ==
[2022-09-29 15:49] LABS: HCT 45.3 % (39.6-50.0); HGB 14.6 d/dL (13.0-17.0); MCH 33.1 pg (27.0-32.0); MCHC 32.2 d/dL (32.0-37.0); MCV 102.7 FL (80.0-97.0); Mean Platelet Volume 10.1 FL (9.5-12.2); NRBC Per 100 WBC 0 X 10*3/uL (0.00-0.01); Platelet Count 227 X 10*3/uL (140-440); RBC 4.41 X 10*6/uL (4.40-5.60); RDW 12.9 % (11.5-14.5); WBC 12.77 X 10*3/uL (4.50-10.00)
[2022-09-29 15:55] LABS: Blood Urea Nitrogen 15.3 mg/dL (9.0-27.0); Carbon Dioxide 29.7 mmol/L (21.6-31.8); Chloride 101 mmol/L (96-109); Potassium 4.6 mmol/L (3.5-5.5); Sodium 141 mmol/L (135-145)
== END | disposition home or self-care (01) ==
LOC: LABPAT 10:05
PROVIDERS: ATTEND Internal Medicine Interventional Cardiology
DX: Z01.812 Encounter for preprocedural laboratory examination (principal); I25.2 Old myocardial infarction
CPT/HCPCS: 36415; 80051; 82565; 84520; 85027

== ENCOUNTER 2022-10-09 06:11 | Day surgery (SDC) | payer MEDICARE, BC ==
[2022-10-01 08:15] VITALS: BMI 41.3
[~2022-10-09 06:11] MED LIST changes: +ALPRAZolam 0.25 MG TAB PO PRN; +ALPRAZolam 0.5 MG TAB PO PRN; +ASPIRIN 325 MG TAB PO STA; -LACTATED RINGERS 1,000 ML IV SCH; +NITROGLYCERIN SL TABS 0.4 MG TAB SUBLINGUAL PRN; +SODIUM CHLORIDE 0.9% 1,000 ML in EMPTY BAG 1 BAG IV SCH
[2022-10-09] MEDS ORDERED: VERAPAMIL 2.5 MG/ML 2 ML AMP ONE (07:20)
[2022-10-09] MEDS ORDERED: HEPARIN SODIUM 1,000 UN/ML (10ML VL) ONE (07:20)
[2022-10-09] MEDS ORDERED: MIDAZOLAM 2 MG/2 ML VIAL IVP ONE (07:39)
[2022-10-09] MEDS ORDERED: fentaNYL (PF) 50 MCG/ML 2 ML AMP ONE (07:44)
[2022-10-09] MEDS ORDERED: LIDOCAINE 1% INJ 10MG/ML (20 ML MDV) SQ ONE (07:44)
[2022-10-09] MEDS ORDERED: fentaNYL (PF) 50 MCG/ML 2 ML AMP IVP ONE (07:45)
[2022-10-09] MEDS ORDERED: HEPARIN SODIUM 1,000 UN/ML (10ML VL) IVP ONE (07:45)
[2022-10-09] MEDS ORDERED: VERAPAMIL SYRINGE (5 MG/10 ML) INTRAARTER ONE (07:47)
[2022-10-09] MEDS ORDERED: IOPAMIDOL-300 100ML BTL INJ ONE (07:56)
[2022-10-09] MEDS ORDERED: SODIUM CHLORIDE 0.9% 1,000 ML IV SCH (08:00)
--- NOTE | 2022-10-09 08:56 | CC ---
CARDIAC CATHETERIZATION REPORT PROCEDURES PERFORMED: Left heart catheterization and coronary angiography. PERFORMED BY: Dr. Honorio Rob. ANESTHESIA: Moderate conscious sedation time was 15 minutes. The patient was administered Versed and fentanyl. Oxygen saturation, hemodynamics, and EKG were monitored closely. CLINICAL INFORMATION: Mr. Chu Mccloud is a 72-year-old gentleman with a history of bronchial asthma, on steroids, currently tapering. He has CAD with previous stenting of mid LAD performed in 2008 with a drug-eluting stent. He also has hypertension, hyperlipidemia, and significant bronchial asthma. He also has severe degenerative disease of the spine and had a pulmonary embolism in April 2021, for which he received EKOS procedure. However, PA pressures had normalized. Because of symptoms of shortness of breath and chest tightness and a positive stress test with inferolateral reversible defect, he was advised cardiac cath after due discussion regarding risks, benefits, and options. PROCEDURE NOTE: Under local anesthesia and strict aseptic precautions, a 6-Telugu introducer was placed in the right radial artery. Using a JL3.5 and JR4 catheters, I performed coronary angiography and the same right catheter was used to check LV pressure, but LV-gram was not performed. The sheath was taken out and TR band applied as per protocol and saturation of fingers was about 91% back to baseline. The patient tolerated the procedure well without complication. The details and results were discussed with the patient and his . He has no significant progression of disease and we will pursue medical therapy. CARDIAC CATHETERIZATION FINDINGS: The left ventricular end-diastolic pressure was 8 mmHg without any gradient across aortic valve. CORONARY ANGIOGRAPHY FINDINGS: Right coronary artery: Small nondominant, has about a 40% mid lesion. Limited amount of myocardium supplied by it. Left main coronary artery: This is a short patent vessel, free of significant disease that immediately trifurcates into LAD, circumflex, and ramus intermedius. Left main itself is free of significant disease. Left anterior descending coronary artery: Good-caliber vessel, extends along the anterior wall, gives off septal and diagonal branches. In the midportion, there is a widely patent stented area with brisk flow. There are minor irregularities of 30% or less. It gives off septal and diagonal branches, runs all the way to the apex and curves over the apex to supply the inferoapical portion of left ventricle. No significant disease in the LAD system. Ramus intermedius: This is a fair caliber vessel and as it comes off from the left main, there is about a 40% narrowing. Beyond this, the caliber of the vessel improves, and it runs all the way laterally and bifurcates into 2 branches, supplies a fair amount of myocardium. There is a 40% proximal stenosis involving the ramus intermedius. Left posterior circumflex coronary artery: Good caliber vessel, dominant, gives off a high first obtuse marginal and distally bifurcates into PDA and PLV, both of which have minor irregularities. No significant disease. Left ventriculogram was not performed. FINAL IMPRESSION: This patient has normal filling pressures. No gradient. The left dominant system with a 40% stenosis in the ramus. The circumflex is free of significant disease. There is about a 40% disease in the nondominant small RCA. LAD stented area is widely patent without any other significant disease. RECOMMENDATIONS: Findings were discussed with the patient and . Continued medical therapy with risk factor modification is advised and the patient will be discharged later on today after hydration. MMODL / IJN: [id number] /
[2022-10-09 17:53] VITALS: TEMP 97.9
[2022-10-09 18:51] VITALS: BP 135/79; PULSE 68; RESP 16
== END 2022-10-09 13:38 | disposition home or self-care (01) ==
LOC: CATHCVL 06:11
PROVIDERS: ATTEND Internal Medicine Interventional Cardiology
DX: I25.10 Atherosclerotic heart disease of native coronary artery without angina pectoris (principal); I10 Essential (primary) hypertension; I26.99 Other pulmonary embolism without acute cor pulmonale; E78.5 Hyperlipidemia, unspecified; J44.9 Chronic obstructive pulmonary disease, unspecified; Z79.82 Long term (current) use of aspirin; Z79.899 Other long term (current) drug therapy
CPT/HCPCS: 93458; C1769; C1894; J2250; J2001; J3010; J1644; Q9967

== ENCOUNTER → 2022-11-07 | Outpatient (CLI) | payer MEDICARE, BC ==
--- NOTE | 2022-11-10 09:04 | MM ---
Reason for Exam: Clinical finding. Indicated Problems: Palpable abnormality. Tissue Density: The breast tissue is almost entirely fat. Findings: Analyzed By CAD. Fatty prominence noted at the site of clinical concern may reflect lipoma. Ultrasound is recommended. No suspicious calcifications seen within either breast. Overall Assessment: Incomplete: need additional imaging evaluation, BI-RAD 0 Management: Diagnostic Breast Ultrasound of the left breast. . Results were given to the patient verbally at the time of exam. Patient should continue monthly self-breast exams. A clinical breast exam by your physician is recommended on an annual basis. This exam should not preclude additional follow-up of suspicious palpable abnormalities. Note on Keyanna scores and lifetime risk: 1. A Keyanna score greater than 3% is considered moderate risk. If this is the case, consider specialist referral to assess eligibility for a risk reducing agent. 2. If overall lifetime risk for the development of breast cancer is 20% or higher, the patient may qualify for future screening with alternating mammogram and breast MRI. Electronically signed and approved by: Yevgeniy Diane M.D. Radiologis
--- NOTE | 2022-11-10 09:05 | USB ---
Reason for Exam: Clinical finding. Technique: Method: Targeted. Findings: The area of palpable concern of both breasts and the retroareolar of both breasts were scanned. There is lipoma at the site of clinical concern which corresponds to the chest wall adjacent to the breast. No concerning solid masses are seen.. Overall Assessment: Benign, BI-RAD 2 Management: Clinical Management of both breasts in 1 year. A clinical breast exam by your physician is recommended on an annual basis and results should be correlated with mammographic findings. This exam should not preclude additional follow-up of suspicious palpable abnormalities. Results were given to the patient verbally at the time of exam. Electronically signed and approved by: Yevgeniy Diane M.D. Radiologis
== END | disposition home or self-care (01) ==
LOC: RADMAMWWP 08:56
PROVIDERS: ATTEND Internal Medicine
DX: N63.10 Unspecified lump in the right breast, unspecified quadrant (principal); N63.20 Unspecified lump in the left breast, unspecified quadrant
CPT/HCPCS: 77066; 76642; G0279; 77062

== ENCOUNTER → 2023-01-27 | Outpatient (CLI) | payer MEDICARE, BC ==
--- NOTE | 2023-01-27 19:52 | US ---
EXAMINATION TYPE: US kidneys/renal and bladder DATE OF EXAM: 01/27/2023 COMPARISON: NONE CLINICAL INDICATION: Male, 72 years old with history of N18.31 CHRONIC KIDNEY DISEASE, STAGE 3A; Bord lizette HTN EXAM MEASUREMENTS: Right Kidney: 10.9 x 5.8 x 5.6 cm Left Kidney: 11.4 x 6.4 x 6.9 cm Post Void Residual Volume: NA mL Right Kidney: No hydronephrosis or masses seen. Limited upper pole due to body habitus and bowel gas shadowing. Left Kidney: No hydronephrosis or masses seen Bladder: Not fully distended Bilateral Jets seen: unable to assess IMPRESSION: Exam limited by body habitus. No hydronephrosis. Nondistention of the bladder limits its evaluation.
== END | disposition home or self-care (01) ==
LOC: RADUSWWP 12:13
PROVIDERS: ATTEND Internal Medicine
DX: N18.31 Chronic kidney disease, stage 3a (principal)
CPT/HCPCS: 76770

== ENCOUNTER 2023-03-05 09:34 | Day surgery (SDC) | payer MEDICARE, BC ==
[2023-02-26 14:13] VITALS: BMI 37.8
[~2023-03-05 09:34] MED LIST changes: -ALPRAZolam 0.25 MG TAB PO PRN; -ALPRAZolam 0.5 MG TAB PO PRN; -ASPIRIN 325 MG TAB PO STA; +ATROPINE SULFATE 0.4 MG/ML 1 ML VIAL IM ONE; +LACTATED RINGERS 1,000 ML IV SCH; +LIDOCAINE 1% (10MG/ML) FOR IV START INTRADERMA PRN; -NITROGLYCERIN SL TABS 0.4 MG TAB SUBLINGUAL PRN; -SODIUM CHLORIDE 0.9% 1,000 ML in EMPTY BAG 1 BAG IV SCH
[2023-03-05] MEDS ORDERED: MIDAZOLAM 2 MG/2 ML VIAL ONE (10:19)
[2023-03-05] MEDS ORDERED: KETAMINE HCL IN 0.9 % NACL 50 MG/5 ML SYRINGE ONE (10:19)
[2023-03-05] MEDS ORDERED: PROPOFOL 10 MG/ML 20 ML VIAL IV ONE (10:19)
[2023-03-05] MEDS ORDERED: fentaNYL (PF) 50 MCG/ML 2 ML AMP ONE (10:19)
[2023-03-05] MEDS ORDERED: LIDOCAINE 1% INJ 10MG/ML (20 ML MDV) ONE (10:19)
[2023-03-05 10:20] LABS: Glucose,Whole Blood 117 mg/dL (70-110)
[2023-03-05] MEDS ORDERED: LIDOCAINE 2% INJ 20 MG/ML INTRATRACH ONE (10:27)
[2023-03-05] MEDS ORDERED: LIDOCAINE 2% GLYDO JELLY 6 ML APPL TOPICAL ONE (10:27)
[2023-03-05 10:28] VITALS: TEMP 97.4
[2023-03-05 10:52] VITALS: RESP 16
[2023-03-05 11:16] VITALS: BP 125/82; PULSE 112
--- NOTE | 2023-03-05 11:28 | PCN ---
PROCEDURE NOTE PROCEDURES PERFORMED: Bronchoscopy, airway examination, therapeutic lavage, BAL. MOTHER SUPERIOR: First surgical lead, Dr. Shilpa Zhou. There was informed consent and universal timeout. ANESTHESIA: General anesthesia. The patient's procedure took place in room #1, [facility]. There was informed consent and universal timeout. PREOPERATIVE DIAGNOSES: Chronic obstructive pulmonary disease exacerbation, retained secretions, pneumonia. POSTOPERATIVE DIAGNOSES: Chronic obstructive pulmonary disease exacerbation, retained secretions, pneumonia. The patient's procedure in room #1, [facility]. DESCRIPTION OF PROCEDURE: After the patient was adequately sedated and being fully monitored, the bronchoscope was inserted through the right nostril. It passed through the right nasopharynx into the oropharynx. The hypopharynx was identified and topicalized. The hypopharyngeal structures, including anterior commissure, true cords, false cords, arytenoids, piriform sinuses, right and left, vallecula, all appeared relatively normal. The glottic opening was topicalized. The bronchoscope was pushed through the glottic opening into the trachea. 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 Secretions were noted within the trachea, and they were suctioned. There was no tracheal mass or tumor. Tracheal sugar was sharp. The right and left mainstem were topicalized. The right upper lobe and its 3 segments, right middle lobe and its 2 segments, right lower lobe and its 5 segments, left upper lobe proper and its 2 segments, lingula and its 2 segments, and left lower lobe and its 4 segments, all had similar findings of diffuse mild to moderate bronchitis. There were airway erythema and hyperemia. There was no dominant mass or tumor. There were thin frothy secretions noted throughout. They were suctioned without difficulty. There was no bleeding. The bronchoscope was then wedged into the right middle lobe. We did a formal BAL. 30 mL of turbid fluid was recovered and we sent to the laboratory for analysis. The patient tolerated the procedure well without complication. The patient will be recovered. The bronchoscope was withdrawn. MMODL / IJN: [id number] /
[2023-03-06 05:56] LABS: Appearance,BF Hazy (Clear); RBC, Body Fluid 40 /UL (0-2000)
[2023-03-06 09:40] LABS: Nucleated Cells, Body Fluid 60 /UL
== END 2023-03-05 11:16 | disposition home or self-care (01) ==
LOC: ORWHC2ENDO 09:34
PROVIDERS: ATTEND Internal Medicine Critical Care Medicine
DX: J43.9 Emphysema, unspecified (principal); J39.8 Other specified diseases of upper respiratory tract; J84.10 Pulmonary fibrosis, unspecified; J84.9 Interstitial pulmonary disease, unspecified; I11.9 Hypertensive heart disease without heart failure; I25.10 Atherosclerotic heart disease of native coronary artery without angina pectoris; E78.00 Pure hypercholesterolemia, unspecified; K21.9 Gastro-esophageal reflux disease without esophagitis; G47.33 Obstructive sleep apnea (adult) (pediatric); N40.0 Benign prostatic hyperplasia without lower urinary tract symptoms; Z88.0 Allergy status to penicillin; Z88.8 Allergy status to other drugs, medicaments and biological substances; Z79.899 Other long term (current) drug therapy; Z87.891 Personal history of nicotine dependence; I25.2 Old myocardial infarction; Z95.5 Presence of coronary angioplasty implant and graft; Z99.81 Dependence on supplemental oxygen; Z91.09 Other allergy status, other than to drugs and biological substances; Z79.82 Long term (current) use of aspirin; Z79.51 Long term (current) use of inhaled steroids; Z87.09 Personal history of other diseases of the respiratory system; Z82.49 Family history of ischemic heart disease and other diseases of the circulatory system
CPT/HCPCS: 88108; 88305; 89050; 87070; 87205; 87116; 87102; 87206; 31624; J2001 ×2; J2250; J3010; J2704

== ENCOUNTER 2023-07-07 09:13 | Day surgery (SDC) | payer MEDICARE, BC ==
[~2023-07-07 09:13] MED LIST changes: -ATROPINE SULFATE 0.4 MG/ML 1 ML VIAL IM ONE; -LACTATED RINGERS 1,000 ML IV SCH
[2023-07-07] MEDS: LACTATED RINGERS 1,000 ML IV SCH (09:50)
[2023-07-07] MEDS ORDERED: PROPOFOL 10 MG/ML 20 ML VIAL IV ONE (10:04)
[2023-07-07 10:18] VITALS: TEMP 96.9
--- NOTE | 2023-07-07 10:28 | P.PCN ---
Date of Procedure: 07/07/23 Procedure(s) Performed: BRIEF HISTORY: Patient is a []-year-old pleasant [] scheduled for an elective colonoscopy as a part of screening for colon cancer. PROCEDURE PERFORMED: Colonoscopy. PREOPERATIVE DIAGNOSIS: []. IV sedation per Anesthesia. PROCEDURE: After informed consent was obtained, the patient, was brought into the endoscopy unit. IV sedation was administered by Anesthesia under continuous monitoring. Digital rectal examination was normal. Initially the Olympus CF-160 flexible video colonoscope was then inserted in the rectum, gradually advanced into the right colon without any difficulty. Despite multiple attempts I was unable to advance the scope into the cecum. Careful examination was performed as the scope was gradually being withdrawn. Ileocecal valve was visualized and appeared normal. Prep was excellent. Visualized mucosa of the cecum, appeared normal. In asscending colon there was a 3 mm and 5 mm polyp was removed by cold snare polypectomy. In the hepatic flexure there was a 5 mm polyp removed by snare polypectomy. In the descending colon there was a 4 mm polyp removed by snare polypectomy. Scattered left-sided diverticulosis seen. Rest of the, descending colon, sigmoid colon, and rectum appeared normal. Retroflexion was performed in the rectum and no lesions were seen. The patient tolerated the procedure well. IMPRESSION: 5 mm hepatic flexure polyp status post cold snare polypectomy 3 mm and 5 mm ascending colon polyp status post cold snare polypectomy 4 mm descending colon polyp status post cold snare polypectomy Scattered sigmoid diverticulosis RECOMMENDATIONS: Findings of this examination were discussed with the patient as well as his family. He was advised to follow-up with the biopsy results. If the biopsy reveals adenoma, recommend repeat colonoscopy in 3 to 5 years..
[2023-07-07] MEDS: ONDANSETRON 4 MG/2 ML VIAL IVP ONE ×2 (10:38→10:42)
[2023-07-07] MEDS ORDERED: ONDANSETRON 4 MG/2 ML VIAL ONE (10:39)
[2023-07-07 11:16] VITALS: BP 151/86; PULSE 80; RESP 16
[2023-07-07 13:16] LABS: Glucose,Whole Blood 92 mg/dL (70-110)
== END 2023-07-07 11:31 | disposition home or self-care (01) ==
LOC: ORWHC2ENDO 09:13
PROVIDERS: ATTEND Internal Medicine Gastroenterology
DX: Z12.11 Encounter for screening for malignant neoplasm of colon (principal); D12.3 Benign neoplasm of transverse colon; D12.2 Benign neoplasm of ascending colon; K57.30 Diverticulosis of large intestine without perforation or abscess without bleeding; Z79.82 Long term (current) use of aspirin; Z79.899 Other long term (current) drug therapy; I10 Essential (primary) hypertension; E78.5 Hyperlipidemia, unspecified; I25.10 Atherosclerotic heart disease of native coronary artery without angina pectoris; J44.9 Chronic obstructive pulmonary disease, unspecified; G47.33 Obstructive sleep apnea (adult) (pediatric); K21.9 Gastro-esophageal reflux disease without esophagitis; N40.0 Benign prostatic hyperplasia without lower urinary tract symptoms; Z79.01 Long term (current) use of anticoagulants; Z98.890 Other specified postprocedural states; Z79.51 Long term (current) use of inhaled steroids
CPT/HCPCS: 45385; J2405; J2704; 88305

== ENCOUNTER → 2023-09-11 | Outpatient (CLI) | payer MEDICARE, BC ==
[2023-09-11 15:28] LABS: Basophils # (A) 0.07 X 10*3/uL (0.00-0.10); Basophils % (A) 0.6 %; Eosinophils # (A) 0.18 X 10*3/uL (0.04-0.35); Eosinophils % (A) 1.5 %; HCT 46.5 % (39.6-50.0); HGB 14.8 g/dL (13.0-17.0); Lymphocytes # (A) 1.52 X 10*3/uL (0.90-5.00); Lymphocytes % (A) 12.8 %; MCH 32.2 pg (27.0-32.0); MCHC 31.8 g/dL (32.0-37.0); MCV 101.1 FL (80.0-97.0); Mean Platelet Volume 10.4 FL (9.5-12.2); Monocytes # (A) 0.88 X 10*3/uL (0.20-1.00); Monocytes % (A) 7.4 %; NRBC Per 100 WBC 0 X 10*3/uL (0.00-0.01); Neutrophils % (A) 76.9 %; Platelet Count 223 X 10*3/uL (140-440); RDW 13.2 % (11.5-14.5); WBC 11.85 X 10*3/uL (4.50-10.00)
[2023-09-11 15:31] LABS: INR 0.94 sec (0.93-1.11); Prothrombin Time 10.2 sec (9.9-11.9)
[2023-09-11 15:55] LABS: Chol/HDL Ratio 3.74 Ratio
[2023-09-11 15:56] LABS: ALT 24 U/L (10-49); AST 15 U/L (14-35); Albumin 4.1 g/dL (3.8-4.9); Albumin/Globulin Ratio 1.71 Ratio (1.60-3.17); Alkaline Phosphatase 74 U/L (41-126); Blood Urea Nitrogen 16.2 mg/dL (9.0-27.0); Calcium 9.1 mg/dL (8.7-10.3); Carbon Dioxide 27.4 mmol/L (21.6-31.8); Chloride 103 mmol/L (96-109); Globulin 2.4 g/dL (1.6-3.3); Glucose 90 mg/dL (70-110); Magnesium 1.9 mg/dL (1.5-2.4); Potassium 4.4 mmol/L (3.5-5.5); Sodium 142 mmol/L (135-145); Total Bilirubin 0.4 mg/dL (0.3-1.2); Total Protein 6.5 g/dL (6.2-8.2)
== END | disposition home or self-care (01) ==
LOC: LABWHC1 09:12
PROVIDERS: ATTEND Internal Medicine
DX: Z01.812 Encounter for preprocedural laboratory examination (principal); E11.9 Type 2 diabetes mellitus without complications; M85.80 Other specified disorders of bone density and structure, unspecified site
CPT/HCPCS: 36415; 80053; 80061; 82306; 83036; 83735; 84443; 85025; 85610

== ENCOUNTER → 2023-09-22 | Outpatient (CLI) | payer MEDICARE, BC | END | disposition home or self-care (01) | LOC: LABPAT 11:17 | PROVIDERS: ATTEND Orthopaedic Surgery | DX: Z01.812 Encounter for preprocedural laboratory examination (principal); Z22.322 Carrier or suspected carrier of Methicillin resistant Staphylococcus aureus | CPT/HCPCS: 86850; 86900; 86901; 87070 ==

== ENCOUNTER 2023-09-28 11:15 | Inpatient (IN) | payer MEDICARE, BC ==
--- NOTE | 2023-09-27 14:55 | P.HPOR ---
History of Present Illness H&P Date: 09/23/23 .D:Date: 09/23/23 : 01:56pm .T:Title: ELIZABETH NGUYEN [facility] Age: 73 year Height: 5'10" Weight: 237 lbs BP:118/74 BMI: 34.01 kg/m2 Occupation: Retired VAS: 8 IMPRESSION: 1. s/p L1-L2, L2-L3 lateral interbody fusion with revision T9-Pelvis fusion 2. Hardware failure; josie failure bilaterally s/p T9-pelvis fusion 3. s/p injury when lifting table saw at home 4. Low back pain Spine Surgery Risk Review Mr. Mccloud is presenting for evaluation of low back pain. It was my pleasure to have seen and examined Mr. Mccloud. In our visit today we have had a chance to go over subjective complaints, physical examination findings and treatments including the natural course history without intervention and various interventional options. The patients imaging demonstrates: X-Rays of Lumbar Spine; AP/LAT/FLEX/EXT views, completed on 08/19/2023 at [facility]: Bilateral josie fracture at the level of L3-5 at the same level with visible displacement of the rods as well as translation of the construct due to the fractures. All of the screws appear to be in good condition without evidence of loosening or pullout. There is no evidence of pseudoarthrosis at this level, it is a more vunerable level however due to the previous surgery and poor pedicle purchace necessitating his previous construct. Alignment is relatively stable other than fractured area where cranial to this there is now kyphosis due to the rods not being connected. No other bony abnormalities noted. On physical exam, Mr. Mccloud demonstrates: The patient states he was doing very well since the time of his previous L1-L2, L2-L3 lateral interbody fusion with revision T9-Pelvis fusion until approximately 1 month ago when he experienced a sharp, shooting throughout the low back yves moving a large table saw at home. He notes worsening pain across the entire low back since the time of the injury. He describes his pain as a constant throbbing discomfort that worsens when lying flat on his back or after prolonged activity. He notes intermittent radiating pain into the buttocks. The patient reports severe sleep disturbances related to his ongoing pain and associated symptoms. I have explained to the patient that as their condition progresses it will cause further neurological deficits and eventual paralysis. Based on the patients imaging, physical exam, and the rapid progression and disabling nature of their symptoms, at this time I recommend surgery in the form of a: REVISION OF HARDWARE [id number]. I discussed the risk and benefits of this procedure at length with Mr. Mccloud. The patient agreed to considered pursuing the procedure abovementioned. Prior to surgery, she should follow up with her PCP (Cardio, ID, IM etc) for clearance. Questions were invited and answered, and the patient wishes to proceed as outlined below. Currently, I am recommendin.Revision of hardware [id number] 2.Review of surgical risks and benefits as well as an educational packet on the proposed surgical procedure. Risks: All surgical procedures come with inherent risks, including those related to positioning, anesthesia, intraoperative findings, and postoperative complications. It is important to understand that surgery does not come with any guarantee of a successful outcome as complications and adverse events are always possible. The patient was given a handout in office today discussing the surgical procedure and risks associated with the intervention, both of which were discussed with the patient. These risks include but are not limited to the following: * Experiencing same, different or even worse symptoms in back, neck, arms, or legs compared to before surgery. Requiring further surgery or other forms of treatment presently or at some time in the future at same or other levels of the intended spine surgery. On an extreme but fortunately relatively rare basis severe complication such as blindness, stroke, heart attack, temporary and/or permanent nerve injury, paralysis, coma, or may occur, sometimes without known explanation. Surgical complications may include but are not limited to risk of infection, fluid accumulation in the surgical dissection site, including a seroma or hematoma, that requires additional surgery, wound drainage, bleeding, new numbness or weakness, vision changes/loss, spinal fluid leakage, non-healing and/or infected incision, headaches, difficulty or inability to swallow, hoarseness, hemopneumothorax, pneumothorax, impotence, retrograde ejaculation, vaginal dryness; injury to nerves, spinal cord, blood vessels, lymphatics or other vital organs (i.e., bowel injury, injury to the great vessels); heterotopic bone formation; complications related to the hardware such as screws, rods, cages including misplaced hardware, device failure, instrumentation at the wrong spine level, hardware fracture/breakage, or hardware loosening; vertebral failure of the spinal column above or below the newly placed hardware; retained surgical instrumentations or devices and the need for further surgery. * Medical risks of the planned spine surgery include but are not limited to generalized Infections to the whole body or local areas outside of the surgical site (sepsis), heart attack, bleeding, anaphylaxis, meningitis, seizure, epilepsy, hearing loss, burn ossa, laceration of the head or other areas of the body, bruising, hypersensitivity of the skin, bladder over distension; allergic reaction; shoulder injury related to positioning; fat, blood and air clots to other areas of the body like heart, lungs, brain; failure of internal organs such as lungs, kidneys, liver and excessive bleeding. If blood transfusions are necessary, note that transfusions may cause intolerance reactions such as anaphylaxis or other complex reactions. Despite best efforts, the results of spine surgery might not heal in terms of bone, soft tissues such as skin, fascia, ligaments, and joints. Additionally, in order to achieve best possible results, spine surgery may be carried out beyond the initially planned levels and involve decompression, fusion including insertion of hardware at levels other than the original intended area of surgical interest change some portions of the procedure in order to ensure the best possible outcomes. With spine surgery and spinal fusion, there are different off label uses of instrumentation (devices, implants and hardware) as well as biological substances (bone morphogenic proteins, demineralized bone matrix) as well as using extra bone from allograft sources (i.e. cadaver bone) or autograft (iliac crest bone, ribs, or the spine itself). The patient has been given information about these practices and their inherent risks and benefits. [facility] is an educational center that serves as a training facility for neurosurgical and orthopedic SENIOR AUDITOR and Nursing students. Physician assistants are medically trained surgical providers who function in the outpatient, inpatient, and operating room setting under the direct supervision of the attending surgeon. [facility] has multiple operating rooms with single and overlapping rooms running daily. They currently function under the required guidelines as produced by the Senate Finance Committee with regards to the overlapping rooms and will continue to comply with changes to this policy as they occur. The requirements include and are complied with as follows: (1) the critical portions of the overlapping rooms will not occur at the same time, (2) the attending physician will be physically present during the critical portions of the procedure and immediately available during the entire case, and (3) a back-up attending is designated should the primary attending not be immediately available. The patient has had a chance to review all the listed information, has been given print outs detailing this information, and has had all his/her questions answered to their satisfaction. It was my pleasure to have seen and examined Mr. Mccloud. In our visit today we have had a chance to go over my understanding of our patient's current condition, the natural course history without intervention and various interventional options. Questions were invited and answered, and the patient wishes to proceed as outlined above. I have seen and examined the patient for 25 minutes and we have spent more than 50% of the time in repeat and detailed counseling about the patient's condition, its natural course history with out and as much as can be predicted with surgery and re-review of various surgical treatment options. In conclusion, Mr. Mccloud requested we proceed with the above suggested surgery and are willing to accept risks and limitations of the suggested surgery as nature of the disease process and our best attempts at treatment for the condition. FOLLOW UP: Post Procedure PATIENT EDUCATION: Medications Reviewed: YES In our visit today Mr. Mccloud and I have had a chance to go over my understanding of the patient's current condition, the natural course history without intervention and various interventional options. Questions were invited and answered, and the patient wishes to proceed as outlined above. I will be sure to keep you updated after Mr. Mccloud returns here for further follow-up. Thank you again for your referral. Please do not hesitate to contact me if you have any further questions. Signed and authenticated by: Steven Faye [facility] [address] [place] [id number] . This message is confidential, intended only for the named recipient(s) and may contain information that is privileged or exempt from disclosure under applicable law. If you are not the intended recipient(s), you are notified that the dissemination, distribution or copying of this information is prohibited. If you received this message in error, please notify the sender then delete this message. Past Medical History Past Medical History: Asthma, Coronary Artery Disease (CAD), COPD, Deep Vein Thrombosis (DVT), GERD/Reflux, Hearing Disorder / Deafness, Hyperlipidemia, Hypertension, Musculoskeletal Disorder, Osteoarthritis (OA), Prostate Disorder, Pulmonary Embolus (PE) Additional Past Medical History / Comment(s): COPD and Emphysema, UIP on home oxygen 3L NC at night and during the day prn. when up in chair/falls off during sleep. Bilateral hard of hearing-no hearing aides. Lumbar DDD w/ lower back pain radiating to valarie hips and down upper leg with numbness and tingling,enlarged prostate, had surgery to spine encased in steel and then developed blood clots 2 DVT, 2 PE History of Any Multi-Drug Resistant Organisms: None Reported Past Surgical History: Adenoidectomy, Back Surgery, Heart Catheterization With Stent, Orthopedic Surgery, Tonsillectomy Additional Past Surgical History / Comment(s): Left lung biopsy, lower back surgery w/ josie, back fusion, 1 cardiac stent,surgical repair of ankle yrs ago no hardware, VALARIE CATARACT SURG Past Anesthesia/Blood Transfusion Reactions: No Reported Reaction Additional Past Anesthesia/Blood Transfusion Reaction / Comment(s): no hx blood transfusion Date of Last Stent Placement:: 1997 Smoking Status: Former smoker - Past Family History Mother Family Medical History: Coronary Artery Disease (CAD) Additional Family Medical History / Comment(s): from peritonitis. Medications and Allergies Home Medications Medication Instructions Recorded Confirmed Type Aspirin [Adult Low Dose Aspirin EC] 81 mg PO DAILY 06/11/16 09/24/23 History Atorvastatin [Lipitor] 40 mg PO HS 06/11/16 09/24/23 History Metoprolol Tartrate [Lopressor] 50 mg PO DAILY 06/11/16 09/24/23 History Montelukast [Singulair] 10 mg PO HS 03/21/17 09/24/23 History Levocetirizine Dihydrochloride 5 mg PO HS 08/16/19 09/24/23 History [Xyzal] Tamsulosin [Flomax] 0.4 mg PO DAILY 09/25/20 09/24/23 History Fluticasone Nasal [place] [Flonase 1 spray EA NOSTRIL DAILY PRN 10/04/21 09/24/23 History Nasal [place]] predniSONE 0.5 mg PO DAILY 10/04/21 09/24/23 History amLODIPine [Norvasc] 5 mg PO HS 10/01/22 09/24/23 History Albuterol Inhaler [Ventolin Hfa 1 - 2 puff INHALATION Q4H PRN 02/26/23 09/24/23 History Inhaler] Albuterol Sulfate [Accuneb] 0.63 mg INHALATION Q4H PRN 02/26/23 09/24/23 History Unk Calcium/Vitamin D3 1 tab PO DAILY 06/30/23 09/24/23 History hydrOXYzine HCL [Hydroxyzine HCl] 10 mg PO TID PRN 09/24/23 09/24/23 History methocarbamoL 500 mg PO TID PRN 09/24/23 09/24/23 History Allergies Allergy/AdvReac Type Severity Reaction Status Date / Time budesonide [From Symbicort] Allergy pneumonia Verified 09/24/23 10:24 formoterol [From Symbicort] Allergy made resp Verified 09/24/23 10:24 issues worses Physical Examination Osteopathic Statement: *. No significant issues noted on an osteopathic structural exam other than those noted in the History and Physical/Consult. Assessment and Plan (1) Failed hardware Status: Acute Code(s): WWA4948 - SNOMED Code(s): 538842756 (2) History of lumbar fusion Status: Acute Code(s): Z98.1 - ARTHRODESIS STATUS SNOMED Code(s): 35593574207458
[~2023-09-28 11:15] MED LIST changes: +ACETAMINOPHEN TAB 500 MG TAB PO PRN; +GABAPENTIN 300 MG CAP PO PRN; -LIDOCAINE 1% (10MG/ML) FOR IV START INTRADERMA PRN; +ONDANSETRON 4 MG/2 ML VIAL IVP PRN; +TRANEXAMIC 1,000 MG/100ML-NACL 1,000 MG in SALINE 1 100ML.BAG IVPB PRN; +ceFAZolin 3 GM in SODIUM CHLORIDE 0.9% 100 ML IVPB PRN
[2023-09-28 12:28] LABS: Glucose,Whole Blood 90 mg/dL (70-110)
[2023-09-28] MEDS ORDERED: ACETAMINOPHEN TAB 500 MG TAB ONE (12:29)
[2023-09-28] MEDS ORDERED: IPRATROPIUM-ALBUTEROL 3 ML NEB ONE (12:29)
[2023-09-28] MEDS ORDERED: ONDANSETRON 4 MG/2 ML VIAL ONE (12:29)
[2023-09-28] MEDS ORDERED: GABAPENTIN 300 MG CAP ONE (12:30)
[2023-09-28] MEDS ORDERED: MIDAZOLAM 2 MG/2 ML VIAL ONE ×2 (12:30→13:52)
[2023-09-28] MEDS ORDERED: NEOSTIGMINE 1 MG/ML 10 ML VIAL ONE (13:52)
[2023-09-28] MEDS ORDERED: HYDROmorphone (PF) 1 MG/ML ONE (13:52)
[2023-09-28] MEDS ORDERED: PROPOFOL 10 MG/ML 20 ML VIAL IV ONE (13:52)
[2023-09-28] MEDS ORDERED: PHENYLEPHRINE 10 MG/ML VIAL ONE (13:52)
[2023-09-28] MEDS ORDERED: ROCURONIUM 10 MG/ML (5 ML VIAL) IV ONE (13:52)
[2023-09-28] MEDS ORDERED: FUROSEMIDE 10 MG/ML 2 ML VIAL ONE (13:52)
[2023-09-28] MEDS ORDERED: ceFAZolin 1 GM/50 ML BAG (PMX) ONE (13:52)
[2023-09-28] MEDS ORDERED: TRANEXAMIC 1,000 MG/100ML-NACL PREMIX BAG ONE (13:52)
[2023-09-28] MEDS ORDERED: fentaNYL (PF) 50 MCG/ML 2 ML AMP ONE (13:52)
[2023-09-28] MEDS ORDERED: GLYCOPYRROLATE 0.2 MG/ML 2 ML VIAL ONE (13:52)
[2023-09-28] MEDS ORDERED: SUCCINYLCHOLINE CHLORIDE 200 MG/10 ML VIAL IV ONE (13:52)
[2023-09-28] MEDS ORDERED: LIDOCAINE 1% INJ 10MG/ML (20 ML MDV) ONE (13:52)
[2023-09-28] MEDS ORDERED: ALBUMIN HUMAN 5% (12.5gm) 250 ML BOTTLE IVPB ONE (13:52)
[2023-09-28 19:46] LABS: Glucose,Whole Blood 136 mg/dL (70-110)
[2023-09-28] MEDS ORDERED: HYDROmorphone 1 MG/ML 1 ML SYRINGE ONE ×2 (22:19)
[2023-09-29] MEDS ORDERED: NALOXONE 0.4 MG/ML 1 ML VIAL ONE ×2 (02:36)
[2023-09-29] MEDS ORDERED: KETOROLAC 15 MG/ML 1 ML VIAL ONE ×2 (02:44)
[2023-09-29] MEDS ORDERED: CYCLOBENZAPRINE 10 MG TAB ONE (04:23)
[2023-09-29] MEDS ORDERED: ACETAMINOPHEN TAB 325 MG TAB ONE ×2 (06:24)
[2023-09-29] MEDS ORDERED: ACETAMINOPHEN IV (For NPO) 100 ML ONE (10:21)
[2023-09-29] MEDS ORDERED: SENNOSIDES 8.6 MG TAB ONE (10:22)
[2023-09-29] MEDS ORDERED: GABAPENTIN 300 MG CAP ONE ×2 (10:23→18:18)
[2023-09-29] MEDS ORDERED: HYDROcodone/APAP 10-325MG 1 EACH TAB ONE ×6 (11:58→22:49)
[2023-09-29 17:19] LABS: Glucose,Whole Blood 115 mg/dL (70-110)
[2023-09-29] MEDS ORDERED: ONDANSETRON 4 MG/2 ML VIAL ONE ×2 (19:13)
[2023-09-29 20:45] LABS: Glucose,Whole Blood 105 mg/dL (70-110)
[2023-09-29] MEDS ORDERED: PANTOPRAZOLE 40 MG TABLET PO ONE ×2 (22:47)
[2023-09-29] MEDS ORDERED: TAMSULOSIN 0.4 MG CAP.ER.24H PO ONE (22:47)
[2023-09-29] MEDS ORDERED: predniSONE 10 MG TAB ONE (22:48)
[2023-09-29] MEDS ORDERED: MONTELUKAST 10 MG TAB ONE (22:48)
[2023-09-29] MEDS ORDERED: ATORVASTATIN 40 MG TAB ONE (22:48)
[2023-09-29] MEDS ORDERED: ASPIRIN 81 MG ONE ×2 (22:48)
[2023-09-30] MEDS ORDERED: HYDROcodone/APAP 10-325MG 1 EACH TAB ONE ×2 (02:40)
[2023-09-30 06:19] LABS: Glucose,Whole Blood 133 mg/dL (70-110)
[2023-09-30] MEDS ORDERED: ONDANSETRON 4 MG/2 ML VIAL ONE ×2 (08:48)
[2023-09-30] MEDS ORDERED: GABAPENTIN 300 MG CAP ONE ×2 (08:48→16:50)
[2023-09-30] MEDS ORDERED: ATORVASTATIN 40 MG TAB ONE (08:49)
[2023-09-30] MEDS ORDERED: PANTOPRAZOLE 40 MG TABLET PO ONE ×2 (08:51)
[2023-09-30] MEDS ORDERED: predniSONE 10 MG TAB ONE (08:52)
[2023-09-30] MEDS ORDERED: TAMSULOSIN 0.4 MG CAP.ER.24H PO ONE (08:52)
[2023-09-30] MEDS ORDERED: ASPIRIN 81 MG ONE ×2 (08:53)
[2023-09-30] MEDS ORDERED: CYCLOBENZAPRINE 10 MG TAB ONE ×2 (08:53→20:58)
[2023-09-30] MEDS ORDERED: KETOROLAC 15 MG/ML 1 ML VIAL ONE ×6 (08:55→20:41)
[2023-09-30] MEDS ORDERED: MONTELUKAST 10 MG TAB ONE (08:56)
[2023-09-30] MEDS ORDERED: SENNOSIDES 8.6 MG TAB ONE (08:58)
[2023-09-30 11:36] LABS: Glucose,Whole Blood 114 mg/dL (70-110)
[2023-09-30] MEDS ORDERED: HYDROcodone/APAP 5-325MG 1 EACH TAB ONE ×2 (13:53)
[2023-09-30 16:06] LABS: Glucose,Whole Blood 123 mg/dL (70-110)
[2023-09-30] MEDS ORDERED: FUROSEMIDE 10 MG/ML 4 ML VIAL ONE ×2 (16:50)
[2023-09-30 21:20] LABS: Glucose,Whole Blood 137 mg/dL (70-110)
[2023-10-01] MEDS ORDERED: GABAPENTIN 300 MG CAP ONE ×3 (00:09→22:16)
[2023-10-01] MEDS ORDERED: HYDROcodone/APAP 5-325MG 1 EACH TAB ONE ×8 (00:10→18:21)
[2023-10-01] MEDS ORDERED: ONDANSETRON 4 MG/2 ML VIAL ONE ×2 (00:25)
[2023-10-01] MEDS ORDERED: KETOROLAC 15 MG/ML 1 ML VIAL ONE ×4 (03:38→19:41)
[2023-10-01 06:31] LABS: Glucose,Whole Blood 103 mg/dL (70-110)
[2023-10-01] MEDS ORDERED: TAMSULOSIN 0.4 MG CAP.ER.24H PO ONE (08:54)
[2023-10-01] MEDS ORDERED: PANTOPRAZOLE 40 MG TABLET PO ONE ×2 (08:54)
[2023-10-01] MEDS ORDERED: ASPIRIN 81 MG ONE ×2 (08:55)
[2023-10-01] MEDS ORDERED: CYCLOBENZAPRINE 10 MG TAB ONE ×2 (08:55→16:55)
[2023-10-01] MEDS ORDERED: SENNOSIDES 8.6 MG TAB ONE (08:55)
[2023-10-01] MEDS ORDERED: ATORVASTATIN 40 MG TAB ONE (08:55)
[2023-10-01] MEDS ORDERED: predniSONE 10 MG TAB ONE (08:56)
[2023-10-01 11:37] LABS: Glucose,Whole Blood 101 mg/dL (70-110)
[2023-10-01 16:39] LABS: Glucose,Whole Blood 100 mg/dL (70-110)
[2023-10-01] MEDS ORDERED: cefTRIAXone 1 GM VIAL ONE (16:54)
[2023-10-01 21:00] LABS: Glucose,Whole Blood 95 mg/dL (70-110)
[2023-10-01] MEDS ORDERED: HEPARIN SODIUM,PORCINE 5,000 UNIT/ML 1 ML VIAL ONE (22:16)
[2023-10-02] MEDS ORDERED: HYDROcodone/APAP 5-325MG 1 EACH TAB ONE ×8 (00:35→22:11)
[2023-10-02] MEDS ORDERED: CYCLOBENZAPRINE 10 MG TAB ONE ×2 (04:58→18:24)
[2023-10-02] MEDS ORDERED: GABAPENTIN 300 MG CAP ONE ×3 (05:58→20:16)
[2023-10-02 06:07] LABS: Glucose,Whole Blood 103 mg/dL (70-110)
[2023-10-02] MEDS ORDERED: TAMSULOSIN 0.4 MG CAP.ER.24H PO ONE (08:07)
[2023-10-02] MEDS ORDERED: ATORVASTATIN 40 MG TAB ONE (08:07)
[2023-10-02] MEDS ORDERED: PANTOPRAZOLE 40 MG TABLET PO ONE ×2 (08:07)
[2023-10-02] MEDS ORDERED: ASPIRIN 81 MG ONE ×2 (08:07)
[2023-10-02] MEDS ORDERED: HEPARIN SODIUM,PORCINE 5,000 UNIT/ML 1 ML VIAL ONE ×2 (08:08→20:16)
[2023-10-02] MEDS ORDERED: SENNOSIDES 8.6 MG TAB ONE (08:16)
[2023-10-02 11:24] LABS: Glucose,Whole Blood 100 mg/dL (70-110)
[2023-10-02 16:50] LABS: Glucose,Whole Blood 104 mg/dL (70-110)
[2023-10-02] MEDS ORDERED: KETOROLAC 15 MG/ML 1 ML VIAL ONE ×2 (20:15)
[2023-10-03] MEDS ORDERED: ACETAMINOPHEN IV (For NPO) 100 ML ONE ×2 (01:22→06:51)
[2023-10-03] MEDS ORDERED: HYDROcodone/APAP 5-325MG 1 EACH TAB ONE ×4 (04:30→12:15)
[2023-10-03] MEDS ORDERED: IPRATROPIUM-ALBUTEROL 3 ML NEB ONE ×2 (07:48)
[2023-10-03] MEDS ORDERED: ATORVASTATIN 40 MG TAB ONE (09:53)
[2023-10-03] MEDS ORDERED: PANTOPRAZOLE 40 MG TABLET PO ONE ×2 (09:53)
[2023-10-03] MEDS ORDERED: ASPIRIN 81 MG ONE ×2 (09:53)
[2023-10-03] MEDS ORDERED: TAMSULOSIN 0.4 MG CAP.ER.24H PO ONE (09:53)
[2023-10-03] MEDS ORDERED: MONTELUKAST 10 MG TAB ONE (09:53)
[2023-10-03] MEDS ORDERED: DOCUSATE 100 MG CAP ONE (09:54)
[2023-10-03] MEDS ORDERED: predniSONE 10 MG TAB ONE (09:54)
[2023-10-03] MEDS ORDERED: GABAPENTIN 300 MG CAP ONE ×2 (09:54→13:26)
[2023-10-03] MEDS ORDERED: HEPARIN SODIUM,PORCINE 5,000 UNIT/ML 1 ML VIAL ONE (09:54)
[2023-10-03 11:44] LABS: Glucose,Whole Blood 109 mg/dL (70-110)
[2023-10-10] MEDS ORDERED: cefTRIAXone 1 GM VIAL ONE (23:59)
[2023-10-11] MEDS ORDERED: HYDROcodone/APAP 5-325MG 1 EACH TAB ONE ×2 (01:53)
[2023-10-11] MEDS ORDERED: CYCLOBENZAPRINE 10 MG TAB ONE ×3 (05:36→21:32)
[2023-10-11] MEDS ORDERED: GABAPENTIN 300 MG CAP ONE ×3 (05:36→21:32)
[2023-10-11] MEDS ORDERED: METOPROLOL TARTRATE 50 MG TAB ONE ×2 (09:09)
[2023-10-11] MEDS ORDERED: TAMSULOSIN 0.4 MG CAP.ER.24H PO ONE (09:09)
[2023-10-11] MEDS ORDERED: SENNOSIDES 8.6 MG TAB ONE ×2 (09:10→21:41)
[2023-10-11] MEDS ORDERED: ASPIRIN 81 MG ONE ×2 (09:10)
[2023-10-11] MEDS ORDERED: cefTRIAXone 1 GM VIAL ONE (12:53)
[2023-10-11] MEDS ORDERED: amLODIPine 5 MG TAB ONE (21:31)
[2023-10-11] MEDS ORDERED: LORATADINE 10 MG TAB ONE (21:32)
[2023-10-11] MEDS ORDERED: MONTELUKAST 10 MG TAB ONE (21:32)
[2023-10-11] MEDS ORDERED: ATORVASTATIN 40 MG TAB ONE (21:32)
[2023-10-12] MEDS ORDERED: cefTRIAXone 1 GM VIAL ONE ×4 (06:39→11:58)
[2023-10-12] MEDS ORDERED: GABAPENTIN 300 MG CAP ONE ×2 (06:39)
[2023-10-12] MEDS ORDERED: METOPROLOL TARTRATE 50 MG TAB ONE ×2 (08:36)
[2023-10-12] MEDS ORDERED: TAMSULOSIN 0.4 MG CAP.ER.24H PO ONE ×2 (08:36)
[2023-10-12] MEDS ORDERED: ASPIRIN 81 MG ONE ×2 (08:36)
[2023-10-12] MEDS ORDERED: SENNOSIDES 8.6 MG TAB ONE ×4 (08:37→22:52)
[2023-10-12] MEDS ORDERED: ACETAMINOPHEN TAB 325 MG TAB ONE ×4 (08:52→22:57)
[2023-10-12] MEDS ORDERED: amLODIPine 5 MG TAB ONE ×2 (22:52)
[2023-10-12] MEDS ORDERED: ATORVASTATIN 40 MG TAB ONE ×2 (22:52)
[2023-10-12] MEDS ORDERED: MONTELUKAST 10 MG TAB ONE ×2 (22:52)
[2023-10-12] MEDS ORDERED: LORATADINE 10 MG TAB ONE ×2 (22:53)
[2023-10-13] MEDS ORDERED: cefTRIAXone 1 GM VIAL ONE ×4 (01:50→09:32)
[2023-10-13] MEDS ORDERED: ALBUTEROL NEBULIZED 2.5 MG/3 ML INHALATION ONE ×2 (05:27)
[2023-10-13] MEDS ORDERED: SENNOSIDES 8.6 MG TAB ONE ×4 (09:32→20:24)
[2023-10-13] MEDS ORDERED: TAMSULOSIN 0.4 MG CAP.ER.24H PO ONE ×2 (09:33)
[2023-10-13] MEDS ORDERED: METOPROLOL TARTRATE 50 MG TAB ONE ×2 (09:33)
[2023-10-13] MEDS ORDERED: ASPIRIN 81 MG ONE ×2 (09:33)
[2023-10-13] MEDS ORDERED: amLODIPine 5 MG TAB ONE ×2 (20:23)
[2023-10-13] MEDS ORDERED: LORATADINE 10 MG TAB ONE ×2 (20:24)
[2023-10-13] MEDS ORDERED: ATORVASTATIN 40 MG TAB ONE ×2 (20:24)
[2023-10-13] MEDS ORDERED: MONTELUKAST 10 MG TAB ONE ×2 (20:24)
[2023-10-13] MEDS ORDERED: ACETAMINOPHEN TAB 325 MG TAB ONE ×2 (20:38)
[2023-10-14] MEDS ORDERED: cefTRIAXone 1 GM VIAL ONE ×2 (00:38)
[2023-10-14] MEDS ORDERED: ACETAMINOPHEN TAB 325 MG TAB ONE ×2 (02:18)
[2023-10-14] MEDS ORDERED: TAMSULOSIN 0.4 MG CAP.ER.24H PO ONE ×2 (08:21)
[2023-10-14] MEDS ORDERED: METOPROLOL TARTRATE 50 MG TAB ONE ×2 (08:21)
[2023-10-14] MEDS ORDERED: predniSONE 10 MG TAB ONE ×2 (08:22)
[2023-10-14] MEDS ORDERED: SENNOSIDES 8.6 MG TAB ONE ×4 (08:22→21:35)
[2023-10-14] MEDS ORDERED: ASPIRIN 81 MG ONE ×2 (08:22)
[2023-10-14] MEDS ORDERED: LACTULOSE 20 GM/30 ML CUP ONE ×2 (12:28)
[2023-10-14] MEDS ORDERED: FLUCONAZOLE 100 MG TAB ONE ×2 (12:28)
[2023-10-14] MEDS ORDERED: amLODIPine 5 MG TAB ONE ×2 (21:33)
[2023-10-14] MEDS ORDERED: MONTELUKAST 10 MG TAB ONE ×2 (21:34)
[2023-10-14] MEDS ORDERED: ATORVASTATIN 40 MG TAB ONE ×2 (21:34)
[2023-10-14] MEDS ORDERED: LORATADINE 10 MG TAB ONE ×2 (21:35)
[2023-10-14] MEDS ORDERED: HYDROcodone/APAP 5-325MG 1 EACH TAB ONE ×2 (21:35)
[2023-10-15] MEDS ORDERED: METOPROLOL TARTRATE 50 MG TAB ONE ×2 (08:47)
[2023-10-15] MEDS ORDERED: TAMSULOSIN 0.4 MG CAP.ER.24H PO ONE ×6 (08:47→21:38)
[2023-10-15] MEDS ORDERED: SENNOSIDES 8.6 MG TAB ONE ×4 (08:48→21:39)
[2023-10-15] MEDS ORDERED: FLUCONAZOLE 100 MG TAB ONE ×2 (08:48)
[2023-10-15] MEDS ORDERED: ACETAMINOPHEN TAB 325 MG TAB ONE ×2 (10:17)
[2023-10-15] MEDS ORDERED: PSYLLIUM HUSK 100% 6 GM PACKET PO ONE ×2 (11:09)
[2023-10-15] MEDS ORDERED: amLODIPine 5 MG TAB ONE ×2 (21:38)
[2023-10-15] MEDS ORDERED: LORATADINE 10 MG TAB ONE ×2 (21:39)
[2023-10-15] MEDS ORDERED: ATORVASTATIN 40 MG TAB ONE ×2 (21:39)
[2023-10-15] MEDS ORDERED: MONTELUKAST 10 MG TAB ONE ×2 (21:41)
[2023-10-15] MEDS ORDERED: HYDROcodone/APAP 5-325MG 1 EACH TAB ONE ×2 (21:56)
[2023-10-16] MEDS ORDERED: ACETAMINOPHEN TAB 325 MG TAB ONE ×2 (02:35)
[2023-10-16] MEDS ORDERED: METOPROLOL TARTRATE 50 MG TAB ONE ×2 (09:03)
[2023-10-16] MEDS ORDERED: TAMSULOSIN 0.4 MG CAP.ER.24H PO ONE ×2 (09:04)
[2023-10-16] MEDS ORDERED: PSYLLIUM HUSK 100% 6 GM PACKET PO ONE ×2 (09:04)
[2023-10-16] MEDS ORDERED: SENNOSIDES 8.6 MG TAB ONE ×2 (09:04)
[2023-10-16] MEDS ORDERED: FLUCONAZOLE 100 MG TAB ONE ×2 (09:04)
[2023-10-16] MEDS ORDERED: HYDROcodone/APAP 5-325MG 1 EACH TAB ONE ×2 (09:20)
--- NOTE | 2023-10-21 08:15 | P.OP ---
Date of Procedure: 09/28/23 Preoperative Diagnosis: 1. HARDWARE FAILURE WITH MURRAY FRACTURE S/P [id number] 2. PSEUDOARTHROSIS L3-5 3. 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 LOW BACK PAIN 5. 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 COMPLEX MEDICAL PATIENT Postoperative Diagnosis: 1. HARDWARE FAILURE WITH MURRAY FRACTURE S/P [id number] 2. PSEUDOARTHROSIS L3-5 3. 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 LOW BACK PAIN 5. 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 COMPLEX MEDICAL PATIENT Procedure(s) Performed: -REVISION POSTEROLATERAL INSTRUMENTED FUSION T9-PELVIS -REMOVAL OF HARDWARE L3, L4 AND S1 -REVISION OF INSTRUMENTATION T9-PELVIS WITH QUAD MURRAY CONSTRUCT -REVISION OF PELVIC HARDWARE AND ATTACHMENT TO BONY PELVIS NOT SACRUM -BILATERAL OPEN SACROILIAC JOINT FUSION FOR LONG CONSTRUCT STABILITY -USE OF [employer] NAVIGATION FOR PLACEMENT OF SCREWS USE OF IONM MOD 22: THIS CASE TOOK 75% LONGER THAN EXPECTED DUE TO CORMORBID CONDITIONS, HIGH BMI >40, EXTENT OF LUMBAR DISEASE AND HIGH TECHNICALITY OF THE CASE Implants: GLOBUS CREO RODS AND SCREWS JOHN SIROS SI FUSION SCREWS ALLOGRAFT, AUTOGRAFT, DBM, ARTHROCELL, ALLOCELL Anesthesia: GETA Surgeon: Steven Wilkins Portfolio Specialist #1: Melanie Ray (WAS PRESENT AND ASSISTED WITH ALL ASPECTS OF THE CASE FROM POSITION TO DRESSING PLACEMENT) Estimated Blood Loss (ml): 800 IV fluids (ml): 3,000 Urine output (ml): 550 Pathology: none sent Condition: stable Disposition: ICU Indications for Procedure: Mr. Mccloud is presenting for evaluation of low back pain. It was my pleasure to have seen and examined Mr. Mccloud. In our visit today we have had a chance to go over subjective complaints, physical examination findings and treatments including the natural course history without intervention and various interventional options. The patients imaging demonstrates: X-Rays of Lumbar Spine; AP/LAT/FLEX/EXT views, completed on 08/19/2023 at [facility]: Bilateral murray fracture at the level of L3-5 at the same level with visible displacement of the rods as well as translation of the construct due to the fractures. All of the screws appear to be in good condition without evidence of loosening or pullout. There is no evidence of pseudoarthrosis at this level, it is a more vunerable level however due to the previous surgery and poor pedicle purchace necessitating his previous construct. Alignment is relatively stable other than fractured area where cranial to this there is now kyphosis due to the rods not being connected. No other bony abnormalities noted. On physical exam, Mr. Mccloud demonstrates: The patient states he was doing very well since the time of his previous L1-L2, L2-L3 lateral interbody fusion with revision T9-Pelvis fusion until approximately 1 month ago when he experienced a sharp, shooting throughout the low back yves moving a large table saw at home. He notes worsening pain across the entire low back since the time of the injury. He describes his pain as a constant throbbing discomfort that worsens when lying flat on his back or after prolonged activity. He notes intermittent radiating pain into the buttocks. The patient reports severe sleep disturbances related to his ongoing pain and associated symptoms. I have explained to the patient that as their condition progresses it will cause further neurological deficits and eventual paralysis. Based on the patients imaging, physical exam, and the rapid progression and disabling nature of their symptoms, at this time I recommend surgery in the form of a: REVISION OF HARDWARE [id number]. I discussed the risk and benefits of this procedure at length with Mr. Mccloud. The patient agreed to considered pursuing the procedure abovementioned. Prior to surgery, she should follow up with her PCP (Cardio, ID, IM etc) for clearance. Questions were invited and answered, and the patient wishes to proceed as outlined below. Currently, I am recommendin.Revision of hardware [id number] Description of Procedure: Revision B77-Hfndag Decompression and fusion DARSHANA The patient was seen and examined in the preoperative area. All preoperative protocols were followed. Informed consent was obtained, risks and benefits of the procedure were discussed at length. Risks including bleeding infection damage to the surrounding tissue and risk of reoperation were discussed with the patient. Risk of anesthesia up to and including was discussed with the patient. These are outlined in the risk review. They were willing to accept these risks and all the risks of surgery. The patient was given a weight-based dose of antibiotics in the form of 3 g Ancef. The patient was seen and evaluated by the anesthesia team who deemed them fit for surgery. The site was marked, the patient was willing to proceed with the procedure. The patient was transferred to the operative suite by the Department of anesthesia. They were then drifted off to sleep by the department anesthesia and GETA was performed. The patient tolerated this well. Treviño catheter was placed by nursing staff, a-traumatically. Once confirmation of lines and ventilation the patient was transferred to a prone Trios spine table very carefully. The head was secured and stable. Xray confirmed alignment. All bony prominences including wrists, elbows, axilla, chest, hips, and thighs, and feet were padded very well. Special attention was paid to the genitalia, and these were padded accordingly. SCDs were placed on bilateral lower extremities and were connected. Arms were well padded and placed at 90/90 up and out and well padded. Safety strap and tape placed on the patient. Once in position, again we confirmed good ventilation capabilities and that lines were running appropriately. The patients lumbosacral pelvic was then exposed. Hair was removed for incision. 1010s were placed outlining the incision site. Standard alcohol was used to clean the incision site and allowed to dry. C-arm was used to bio-peyton the patient and confirm level for incision which was marked with a skin marker. Operative briefing was performed with all teams and everyone in agreement to proceed. The patient was then prepped and draped in a normal sterile fashion. Timeout was then performed, and all parties agreed with the procedure to be performed. Midline skin incision was then made over the previously bookmarked area and dissection taken down to the lumbosacral fascia which was identified and cleaned with a dillard. Once midline was identified, fasciotomy was made over the SP of [id number]. Subperiosteal dissection was then taken down over the lamina and facet joints and TPs were exposed and trough made posterolateral. Previous hardware was identified from L3-S1. This was removed. Screws at L3 b/l were loose as well as at L5 and and S1 on the left. There was motion at L4-5 and L3-4 noted still due to pseudoarthrosis and incomplete fusion. Fusion was explored. Once hardware was removed, scar tissue was removed and exposed. TPs were then decorticated L1-S1 and sacral ala with a high speed alfreda for posterolateral fusion. Dissection was taken out over the sacrum to the pelvis. SI joint identified and modified Simon starting point for pelvic screws iden tified as well. SI joints were decorticated with alfreda as well for SIJ fusion. Retractors placed. Wound was irrigated and lateral image with penfield 4 placed at the pars of L4 confirmed levels for operation. SP clamp was then placed for the [employer] navigation tracker and secured at L2 for the first set of screws. The wound was then filled with NSS and Z-drape. A 3D Ziehm spin was then obtained and registered. Once confirmation of accuracy Removed screws were replaced and tested and tested well. We then placed two SIJ fusion screws bilaterally using navigation in optimal position. AP and Lateral as well as Judet views confirmed good placement of all screws. We then placed screws freehand up at T9 due to loosening of the T10 screw b/l and the risk of PJK due to his current issues. These were then visualized under AP and Lateral and were in good position. Screws were then tested, and reliably tested screws tested above 17 mA. The wound was irrigated and attention was turned to decompression and murray placement. Revision decompression was done at T11-L2 for further decompression efforts as well as stenotic features noted. High speed alfreda, curettes and kerrison rongures were used to perform this. There were no injuries and there was good decompression noted. We then moved on to murray placement. Attention was then drawn to murray placement and further reduction. Rods were selected, measured, cut and bent to appropriate lordosis. They were then secured into pelvic screws b/l. Sequential reduction then done into each screw and set screw placed. Set screws were then final tightened and lateral image showed good lordosis reduction with increase in LL. We then placed cross connectors and murray to murray connectors at S1 and T11 for quad murray construct to span his previous fracture area and pseudoarthrosis area. These outrigger rods were then secured in position with set screws and final tightened. Imaging confirmed good placement. Once rods were secured, cross links were selected and placed and final tightened. The wound was then irrigated with 3L Ancef irrigation, 3L gentamicin irrigation and 3L NSS. Surgicel was then placed on the dura, which was inspecte d and had no injury. Then, in the posterolateral gutter was placed, MagnatOs, Autograft and allograft. This was impacted into position and surgical placed over it. 2g Vanco powder was then placed deep in the wound. Two deep, subfascial drains were placed and secured with a stitch. We then proceeded with layered closure. #1 PDS placed in the deep fascia followed by a running unidirectional 0 stratafix. 0 Vicryl placed in the deep subq, 2-0 placed in the superficial subq and tisha placed in the skin. The wound edges approximated very well. The wound was then cleaned with ETOH and dr essed with optifoam dressing, drain sponges and tegaderms. Drains sewed into position. IONM confirmed no changes. The patient was then transferred off the [facility] spine table to their hospital bed a-traumatically. Drains continued to hold suction. The patient was then extubated and transferred to the ICU in stable condition having tolerated the procedure with no complications.
== END 2023-10-03 12:34 | disposition home health service (06) | DRG 456 ==
LOC: 4SSUR 13:00 → UNDOADMIN 13:00 → UNDODISIN 10-03 12:34
PROVIDERS: ADMIT Orthopaedic Surgery; ATTEND Orthopaedic Surgery
PROC: XRG New Technology, Joints, Fusion (ICD-10-PCS; 2023-09-28)
PROC: 0RG7071 Fusion of 2 to 7 Thoracic Vertebral Joints with Autologous Tissue Substitute, Posterior Approach, Posterior Column, Open Approach (ICD-10-PCS; 2023-09-28)
PROC: 0SG1071 Fusion of 2 or more Lumbar Vertebral Joints with Autologous Tissue Substitute, Posterior Approach, Posterior Column, Open Approach (ICD-10-PCS; 2023-09-28)
PROC: 0RGA071 Fusion of Thoracolumbar Vertebral Joint with Autologous Tissue Substitute, Posterior Approach, Posterior Column, Open Approach (ICD-10-PCS; 2023-09-28)
PROC: 0SG3071 Fusion of Lumbosacral Joint with Autologous Tissue Substitute, Posterior Approach, Posterior Column, Open Approach (ICD-10-PCS; 2023-09-28)
PROC: 0SP004Z Removal of Internal Fixation Device from Lumbar Vertebral Joint, Open Approach (ICD-10-PCS; principal; 2023-09-28 13:15)
DX: M96.0 Pseudarthrosis after fusion or arthrodesis (principal); G93.41 Metabolic encephalopathy; J18.9 Pneumonia, unspecified organism; M97.8XXA Periprosthetic fracture around other internal prosthetic joint, initial encounter; M54.16 Radiculopathy, lumbar region; Z88.8 Allergy status to other drugs, medicaments and biological substances
CPT/HCPCS: 36600; 80048; 80053; 85025; 94640; 94660; 94760

== ENCOUNTER 2023-10-10 15:57 | Observation (INO) | payer MEDICARE, BC ==
[2023-10-10] MEDS ORDERED: SODIUM CHLORIDE 0.9% 1,000 ML BAG ONE (16:53)
[2023-10-10] MEDS ORDERED: HYDROcodone/APAP 5-325MG 1 EACH TAB ONE (20:11)
--- NOTE | 2023-11-02 17:18 | CT ---
Patient Chu Mix ID [id number] Order # EXAMINATION TYPE: CT brain wo con DATE OF EXAM: 10/10/2023 COMPARISON: No comparison available on downtime PACS. INDICATION: Hallucinations DLP: 1213.4 mGycm, Automated exposure control for dose reduction was used. CONTRAST: None CT of the brain is performed utilizing 3 mm thick sections through the posterior fossa and 3 mm thick sections through the remaining calvarium. Study is performed within 24 hours of arrival to the hosp ital. No abnormal hyperdensity is present to suggest an acute intracranial hemorrhage. No mass lesion is evident. No acute infarcts are evident. Ventricles and sulci are appropriate for the patient age. Paranasal sinuses and mastoid air cells within the [id number] are clear. IMPRESSION: 1. No acute intracranial process. Follow up MRI can be performed as clinically indicated.
--- NOTE | 2023-11-03 11:10 | MR ---
Patient: Chu Mix Ordering Physician: Unknown, Unknown ID: [id number] Phone, Pager: Phone: N /A Pager: N/A : [phone] Age/Gender: 73Y, M Primary Location: N/A Procedure: MR brain wo con Guillermo dy Date: 10/13/2023 2:39:06 PM EXAMINATION TYPE: MR brain wo con DATE OF EXAM: 10/13/2023 4:13 PM CLINICAL INDICATION: Altered mental status COMPARISON: 04/10/2021. TECHNIQUE: Multi planar, multi sequence imaging was performed through the brain including: T1, T2, In version recovery, Diffusion weighted imaging, and gradient echo imaging. No gadolinium was given. FINDINGS: Mild cerebral atrophy with proportional dilation of ventricular system. Scattered foci of high T2 s ignal intensity are seen within the periventricular white matter. Midline structures show no abnormal ity. Diffusion-weighted imaging shows no evidence of restricted diffusion. The susceptibility weighte d images do not reveal any evidence for micro-hemorrhage. The bone marrow signal is within normal limits. Paranasal sinuses and mastoid air cells: No significant paranasal sinus disease. Visualized orbits: Bilateral aphakia IMPRESSION: 1. No evidence of intracranial mass or acute/subacute infarct. 2. Nonspecific white matter changes, likely secondary to small vessel ischemic disease.
--- NOTE | 2023-11-11 08:47 | XR ---
Patient Chu Mix ID [id number] Order # EXAMINATION TYPE: XR chest 2V DATE OF EXAM: 10/10/2023 COMPARISON: No comparison available on downtime PACS. INDICATION: Acute mental status changes TECHNIQUE: Frontal and lateral views of the chest are obtained. FINDINGS: The heart size is normal. The pulmonary vasculature is somewhat prominent. Mild infiltrate may be in the left infrahilar region. Correlate for atelectasis or pulmonary edema. E nydia pneumonia could be considered. Follow-up as clinically indicated. IMPRESSION: 1. Mild left infrahilar infiltrate. Correlate for atelectasis, pneumonia, or pulmonary edema.
--- NOTE | 2023-11-20 14:01 | PN ---
PROGRESS NOTE DATE OF SERVICE: 10/14/2023 LOCATION: 463. REASON FOR FOLLOWUP: Pneumonia. INTERVAL HISTORY: The patient is afebrile. The patient is more awake and alert today. He is breathing comfortably. He denies having any chest pain. No worsening cough or sputum production. No abdominal pain. No diarrhea. PHYSICAL EXAMINATION: VITAL SIGNS: Blood pressure 136/95, pulse of 98, temperature 98. GENERAL DESCRIPTION: This is a middle-aged male, up in the chair, in no distress. RESPIRATORY: Unlabored breathing. Coarse breath sounds bilaterally. HEART: S1, S2. Regular rate and rhythm. ABDOMEN: Soft, no tenderness. EXTREMITIES: No edema in the feet. LABORATORY DATA: White count 9.67, creatinine 1.68. Platelet count is down to 82. DIAGNOSTIC IMPRESSION: 1. The patient with admission to hospital with shortness of breath, hypoxemia concerning for pneumonia. Antibiotics have been switched over to Augmentin concerning for thrombocytopenia. White count as well as platelet count will be monitored closely. 2. Oral thrush. Nystatin swish and swallow has been added. 3. Care discussed with admitting physician. MMODL / IJN: [id number] /
--- NOTE | 2023-11-20 14:01 | CONS ---
Due to stenosis 10/12/2023 CONSULTATION REASON FOR CONSULTATION: Pneumonia. HISTORY OF PRESENT ILLNESS: The patient is a 73-year-old male with multiple comorbidities. Apparently, the patient is status post T9 decompression and fusion for which subsequently, the patient had to be sent to the local [facility]. The patient was sent back to the ER concerning for confusion, hallucination, and shortness of breath. Apparently, the patient's symptoms started the day the patient was sent back to the hospital. The patient's workup did include a chest x-ray concerning for perihilar infiltrate. He did have mildly elevated white count concerning for pneumonia. He was admitted to the hospital. Infectious Disease was consulted for further management. The patient at the time of my evaluation knows that he is in the hospital. He denies having any headache or URI symptoms. Has been complaining of shortness of breath. He did have a cough, not bringing up any sputum though. Denies any nausea or vomiting. No choking on food. No abdominal pain or any diarrhea. REVIEW OF SYSTEMS: Positive points have been mentioned in HPI. Rest of systems negative. PAST MEDICAL HISTORY: Reviewed. PAST SURGICAL HISTORY: Reviewed. SOCIAL HISTORY: Reviewed. FAMILY HISTORY: Reviewed. ALLERGIES: Budesonide and formoterol. MEDICATIONS: Currently, the patient is on: 1. Rocephin 1 g daily. 2. Zithromax. 3. Senna. 4. Prednisone. 5. Metoprolol. 6. Fluticasone. 7. Flomax. 8. Aspirin. 9. Atorvastatin. 10.Amlodipine. PHYSICAL EXAMINATION: VITAL SIGNS: Blood pressure is 120/78 with a pulse of 90, temperature 98.3. He is 97% on 3 L. GENERAL DESCRIPTION: An elderly male, lying in bed, in no distress. No tachypnea or accessory muscle of respiration use. HEENT: Shows slight pallor. No scleral icterus. Oral mucous membranes moist. NECK: Trachea central. No thyromegaly. LUNGS: Unlabored breathing. Coarse breath sounds bilaterally. No wheeze. HEART: S1, S2. Regular rate. ABDOMEN: Soft. No tenderness. EXTREMITIES: No edema in feet. SKIN: No rashes. No masses palpable. NEUROLOGIC: The patient is awake, alert, oriented x2. Mood and affect normal. LABORATORY DATA: Hemoglobin is 11.8, white count of 11.53 with a left shift. BUN of 27, creatinine 0.79. ALT was normal. Initial white count was 12.21. Chest x-ray, mild left infrahilar infiltrate. CT of the brain negative for any bleed. DIAGNOSTIC IMPRESSION/PLAN: 1. The patient presented to the hospital with mental status changes, hallucination, and also shortness of breath. He did have cough, mildly elevated white count, abnormal x-ray concerning for pneumonia, possible community-acquired, possible gram- negative. 2. We will try to obtain sputum for Gram stain and culture. 3. Obtain CRP and procalcitonin level. 4. Continue with Rocephin and Zithromax while awaiting for the workup to be completed. 5. We will follow on clinical condition and culture to further adjust medication if needed. Thank you for this consultation. We will follow this patient along with you. MMMARYL / IJN: [id number] / MTDD
--- NOTE | 2023-11-20 14:07 | PN ---
PROGRESS NOTE DATE OF SERVICE: 10/15/2023 LOCATION: 453. REASON FOR FOLLOWUP: 1. Pneumonia. 2. Oral thrush. INTERVAL HISTORY: The patient is afebrile. The patient is breathing comfortably. The patient denies having any chest pain or shortness of breath. No worsening cough. No abdominal pain or diarrhea. PHYSICAL EXAMINATION: VITAL SIGNS: Blood pressure 139/68, pulse 102, temperature 97.8. He is 95% on 2 L nasal cannula. GENERAL DESCRIPTION: This is an elderly male, up in the bed, in no distress. RESPIRATORY SYSTEM: Unlabored breathing. Coarse breath sounds. No wheeze. HEART: S1 and S2. Regular rate and rhythm. ABDOMEN: Soft. No tenderness. LABORATORY DATA: White count is 11.24, creatinine 0.68. Platelet count normalized. DIAGNOSTIC IMPRESSION AND PLAN: 1. The patient presented to the hospital with increasing shortness of breath, hypoxemia, concerning for pneumonia, currently on oral Augmentin, to continue. 2. Oral thrush. Continue with Diflucan and nystatin swish and swallow. MMODL / IJN: [id number] /
--- NOTE | 2023-11-25 12:37 | PN ---
Date of service is 10/13/2023 PROGRESS NOTE LOCATION: [facility]. REASON FOR FOLLOWUP: Pneumonia. INTERVAL HISTORY: The patient is afebrile. The patient is more awake and alert today. The patient is breathing comfortably. No chest pain, shortness of breath, or cough. No abdominal pain or diarrhea. PHYSICAL EXAMINATION: VITAL SIGNS: Blood pressure 146/77 with a pulse of 70, temperature 97..8. He is 97% on 2 L nasal cannula. GENERAL DESCRIPTION: This is an elderly male up in the chair, in no distress. RESPIRATORY: Unlabored breathing. Clear to auscultation anteriorly. HEART: S1, S2. Regular rate and rhythm. ABDOMEN: Soft, nontender. EXTREMITIES: No edema in feet. LABORATORY DATA: Currently pending. DIAGNOSTIC IMPRESSION AND PLAN: The patient with admission to the hospital concerning for increasing shortness of breath, hypoxemia with abnormal x-ray suspicious for pneumonia. We are currently waiting for the blood work and culture to be finalized. Continue Rocephin and Zithromax and monitor clinical course closely. MMODL / IJN: [id number] / MTDD
== END 2023-10-16 11:36 ==
LOC: EC 15:57 → DISRECOVER 20:02 → UNDOADMIN 10-11 21:08 → UNDOADMOB 10-11 21:08 → DISRECOVER 10-11 21:08 → UNDODISOB 10-16 11:36
PROVIDERS: ADMIT Hospitalist; ATTEND Hospitalist
CPT/HCPCS: 51701; 70450; 70551; 71046; 82607; 84145; 93005; 94640; 94760; 99285

== ENCOUNTER → 2024-02-03 | Outpatient (CLI) | payer MEDICARE, BC ==
--- NOTE | 2024-02-03 11:51 | MM ---
Reason for Exam: Additional evaluation requested from prior study. Last mammogram was performed 1 year(s) and 3 month(s) ago. Indicated Problems: Pain of the left side for 7 Month(s). Prior Study Comparison: 11/07/2022 Bilateral MG 3D diag mammo w/cad [facility], [facility]. 11/07/2022 Bilateral US breast limited [facility], [facility]. Tissue Density: The breasts are almost entirely fatty. Findings: Analyzed By CAD. The pattern is symmetrical. No significant interval change from prior study is present. No suspicious groups of microcalcifications, spiculated or lobular masses, architectural distortion or other secondary signs of malignancy are mammographically apparent. Overall Assessment: Negative, BI-RAD 1 Management: Clinical Management of both breasts in 1 year. A negative mammogram report should not preclude additional follow up of suspicious palpable abnormalities. Patient should continue monthly self breast exam. A clinical breast exam by your physician is recommended on an annual basis and results should be correlated with mammographic findings. Note on Keyanna scores and lifetime risk: 1. A Keyanna score greater than 3% is considered moderate risk. If this is the case, consider specialist referral to assess eligibility for a risk reducing agent. 2. If overall lifetime risk for the development of breast cancer is 20% or higher, the patient may qualify for future screening with alternating mammogram and breast MRI. [facility], , 02/03/2024 11:48 AM. Electronically signed and approved by: Yves Kitchen D.O. Radiologis
== END | disposition home or self-care (01) ==
LOC: RADMAMWWP 10:28
PROVIDERS: ATTEND Internal Medicine
DX: R92.8 Other abnormal and inconclusive findings on diagnostic imaging of breast (principal)
CPT/HCPCS: 77066; G0279; 77062

== ENCOUNTER 2024-04-27 11:41 | Day surgery (SDC) | payer MEDICARE, BC ==
[~2024-04-27 11:41] MED LIST changes: -ACETAMINOPHEN TAB 500 MG TAB PO PRN; +ATROPINE SULFATE 0.4 MG/ML 1 ML VIAL IM ONE; -GABAPENTIN 300 MG CAP PO PRN; +LACTATED RINGERS 1,000 ML IV SCH; -ONDANSETRON 4 MG/2 ML VIAL IVP PRN; -TRANEXAMIC 1,000 MG/100ML-NACL 1,000 MG in SALINE 1 100ML.BAG IVPB PRN; -ceFAZolin 3 GM in SODIUM CHLORIDE 0.9% 100 ML IVPB PRN
[2024-04-27] MEDS: IV FLUID CONTINUATION 1,000 ML IV ONE (12:04)
[2024-04-27] MEDS ORDERED: LIDOCAINE 1% INJ 10MG/ML (20 ML MDV) ONE (12:29)
[2024-04-27] MEDS ORDERED: PROPOFOL 10 MG/ML 20 ML VIAL IV ONE (12:29)
[2024-04-27 12:30] VITALS: TEMP 97.8
[2024-04-27] MEDS: LIDOCAINE 2% INJ 20 MG/ML INTRATRACH ONE (12:38)
[2024-04-27 12:44] LABS: Glucose,Whole Blood 100 mg/dL (70-110)
[2024-04-27 13:21] VITALS: BP 116/57; PULSE 97; RESP 16
--- NOTE | 2024-04-27 19:11 | PCN ---
PROCEDURE NOTE PROCEDURES: Bronchoscopy, airway examination, therapeutic lavage, bronchoalveolar lavage, right middle lobe. PREOPERATIVE DIAGNOSIS: Pneumonia. POSTOP DIAGNOSIS: Pneumonia. SEMICONDUCTOR MANUFACTURING TECHNICIAN: Dr. Beltran. FIRST E[employer] SALESPERSON: Dr. Shilpa Zhou. DESCRIPTION OF PROCEDURE: There was informed consent and universal timeout, and the patient's procedure took place in room #1 [facility]. After the patient was adequately sedated, the bronchoscope was placed through the right nostril, and passed through the nasopharynx into the oropharynx. The hypopharynx was identified. The hypopharyngeal structures, including the anterior commissure, true cords, false cords, piriform sinuses, right and left, vallecula, and epiglottis all appeared normal. The glottic opening was topicalized. Next the bronchoscope was pushed through the glottic opening into the trachea. The trachea appeared relatively normal, although there were some secretions noted throughout the trachea. There was no dominant mass or tumor. Tracheal sugar was sharp. The right and left mainstem were topicalized. The right upper lobe and its 3 segments, right middle lobe and its 2 segments, right lower lobe and its 5 segments, left upper lobe and its 2 segments, lingula and its 2 segments and the left lower lobe and its 4 segments, all had similar appearance of diffuse airway erythema and hyperemia. There was some vascular prominence. There was some mild mucosal friability. There was no dominant mass or tumor. There were secretions noted throughout, mostly in the right middle lobe. The bronchoscope was then wedged into the right middle lobe. We did a formal BAL. 30 mL of turbid fluid was recovered. There was no immediate complication. The patient tolerated the procedure well. The fluid will be sent for analysis, and the patient will be recovered. The bronchoscope, obviously, was withdrawn. MMODL / IJN: [id number] /
[2024-04-28 05:28] LABS: Appearance,BF Cloudy (Clear); RBC, Body Fluid 113 /UL (0-2000)
[2024-04-28 09:49] LABS: Nucleated Cells, Body Fluid 263 /UL
== END 2024-04-27 13:35 | disposition home or self-care (01) ==
LOC: ORWHC2ENDO 11:41
PROVIDERS: ATTEND Internal Medicine Critical Care Medicine
DX: J18.9 Pneumonia, unspecified organism (principal); J44.1 Chronic obstructive pulmonary disease with (acute) exacerbation; J84.10 Pulmonary fibrosis, unspecified; K21.9 Gastro-esophageal reflux disease without esophagitis; J30.9 Allergic rhinitis, unspecified; I25.10 Atherosclerotic heart disease of native coronary artery without angina pectoris; E78.00 Pure hypercholesterolemia, unspecified; I21.A9 Other myocardial infarction type; J43.9 Emphysema, unspecified; L50.9 Urticaria, unspecified; I11.9 Hypertensive heart disease without heart failure; M19.90 Unspecified osteoarthritis, unspecified site; Z87.01 Personal history of pneumonia (recurrent); Z87.09 Personal history of other diseases of the respiratory system; Z86.718 Personal history of other venous thrombosis and embolism; Z86.711 Personal history of pulmonary embolism; Z87.891 Personal history of nicotine dependence; Z79.82 Long term (current) use of aspirin; Z79.899 Other long term (current) drug therapy; Z88.8 Allergy status to other drugs, medicaments and biological substances; Z88.0 Allergy status to penicillin
CPT/HCPCS: 87798 ×3; 87496; 87498; 87529; 88108; 88305; 89050; 87502; 87634; 87070; 87205; 87116; 87102; 87206; 87635; 31624; J2003 ×2; J2704